=== PATIENT | female | born 1970 | race Caucasian/White ===

== ENCOUNTER → 2016-10-22 | Outpatient (CLI) | payer OTHER ==
[~2016-10-22] MED LIST: /ADVA50050 INH; ALBUPOW9 XX; AMOX400S7 PO; ASOPT OU; ATROVENT NEBULIZER INH; AYR SALINE; BETA10003 PO; BRIN1OPH OU; CETI10TA OR; CLON1TAB PO; CYMB60CA3 PO; DOXY100T PO; FISH1000 PO; FOLI400T PO; IBUP80TA PO; IBUPPOW25 OR; IPRASOL4 INH; KLON2TAB PO; LEVO50TA PO; LORTABELIX PO; LUMI0.01 OU; LUMIGAN EYE OU; MULTCAP PO; NASOCORT; PRED20TA PO; PRED20TAB PO; PROTPAK PO; ROCE1INJ4 IV; TYLE325T5 PO; VIIB40TA PO; VITA200016 PO; ZANT150T PO; ZOFR4TAB3 PO; albuterol inhaler INH; atrovent INH; nebulizer INH; singulair OR
--- NOTE | 2016-10-28 23:53 | ECWPNPC ---
PATIENT NAME: PHOENIX AGUILAR : 1970 GENDER: FEMALE VISIT DATE: 10/22/2016 DISCHARGE DATE: 10/22/16 1253 VISIT LOCKED DATE TIME: PHYSICIAN: RIP SIMMS PHYSICIAN PAGER NO: [phone] RESOURCE: RIP SIMMS REASON FOR APPOINTMENT 1. BACK PAIN HISTORY OF PRESENT ILLNESS NEW PATIENT CONSULT: WHEN DID YOUR PAIN FIRST START? . BRIEFLY DESCRIBE HOW YOUR PAIN STARTED? . HOW DOES YOUR PAIN CHANGE WITH TIME? . DOES YOUR PAIN AWAKEN YOU FROM SLEEP? . HOW MANY HOURS OF SLEEP DO YOU NORMALLY GET? . ANY DIAGNOSTIC TESTING? . FACILITY WHERE TESTS WERE DONE? ____. PAIN TREATMENT TREATMENT YES TREATMENT YES CANCER HAVE YOU EVER HAD ANY TYPE OF CANCER?NO HAVE YOU EVER HAD ANY TYPE OF CANCER?NO NO. 46 YEAR OLD FEMALE PATIENT WITH HISTORY OF CHRONIC BACK PAIN. PATIENT DESCRIBES THE PAIN ACHING, BURNING, TENDER, THROBBING, SORE, AND IT COMES AND GOES WITH A PAIN SCORE OF 5/10. PATIENT REPORTS THAT SITTING IN A CERTAIN WAY WILL CAUSE BOTH LEGS TO GO NUMB. PATIENT REPORTS THAT SHE GOES TO [facility] FOR HER NECK PAIN. PATIENT STATES THAT SHE HAS DIFFICULTIES SLEEPING AT NIGHT. WHEN SHE WAKES UP SHE HAS SHOULDER AND HIP PAIN AND THAT SHE HAS SINUS PROBLEMS. PATIENT STATES THAT SHE GETS MIGRAINES THAT CAN LAST MORE THAN 4 HOURS A DAY AND UP TO 20 DAYS IN A MONTH. PATIENT STATES THAT SHE HAS A C PAP MACHINE. PATIENT REPORTS THAT LIFTING ITEMS CAN INCREASE HER PAIN. PATIENT STATES THAT A HEATING PAD DOES PROVIDE TEMPORARY RELIEF FOR HER BACK AND NECK AREA WHEN APPLIED IN THOSE AREA. PATIENT DENIES UNEXPLAINABLE WEIGHT LOSS, FEVER, CHILLS, NEW CHANGES ON HER URINARY OR BOWEL CONTROL. PAIN SCREENING: PATIENT HAS A COMPLAINT OF ACUTE OR CHRONIC PAIN YES YES PATIENT HAS A COMPLAINT OF ACUTE OR CHRONIC PAIN YES YES FALL RISK SCREENING: SCREENING :NO FALLS IN THE PAST YEAR :NO FALLS IN THE PAST YEAR SCREENING :NO FALLS IN THE PAST YEAR :NO FALLS IN THE PAST YEAR BACK INVENTORY: QUESTIONNAIRE ASSESSEDTBD ASSESSEDTBD QUESTIONNAIRE ASSESSEDTBD ASSESSEDTBD SCORE VALUE CALCULATED TBD VALUE CALCULATED TBD SCORE VALUE CALCULATED TBD VALUE CALCULATED TBD CURRENT MEDICATIONS TAKING VIIBRYD 40 MG TABLET 1 TAB WITH FOOD PO ONCE DAILY (DR. ALLRED) TAKING KLONOPIN 2 MG. TABLET 1 TABLET ORALLY 2MG. THREE TIMES A DAY TAKING MIRALAX _ POWDER 1 PACKET ORALLY DAILY NEEDED TAKING NASACORT AQ 55 MCG/ACT AEROSOL 2 PUFFS IN EACH NOSTRIL NASALLY ONCE A DAY TAKING SALINE 0.65 % (SOLN) SOLUTION DIRECTED NASALLY TWICE A DAY TAKING ALBUTEROL SULFATE HFA 108 (90 BASE) MCG/ACT AEROSOL SOLUTION 2 PUFFS INHALATION NEEDED TAKING ALBUTEROL SULFATE (2.5 MG/3ML) 0.083% NEBULIZATION SOLUTION 3 ML INHALATION THREE TIMES A DAY NEEDED TAKING TIZANIDINE HCL 4 MG TABLET 1 TABLET NEEDED ORALLY EVERY 8 HRS TAKING RIZATRIPTAN BENZOATE 10 MG TABLET DISPERSIBLE 1 TABLET ON THE TONGUE AND ALLOW TO DISSOLVE NEEDED ONE TIME ORALLY ONCE A DAY TAKING VITAMIN D 2000 UNIT TABLET 1 TAB(S) ORALLY ONCE A DAY TAKING FERROUS SULFATE 325 (65 FE) MG TABLET 1 TABLET ORALLY ONCE A DAY TAKING ATROVENT HFA 17 MCG/ACT AEROSOL SOLUTION 2 PUFFS INHALATION FOUR TIMES A DAY TAKING TUSSIONEX PENNKINETIC ER 10-8 MG/5ML SUSPENSION EXTENDED RELEASE 5 ML NEEDED ORALLY (ISTOP REFERENCE #: [id number] ) EVERY 12 HRS PRN COUGH TAKING TESSALON PERLES 100 MG CAPSULE 1 CAPSULE NEEDED ORALLY THREE TIMES A DAY TAKING SUDAFED 12 HOUR 120 MG TABLET EXTENDED RELEASE 12 HOUR 1 TABLET NEEDED ORALLY EVERY 12 HRS TAKING MAY HAVE WEEKLY ALLERGY INJECTIONS TAKING BACTROBAN 2% OINTMENT SMALL AMONT TO HER NOSTRILS APPLIED TOPICALLY TWICE A DAY NEEDED TAKING SINGULAIR 10 MG TABLET 1 TABLET IN THE MORNING ORALLY ONCE A DAY TAKING LEVOTHYROXINE SODIUM 50 MCG TABLET 1 TABLET EVERY MORNING ON AN EMPTY STOMACH ORALLY ONCE A DAY TAKING IPRATROPIUM-ALBUTEROL 0.5-2.5 (3) MG/3ML SOLUTION 3 ML INHALATION FOUR TIMES A DAY NEEDED TAKING PANTOPRAZOLE SODIUM 20 MG TABLET DELAYED RELEASE 1 TABLET ORALLY ONCE A DAY TAKING ZOFRAN ODT 4 MG TABLET DISPERSIBLE ALLOW 1 TABLET TO DISSOLVE ON TONGUE TWO TIMES A DAY NEEDED TAKING MUCINEX MAXIMUM STRENGTH 1200 MG TABLET EXTENDED RELEASE 12 HOUR 1 TABLET NEEDED ORALLY TWICE A DAY NEEDED TAKING DORZOLAMIDE HCL 2 % SOLUTION 1 DROP INTO AFFECTED EYE OPHTHALMIC THREE TIMES A DAY NOT-TAKING ACETAMINOPHEN-CODEINE 300-30 MG TABLET 1 TABLET NEEDED ORALLY QID PRN NOT-TAKING PREDNISONE 20 MG TABLET DIRECTED ORALLY 3 TABS QD X 3 DAYS, THEN 2 TABS QD X 3 DAYS, THEN 1 TAB QD X 3 DAYS, THEN 1/2 TAB QD X 3 DAYS, THEN STOP NOT-TAKING DOXYCYCLINE 40 MG CAPSULE DELAYED RELEASE 1 CAPSULE ON AN EMPTY STOMACH IN THE MORNING ORALLY ONCE A DAY NOT-TAKING ZYRTEC ALLERGY 10 MG TABLET 1 TABLET ORALLY ONCE A DAY NOT-TAKING BETA CAROTENE 85752 UNIT CAPSULE 1 CAPSULE ORALLY ONCE A DAY NOT-TAKING MULTIVITAMINS OTC TABLET 1 TAB ORALLY DAILY NOT-TAKING VITAMIN C 500 MG TABLET 2 TABS ORALLY ONCE A DAY NOT-TAKING DOXYCYCLINE MONOHYDRATE 100 MG CAPSULE 1 CAPSULE ORALLY EVERY 12 HRS NOT-TAKING ZITHROMAX Z-SONIA 250 MG TABLET 2 TABLETS ON THE FIRST DAY, THEN 1 TABLET DAILY FOR 4 DAYS ORALLY ONCE A DAY NOT-TAKING PREDNISONE 20 MG TABLET 4 TABLETS A DAY ---THEN TAPERING OFF ORALLY TAPERING NOT-TAKING DULERA 200-5 MCG/ACT AEROSOL 2 PUFFS INHALATION TWICE A DAY NOT-TAKING ACETAMINOPHEN-CODEINE #3 300-30 MG TABLET 1 TABLET NEEDED ORALLY FOUR TIMES DAILY NEEDED MEDICATION LIST REVIEWED AND RECONCILED WITH THE PATIENT PAST MEDICAL HISTORY MRSA CHRONIC SINUSITIS AND FOLLICULITIS GLAUCOMA ASTHMA - SEVERE PERSISTENT ANXIETY - FOLLOWED BY COMMUNITY CLINIC DEPRESSION HYPOTHYROIDISM ASTHMA MARCOS ON CPAP ECHO 01/10/14 - MILD CONCENTRIC LVH, NORMAL LV SYSTOLIC FUNCTION LVEF = 65%, GRADE 1 LV DIASTOLIC DYSFUNCTION, MODERATE LA DILATION, MILD MITRAL ANNUAL CALCIFICATION MILD FIBROFATTY LIVER PER US 2000 ABNORMAL PAPWITH + HPV (DR. MCNEIL) SMOKER OBESITY RIGHT ROTATOR CUFF TEAR - FOLLOWS WITH ORTHO (HAD W/U FOR ADRENAL INSUFFICIENCY 10/18; CORTISOL SL LOW DUE TO STEROID TX FOR ASTHMA BY , W/U NEG FOR ADDISONS) CHRONIC SINUSITIS--SAW ENT IF WTWN, CT SINUSES 07/18. SAW ENT IN [place], NO RECORDS, TOLD THAT HAS SINUS POLYP ALLERGIES SULFA (FOR ALLERGY USE ONLY): UNKNOWN: ALLERGY ASTEPRO: EAR PAIN AND SWELLING: ALLERGY BIAXIN: DIARRHEA: SIDE EFFECTS ZYVOX: MUSCLE SPASMS: CONTRAINDICATION METFORMIN (FROM DR WISE FOR WT LOSS): DIARRHEA: SIDE EFFECTS SURGICAL HISTORY C SECTIONX2 OVARIAN CYST RESECTION D&C SINUS SURGERYX2 TRIGGER POINT INJECTIONS AND BOTOX FAMILY HISTORY FATHER: MOTHER: ALIVE SIBLINGS: ALIVE SON(S): ALIVE DAUGHTER(S): ALIVE SOCIAL HISTORY GENERAL: TOBACCO USE ARE YOU A:NONSMOKER ARE YOU A:NONSMOKER ARE YOU A:FORMER SMOKER HOW LONG HAS IT BEEN SINCE YOU LAST SMOKED?< 1 MONTH SMOKING CESSATION INFORMATION GIVEN07/06/2016 PAIN CLINIC PFS, CLERGY, PUBLIC HEALTH REFERRALS CLERGY REFERRAL NEEDED?NO WAS THE PROVIDER NOTIFIED OF ANY PERTINENT INFO?NO PFS REFERRAL NEEDED?NO PUBLIC HEALTH REFERRAL NEEDED?NO CLERGY REFERRAL NEEDED?NO WAS THE PROVIDER NOTIFIED OF ANY PERTINENT INFO?NO PFS REFERRAL NEEDED?NO PUBLIC HEALTH REFERRAL NEEDED?NO PSYCHOLOGICAL HX TREATMENTNO TREATMENTNO ALCOHOL OR DRUG TREATMENTNO TREATMENTNO PATIENT: ____, ____. ADVANCED DIRECTIVES HEALTH CARE PROXY?NO POWER OF TEACHER PRESCHOOL?NO HEALTH CARE PROXY?NO POWER OF TEACHER PRESCHOOL?NO SCREENING/ASSESSMENT TOOL NUTRITION ASSESSEDYES ARE YOU ON ANY SPECIAL DIET?NO ANY SIGNIFICANT CHANGES RELATED TO EATING, WEIGHT GAIN/LOSS, OR BOWEL HABITS?NO IF YES, IS YOUR PRIMARY CARE PROVIDER AWARE OF THIS?NO NUTRITION ASSESSEDYES ARE YOU ON ANY SPECIAL DIET?NO ANY SIGNIFICANT CHANGES RELATED TO EATING, WEIGHT GAIN/LOSS, OR BOWEL HABITS?NO IF YES, IS YOUR PRIMARY CARE PROVIDER AWARE OF THIS?NO SPECIAL NEEDS LEVEL OF CARE? SELF, GLASSES: NO, CONTACTS: NO, HEARING AIDS: NO, DENTURES: NO, WALKER: NO, CANE: NO, WHEELCHAIR: NO, REFERRALS NEEDED: NO, LEVEL OF CARE? SELF, GLASSES: NO, CONTACTS: NO, HEARING AIDS: NO, DENTURES: NO, WALKER: NO, CANE: NO, WHEELCHAIR: NO, REFERRALS NEEDED: NO. 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 DIET: REGULAR. EXERCISE: GYM/WEEKLY. MARITAL STATUS: .. OTHERS AT HOME: SPOUSE, MOTHER, CHILDREN. PETS: 1 DOG (MILO). YARSANISM: NO RASTAFARI BELIEFS THAT WOULD IMPACT HEALTH CARE. LANGUAGE: GREENLANDIC. LEARNING BARRIERS / SPECIAL NEEDS CHANGE FROM LAST VISIT?NO BARRIERS TO LEARNING?NO HEARING IMPAIRED?NO VISION IMPAIRED?YES :CORRECTIVE LENSES COGNITIVELY IMPAIRED?NO READINESS TO LEARN?YES LEARNING PREFERENCES?YES :TAPES/VIDEOS, BOOKLETS, HANDOUTS LEARNING CAPABILITIES PRESENT?YES EMOTIONAL BARRIERS?NO TRAVEL OUTSIDE US: NO. HOUSING: RENTS HOUSE. 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 HOSPITALIZATION/MAJOR DIAGNOSTIC PROCEDURE RELATED TO SURGERIES REVIEW OF SYSTEMS CONSTITUTIONAL: ANY CHANGE IN YOUR MEDICAL CONDITION? NO, NO . CHILLS NO, NO . FEVER NO, NO . INFECTION: DO YOU HAVE NEW INFECTIONS? NO, NO . DO YOU HAVE HISTORY OF MRSA? NO, NO . MUSCULOSKELETAL: ANY NEW PATTERNS OF PAIN OR NUMBNESS? NO, NO . SYTEMIC LUPUS NO, NO . GASTROENTEROLOGY: ANY NEW CHANGE IN BOWEL CONTROL? NO, NO . BARRETTS ESOPHAGUS NO, NO . CIRRHOSIS NO, NO . HEPATITIS NO, NO . LIVER FAILURE NO, NO . ACID REFLUX NO, NO . UNEXPLAINED WEIGHT LOSS NO, NO . GENITOURINARY: ANY NEW CHANGE IN BLADDER CONTROL? NO, NO . IS THERE A CHANCE YOU COULD BE ? NO, NO . HEMATOLOGY/LYMPH: DO YOU TAKE ANY BLOOD THINNERS? (FOR EXAMPLE- COUMADIN, PLAVIX, AGGRENOX, PLATEL, PRADAXA, OR XARELTO) NO, NO . WHEN WAS YOUR LAST DOSE? DATE: TIME: , DATE: TIME: . LOW PLATELET COUNT NO, NO . SICKLE CELL DISEASE NO, NO . VON WILLIEBRANDS NO, NO . FACTOR V LEIDEN NO, NO . THALLASEMIA NO, NO . ANEMIA NO, NO . EASY BRUISING NO, NO . NEUROLOGY: HAVE YOU FALLEN IN THE PAST 6 MONTHS? NO, NO . ANY NEW EXTREMITY NUMBNESS OR WEAKNESS? NO, NO . HEAD INJURY NO, NO . DEMENTIA NO, NO . CEREBRAL PALSY NO, NO . MULTIPLE SCLEROSIS NO, NO . DIZZINESS NO, NO . HEADACHE NO, NO . STROKES NO, NO . VERTIGO NO, NO . CARDIOLOGY: DO YOU HAVE A PACEMAKER OR DEFIBRILLATOR? NO, NO . ANGINA NO, NO . HEART ATTACK NO, NO . HEART SURGERY NO, NO . CONGESTIVE HEART FAILURE/FLUID OVERLOAD NO, NO . CHEST PAIN NO, NO . HIGH BLOOD PRESSURE NO, NO . IRREGULAR HEART BEAT NO, NO . RESPIRATORY: HAVE YOU BEEN SICK IN THE PAST WEEK? NO, NO . FEVER NO, NO . FLU LIKE SYMPTOMS? NO, NO . CPAP NO, NO . BYPAP NO, NO . ASTHMA NO, NO . EMPHYSEMA NO, NO . CHRONIC LUNG DISEASES NO, NO . SHORTNESS OF BREATH ON EXERTION NO, NO . DO YOU USE ANY TYPE OF TOBACCO (SMOKE, SMOKELESS, CHEW)? NO, NO . COUGH NO, NO . SNORING NO, NO . INTEGUMENTARY: DO YOU HAVE ANY RASHES OR OPEN SORES? NO, NO . ALLERGIC/IMMUNO: ARE YOU ALLERGIC TO SHELLFISH OR IV DYE? NO, NO . ANY NEW ALLERGIES? NO, NO . PSYCHIATRIC: DO YOU HAVE THOUGHTS OF HURTING YOURSELF OR SOMEONE ELSE? NO, NO . ARE YOU ABUSED, NEGLECTED, OR IN AN UNSAFE ENVIRONMENT? NO, NO . ENDOCRINOLOGY: ARE YOU DIABETIC? NO, NO . THYROID DISORDER NO, NO . OTHER: DO YOU NEED ANY PRESCRIPTIONS? NO, NO . IF YES, PLEASE LIST: ____, ____ . ANY NEW PROBLEMS WITH YOUR MEDICATIONS? NO, NO . WHEN DID YOU LAST EAT? ____, ____ . WHEN DID YOU LAST DRINK? ____, ____ . WHAT DID YOU LAST DRINK? ____, ____ . NAME OF PERSON DRIVING YOU HOME? ____, ____ . DO YOU HAVE ANY OTHER QUESTIONS OR CONCERNS NO, NO . REVIEWED BY: PROVIDER: RIP SIMMS MD . VITAL SIGNS WT 187.8 LBS, HT 60 IN, BMI 36.67 INDEX, BP 114/69 MM HG, HR 75 /MIN, RR 16 /MIN, TEMP 98.7 F, OXYGEN SAT % 98, NA INITIALS TL 1054, REVIEWED BY: KG. EXAMINATION : PATIENT IS ALERT O X 3 AND COOPERATIVE. PATIENT AMBULATES WITH AN ANTALGIC GAIT. PATIENT IS ABLE TO ABDUCT UPPER EXTREMITIES AT 100 DEGREES. PATIENT IS ABLE TO FLEX HER BACK AT 45 DEGREES AND CAN NOT EXTEND HER BACK. PATIENT LEFT LEG IS WEAKER BOTH AT EXTENSION AND FLEXION COMPARED TO THE RIGHT LEG. ASSESSMENTS MIGRAINE, UNSPECIFIED, NOT INTRACTABLE, WITHOUT STATUS MIGRAINOSUS - G43.909 (PRIMARY) LOW BACK PAIN - M54.5 FIBROMYALGIA - M79.7 MYALGIA - M79.1 INTERVERTEBRAL DISC DISORDERS WITH RADICULOPATHY, LUMBAR REGION - M51.16 TREATMENT MIGRAINE, UNSPECIFIED, NOT INTRACTABLE, WITHOUT STATUS MIGRAINOSUS REFILL TIZANIDINE HCL CAPSULE, 6 MG, 1 TABLET NEEDED, ORALLY, BEFORE BEDTIME MAY REPEAT IN 4 HRS, 30 DAY(S), 50, REFILLS 1 NOTES: WE DISCUSSED SEVERAL ISSUES WITH MS. AGUILAR PAIN MANAGEMENT CASE. AT THIS TIME THE PATIENT WILL RECEIVE A REFILL OF HER TIZANIDINE WITH AN INCREASE DOSAGE. PATIENT IS A GOOD CANDIDATE FOR A TIGER POINT INJECTION AT THIS TIME WITHOUT STEROIDS. WE DISCUSSED THE RISK, ALTERNATIVES AND BENEFITS AND THE PATIENT WOULD LIKE TO PROCEED. PATIENT TO FOLLOW UP WITH MAE PIERCE IN 3 WEEKS. INSTRUCTIONS WERE GIVEN, QUESTIONS WERE ANSWERED, PATIENT REPORTS UNDERSTANDING AND AGREES WITH THE PLAN. I, FAITH STEARNS, DOCUMENTED THE ABOVE INFORMATION ACTING A SCRIBE FOR DR. SIMMS. I HAVE REVIEWED THE ABOVE DOCUMENT, WRITTEN BY FAITH CHOIBAndrea AND I VERIFY THAT IT IS ACCURATE. DEAR SREEKANTH Smith-THANK YOU FOR YOUR KIND REFERRAL OF MS. AGUILAR. IF YOU WOULD LIKE TO DISCUSS HER CASE WITH ME, PLEASE CALL ME AT THE PAIN CENTER AT [phone]. PROCEDURE CODES FA211 ESTABILISHED PATIENT [facility] CHARGE G8730 PAIN ASSESS POS TOOL F/U PLAN DOC G8427 DOC MEDS VERIFIED W/PT OR RE FOLLOW UP TPI PENDING APPROVAL ELECTRONICALLY SIGNED BY RIP SIMMS MD ON 10/28/2016 AT 09:56 PM EST DISCLAIMER : THIS IS A VISIT SUMMARY EXTRACTED FROM THE [employer] CHART. IT IS NOT A COPY OF THE [employer] PROGRESS NOTE. MTDD
== END ==
LOC: M PAIN 11:20
PROVIDERS: ATTEND Anesthesiology
DX: G89.29 Other chronic pain (principal); G43.909 Migraine, unspecified, not intractable, without status migrainosus; M54.5 Low back pain; M79.7 Fibromyalgia; M51.16 Intervertebral disc disorders with radiculopathy, lumbar region; J45.909 Unspecified asthma, uncomplicated; H40.9 Unspecified glaucoma; F32.9 Major depressive disorder, single episode, unspecified; E03.9 Hypothyroidism, unspecified; G47.30 Sleep apnea, unspecified; E66.9 Obesity, unspecified; Z68.36 Body mass index [BMI] 36.0-36.9, adult; Z88.2 Allergy status to sulfonamides; Z88.8 Allergy status to other drugs, medicaments and biological substances; Z79.899 Other long term (current) drug therapy; Z98.890 Other specified postprocedural states; Z86.14 Personal history of Methicillin resistant Staphylococcus aureus infection; Z87.891 Personal history of nicotine dependence

== ENCOUNTER → 2016-10-27 | Outpatient (CLI) | payer OTHER ==
[~2016-10-27] MED LIST changes: +BUPIVACAINE HCL 0.25% 10 ML VIAL As Ordered ONE; +BUPIVACAINE HCL 0.25% 30 ML VIAL As Ordered ONE; +diazePAM 5 MG TAB As Ordered ONE; +oxyCODONE 5MG TAB As Ordered ONE
--- NOTE | 2016-10-30 23:33 | ECWPNPC ---
PATIENT NAME: PHOENIX AGUILAR : 1970 GENDER: FEMALE VISIT DATE: 10/27/2016 DISCHARGE DATE: 10/27/16 1106 VISIT LOCKED DATE TIME: PHYSICIAN: RIP SIMMS PHYSICIAN PAGER NO: [phone] RESOURCE: RIP SIMMS REASON FOR APPOINTMENT 1. TPI LOW BACK NO STERIODS CURRENT MEDICATIONS TAKING TIZANIDINE HCL 6 MG CAPSULE 1 TABLET NEEDED ORALLY BEFORE BEDTIME MAY REPEAT IN 4 HRS, NOTES: 10/26 2PM TAKING VIIBRYD 40 MG TABLET 1 TAB WITH FOOD PO ONCE DAILY (DR. ALLRED), NOTES: 10/27 4AM TAKING KLONOPIN 2 MG. TABLET 1 TABLET ORALLY 2MG. THREE TIMES A DAY, NOTES: 10/27 4AM TAKING MIRALAX _ POWDER 1 PACKET ORALLY DAILY NEEDED, NOTES: 2 DAYS AGO TAKING NASACORT AQ 55 MCG/ACT AEROSOL 2 PUFFS IN EACH NOSTRIL NASALLY ONCE A DAY, NOTES: 1 MONTH TAKING SALINE 0.65 % (SOLN) SOLUTION DIRECTED NASALLY TWICE A DAY, NOTES: 2-3 WEEKS AGO TAKING ALBUTEROL SULFATE HFA 108 (90 BASE) MCG/ACT AEROSOL SOLUTION 2 PUFFS INHALATION NEEDED, NOTES: 10/27 3AM TAKING ALBUTEROL SULFATE (2.5 MG/3ML) 0.083% NEBULIZATION SOLUTION 3 ML INHALATION THREE TIMES A DAY NEEDED, NOTES: 1 MONTH TAKING RIZATRIPTAN BENZOATE 10 MG TABLET DISPERSIBLE 1 TABLET ON THE TONGUE AND ALLOW TO DISSOLVE NEEDED ONE TIME ORALLY ONCE A DAY, NOTES: 2 MONBTHS TAKING VITAMIN D 2000 UNIT TABLET 1 TAB(S) ORALLY ONCE A DAY, NOTES: 10/27 3AM TAKING FERROUS SULFATE 325 (65 FE) MG TABLET 1 TABLET ORALLY ONCE A DAY, NOTES: 2 WEEKS AGO TAKING ATROVENT HFA 17 MCG/ACT AEROSOL SOLUTION 2 PUFFS INHALATION FOUR TIMES A DAY, NOTES: 10/27 4AM TAKING TUSSIONEX PENNKINETIC ER 10-8 MG/5ML SUSPENSION EXTENDED RELEASE 5 ML NEEDED ORALLY (ISTOP REFERENCE #: [id number] ) EVERY 12 HRS PRN COUGH, NOTES: APRIL TAKING TESSALON PERLES 100 MG CAPSULE 1 CAPSULE NEEDED ORALLY THREE TIMES A DAY, NOTES: APRIL TAKING SUDAFED 12 HOUR 120 MG TABLET EXTENDED RELEASE 12 HOUR 1 TABLET NEEDED ORALLY EVERY 12 HRS, NOTES: APRIL TAKING MAY HAVE WEEKLY ALLERGY INJECTIONS TAKING BACTROBAN 2% OINTMENT SMALL AMONT TO HER NOSTRILS APPLIED TOPICALLY TWICE A DAY NEEDED, NOTES: APRIL TAKING SINGULAIR 10 MG TABLET 1 TABLET IN THE MORNING ORALLY ONCE A DAY, NOTES: 10/27 4AM TAKING LEVOTHYROXINE SODIUM 50 MCG TABLET 1 TABLET EVERY MORNING ON AN EMPTY STOMACH ORALLY ONCE A DAY, NOTES: 10/27 4AM TAKING IPRATROPIUM-ALBUTEROL 0.5-2.5 (3) MG/3ML SOLUTION 3 ML INHALATION FOUR TIMES A DAY NEEDED TAKING PANTOPRAZOLE SODIUM 20 MG TABLET DELAYED RELEASE 1 TABLET ORALLY ONCE A DAY, NOTES: 2 DAYS AGO TAKING ZOFRAN ODT 4 MG TABLET DISPERSIBLE ALLOW 1 TABLET TO DISSOLVE ON TONGUE TWO TIMES A DAY NEEDED , NOTES: 2 DAYS AGO TAKING MUCINEX MAXIMUM STRENGTH 1200 MG TABLET EXTENDED RELEASE 12 HOUR 1 TABLET NEEDED ORALLY TWICE A DAY NEEDED, NOTES: 2 DAYS TAKING DORZOLAMIDE HCL 2 % SOLUTION 1 DROP INTO AFFECTED EYE OPHTHALMIC THREE TIMES A DAY, NOTES: 2 DAYS AGO NOT-TAKING ACETAMINOPHEN-CODEINE 300-30 MG TABLET 1 TABLET NEEDED ORALLY QID PRN NOT-TAKING PREDNISONE 20 MG TABLET DIRECTED ORALLY 3 TABS QD X 3 DAYS, THEN 2 TABS QD X 3 DAYS, THEN 1 TAB QD X 3 DAYS, THEN 1/2 TAB QD X 3 DAYS, THEN STOP NOT-TAKING DOXYCYCLINE 40 MG CAPSULE DELAYED RELEASE 1 CAPSULE ON AN EMPTY STOMACH IN THE MORNING ORALLY ONCE A DAY NOT-TAKING ZYRTEC ALLERGY 10 MG TABLET 1 TABLET ORALLY ONCE A DAY NOT-TAKING BETA CAROTENE 10705 UNIT CAPSULE 1 CAPSULE ORALLY ONCE A DAY NOT-TAKING MULTIVITAMINS OTC TABLET 1 TAB ORALLY DAILY NOT-TAKING VITAMIN C 500 MG TABLET 2 TABS ORALLY ONCE A DAY NOT-TAKING DOXYCYCLINE MONOHYDRATE 100 MG CAPSULE 1 CAPSULE ORALLY EVERY 12 HRS NOT-TAKING ZITHROMAX Z-SONIA 250 MG TABLET 2 TABLETS ON THE FIRST DAY, THEN 1 TABLET DAILY FOR 4 DAYS ORALLY ONCE A DAY NOT-TAKING PREDNISONE 20 MG TABLET 4 TABLETS A DAY ---THEN TAPERING OFF ORALLY TAPERING NOT-TAKING DULERA 200-5 MCG/ACT AEROSOL 2 PUFFS INHALATION TWICE A DAY NOT-TAKING ACETAMINOPHEN-CODEINE #3 300-30 MG TABLET 1 TABLET NEEDED ORALLY FOUR TIMES DAILY NEEDED MEDICATION LIST REVIEWED AND RECONCILED WITH THE PATIENT PAST MEDICAL HISTORY MRSA CHRONIC SINUSITIS AND FOLLICULITIS GLAUCOMA ASTHMA - SEVERE PERSISTENT ANXIETY - FOLLOWED BY COMMUNITY CLINIC DEPRESSION HYPOTHYROIDISM ASTHMA MARCOS ON CPAP ECHO 01/10/14 - MILD CONCENTRIC LVH, NORMAL LV SYSTOLIC FUNCTION LVEF = 65%, GRADE 1 LV DIASTOLIC DYSFUNCTION, MODERATE LA DILATION, MILD MITRAL ANNUAL CALCIFICATION MILD FIBROFATTY LIVER PER US 2000 ABNORMAL PAPWITH + HPV (DR. MCNEIL) SMOKER OBESITY RIGHT ROTATOR CUFF TEAR - FOLLOWS WITH ORTHO (HAD W/U FOR ADRENAL INSUFFICIENCY 10/18; CORTISOL SL LOW DUE TO STEROID TX FOR ASTHMA BY , W/U NEG FOR ADDISONS) CHRONIC SINUSITIS--SAW ENT IF WTWN, CT SINUSES 07/18. SAW ENT IN [place], NO RECORDS, TOLD THAT HAS SINUS POLYP ALLERGIES SULFA (FOR ALLERGY USE ONLY): UNKNOWN: ALLERGY ASTEPRO: EAR PAIN AND SWELLING: ALLERGY BIAXIN: DIARRHEA: SIDE EFFECTS ZYVOX: MUSCLE SPASMS: CONTRAINDICATION METFORMIN (FROM DR WISE FOR WT LOSS): DIARRHEA: SIDE EFFECTS SOLU-MEDROL: TACHYCARDIA: SIDE EFFECTS VITAL SIGNS WT 184 LBS, HT 60 IN, BMI 35.93 INDEX, BP 96/72 MM HG, HR 86 /MIN, RR 16 /MIN, TEMP 97.1 F, OXYGEN SAT % 98, SAFE IN ENV? (Y/N) Y, NA INITIALS TL 0939, REVIEWED BY: DEVAN. ASSESSMENTS MYALGIA - M79.1 (PRIMARY) PROCEDURES PN TRIGGER POINT INJECTION NO STEROIDS PRE PROCEDURE DIAGNOSIS 1. MYALGIA 2. PAIN AT BILATERAL LOW BACK AREA POST PROCEDURE DIAGNOSIS 1. MYALGIA 2. PAIN AT BILATERAL LOW BACK AREA PROCEDURE TRIGGER POINT INJECTION AT BILATERAL LOW BACK AREA SURGEON DR. RIP SIMMS ENVIRONMENTAL COMPLIANCE SPECIALIST NONE ANESTHESIA LOCAL PRE PROCEDURE NOTE 46 YEAR-OLD PATIENT WITH HISTORY OF CHRONIC PAIN AT RIGHT AND LEFT LOW BACK AREA. I EVALUATED THE PATIENT AND REVIEWED THE CHART. THERE IS EVIDENCE OF BANDS OF TISSUE WITH RESTRICTION OF MOVEMENT AND PRESENCE OF TRIGGER POINT AT THE AFFECTED AREA. I WENT OVER THE RISKS, ALTERNATIVES, AND BENEFITS ASSOCIATED WITH THIS PROCEDURE. THE PATIENT WOULD LIKE TO PROCEED AND GAVE CONSENT TO PERFORM THE PROCEDURE. THE PATIENT DENIES UNEXPLAINABLE WEIGHT LOSS, FEVER, CHILLS, OR NEW CHANGES IN URINARY OR BOWEL CONTROL. DESCRIPTION OF PROCEDURE THE PATIENT WAS BROUGHT TO THE PROCEDURE ROOM AND PLACED IN THE SITTING POSITION. THE AREA WAS CLEANED WITH ALCOHOL. THE PROCEDURE WAS DONE USING [employer] STERILE TECHNIQUES. I CHECKED LATERALITY AND THE LEVEL WHERE THE PROCEDURE WAS GOING TO BE PERFORMED WITH THE PATIENT AND THE SUPPORTING STAFF AT THE MOMENT OF THE TIME OUT IN THE PROCEDURE ROOM. USING A 25-GAUGE NEEDLE, TRIGGER POINTS WERE INJECTED WITH A TOTAL OF 40 ML OF BUPIVACAINE 0.25%. AGREED WITH THE PATIENT THE PROCEDURE WAS DONE WITHOUT STEROIDS. THERE WAS NO EVIDENCE OF BLOOD, PARESTHESIA OR CEREBROSPINAL FLUID DURING THE PROCEDURE. THE PATIENT WAS SENT TO THE RECOVERY ROOM. THE PATIENT WAS MOVING THE EXTREMITIES AND DOING WELL. THERE WAS NO COMPLICATION DURING THE PROCEDURE. POST PROCEDURE NOTE THE PATIENT WILL BE SEEN IN A FOLLOW UP IN THE NEXT FEW WEEKS. INSTRUCTIONS WERE GIVEN, QUESTIONS WERE ANSWERED, AND THE PATIENT EXPRESSED UNDERSTANDING AND AGREED WITH THE PLAN. PROCEDURE CODES 11415 INJ TRIGGER POINT 10/05 [facility] FOLLOW UP 3 WEEKS ELECTRONICALLY SIGNED BY RIP SIMMS MD ON 10/30/2016 AT 02:01 PM EST DISCLAIMER : THIS IS A VISIT SUMMARY EXTRACTED FROM THE [employer] CHART. IT IS NOT A COPY OF THE [employer] PROGRESS NOTE. ALLEN
== END ==
LOC: M PAIN 10:00
PROVIDERS: ATTEND Anesthesiology
DX: G89.29 Other chronic pain (principal); M79.1 Myalgia; M54.5 Low back pain; E03.9 Hypothyroidism, unspecified; H40.9 Unspecified glaucoma; J45.909 Unspecified asthma, uncomplicated; J32.9 Chronic sinusitis, unspecified; G47.30 Sleep apnea, unspecified; F41.9 Anxiety disorder, unspecified; F32.9 Major depressive disorder, single episode, unspecified; E66.9 Obesity, unspecified; Z68.35 Body mass index [BMI] 35.0-35.9, adult; Z88.2 Allergy status to sulfonamides; Z88.8 Allergy status to other drugs, medicaments and biological substances; Z79.899 Other long term (current) drug therapy; Z86.14 Personal history of Methicillin resistant Staphylococcus aureus infection; Z87.891 Personal history of nicotine dependence; Z98.890 Other specified postprocedural states

== ENCOUNTER → 2016-11-09 | Outpatient (REF) | payer OTHER ==
[~2016-11-09] MED LIST changes: -BUPIVACAINE HCL 0.25% 10 ML VIAL As Ordered ONE; -BUPIVACAINE HCL 0.25% 30 ML VIAL As Ordered ONE; -diazePAM 5 MG TAB As Ordered ONE; -oxyCODONE 5MG TAB As Ordered ONE
== END ==
LOC: M LAB REF 13:39
PROVIDERS: ATTEND Specialist
DX: Z01.419 Encounter for gynecological examination (general) (routine) without abnormal findings (principal); Z11.51 Encounter for screening for human papillomavirus (HPV)

== ENCOUNTER → 2016-11-11 | Outpatient (CLI) | payer OTHER ==
--- NOTE | 2016-11-11 23:43 | ECWPNPC ---
PATIENT NAME: PHOENIX AGUILAR : 1970 GENDER: FEMALE VISIT DATE: 11/11/2016 DISCHARGE DATE: 11/11/16 1114 VISIT LOCKED DATE TIME: PHYSICIAN: MAE PIERCE PHYSICIAN PAGER NO: [phone] RESOURCE: MAE PIERCE REASON FOR APPOINTMENT 1. LOW BACK-POST TPI HISTORY OF PRESENT ILLNESS HISTORY OF PRESENT ILLNESS: HERE FOR POST PROCEURE F/U.HAD TPI LOW BACK ON 10-27-16.CALLED TWO DAYS LATTER WITH COMPLAINTS OF AGGREVATION OF PAIN.RATING PAIN VAS 4/10.DESCRIBES PAIN INTERMITTENT ACHING AND TIGHTNESS.C/O OF GENERALIZED JOINT PAIN.WILL BE SEEING SURGEON IN REGARDS TO NECK PAIN WITH WHAT PATIENT DESCRIBES HERNIATED DISC. FALL RISK SCREENING: SCREENING :NO FALLS IN THE PAST YEAR CURRENT MEDICATIONS TAKING TIZANIDINE HCL 6 MG CAPSULE 1 TABLET NEEDED ORALLY BEFORE BEDTIME MAY REPEAT IN 4 HRS TAKING VIIBRYD 40 MG TABLET 1 TAB WITH FOOD PO ONCE DAILY (DR. ALLRED) TAKING KLONOPIN 2 MG. TABLET 1 TABLET ORALLY 2MG. THREE TIMES A DAY TAKING MIRALAX _ POWDER 1 PACKET ORALLY DAILY NEEDED TAKING NASACORT AQ 55 MCG/ACT AEROSOL 2 PUFFS IN EACH NOSTRIL NASALLY ONCE A DAY, NOTES: 1 MONTH TAKING SALINE 0.65 % (SOLN) SOLUTION DIRECTED NASALLY TWICE A DAY, NOTES: 2-3 WEEKS AGO TAKING ALBUTEROL SULFATE HFA 108 (90 BASE) MCG/ACT AEROSOL SOLUTION 2 PUFFS INHALATION NEEDED TAKING ALBUTEROL SULFATE (2.5 MG/3ML) 0.083% NEBULIZATION SOLUTION 3 ML INHALATION THREE TIMES A DAY NEEDED TAKING RIZATRIPTAN BENZOATE 10 MG TABLET DISPERSIBLE 1 TABLET ON THE TONGUE AND ALLOW TO DISSOLVE NEEDED ONE TIME ORALLY ONCE A DAY TAKING VITAMIN D 2000 UNIT TABLET 1 TAB(S) ORALLY ONCE A DAY TAKING ATROVENT HFA 17 MCG/ACT AEROSOL SOLUTION 2 PUFFS INHALATION FOUR TIMES A DAY TAKING TUSSIONEX PENNKINETIC ER 10-8 MG/5ML SUSPENSION EXTENDED RELEASE 5 ML NEEDED ORALLY (ISTOP REFERENCE #: [id number] ) EVERY 12 HRS PRN COUGH, NOTES: APRIL TAKING TESSALON PERLES 100 MG CAPSULE 1 CAPSULE NEEDED ORALLY THREE TIMES A DAY TAKING SUDAFED 12 HOUR 120 MG TABLET EXTENDED RELEASE 12 HOUR 1 TABLET NEEDED ORALLY EVERY 12 HRS, NOTES: APRIL TAKING MAY HAVE WEEKLY ALLERGY INJECTIONS TAKING BACTROBAN 2% OINTMENT SMALL AMONT TO HER NOSTRILS APPLIED TOPICALLY TWICE A DAY NEEDED, NOTES: APRIL TAKING SINGULAIR 10 MG TABLET 1 TABLET IN THE MORNING ORALLY ONCE A DAY, NOTES: 10/27 4AM TAKING LEVOTHYROXINE SODIUM 50 MCG TABLET 1 TABLET EVERY MORNING ON AN EMPTY STOMACH ORALLY ONCE A DAY, NOTES: 10/27 4AM TAKING IPRATROPIUM-ALBUTEROL 0.5-2.5 (3) MG/3ML SOLUTION 3 ML INHALATION FOUR TIMES A DAY NEEDED TAKING PANTOPRAZOLE SODIUM 20 MG TABLET DELAYED RELEASE 1 TABLET ORALLY ONCE A DAY, NOTES: 2 DAYS AGO TAKING ZOFRAN ODT 4 MG TABLET DISPERSIBLE ALLOW 1 TABLET TO DISSOLVE ON TONGUE TWO TIMES A DAY NEEDED , NOTES: 2 DAYS AGO TAKING MUCINEX MAXIMUM STRENGTH 1200 MG TABLET EXTENDED RELEASE 12 HOUR 1 TABLET NEEDED ORALLY TWICE A DAY NEEDED, NOTES: 2 DAYS TAKING DORZOLAMIDE HCL 2 % SOLUTION 1 DROP INTO AFFECTED EYE OPHTHALMIC THREE TIMES A DAY, NOTES: 2 DAYS AGO TAKING DOXYCYCLINE MONOHYDRATE 100 MG CAPSULE 1 CAPSULE ORALLY EVERY 12 HRS NOT-TAKING FERROUS SULFATE 325 (65 FE) MG TABLET 1 TABLET ORALLY ONCE A DAY, NOTES: 2 WEEKS AGO NOT-TAKING ACETAMINOPHEN-CODEINE 300-30 MG TABLET 1 TABLET NEEDED ORALLY QID PRN NOT-TAKING PREDNISONE 20 MG TABLET DIRECTED ORALLY 3 TABS QD X 3 DAYS, THEN 2 TABS QD X 3 DAYS, THEN 1 TAB QD X 3 DAYS, THEN 1/2 TAB QD X 3 DAYS, THEN STOP NOT-TAKING DOXYCYCLINE 40 MG CAPSULE DELAYED RELEASE 1 CAPSULE ON AN EMPTY STOMACH IN THE MORNING ORALLY ONCE A DAY NOT-TAKING ZYRTEC ALLERGY 10 MG TABLET 1 TABLET ORALLY ONCE A DAY NOT-TAKING BETA CAROTENE 93140 UNIT CAPSULE 1 CAPSULE ORALLY ONCE A DAY NOT-TAKING MULTIVITAMINS OTC TABLET 1 TAB ORALLY DAILY NOT-TAKING VITAMIN C 500 MG TABLET 2 TABS ORALLY ONCE A DAY NOT-TAKING ZITHROMAX Z-SONIA 250 MG TABLET 2 TABLETS ON THE FIRST DAY, THEN 1 TABLET DAILY FOR 4 DAYS ORALLY ONCE A DAY NOT-TAKING PREDNISONE 20 MG TABLET 4 TABLETS A DAY ---THEN TAPERING OFF ORALLY TAPERING NOT-TAKING DULERA 200-5 MCG/ACT AEROSOL 2 PUFFS INHALATION TWICE A DAY NOT-TAKING ACETAMINOPHEN-CODEINE #3 300-30 MG TABLET 1 TABLET NEEDED ORALLY FOUR TIMES DAILY NEEDED MEDICATION LIST REVIEWED AND RECONCILED WITH THE PATIENT PAST MEDICAL HISTORY MRSA CHRONIC SINUSITIS AND FOLLICULITIS GLAUCOMA ASTHMA - SEVERE PERSISTENT ANXIETY - FOLLOWED BY [facility] DEPRESSION HYPOTHYROIDISM ASTHMA MARCOS ON CPAP ECHO 01/10/14 - MILD CONCENTRIC LVH, NORMAL LV SYSTOLIC FUNCTION LVEF = 65%, GRADE 1 LV DIASTOLIC DYSFUNCTION, MODERATE LA DILATION, MILD MITRAL ANNUAL CALCIFICATION MILD FIBROFATTY LIVER PER US 2000 ABNORMAL PAPWITH + HPV (DR. MCNEIL) SMOKER OBESITY RIGHT ROTATOR CUFF TEAR - FOLLOWS WITH ORTHO (HAD W/U FOR ADRENAL INSUFFICIENCY 10/18; CORTISOL SL LOW DUE TO STEROID TX FOR ASTHMA BY , W/U NEG FOR ADDISONS) CHRONIC SINUSITIS--SAW ENT IF WTWN, CT SINUSES 07/18. SAW ENT IN [place], NO RECORDS, TOLD THAT HAS SINUS POLYP ALLERGIES SULFA (FOR ALLERGY USE ONLY): UNKNOWN: ALLERGY ASTEPRO: EAR PAIN AND SWELLING: ALLERGY BIAXIN: DIARRHEA: SIDE EFFECTS ZYVOX: MUSCLE SPASMS: CONTRAINDICATION METFORMIN (FROM DR WISE FOR WT LOSS): DIARRHEA: SIDE EFFECTS SOLU-MEDROL: TACHYCARDIA: SIDE EFFECTS SOCIAL HISTORY GENERAL: TOBACCO USE ARE YOU A:NONSMOKER LEARNING BARRIERS / SPECIAL NEEDS ORIENTED TO PLAN OF CARE: PATIENT, PAIN MANAGEMENT PATIENT, ORIENTED TO PLAN OF CARE: PATIENT, PAIN MANAGEMENT PATIENT. NEW PATIENT PAIN DIARY TODAY'S VISITNOTES FROM 0-10, WHAT LEVEL IS YOUR PAIN TODAY?0 PAIN CLINIC PFS, CLERGY, PUBLIC HEALTH REFERRALS PFS REFERRAL NEEDED?NO CLERGY REFERRAL NEEDED?NO PUBLIC HEALTH REFERRAL NEEDED?NO WAS THE PROVIDER NOTIFIED OF ANY PERTINENT INFO?NO PFS REFERRAL NEEDED?NO CLERGY REFERRAL NEEDED?NO PUBLIC HEALTH REFERRAL NEEDED?NO WAS THE PROVIDER NOTIFIED OF ANY PERTINENT INFO?NO REVIEW OF SYSTEMS CONSTITUTIONAL: ANY CHANGE IN YOUR MEDICAL CONDITION? NO . RECENT ILLNESS DENIES . CHILLS NO . FEVER NO . WEIGHT LOSS DENIES . INFECTION: DO YOU HAVE NEW INFECTIONS? NO . DO YOU HAVE HISTORY OF MRSA? NO . MUSCULOSKELETAL: ANY NEW PATTERNS OF PAIN OR NUMBNESS? NO . GASTROENTEROLOGY: ANY NEW CHANGE IN BOWEL CONTROL? NO . GENITOURINARY: ANY NEW CHANGE IN BLADDER CONTROL? NO . IS THERE A CHANCE YOU COULD BE ? NO . HEMATOLOGY/LYMPH: DO YOU TAKE ANY BLOOD THINNERS? (FOR EXAMPLE- COUMADIN, PLAVIX, AGGRENOX, PLATEL, PRADAXA, OR XARELTO) NO . WHEN WAS YOUR LAST DOSE? DATE: TIME: . NEUROLOGY: HAVE YOU FALLEN IN THE PAST 6 MONTHS? NO . ANY NEW EXTREMITY NUMBNESS OR WEAKNESS? NO . CARDIOLOGY: DO YOU HAVE A PACEMAKER OR DEFIBRILLATOR? NO . CHEST PAIN DENIES . SHORTNESS OF BREATH DENIES . RESPIRATORY: HAVE YOU BEEN SICK IN THE PAST WEEK? NO . FEVER NO . FLU LIKE SYMPTOMS? NO . COUGH NO, DENIES . SHORTNESS OF BREATH DENIES . INTEGUMENTARY: DO YOU HAVE ANY RASHES OR OPEN SORES? NO . ALLERGIC/IMMUNO: ARE YOU ALLERGIC TO SHELLFISH OR IV DYE? NO . ANY NEW ALLERGIES? NO . PSYCHIATRIC: DO YOU HAVE THOUGHTS OF HURTING YOURSELF OR SOMEONE ELSE? NO . ARE YOU ABUSED, NEGLECTED, OR IN AN UNSAFE ENVIRONMENT? NO . ENDOCRINOLOGY: ARE YOU DIABETIC? NO . OTHER: DO YOU NEED ANY PRESCRIPTIONS? NO . IF YES, PLEASE LIST: ____ . ANY NEW PROBLEMS WITH YOUR MEDICATIONS? NO . WHEN DID YOU LAST EAT? ____ . WHEN DID YOU LAST DRINK? ____ . WHAT DID YOU LAST DRINK? ____ . NAME OF PERSON DRIVING YOU HOME? ____ . DO YOU HAVE ANY OTHER QUESTIONS OR CONCERNS NO . REVIEWED BY: PROVIDER: MAE VILLALOBOS . VITAL SIGNS WT 186. LBS, HT 60 IN, BMI 36.32 INDEX, BP 127/67 MM HG, HR 73 /MIN, RR 16 /MIN, TEMP 99.2 F, OXYGEN SAT % 97%, NA INITIALS SC 10:35, REVIEWED BY: KG. EXAMINATION GENERAL EXAMINATION: LUNGS:LUNG SOUNDS ARE CLEAR. HEART:HEART RATE REGULAR. MUSCULOSKELETAL:*, MUSCLE STRENGTH TESTING 5/5 BILATERAL LOWER EXTREMITIES., PALPATION: POSITIVE FOR PAIN OVER L/S SPINE. POSITIVE FOR PAIN OVER L/S PARASPINALS.POSITIVE CONOR TEST BILAT SIJ.POINT TENEDERNESS BILAT. SIJR>L.MULTIPLE AREAS OF JOINT AND MUSCULAR TENDERNESS THROUGHOUT.. DIAGNOSTIC:MRI L/S [id number]-REVIEWED. MRI C-SPINE 09-29-16-REVIEWED. ASSESSMENTS LOW BACK PAIN - M54.5 (PRIMARY) FIBROMYALGIA - M79.7 SACROILIAC JOINT PAIN - M53.3 TREATMENT LOW BACK PAIN REFERRAL TO:[facility] REASON:MULTIPLE JOINT PAIN AND SWELLING R/O INFLAMMATORY ARTHROPATHY SACROILIAC JOINT PAIN INJECTION ANESTHETIC SACROILIAC JOINTMAE PIERCE 11/11/2016 11:08:10 AM > BILAT.SIJ PROCEDURE CODES FA211 ESTABILISHED PATIENT [facility] CHARGE FOLLOW UP 2 WEEKS POST (REASON: BILAT. SIJ) ELECTRONICALLY SIGNED BY GRISELDA ALBA ON 11/11/2016 AT 01:45 PM EST DISCLAIMER : THIS IS A VISIT SUMMARY EXTRACTED FROM THE [facility] CHART. IT IS NOT A COPY OF THE [facility] PROGRESS NOTE. ALLEN
== END ==
LOC: M PAIN 10:00
PROVIDERS: ATTEND Nurse Practitioner Family
DX: Z09 Encounter for follow-up examination after completed treatment for conditions other than malignant neoplasm (principal); G89.29 Other chronic pain; M54.5 Low back pain; M79.7 Fibromyalgia; M53.3 Sacrococcygeal disorders, not elsewhere classified; J32.9 Chronic sinusitis, unspecified; J45.909 Unspecified asthma, uncomplicated; E03.9 Hypothyroidism, unspecified; F41.9 Anxiety disorder, unspecified; F32.9 Major depressive disorder, single episode, unspecified; H40.9 Unspecified glaucoma; G47.30 Sleep apnea, unspecified; E66.9 Obesity, unspecified; Z68.36 Body mass index [BMI] 36.0-36.9, adult; Z88.2 Allergy status to sulfonamides; Z88.8 Allergy status to other drugs, medicaments and biological substances; Z79.899 Other long term (current) drug therapy; Z86.14 Personal history of Methicillin resistant Staphylococcus aureus infection; Z87.891 Personal history of nicotine dependence

== ENCOUNTER → 2016-12-02 | Outpatient (CLI) | payer OTHER ==
[~2016-12-02] MED LIST changes: +BUPIVACAINE HCL 0.25% 30 ML VIAL As Ordered ONE; +ISOVUE-M 300 61% 15ML VIAL (Q9967) As Ordered ONE; +LIDOCAINE 1% SDV INJ 30 ML VIAL As Ordered ONE; +TRIAMCINOLONE ACETONIDE SUSP 40 MG/ML VIAL (J3301) As Ordered ONE; +oxyCODONE 5MG TAB As Ordered ONE
--- NOTE | 2016-12-03 07:15 | REP ---
FLUOROSCOPIC GUIDANCE FOR BILATERAL SI JOINT BLOCK: 12/02/2016 CLINICAL HISTORY: Back pain. Four images from C-arm fluoroscopy provided to Dr. Olvera of the pain clinic are reviewed. Bilateral SI joints were examined with two images for each side, one showing the needle at the lower one-third of the joint space. The other at the upper two-thirds of that joint space. This was for both sides. No other finding. Fluoroscopy time: 23 seconds. Signed by Jerry Damico MD 12/03/2016 04:19 P
--- NOTE | 2016-12-05 23:19 | ECWPNPC ---
PATIENT NAME: PHOENIX AGUILAR : 1970 GENDER: FEMALE VISIT DATE: 12/02/2016 DISCHARGE DATE: 12/02/16 1338 VISIT LOCKED DATE TIME: PHYSICIAN: RIP SIMMS PHYSICIAN PAGER NO: [phone] RESOURCE: RIP SIMMS REASON FOR APPOINTMENT 1. SIJ HISTORY OF PRESENT ILLNESS HISTORY OF PRESENT ILLNESS: PAIN THE PATIENT DESCRIBES THE PAIN... FALL RISK SCREENING: SCREENING :NO FALLS IN THE PAST YEAR CURRENT MEDICATIONS TAKING TIZANIDINE HCL 6 MG CAPSULE 1 TABLET NEEDED ORALLY BEFORE BEDTIME MAY REPEAT IN 4 HRS, NOTES: LAST WEEK TAKES 2MG-4MG. TAKING VIIBRYD 40 MG TABLET 1 TAB WITH FOOD PO ONCE DAILY (DR. ALLRED), NOTES: 12-02-16599 TAKING KLONOPIN 2 MG. TABLET 1 TABLET ORALLY 2MG. THREE TIMES A DAY, NOTES: 12-02-16599 TAKING MIRALAX _ POWDER 1 PACKET ORALLY DAILY NEEDED, NOTES: NEEDED TAKING NASACORT AQ 55 MCG/ACT AEROSOL 2 PUFFS IN EACH NOSTRIL NASALLY ONCE A DAY, NOTES: 1 MONTH TAKING SALINE 0.65 % (SOLN) SOLUTION DIRECTED NASALLY TWICE A DAY, NOTES: 2-3 WEEKS AGO TAKING ALBUTEROL SULFATE HFA 108 (90 BASE) MCG/ACT AEROSOL SOLUTION 2 PUFFS INHALATION NEEDED, NOTES: 12-02-16599 TAKING ALBUTEROL SULFATE (2.5 MG/3ML) 0.083% NEBULIZATION SOLUTION 3 ML INHALATION THREE TIMES A DAY NEEDED, NOTES: NONE TAKING RIZATRIPTAN BENZOATE 10 MG TABLET DISPERSIBLE 1 TABLET ON THE TONGUE AND ALLOW TO DISSOLVE NEEDED ONE TIME ORALLY ONCE A DAY, NOTES: NONE TAKING ATROVENT HFA 17 MCG/ACT AEROSOL SOLUTION 2 PUFFS INHALATION FOUR TIMES A DAY, NOTES: 12-02-16599 TAKING SUDAFED 12 HOUR 120 MG TABLET EXTENDED RELEASE 12 HOUR 1 TABLET NEEDED ORALLY EVERY 12 HRS, NOTES: April MAY HAVE WEEKLY ALLERGY INJECTIONS TAKING SINGULAIR 10 MG TABLET 1 TABLET IN THE MORNING ORALLY ONCE A DAY, NOTES: 12-02-16599 TAKING LEVOTHYROXINE SODIUM 50 MCG TABLET 1 TABLET EVERY MORNING ON AN EMPTY STOMACH ORALLY ONCE A DAY, NOTES: 12-02-16599 TAKING IPRATROPIUM-ALBUTEROL 0.5-2.5 (3) MG/3ML SOLUTION 3 ML INHALATION FOUR TIMES A DAY NEEDED, NOTES: NONE TAKING PANTOPRAZOLE SODIUM 20 MG TABLET DELAYED RELEASE 1 TABLET ORALLY ONCE A DAY, NOTES: NONE TAKING ZOFRAN ODT 4 MG TABLET DISPERSIBLE ALLOW 1 TABLET TO DISSOLVE ON TONGUE TWO TIMES A DAY NEEDED , NOTES: 12-02-16 0600 TAKING MUCINEX MAXIMUM STRENGTH 1200 MG TABLET EXTENDED RELEASE 12 HOUR 1 TABLET NEEDED ORALLY TWICE A DAY NEEDED, NOTES: NONE TAKING VITAMIN D 2000 UNIT TABLET 1 TAB(S) ORALLY ONCE A DAY, NOTES: 11-29-16 TAKING FERROUS SULFATE 325 (65 FE) MG TABLET 1 TABLET ORALLY ONCE A DAY, NOTES: NOT-TAKING TUSSIONEX PENNKINETIC ER 10-8 MG/5ML SUSPENSION EXTENDED RELEASE 5 ML NEEDED ORALLY (ISTOP REFERENCE #: [id number] ) EVERY 12 HRS PRN COUGH, NOTES: APRIL NOT-TAKING TESSALON PERLES 100 MG CAPSULE 1 CAPSULE NEEDED ORALLY THREE TIMES A DAY NOT-TAKING BACTROBAN 2% OINTMENT SMALL AMONT TO HER NOSTRILS APPLIED TOPICALLY TWICE A DAY NEEDED, NOTES: APRIL NOT-TAKING DORZOLAMIDE HCL 2 % SOLUTION 1 DROP INTO AFFECTED EYE OPHTHALMIC THREE TIMES A DAY, NOTES: NONE NOT-TAKING MUPIROCIN 2 % OINTMENT APPLY SMALL AMOUNT TOPICALLY TO NOSTRILS TWO TIMES A DAY NEEDED , NOTES: NONE NOT-TAKING ZYRTEC ALLERGY 10 MG TABLET 1 TABLET ORALLY ONCE A DAY NOT-TAKING BETA CAROTENE 10681 UNIT CAPSULE 1 CAPSULE ORALLY ONCE A DAY NOT-TAKING MULTIVITAMINS OTC TABLET 1 TAB ORALLY DAILY NOT-TAKING VITAMIN C 500 MG TABLET 2 TABS ORALLY ONCE A DAY NOT-TAKING ZITHROMAX Z-SONIA 250 MG TABLET 2 TABLETS ON THE FIRST DAY, THEN 1 TABLET DAILY FOR 4 DAYS ORALLY ONCE A DAY NOT-TAKING PREDNISONE 20 MG TABLET 4 TABLETS A DAY ---THEN TAPERING OFF ORALLY TAPERING NOT-TAKING DULERA 200-5 MCG/ACT AEROSOL 2 PUFFS INHALATION TWICE A DAY NOT-TAKING ACETAMINOPHEN-CODEINE #3 300-30 MG TABLET 1 TABLET NEEDED ORALLY FOUR TIMES DAILY NEEDED DISCONTINUED DOXYCYCLINE MONOHYDRATE 100 MG CAPSULE 1 CAPSULE ORALLY EVERY 12 HRS DISCONTINUED ACETAMINOPHEN-CODEINE 300-30 MG TABLET 1 TABLET NEEDED ORALLY QID PRN DISCONTINUED PREDNISONE 20 MG TABLET DIRECTED ORALLY 3 TABS QD X 3 DAYS, THEN 2 TABS QD X 3 DAYS, THEN 1 TAB QD X 3 DAYS, THEN 1/2 TAB QD X 3 DAYS, THEN STOP DISCONTINUED DOXYCYCLINE 40 MG CAPSULE DELAYED RELEASE 1 CAPSULE ON AN EMPTY STOMACH IN THE MORNING ORALLY ONCE A DAY MEDICATION LIST REVIEWED AND RECONCILED WITH THE PATIENT PAST MEDICAL HISTORY MRSA CHRONIC SINUSITIS AND FOLLICULITIS GLAUCOMA ASTHMA - SEVERE PERSISTENT ANXIETY - FOLLOWED BY [facility] DEPRESSION HYPOTHYROIDISM ASTHMA MARCOS ON CPAP ECHO 01/10/14 - MILD CONCENTRIC LVH, NORMAL LV SYSTOLIC FUNCTION LVEF = 65%, GRADE 1 LV DIASTOLIC DYSFUNCTION, MODERATE LA DILATION, MILD MITRAL ANNUAL CALCIFICATION MILD FIBROFATTY LIVER PER US 2000 ABNORMAL PAPWITH + HPV (DR. MCNEIL) SMOKER OBESITY RIGHT ROTATOR CUFF TEAR - FOLLOWS WITH ORTHO (HAD W/U FOR ADRENAL INSUFFICIENCY 10/18; CORTISOL SL LOW DUE TO STEROID TX FOR ASTHMA BY , W/U NEG FOR ADDISONS) CHRONIC SINUSITIS--SAW ENT IF WTWN, CT SINUSES 07/18. SAW ENT IN [place], NO RECORDS, TOLD THAT HAS SINUS POLYP ALLERGIES SULFA (FOR ALLERGY USE ONLY): UNKNOWN: ALLERGY ASTEPRO: EAR PAIN AND SWELLING: ALLERGY BIAXIN: DIARRHEA: SIDE EFFECTS ZYVOX: MUSCLE SPASMS: CONTRAINDICATION METFORMIN (FROM DR WISE FOR WT LOSS): DIARRHEA: SIDE EFFECTS SOLU-MEDROL: TACHYCARDIA: SIDE EFFECTS SOCIAL HISTORY GENERAL: TOBACCO USE ARE YOU A:NONSMOKER LEARNING BARRIERS / SPECIAL NEEDS ORIENTED TO PLAN OF CARE: PATIENT, PAIN MANAGEMENT PATIENT, ORIENTED TO PLAN OF CARE: PATIENT, PAIN MANAGEMENT PATIENT. NEW PATIENT PAIN DIARY TODAY'S VISITNOTES FROM 0-10, WHAT LEVEL IS YOUR PAIN TODAY?0 PAIN CLINIC PFS, CLERGY, PUBLIC HEALTH REFERRALS PFS REFERRAL NEEDED?NO CLERGY REFERRAL NEEDED?NO PUBLIC HEALTH REFERRAL NEEDED?NO WAS THE PROVIDER NOTIFIED OF ANY PERTINENT INFO?NO PFS REFERRAL NEEDED?NO CLERGY REFERRAL NEEDED?NO PUBLIC HEALTH REFERRAL NEEDED?NO WAS THE PROVIDER NOTIFIED OF ANY PERTINENT INFO?NO REVIEW OF SYSTEMS CONSTITUTIONAL: ANY CHANGE IN YOUR MEDICAL CONDITION? NO . CHILLS NO . FEVER NO . INFECTION: DO YOU HAVE NEW INFECTIONS? NO . DO YOU HAVE HISTORY OF MRSA? NO . MUSCULOSKELETAL: ANY NEW PATTERNS OF PAIN OR NUMBNESS? YES, PAIN HER LEGS IS GETTING WORSE . GASTROENTEROLOGY: ANY NEW CHANGE IN BOWEL CONTROL? NO . GENITOURINARY: ANY NEW CHANGE IN BLADDER CONTROL? NO . IS THERE A CHANCE YOU COULD BE ? NO . HEMATOLOGY/LYMPH: DO YOU TAKE ANY BLOOD THINNERS? (FOR EXAMPLE- COUMADIN, PLAVIX, AGGRENOX, PLATEL, PRADAXA, OR XARELTO) NO . WHEN WAS YOUR LAST DOSE? DATE: TIME: . NEUROLOGY: HAVE YOU FALLEN IN THE PAST 6 MONTHS? NO . ANY NEW EXTREMITY NUMBNESS OR WEAKNESS? NO . CARDIOLOGY: DO YOU HAVE A PACEMAKER OR DEFIBRILLATOR? NO . RESPIRATORY: HAVE YOU BEEN SICK IN THE PAST WEEK? NO . FEVER NO . FLU LIKE SYMPTOMS? NO . COUGH NO . INTEGUMENTARY: DO YOU HAVE ANY RASHES OR OPEN SORES? NO . ALLERGIC/IMMUNO: ARE YOU ALLERGIC TO SHELLFISH OR IV DYE? NO . ANY NEW ALLERGIES? NO . PSYCHIATRIC: DO YOU HAVE THOUGHTS OF HURTING YOURSELF OR SOMEONE ELSE? NO . ARE YOU ABUSED, NEGLECTED, OR IN AN UNSAFE ENVIRONMENT? NO . ENDOCRINOLOGY: ARE YOU DIABETIC? NO . OTHER: DO YOU NEED ANY PRESCRIPTIONS? NO . IF YES, PLEASE LIST: ____ . ANY NEW PROBLEMS WITH YOUR MEDICATIONS? NO . WHEN DID YOU LAST EAT? [id number] . WHEN DID YOU LAST DRINK? 12-02-16 09 . WHAT DID YOU LAST DRINK? WATER . NAME OF PERSON DRIVING YOU HOME? ANANDA . DO YOU HAVE ANY OTHER QUESTIONS OR CONCERNS NO . REVIEWED BY: PROVIDER: . VITAL SIGNS WT 184.4 LBS, HT 60 IN, BMI 36.01 INDEX, BP 124/74 MM HG, HR 93 /MIN, RR 16 /MIN, TEMP 98.1 F, OXYGEN SAT % 97%, NA INITIALS SC 10:57, REVIEWED BY: CM. ASSESSMENTS SACROILIITIS, NOT ELSEWHERE CLASSIFIED - M46.1 (PRIMARY) PROCEDURES PN SI PRE PROCEDURE DIAGNOSIS SACROILIITIS, SACROILIAC JOINT DYSFUNCTION POST PROCEDURE DIAGNOSIS SACROILIITIS, SACROILIAC JOINT DYSFUNCTION PROCEDURE BILATERAL SACROILIAC JOINT BLOCK SURGEON DR. RIP SIMMS WASTEWATER TREATMENT PLANT OPERATOR NONE ANESTHESIA LOCAL PRE PROCEDURE NOTE PATIENT WITH HISTORY OF CHRONIC LOW BACK PAIN. I EVALUATED THE PATIENT AND REVIEWED THE CHART. I WENT OVER THE RISKS, ALTERNATIVES, AND BENEFITS ASSOCIATED WITH THIS PROCEDURE. THE PATIENT WOULD LIKE TO PROCEED AND GAVE CONSENT TO PERFORM THE PROCEDURE. THE PATIENT DENIES UNEXPLAINABLE WEIGHT LOSS, FEVER, CHILLS, OR NEW CHANGES IN URINARY OR BOWEL CONTROL DESCRIPTION OF PROCEDURE THE PATIENT WAS BROUGHT TO THE PROCEDURE ROOM AND PLACED IN THE PRONE POSITION. THE LUMBOSACRAL AREA WAS CLEANED WITH CHLORAPREP SOLUTION AND DRAPED ASEPTICALLY. THE PROCEDURE WAS DONE UNDER STERILE CONDITIONS. I CHECKED LATERALITY AND THE LEVEL WHERE THE PROCEDURE WAS GOING TO BE PERFORMED WITH THE PATIENT AND THE SUPPORTING STAFF AT THE MOMENT OF THE TIME OUT IN THE PROCEDURE ROOM. UNDER FLUOROSCOPIC GUIDANCE, TARGET POINT WAS SELECTED AT THE LOWER BORDER OF THE RIGHT AND LEFT SACROILIAC JOINT. TARGET POINT WAS SELECTED AFTER MEDIAL ROTATION AND TILT OF THE MAGNIFIER OF THE C-ARM. LIDOCAINE WAS USED TO NUMB THE SKIN AND SUBCUTANEOUS TISSUE BELOW IT. A SPINAL NEEDLE, 22-GAUGE, WAS ADVANCED UNDER FLUOROSCOPIC GUIDANCE AND FOLLOWING PATIENT FEEDBACK UNTIL THE TARGET AREA WAS TOUCHED. THE POSITION OF THE NEEDLE WAS VERIFIED WITH AP AND LATERAL VIEWS. AFTER PROPER POSITION OF THE NEEDLE WAS ACHIEVED, ISOVUE M DYE 30%, 0.25 ML, WAS INJECTED SHOWING SPREAD OF THE DYE. THEN, A SOLUTION OF 20 MG OF KENALOG WAS INJECTED IN RIGHT JOINT WITH 3 ML OF BUPIVACAINE 0.125%. THERE WAS NO EVIDENCE OF BLOOD, PARESTHESIA OR CEREBROSPINAL FLUID DURING THE PROCEDURE. THE PATIENT WAS SENT TO THE RECOVERY ROOM. THE PATIENT WAS MOVING THE EXTREMITIES AND DOING WELL. THERE WAS NO COMPLICATION DURING THE PROCEDURE. FLUOROSCOPY TIME WAS 23 SECONDS POST PROCEDURE NOTE THE PATIENT WILL BE SEEN IN A FOLLOW UP IN THE NEXT FEW WEEKS. INSTRUCTIONS WERE GIVEN, QUESTIONS WERE ANSWERED, AND THE PATIENT EXPRESSED UNDERSTANDING AND AGREED WITH THE PLAN. I, MELLISA MACIAS, DOCUMENTED THE ABOVE INFORMATION ACTING A SCRIBE FOR DR. SIMMS. I, DR. SIMMS, HAVE REVIEWED THE ABOVE DOCUMENT, SCRIBED BY MELLISA MACIAS, AND I VERIFY THAT IT IS [facility] FLUORO GUIDANCE (PAIN)[id number] PROCEDURE CODES 23788 INJECT SACROILIAC JOINT 6045F RADXPS IN END [id number] PXD DISPOSITION & COMMUNICATION FOLLOW UP 3 WEEKS ELECTRONICALLY SIGNED BY RIP SIMMS MD ON 12/05/2016 AT 03:55 PM EST DISCLAIMER : THIS IS A VISIT SUMMARY EXTRACTED FROM THE [employer] CHART. IT IS NOT A COPY OF THE [employer] PROGRESS NOTE. MTDD
== END ==
LOC: M PAIN 11:10
PROVIDERS: ATTEND Anesthesiology
DX: G89.29 Other chronic pain (principal); M54.5 Low back pain; M46.1 Sacroiliitis, not elsewhere classified; H40.9 Unspecified glaucoma; E03.9 Hypothyroidism, unspecified; J45.50 Severe persistent asthma, uncomplicated; F41.9 Anxiety disorder, unspecified; E66.9 Obesity, unspecified; J32.9 Chronic sinusitis, unspecified; F32.9 Major depressive disorder, single episode, unspecified; G47.33 Obstructive sleep apnea (adult) (pediatric); Z87.891 Personal history of nicotine dependence; Z86.14 Personal history of Methicillin resistant Staphylococcus aureus infection; Z88.2 Allergy status to sulfonamides; Z88.8 Allergy status to other drugs, medicaments and biological substances; Z88.1 Allergy status to other antibiotic agents; Z68.36 Body mass index [BMI] 36.0-36.9, adult
CPT/HCPCS: G0260; J3301; Q9967

== ENCOUNTER → 2016-12-02 | Outpatient (CLI) | payer OTHER ==
[~2016-12-02] MED LIST changes: -BUPIVACAINE HCL 0.25% 30 ML VIAL As Ordered ONE; -ISOVUE-M 300 61% 15ML VIAL (Q9967) As Ordered ONE; -LIDOCAINE 1% SDV INJ 30 ML VIAL As Ordered ONE; -TRIAMCINOLONE ACETONIDE SUSP 40 MG/ML VIAL (J3301) As Ordered ONE; -oxyCODONE 5MG TAB As Ordered ONE
--- NOTE | 2016-12-02 09:01 | REPMRS ---
Patient History The patient states she had a clinical breast exam in 11/2016. No known family history of cancer. Digital Woman Screen Mammo: December 02, 2016 - Exam #: [id number] Bilateral CC and MLO view(s) were taken. Technologist: Guera Boss Technologist Prior study comparison: March 21, 2015, digital bilateral screening mammo, performed at [facility]. January 26, 2014, bilateral bilat screen digital mammo, performed at [facility] ([facility]). July 23, 2009, bilateral screening mammogram, performed at [facility] ([facility]). FINDINGS: There are scattered fibroglandular densities. There has been no change in the appearance of the mammogram from the prior studies. There is a mild amount of scattered fibroglandular density which is fairly symmetric. There is no interval development of dominant mass, architectural distortion, or clustered microcalcification suggestive of malignancy. ASSESSMENT: BI-RADS/ACR category 1 mammogram. Negative. Recommendation Routine screening mammogram in 1 year (for women over age 40). This mammogram was interpreted with the aid of an FDA-approved computer-aided dectection system. Electronically Signed By: Oneal Oconnor MD 12/02/16 0901
== END ==
LOC: M WHC 08:07
PROVIDERS: ATTEND Specialist
DX: Z12.31 Encounter for screening mammogram for malignant neoplasm of breast (principal)

== ENCOUNTER → 2016-12-17 | Outpatient (REF) | payer OTHER ==
[2016-12-17 15:58] LABS: BASO % 0.3 % (0.0-1.0); EOS # 0.2 K/mm3 (0.0-0.50); EOS % 2.1 % (0.0-3.0); LARGE UNSTAINED CELL # 0.1 K/mm3 (0.0-0.4); LYMPH # 2.5 K/mm3 (1.5-4.5); LYMPH % 19.6 % (24.0-44.0); MEAN CORPUSCULAR HEMOGLOBIN 29.1 pg (27.0-33.0); MEAN CORPUSCULAR VOLUME 88.4 fl (80.0-96.0); MONO # 0.6 K/mm3 (0.0-0.8); MONO % 4.6 % (0.0-5.0); NEUTROPHILS # 8.8 K/mm3 (1.8-7.7); NEUTROPHILS % 72.3 % (36.0-66.0); PLATELET COUNT, AUTOMATED 327 k/mm3 (150-450); RED CELL DISTRIBUTION WIDTH 13.6 % (11.5-14.5); WHITE BLOOD COUNT 12.2 K/mm3 (4.0-10.0)
[2016-12-17 16:17] LABS: ALBUMIN 3.7 GM/DL (3.2-5.2); ALBUMIN/GLOBULIN RATIO 1.19 (1.00-1.93); ALKALINE PHOSPHATASE 70 U/L (45-117); ALT/SGPT 23 U/L (12-78); ANION GAP 9 MEQ/L (8-16); AST/SGOT 11 U/L (15-37); BILIRUBIN,TOTAL 0.4 MG/DL (0.2-1.0); BLOOD UREA NITROGEN 16 MG/DL (7-18); CALCIUM LEVEL 8.9 MG/DL (8.5-10.1); CARBON DIOXIDE LEVEL 29 MEQ/L (21-32); CHLORIDE LEVEL 104 MEQ/L (98-107); CHOLESTEROL LEVEL 199 MG/DL (<200); CREATININE FOR GFR 0.92 MG/DL (0.55-1.02); FREE T4 1.05 NG/DL (0.76-1.46); GLOMERULAR FILTRATION RATE > 60.0 (>58); GLUCOSE, FASTING 86 MG/DL (70-105); POTASSIUM SERUM 3.7 MEQ/L (3.5-5.1); SODIUM LEVEL 142 MEQ/L (136-145); TOTAL PROTEIN 6.8 GM/DL (6.4-8.2); TRIGLYCERIDES LEVEL 110 MG/DL (<150)
[2016-12-17 16:41] LABS: ERYTHROCYTE SEDIMENTATION RATE 24 mm/hr (0-20)
== END ==
LOC: M SFHCADAM 11:15
PROVIDERS: ATTEND Nurse Practitioner Family
DX: D50.9 Iron deficiency anemia, unspecified (principal); E03.9 Hypothyroidism, unspecified; M79.7 Fibromyalgia

== ENCOUNTER 2017-03-24 13:26 | Outpatient (CLI) | payer OTHER ==
[~2017-03-24] VITALS: Ht 152.4 cm; Wt 84.4 kg
[2017-03-24] MEDS ORDERED: cefTRIAXone SOD 2 GM in D5W MINI-BAG PLUS 50 ML IV ONE (13:45)
[2017-03-24] MEDS ORDERED: MUCI120T PO (14:50)
== END 2017-03-24 14:45 | disposition home or self-care (01) ==
LOC: M INFU 13:26
PROVIDERS: ATTEND Family Medicine
DX: J45.901 Unspecified asthma with (acute) exacerbation (principal); Z79.899 Other long term (current) drug therapy; Z79.51 Long term (current) use of inhaled steroids; Z88.1 Allergy status to other antibiotic agents; Z88.2 Allergy status to sulfonamides; Z88.8 Allergy status to other drugs, medicaments and biological substances; L23.1 Allergic contact dermatitis due to adhesives; Z91.010 Allergy to peanuts; Z91.011 Allergy to milk products; Z91.012 Allergy to eggs

== ENCOUNTER 2017-03-25 13:58 | Outpatient (CLI) | payer OTHER ==
[~2017-03-25] VITALS: Ht 152.4 cm; Wt 84.4 kg
[~2017-03-25 13:58] MED LIST changes: +MUCI120T PO
[2017-03-25] MEDS ORDERED: cefTRIAXone SOD 2 GM in D5W MINI-BAG PLUS 50 ML IV ONE (15:00)
== END 2017-03-25 16:05 | disposition home or self-care (01) ==
LOC: M INFU 13:58
PROVIDERS: ATTEND Family Medicine
DX: J45.901 Unspecified asthma with (acute) exacerbation (principal); Z79.899 Other long term (current) drug therapy; Z79.51 Long term (current) use of inhaled steroids; Z88.1 Allergy status to other antibiotic agents; Z88.2 Allergy status to sulfonamides; Z88.8 Allergy status to other drugs, medicaments and biological substances; L23.1 Allergic contact dermatitis due to adhesives; Z91.010 Allergy to peanuts; Z91.011 Allergy to milk products; Z91.012 Allergy to eggs

== ENCOUNTER 2017-03-26 12:25 | Outpatient (CLI) | payer OTHER ==
[~2017-03-26] VITALS: Ht 152.4 cm; Wt 84.4 kg
[2017-03-26] MEDS ORDERED: cefTRIAXone SOD 2 GM in D5W MINI-BAG PLUS 50 ML IV ONE (13:00)
[2017-03-26] MEDS ORDERED: methylPREDNISolone INJ 125 MG/2 ML VIAL (J2930) IV ONE (13:00)
[2017-03-26] MEDS ORDERED: methylPREDNISolone 1000 MG VIAL (J2930) IV ONE (13:00)
== END 2017-03-26 14:15 | disposition home or self-care (01) ==
LOC: M INFU 12:25
PROVIDERS: ATTEND Family Medicine
DX: J45.901 Unspecified asthma with (acute) exacerbation (principal); Z79.899 Other long term (current) drug therapy; Z88.8 Allergy status to other drugs, medicaments and biological substances; Z88.2 Allergy status to sulfonamides; J30.2 Other seasonal allergic rhinitis; L23.1 Allergic contact dermatitis due to adhesives; Z88.1 Allergy status to other antibiotic agents; Z91.012 Allergy to eggs; Z91.011 Allergy to milk products

== ENCOUNTER 2017-03-27 13:02 | Emergency (ER) | payer OTHER ==
[~2017-03-27] VITALS: Ht 152.4 cm; Wt 85.4 kg
[2017-03-27] MEDS ORDERED: cefTRIAXone SOD 2 GM in D5W MINI-BAG PLUS 50 ML IV ONE (13:45)
[2017-03-27 15:09] VITALS: BP 120/65
== END 2017-03-27 15:13 | disposition home or self-care (01) ==
LOC: M ED 14:30
DX: J06.9 Acute upper respiratory infection, unspecified (principal); J45.909 Unspecified asthma, uncomplicated; E07.9 Disorder of thyroid, unspecified; F99 Mental disorder, not otherwise specified; Z87.891 Personal history of nicotine dependence; Z88.8 Allergy status to other drugs, medicaments and biological substances; Z88.2 Allergy status to sulfonamides; Z91.010 Allergy to peanuts; Z91.011 Allergy to milk products; J30.2 Other seasonal allergic rhinitis; L23.1 Allergic contact dermatitis due to adhesives; Z79.899 Other long term (current) drug therapy

== ENCOUNTER 2017-03-28 13:29 | Outpatient (CLI) | payer OTHER ==
[~2017-03-28] VITALS: Ht 152.4 cm; Wt 85.0 kg
[2017-03-28 13:11] VITALS: BP 104/64
[2017-03-28] MEDS ORDERED: cefTRIAXone SOD 2 GM in D5W MINI-BAG PLUS 50 ML IV ONE (14:00)
== END 2017-03-28 15:30 | disposition home or self-care (01) ==
LOC: M OPCLI4PR 13:29 → M MSPAV 13:30 → M OPCLI4PR 15:30
PROVIDERS: ATTEND Family Medicine
DX: J45.901 Unspecified asthma with (acute) exacerbation (principal); Z88.8 Allergy status to other drugs, medicaments and biological substances; Z88.1 Allergy status to other antibiotic agents; Z91.012 Allergy to eggs; Z91.011 Allergy to milk products; L23.1 Allergic contact dermatitis due to adhesives; Z91.010 Allergy to peanuts; J30.2 Other seasonal allergic rhinitis; Z88.2 Allergy status to sulfonamides

== ENCOUNTER → 2017-05-26 | Outpatient (CLI) | payer OTHER ==
[~2017-05-26] MED LIST changes: +ADV500INH INH; +ALBU17IN2 INH; +ASPI325T PO; +ATRO0.063 INH; +BRIM1OPD OU; +CARD120C3 PO; +CARD240C5 PO; +DIGO0.25 PO; +DORZ2OPD OU; +ELIQ5TAB PO; +EXCETAB49 PO; +GUAI1TAB PO; +IPRA2IN INH; +LATA5OPD OU; +LEVA12INH INH; +LEVA750T7 PO; +MONT10TA2 PO; +NASA1SPR8; +PANT40TA2 PO; +PROBCAP4 PO; +PROT20TA11 PO; +RIZA10TA2 PO; +TIZA2TA PO; +TIZA4CAP3 PO; +ZANA4TAB PO; +[UNRECOGNIZED DRUG - OTHER]
[2017-05-26 12:56] LABS: BASO % 0.4 % (0.0-1.0); EOS # 0.4 K/mm3 (0.0-0.50); EOS % 5.2 % (0.0-3.0); LARGE UNSTAINED CELL # 0.1 K/mm3 (0.0-0.4); LARGE UNSTAINED CELL % 1.3 % (0.0-4.0); LYMPH % 25.7 % (24.0-44.0); MEAN CORPUSCULAR HEMOGLOBIN 29.4 pg (27.0-33.0); MEAN CORPUSCULAR HGB CONC 34.1 g/dl (32.0-36.5); MEAN CORPUSCULAR VOLUME 86.2 fl (80.0-96.0); MONO # 0.5 K/mm3 (0.0-0.8); MONO % 6.2 % (0.0-5.0); NEUTROPHILS # 4.7 K/mm3 (1.8-7.7); NEUTROPHILS % 61.2 % (36.0-66.0); PLATELET COUNT, AUTOMATED 308 k/mm3 (150-450); RED CELL DISTRIBUTION WIDTH 14.2 % (11.5-14.5); WHITE BLOOD COUNT 7.6 K/mm3 (4.0-10.0)
[2017-05-26 14:37] LABS: ERYTHROCYTE SEDIMENTATION RATE 21 mm/hr (0-20)
[2017-05-28 00:06] LABS: Lyme Disease IgG/IgM Antibodie <0.91 ISR (0.00-0.90); Lyme Disease IgM Ab Quantitati <0.80 index (0.00-0.79)
== END ==
LOC: M SMT 09:34
PROVIDERS: ATTEND Orthopaedic Surgery
DX: M75.41 Impingement syndrome of right shoulder (principal)

== ENCOUNTER → 2017-06-10 | Outpatient (REF) | payer OTHER ==
[2017-06-10 19:36] LABS: FREE T4 0.91 NG/DL (0.76-1.46); PERCENT SATURATION 12.6 % (13.2-45.0)
[2017-06-10 20:10] LABS: MEAN CORPUSCULAR HGB CONC 34.3 g/dl (32.0-36.5); MEAN CORPUSCULAR VOLUME 87.3 fl (80.0-96.0); RED CELL DISTRIBUTION WIDTH 14.4 % (11.5-14.5); RETIC HEMOGLOBIN CONTENT CHr 31.9 PG (24-36); RETICULOCYTE % 2.1 % (0.5-1.5); WHITE BLOOD COUNT 9.1 K/mm3 (4.0-10.0)
== END ==
LOC: M SFHCADAM 12:29
PROVIDERS: ATTEND Family Medicine
DX: D50.9 Iron deficiency anemia, unspecified (principal); F32.9 Major depressive disorder, single episode, unspecified; E03.9 Hypothyroidism, unspecified; E55.9 Vitamin D deficiency, unspecified

== ENCOUNTER 2017-06-23 17:04 | Outpatient (CLI) | payer OTHER ==
[~2017-06-23] VITALS: Ht 152.4 cm; Wt 82.4 kg
[~2017-06-23 17:04] MED LIST changes: -ADV500INH INH; -ALBU17IN2 INH; -ASPI325T PO; -ATRO0.063 INH; -BRIM1OPD OU; -CARD120C3 PO; -CARD240C5 PO; -DIGO0.25 PO; -DORZ2OPD OU; -ELIQ5TAB PO; -EXCETAB49 PO; -GUAI1TAB PO; -IPRA2IN INH; -LATA5OPD OU; -LEVA12INH INH; -LEVA750T7 PO; -MONT10TA2 PO; -NASA1SPR8; -PANT40TA2 PO; -PROBCAP4 PO; -PROT20TA11 PO; -RIZA10TA2 PO; -TIZA2TA PO; -TIZA4CAP3 PO; -ZANA4TAB PO; -[UNRECOGNIZED DRUG - OTHER]
[2017-06-23] MEDS ORDERED: TIZA4CAP3 PO (17:55)
[2017-06-23] MEDS ORDERED: [UNRECOGNIZED DRUG - OTHER] (17:55)
[2017-06-23] MEDS ORDERED: RIZA10TA2 PO (17:55)
[2017-06-23] MEDS ORDERED: IPRATROPIUM 0.5MG/ALBUTEROL 2.5MG INH SOL UD 3ML (DUONEB)(J7620) NEB PRN (18:00)
[2017-06-23] MEDS ORDERED: cefTRIAXone SOD 2 GM in D5W MINI-BAG PLUS 50 ML IV ONE (18:15)
== END 2017-06-23 19:55 ==
LOC: M OPCLI4PR 17:04 → M PED 17:10 → M OPCLI4PR 19:55
PROVIDERS: ATTEND Family Medicine
DX: J01.91 Acute recurrent sinusitis, unspecified (principal); J45.909 Unspecified asthma, uncomplicated; R01.1 Cardiac murmur, unspecified; G47.30 Sleep apnea, unspecified; G43.909 Migraine, unspecified, not intractable, without status migrainosus; F41.9 Anxiety disorder, unspecified; F32.9 Major depressive disorder, single episode, unspecified; M79.7 Fibromyalgia; Z79.899 Other long term (current) drug therapy; Z88.2 Allergy status to sulfonamides; Z88.8 Allergy status to other drugs, medicaments and biological substances
CPT/HCPCS: 94640; 96365; J0696

== ENCOUNTER 2017-06-24 15:17 | Outpatient (CLI) | payer OTHER ==
[~2017-06-24] VITALS: Ht 152.4 cm; Wt 82.9 kg
[~2017-06-24 15:17] MED LIST changes: +RIZA10TA2 PO; +TIZA4CAP3 PO; +[UNRECOGNIZED DRUG - OTHER]
[2017-06-24 15:30] VITALS: BP 122/88
[2017-06-24] MEDS ORDERED: cefTRIAXone SOD 2 GM in D5W MINI-BAG PLUS 50 ML IV ONE (16:00)
== END 2017-06-24 17:20 | disposition home or self-care (01) ==
LOC: M OPCLIPED 15:17 → M PED 15:18 → M OPCLIPED 17:20
PROVIDERS: ATTEND Family Medicine
DX: J01.91 Acute recurrent sinusitis, unspecified (principal)
CPT/HCPCS: 96375; J0696

== ENCOUNTER 2017-06-25 15:11 | Outpatient (CLI) | payer OTHER ==
[~2017-06-25] VITALS: Ht 152.4 cm; Wt 83.2 kg
[2017-06-25 15:25] VITALS: BP 121/83
[2017-06-25] MEDS ORDERED: D5W MINI IV ONE (16:00)
[2017-06-25] MEDS ORDERED: CEFTRIAXONE SOD IV ONE (16:00)
== END 2017-06-25 17:48 | disposition home or self-care (01) ==
LOC: M OPCLI4PR 15:11 → M PED 15:16 → M OPCLI4PR 17:48
PROVIDERS: ATTEND Family Medicine
DX: J01.91 Acute recurrent sinusitis, unspecified (principal)
CPT/HCPCS: 96365; 96366; J0696

== ENCOUNTER 2017-06-26 12:47 | Outpatient (CLI) | payer OTHER ==
[~2017-06-26] VITALS: Ht 149.9 cm; Wt 83.0 kg
[2017-06-26] MEDS ORDERED: D5W MINI IV ONE (13:45)
[2017-06-26] MEDS ORDERED: CEFTRIAXONE SOD IV ONE (13:45)
[2017-06-27] MEDS ORDERED: ZANA4TAB PO (02:12)
[2017-06-27] MEDS ORDERED: ATRO0.063 INH (02:12)
[2017-06-27] MEDS ORDERED: PROT20TA11 PO (02:12)
[2017-06-27] MEDS ORDERED: ALBU17IN2 INH (02:12)
[2017-06-27] MEDS ORDERED: NASA1SPR8 (02:12)
[2017-06-27] MEDS ORDERED: MONT10TA2 PO (02:12)
[2017-06-27] MEDS ORDERED: ADV500INH INH (02:17)
[2017-06-27] MEDS ORDERED: BRIM1OPD OU (02:17)
[2017-06-27] MEDS ORDERED: LATA5OPD OU (02:17)
[2017-06-27] MEDS ORDERED: DORZ2OPD OU (02:17)
[2017-06-27] MEDS ORDERED: PRED20TA PO (02:17)
== END 2017-06-26 14:49 ==
LOC: M OPCLI4PV 12:47 → M MSPAV 12:50 → M OPCLI4PV 14:49
PROVIDERS: ATTEND Family Medicine
DX: J01.91 Acute recurrent sinusitis, unspecified (principal)
CPT/HCPCS: 96375; J0696

== ENCOUNTER 2017-06-26 22:52 | Inpatient (IN) | payer OTHER ==
[~2017-06-26] VITALS: Ht 149.9 cm; Wt 83.5 kg
[2017-06-26 23:37] LABS: LYMPH % 18.7 % (24.0-44.0); MEAN CORPUSCULAR HEMOGLOBIN 29.1 pg (27.0-33.0); MEAN CORPUSCULAR HGB CONC 32.9 g/dl (32.0-36.5); MEAN CORPUSCULAR VOLUME 88.2 fl (80.0-96.0); NEUTROPHILS % 74.9 % (36.0-66.0); PLATELET COUNT, AUTOMATED 375 k/mm3 (150-450); RED CELL DISTRIBUTION WIDTH 14.4 % (11.5-14.5); WHITE BLOOD COUNT 11.9 K/mm3 (4.0-10.0)
[2017-06-26 23:38] LABS: BASO % 0.3 % (0.0-1.0); EOS # 0.1 K/mm3 (0.0-0.50); EOS % 0.5 % (0.0-3.0); LARGE UNSTAINED CELL # 0.1 K/mm3 (0.0-0.4); LYMPH # 2.2 K/mm3 (1.5-4.5); MONO # 0.5 K/mm3 (0.0-0.8); MONO % 4.6 % (0.0-5.0); NEUTROPHILS # 8.9 K/mm3 (1.8-7.7)
[2017-06-26 23:43] LABS: ANION GAP 9 MEQ/L (8-16); BLOOD UREA NITROGEN 19 MG/DL (7-18); CALCIUM LEVEL 8.9 MG/DL (8.5-10.1); CARBON DIOXIDE LEVEL 28 MEQ/L (21-32); CHLORIDE LEVEL 108 MEQ/L (98-107); CREATININE FOR GFR 0.91 MG/DL (0.55-1.02); GLOMERULAR FILTRATION RATE > 60.0 (>58); GLUCOSE, FASTING 134 MG/DL (70-105); POTASSIUM SERUM 3.4 MEQ/L (3.5-5.1); SODIUM LEVEL 145 MEQ/L (136-145)
[2017-06-26 23:49] LABS: THYROXINE (T4) 7.2 UG/DL (4.5-12.0)
[2017-06-27] MEDS ORDERED: ISOVUE-370 76% 100ML VIAL (Q9967) As Ordered ONE (00:36)
--- NOTE | 2017-06-27 01:10 | REPUSA ---
CT angiogram of the chest Clinical statement: Chest pain. Technique: Multiple axial CT images were obtained from the thoracic inlet through the upper abdomen a fter a bolus administration of nonionic intravenous contrast. Coronal and sagittal reconstructions we re also obtained. Comparison: None. Findings: The pulmonary arteries are well-opacified with contrast, with no intraluminal filling defec ts to suggest embolism. The thoracic aorta is unremarkable. Thyroid gland is within normal limits. Th ere is no thoracic lymphadenopathy. There are no pericardial or pleural effusions. The lungs are marlyn r. Limited imaging of the upper abdomen is unremarkable. There are no suspicious osseous lesions. Impression: Unremarkable CT examination of the chest. No evidence of pulmonary embolism.
[2017-06-27 01:29] LABS: ABG BASE EXCESS 5.5 (-2.0-2.0); ABG HCO3 30.3 MEQ/L (22.0-26.0); ABG PARTIAL PRESSURE CO2 44.9 mmHg (35.0-45.0); ABG PARTIAL PRESSURE O2 97.1 mmHg (75.0-100.0); ABG STANDARD HCO3 29.5 MEQ/L (22.0-26.0); ABG TOTAL CO2 31.7 MEQ/L (22.0-29.0); ABG pH (ARTERIAL) 7.447 UNITS (7.350-7.450)
[2017-06-27] MEDS: LEVALBUTEROL 1.25 MG/0.5 ML CONCENTRATE NEB INH SCH ×6 (01:50→23:56)
[2017-06-27] MEDS ORDERED: ZANA4TAB PO (02:12)
[2017-06-27] MEDS ORDERED: ATRO0.063 INH (02:12)
[2017-06-27] MEDS ORDERED: ALBU17IN2 INH (02:12)
[2017-06-27] MEDS ORDERED: PROT20TA11 PO (02:12)
[2017-06-27] MEDS ORDERED: MONT10TA2 PO (02:12)
[2017-06-27] MEDS ORDERED: NASA1SPR8 (02:12)
[2017-06-27] MEDS ORDERED: PRED20TA PO (02:17)
[2017-06-27] MEDS ORDERED: DORZ2OPD OU (02:17)
[2017-06-27] MEDS ORDERED: ADV500INH INH (02:17)
[2017-06-27] MEDS ORDERED: LATA5OPD OU (02:17)
[2017-06-27] MEDS ORDERED: BRIM1OPD OU (02:17)
[2017-06-27] MEDS ORDERED: ACETAMINOPHEN TAB 650MG DOSE (2X325MG) PO PRN (03:30)
[2017-06-27] MEDS ORDERED: RIZATRIPTAN BENZOATE 10 MG TAB PO PRN (03:30)
[2017-06-27] MEDS ORDERED: tiZANidine 4 MG TAB PO PRN (03:30)
[2017-06-27] MEDS ORDERED: ONDANSETRON 4MG/2ML VIAL (J2405) IV PRN (03:30)
[2017-06-27] MEDS ORDERED: PANTOPRAZOLE 20 MG TAB PO PRN (03:30)
[2017-06-27] MEDS ORDERED: POTASSIUM CHLORIDE 10% LIQ 20 MEQ/15 ML UDC PO ONE (04:30)
[2017-06-27] MEDS: CEFEPIME HCL 1 GM in D5W MINI-BAG PLUS 50 ML IV SCH ×2 (05:12→17:19)
[2017-06-27] MEDS: LEVOTHYROXINE 50MCG TABLET (0.05MG) PO SCH (05:28)
--- NOTE | 2017-06-27 06:10 | ECGEPIP ---
Stationary ECG Study [facility] - ED Test Date: 2017-06-26 Pat Name: PHOENIX AGUILAR Department: Room: [place] [address] Gender: F Process Treater: amy : 1970 Requested By: EDGAR Avila Order Number: [id number] Reading MD: Nimesh Osborne Measurements Intervals [place] Rate: 155 P: MT: 0 QRS: -39 QRSD: 120 T: 146 QT: 289 QTc: 465 Interpretive Statements ATRIAL FIBRILLATION WITH RAPID VENTRICULAR RESPONSE WITH ABERRANT CONDUCTION OR VENTRICULAR PREMATURE COMPLEXES LEFT AXIS DEVIATION VOLTAGE CRITERIA FOR LVH POSSIBLE SEPTAL MYOCARDIAL INFARCTION, PROBABLY OLD ST DEVIATION AND MODERATE T-WAVE ABNORMALITY, CONSIDER LATERAL ISCHEMIA NO PRIORS Electronically Signed On 06-27-2017 6:10:26 EDT by Nimesh Osborne
[2017-06-27 07:00] LABS: BASO % 0.3 % (0.0-1.0); EOS # 0.1 K/mm3 (0.0-0.50); EOS % 0.6 % (0.0-3.0); LARGE UNSTAINED CELL # 0.1 K/mm3 (0.0-0.4); LARGE UNSTAINED CELL % 1.2 % (0.0-4.0); LYMPH # 3.2 K/mm3 (1.5-4.5); LYMPH % 32.8 % (24.0-44.0); MEAN CORPUSCULAR HEMOGLOBIN 30.6 pg (27.0-33.0); MEAN CORPUSCULAR HGB CONC 35.2 g/dl (32.0-36.5); MONO # 0.7 K/mm3 (0.0-0.8); NEUTROPHILS # 5.6 K/mm3 (1.8-7.7); NEUTROPHILS % 58.1 % (36.0-66.0); PLATELET COUNT, AUTOMATED 323 k/mm3 (150-450); RED CELL DISTRIBUTION WIDTH 14.1 % (11.5-14.5); WHITE BLOOD COUNT 9.6 K/mm3 (4.0-10.0)
[2017-06-27 07:21] LABS: ALBUMIN 3.1 GM/DL (3.2-5.2); ALT/SGPT 221 U/L (12-78); ANION GAP 8 MEQ/L (8-16); AST/SGOT 123 U/L (15-37); BILIRUBIN,TOTAL 0.2 MG/DL (0.2-1.0); BLOOD UREA NITROGEN 14 MG/DL (7-18); CALCIUM LEVEL 7.6 MG/DL (8.5-10.1); CARBON DIOXIDE LEVEL 29 MEQ/L (21-32); CHLORIDE LEVEL 111 MEQ/L (98-107); CHOLESTEROL LEVEL 128 MG/DL (< 200); CREATININE FOR GFR 0.82 MG/DL (0.55-1.02); GLOMERULAR FILTRATION RATE > 60.0 (>58); GLUCOSE, FASTING 87 MG/DL (70-105); PHOSPHORUS LEVEL 4.1 MG/DL (2.5-4.9); SODIUM LEVEL 148 MEQ/L (136-145); T UPTAKE 39 % (30-39); THYROXINE (T4) 6.4 UG/DL (4.5-12.0); TOTAL PROTEIN 6.2 GM/DL (6.4-8.2); TRIGLYCERIDES LEVEL 140 MG/DL (<150)
[2017-06-27 07:27] LABS: ALKALINE PHOSPHATASE 76 U/L (45-117)
[2017-06-27 07:31] VITALS: BP 146/87
[2017-06-27] MEDS ORDERED: LEVALBUTEROL 1.25 MG/0.5 ML CONCENTRATE NEB INH PRN ×2 (08:15→10:15)
[2017-06-27] MEDS: VITAMIN D 1,000 INTERNATIONAL UNITS TABLET PO SCH (08:44)
[2017-06-27] MEDS: guaiFENesin ER 600 MG TAB PO SCH ×2 (08:44→20:21)
[2017-06-27] MEDS ORDERED: clonazePAM 0.5 MG TAB PO SCH (09:00)
[2017-06-27] MEDS: BRIMONIDINE 0.1% OPHTH SOLN 5 ML OU SCH ×2 (09:00→20:22)
[2017-06-27] MEDS: DORZOLAMIDE 2% OPHTH SOLN 10 ML BTL OU SCH ×2 (09:00→20:22)
[2017-06-27] MEDS: MONTELUKAST 10 MG TAB PO SCH (09:00)
[2017-06-27] MEDS ORDERED: clonazePAM 1 MG TAB PO SCH ×2 (09:00)
[2017-06-27] MEDS ORDERED: PANTOPRAZOLE 40MG TAB (PROTONIX) PO SCH (09:00)
[2017-06-27] MEDS ORDERED: clonazePAM 0.5 MG TAB PO ONE (10:15)
--- NOTE | 2017-06-27 10:35 | IPNPDOC ---
Subjective Date Seen The patient was seen on 06/27/17. Subjective Chief Complaint/HPI The patient is a 47-year-old female admitted with a reason for visit of A Fib W Rvr. Events since last encounter Patient is very anxious this morning; she is requesting home dose of clonazepam to help cope with anxiety. She is also requesting that steroids be restarted and xopenex be given more frequently for her asthma. Constitutional: Reports: Malaise, Denies: Chills, Fever ENT: Denies: Head Aches Skin: Denies: Rash Pulmonary: Reports: Dyspnea, Cough Cardiovascular: Denies: Chest Pain, Palpitations, Orthopnea, Lt Headedness Gastrointestinal: Denies: Nausea, Vomiting, Abdominal Pain Neurological: Denies: Weakness, Numbness, Confusion Psych: Reports: Anxiety Objective Physical Examination General Exam: Positive: Alert, Cooperative, No Acute Distress ENT Exam: Positive: Atraumatic, Mucous membr. moist/pink Chest Exam: Positive: Wheezing (faint scattered end-expiratory wheezes), Diminished, Negative: Normal air movement Heart Exam: Positive: Rate Normal, Normal S1, Normal S2, Negative: Murmurs Skin Exam: Positive: Nl turgor and temperature, Negative: Rash Neuro Exam: Positive: Cranial Nerves 3-12 NL Psych Exam: Positive: Anxiety, Oriented x 3 Assessment /Plan Problems (1) Atrial fibrillation with RVR Status: Acute Response to Treatment: Improving Problem Text: She presented to the ED with HR in 150s. She spontaneously converted to NSR. She follows with Dr. Bentno. She has never had Afib before. This episode was likely due to lung disease. - She underwent a stress test in 04/2017 - "low risk of a significant ischemic cardiac event in the near future" - Recent echo as below in Problem #2 - I discussed the case with Dr. Benton, who suggested controlling HR with diltiazem ER 240 mg daily and digoxin 0.25 mg daily, which I agree with. Mag and K+ are normal. We will also start ASA 325 mg daily. She will follow-up with Dr. Benton after discharge. - Cardiac enzymes are elevated - likely due to atrial fibrillation. We will control HR and cycle Cardiac enzymes. She has no chest pain this morning. EKG is abnormal but is similar to the EKG done 04/26/17 for her stress test. (2) Cardiomegaly Status: Chronic Response to Treatment: Stable Problem Text: Echo done 05/04/17 showed mild concentric LVH, moderate LA dilatation. Follows with Dr. Benton. (3) Asthma exacerbation Status: Acute Response to Treatment: Stable Problem Text: Patient was treated with IM depomedrol 80 mg on 06/25 and has been taking PO prednisone 40 mg daily at home. She states that solumedrol gives her a rapid heartrate and she would prefer to continue PO prednisone. - Prednisone 40 mg daily PO - will need a taper - Xopenex Q4H scheduled with Q2H prn (4) Recurrent acute sinusitis Status: Acute Response to Treatment: Stable Problem Text: She has a history of chronic sinusitis; has been seen by ENT in [place] and in [place] in the past; h/o of sinus surgery x2. - She was previously on doxycycline for this, and then was switched to IV ceftriaxone 2 g daily as an outpatient 06/23-06/26. - Continue cefepime (5) Obstructive sleep apnea Status: Chronic Problem Text: Patient has been noncompliant with CPAP at home for the last week because of frequent coughing at night and she feels that she "can't breathe " when she uses CPAP when she has an asthma exacerbation. I asked her to have her family bring in her CPAP from home. (6) Anxiety Status: Chronic Response to Treatment: Worse Problem Text: Will restart home dose clonazepam 2 mg TID. Plan/VTE VTE Prophylaxis Ordered?: Yes (SCDs/TEDs) VS, I&O, 24H, Fishbone Vital Signs/I&O Vital Signs Date Time Temp Pulse Resp B/P (MAP) Pulse Ox O2 Delivery O2 Flow Rate FiO2 06/27/17 07:31 98.0 96 18 146/87 (106) 97 Nasal Cannula 2.0 97 I&O- Last 24 Hours up to 6 AM 06/28/17 06:00 Intake Total 120 ml Balance 120 ml Laboratory Data 24H LABS Laboratory Tests 2 06/26/17 23:11: White Blood Count 11.9H, Red Blood Count 4.44, Hemoglobin 12.9, Hematocrit 39.2 , Mean Corpuscular Volume 88.2, Mean Corpuscular Hemoglobin 29.1, Mean Corpuscular Hemoglobin Concent 32.9, Red Cell Distribution Width 14.4, Platelet Count 375, Neutrophils (%) (Auto) 74.9H, Lymphocytes (%) (Auto) 18.7L, Monocytes (%) (Auto) 4.6, Eosinophils (%) (Auto) 0.5, Basophils (%) (Auto) 0.3, Neutrophils # (Auto) 8.9H, Lymphocytes # (Auto) 2.2, Monocytes # (Auto) 0.5, Eosinophils # (Auto) 0.1, Basophils # (Auto) 0.0, Large Unclassified Cells % 1.0 , Large Unclassified Cells # 0.1, Anion Gap 9, Glomerular Filtration Rate > 60.0 , Blood Urea Nitrogen 19H, Creatinine 0.91, Sodium Level 145, Potassium Level 3.4L, Chloride Level 108H, Carbon Dioxide Level 28, Calcium Level 8.9, Total Creatine Kinase 67, Magnesium Level 2.0, Creatine Kinase MB 4.6H, Creatine Kinase MB Relative Index 6.86H, Troponin I 0.06, Thyroid Stimulating Hormone ( TSH) 4.400H, Thyroxine (T4) 7.2 06/26/17 23:35: Lactic Acid Level 1.6 06/27/17 01:24: Blood Gas Bicarbonate Standard 29.5H, Arterial Blood pH 7.447, Arterial Blood Partial Pressure CO2 44.9, Arterial Blood Partial Pressure O2 97.1, Arterial Blood Total CO2 31.7H, Arterial Blood HCO3 30.3H, Arterial Blood Base Excess 5.5H, Arterial Blood Oxygen Saturation 97.8 06/27/17 06:32: White Blood Count 9.6, Red Blood Count 3.93L, Hemoglobin 12.0, Hematocrit 34.2L , Mean Corpuscular Volume 87.0, Mean Corpuscular Hemoglobin 30.6, Mean Corpuscular Hemoglobin Concent 35.2, Red Cell Distribution Width 14.1, Platelet Count 323, Neutrophils (%) (Auto) 58.1, Lymphocytes (%) (Auto) 32.8, Monocytes ( %) (Auto) 7.0H, Eosinophils (%) (Auto) 0.6, Basophils (%) (Auto) 0.3, Neutrophils # (Auto) 5.6, Lymphocytes # (Auto) 3.2, Monocytes # (Auto) 0.7, Eosinophils # (Auto) 0.1, Basophils # (Auto) 0.0, Large Unclassified Cells % 1.2 , Large Unclassified Cells # 0.1, Anion Gap 8, Glomerular Filtration Rate > 60.0 , Blood Urea Nitrogen 14, Creatinine 0.82, Sodium Level 148H, Potassium Level 4.0, Chloride Level 111H, Carbon Dioxide Level 29, Calcium Level 7.6L, Total Creatine Kinase 67, Creatine Kinase MB 6.6H, Creatine Kinase MB Relative Index 9.85H, Troponin I 1.32#H, Thyroid Stimulating Hormone (TSH) 3.650, Thyroxine (T4 ) 6.4, Phosphorus Level 4.1, Aspartate Amino Transf (AST/SGOT) 123H, Alanine Aminotransferase (ALT/SGPT) 221H, Lactate Dehydrogenase 252H, Alkaline Phosphatase 76, Total Bilirubin 0.2, Triglycerides Level 140, Cholesterol Level 128, Total Protein 6.2L, Albumin 3.1L, Albumin/Globulin Ratio 1.00, Free Thyroxine Index 2.5, Triiodothyronine (T3) Uptake 39 CBC/BMP Laboratory Tests 06/26/17 23:11 Red Blood Count 4.44, Mean Corpuscular Volume 88.2, Mean Corpuscular Hemoglobin 29.1, Mean Corpuscular Hemoglobin Concent 32.9, Red Cell Distribution Width 14.4 , Neutrophils (%) (Auto) 74.9 H, Lymphocytes (%) (Auto) 18.7 L, Monocytes (%) ( Auto) 4.6, Eosinophils (%) (Auto) 0.5, Basophils (%) (Auto) 0.3, Neutrophils # ( Auto) 8.9 H, Lymphocytes # (Auto) 2.2, Monocytes # (Auto) 0.5, Eosinophils # ( Auto) 0.1, Basophils # (Auto) 0.0, Calcium Level 8.9, Total Creatine Kinase 67 06/27/17 06:32 Red Blood Count 3.93 L, Mean Corpuscular Volume 87.0, Mean Corpuscular Hemoglobin 30.6, Mean Corpuscular Hemoglobin Concent 35.2, Red Cell Distribution Width 14.1, Neutrophils (%) (Auto) 58.1, Lymphocytes (%) (Auto) 32.8, Monocytes (%) (Auto) 7.0 H, Eosinophils (%) (Auto) 0.6, Basophils (%) ( Auto) 0.3, Neutrophils # (Auto) 5.6, Lymphocytes # (Auto) 3.2, Monocytes # (Auto ) 0.7, Eosinophils # (Auto) 0.1, Basophils # (Auto) 0.0, Calcium Level 7.6 L, Total Creatine Kinase 67, Phosphorus Level 4.1, Aspartate Amino Transf (AST/SGOT ) 123 H, Alanine Aminotransferase (ALT/SGPT) 221 H, Lactate Dehydrogenase 252 H , Alkaline Phosphatase 76, Total Bilirubin 0.2, Triglycerides Level 140, Cholesterol Level 128, Total Protein 6.2 L, Albumin 3.1 L Microbiology Microbiology 06/27/17 Blood Culture, Received Pending 06/26/17 Blood Culture, Received Pending HAILEY CANCINO MD Jun 27, 2017 10:35
[2017-06-27] MEDS: ASPIRIN 325 MG TAB PO SCH (11:20)
[2017-06-27] MEDS: DIGOXIN 0.25 MG TAB PO SCH (11:21)
[2017-06-27] MEDS: predniSONE 20 MG TAB PO SCH (11:21)
[2017-06-27] MEDS: ADVAIR HFA 230/21MCG INHALER INH SCH ×2 (11:29→20:57)
[2017-06-27 11:35] VITALS: O2SAT 99
[2017-06-27 12:30] VITALS: BP 110/82
--- NOTE | 2017-06-27 13:22 | REP ---
PORTABLE CHEST: AP portable view of the chest is performed and compared to prior study of 07/11/2016. There is mild cardiomegaly. There is pulmonary venous hypertension. There is mild bibasilar fibroatelectatic change with no acute infiltrate. Mediastinal silhouette is unchanged. IMPRESSION: Mild cardiomegaly and pulmonary venous hypertension. No new infiltrate. Signed by Tommy Trotter MD 06/27/2017 07:14 P
--- NOTE | 2017-06-27 13:22 | REP ---
CHEST, TWO VIEWS: Two views of the chest are performed and compared to prior studies. There is very mild cardiomegaly. There is mild bibasilar fibroatelectatic change without evidence of acute infiltrate. Mediastinal silhouette is unchanged. There are mild degenerative changes of the spine. IMPRESSION: Mild chronic changes without acute pulmonary disease. Signed by Tommy Trotter MD 06/27/2017 07:14 P
[2017-06-27 16:00] VITALS: BP 112/66
[2017-06-27] MEDS: clonazePAM 1 MG TAB PO SCH ×2 (16:26→20:22)
[2017-06-27] MEDS: VIIBRYD 40 MG PO SCH (17:19)
--- NOTE | 2017-06-27 17:37 | ECGEPIP ---
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
[2017-06-27 19:21] VITALS: BP 110/54
[2017-06-27] MEDS: LATANOPROST 0.005% OPHTH SOLN 2.5 ML OU SCH (20:22)
[2017-06-28] VITALS (8 sets, daily range): BP systolic 90–117; BP diastolic 54–79
[2017-06-28] MEDS: LEVALBUTEROL 1.25 MG/0.5 ML CONCENTRATE NEB INH SCH ×5 (04:23→20:00)
[2017-06-28] MEDS: CEFEPIME HCL 1 GM in D5W MINI-BAG PLUS 50 ML IV SCH ×2 (05:11→16:37)
[2017-06-28 05:24] LABS: MEAN CORPUSCULAR HEMOGLOBIN 29.8 pg (27.0-33.0); MEAN CORPUSCULAR HGB CONC 34.7 g/dl (32.0-36.5); MEAN CORPUSCULAR VOLUME 85.9 fl (80.0-96.0); RED CELL DISTRIBUTION WIDTH 13.9 % (11.5-14.5); WHITE BLOOD COUNT 8.7 K/mm3 (4.0-10.0)
[2017-06-28] MEDS: LEVOTHYROXINE 50MCG TABLET (0.05MG) PO SCH (05:50)
[2017-06-28 05:51] LABS: ALBUMIN 3.2 GM/DL (3.2-5.2); ALBUMIN/GLOBULIN RATIO 0.97 (1.00-1.93); ALKALINE PHOSPHATASE 71 U/L (45-117); ALT/SGPT 148 U/L (12-78); ANION GAP 7 MEQ/L (8-16); AST/SGOT 31 U/L (15-37); BILIRUBIN,TOTAL 0.5 MG/DL (0.2-1.0); BLOOD UREA NITROGEN 11 MG/DL (7-18); CALCIUM LEVEL 8.7 MG/DL (8.5-10.1); CARBON DIOXIDE LEVEL 32 MEQ/L (21-32); CHLORIDE LEVEL 103 MEQ/L (98-107); CREATININE FOR GFR 0.77 MG/DL (0.55-1.02); GLOMERULAR FILTRATION RATE > 60.0 (>58); GLUCOSE, FASTING 83 MG/DL (70-105); POTASSIUM SERUM 3.2 MEQ/L (3.5-5.1); SODIUM LEVEL 142 MEQ/L (136-145); TOTAL PROTEIN 6.5 GM/DL (6.4-8.2)
[2017-06-28] MEDS: ADVAIR HFA 230/21MCG INHALER INH SCH ×2 (07:47→20:23)
--- NOTE | 2017-06-28 08:25 | ECGEPIP ---
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
[2017-06-28] MEDS: ASPIRIN 325 MG TAB PO SCH (08:33)
[2017-06-28] MEDS: VITAMIN D 1,000 INTERNATIONAL UNITS TABLET PO SCH (08:33)
[2017-06-28] MEDS: clonazePAM 1 MG TAB PO SCH ×3 (08:33→22:02)
[2017-06-28] MEDS: guaiFENesin ER 600 MG TAB PO SCH ×2 (08:33→22:03)
[2017-06-28] MEDS: MONTELUKAST 10 MG TAB PO SCH (08:33)
[2017-06-28] MEDS: DIGOXIN 0.25 MG TAB PO SCH (08:34)
[2017-06-28] MEDS: VIIBRYD 40 MG PO SCH (08:34)
[2017-06-28] MEDS: predniSONE 20 MG TAB PO SCH (08:34)
[2017-06-28] MEDS: BRIMONIDINE 0.1% OPHTH SOLN 5 ML OU SCH ×2 (08:37→21:00)
[2017-06-28] MEDS: DORZOLAMIDE 2% OPHTH SOLN 10 ML BTL OU SCH ×2 (08:37→21:00)
[2017-06-28] MEDS ORDERED: POTASSIUM CHLORIDE 10 MEQ SR TABLET PO ONE (09:45)
--- NOTE | 2017-06-28 09:56 | IPNPDOC ---
Subjective Date Seen The patient was seen on 06/28/17. Subjective Chief Complaint/HPI The patient is a 47-year-old female admitted with a reason for visit of A Fib W Rvr. Constitutional: Denies: Chills, Fever, Night Sweats ENT: Denies: Head Aches, Ear Pain, Dysphagia Skin: Denies: Rash, Lesions, Breakdown Pulmonary: Denies: Dyspnea, Cough Cardiovascular: Denies: Chest Pain, Palpitations, Orthopnea, Paroxysmal Noc. Dyspnea, Lt Headedness Psych: Reports: Mood Normal, Denies: Depression, Memory Issues Objective Physical Examination General Exam: Positive: Alert, Cooperative, No Acute Distress ENT Exam: Positive: Atraumatic, Mucous membr. moist/pink Chest Exam: Positive: Wheezing (faint scattered end-expiratory wheezes), Diminished, Negative: Normal air movement Heart Exam: Positive: Rate Normal, Normal S1, Normal S2, Negative: Murmurs Skin Exam: Positive: Nl turgor and temperature, Negative: Rash Neuro Exam: Positive: Cranial Nerves 3-12 NL Psych Exam: Positive: Anxiety, Oriented x 3 Assessment /Plan Problems (1) Atrial fibrillation with RVR Status: Acute Response to Treatment: Improving Problem Text: She presented to the ED with HR in 150s. She spontaneously converted to NSR. She follows with Dr. Benton. She has never had Afib before. This episode was likely due to lung disease. - She underwent a stress test in 04/2017 - "low risk of a significant ischemic cardiac event in the near future" - Recent echo as below in Problem #2 - I discussed the case with Dr. Benton, who suggested controlling HR with diltiazem ER 240 mg daily and digoxin 0.25 mg daily, which I agree with. Mag and K+ are normal. We will also start ASA 325 mg daily. She will follow-up with Dr. Benton after discharge - his office will contact her with an appt in 1- 2 weeks. - Cardiac enzymes peaked yesterday - likely due to afib. EKG is abnormal but is similar to the EKG done 04/26/17 for her stress test. (2) Cardiomegaly Status: Chronic Response to Treatment: Stable Problem Text: Echo done 05/04/17 showed mild concentric LVH, moderate LA dilatation. Follows with Dr. Benton. (3) Asthma exacerbation Status: Acute Response to Treatment: Stable Problem Text: Patient was treated with IM depomedrol 80 mg on 06/25 and has been taking PO prednisone 40 mg daily at home. She states that solumedrol gives her a rapid heartrate and she would prefer to continue PO prednisone. - Prednisone 40 mg daily PO - will need a taper - Xopenex Q4H scheduled with Q2H prn (4) Recurrent acute sinusitis Status: Acute Response to Treatment: Stable Problem Text: She has a history of chronic sinusitis; has been seen by ENT in [place] and in [place] in the past; h/o of sinus surgery x2. - She was previously on doxycycline for this, and then was switched to IV ceftriaxone 2 g daily as an outpatient 06/23-06/26. - Continue cefepime (5) Obstructive sleep apnea Status: Chronic Problem Text: Patient has been noncompliant with CPAP at home for the last week because of frequent coughing at night and she feels that she "can't breathe " when she uses CPAP when she has an asthma exacerbation. I asked her to have her family bring in her CPAP from home. (6) Anxiety Status: Chronic Response to Treatment: Worse Problem Text: Will restart home dose clonazepam 2 mg TID. (7) V-tach Status: Acute Problem Text: Related to hypokalemia. Replacement ordered. Mag level ordered. Reviewed with Dr. Benton, cardiology. No new recommendations. He will arrange for f/u in 1 week in his office. Plan/VTE VTE Prophylaxis Ordered?: Yes (SCDs/TEDs) Plan Family Medicine Attending Note: I saw and examined Ms. Shea this morning; I discussed her case with GRISELDA Martínez and I agree with her note as documented. HR better controlled on dig and diltiazem; Vtach is likely due to hypokalemia, which was repleted today. If electrolytes stabilize tomorrow, d/c home with f/u with Dr. Benton in one week; she will also need to have a prednisone taper when she is discharged. She likely does not need to be discharged on antibiotics, as she received ceftriaxone 2 g IV daily 06/23 - 06/26 , and Cefepime since admission on 06/27. (KES) VS, I&O, 24H, Fishbone Vital Signs/I&O Vital Signs Date Time Temp Pulse Resp B/P (MAP) Pulse Ox O2 Delivery O2 Flow Rate FiO2 06/28/17 08:34 77 06/28/17 08:33 124/69 06/28/17 08:17 96.4 18 94 Room Air 06/27/17 11:35 2.0 06/27/17 07:31 97 I&O- Last 24 Hours up to 6 AM 06/29/17 06:00 Intake Total 120 ml Output Total 500 ml Balance -380 ml Laboratory Data 24H LABS Laboratory Tests 2 06/27/17 11:51: Total Creatine Kinase 74, Creatine Kinase MB 6.9H, Creatine Kinase MB Relative Index 9.32H, Troponin I 1.00#H 06/27/17 19:30: Troponin I 0.42#H 06/28/17 05:02: Anion Gap 7L, Glomerular Filtration Rate > 60.0, Blood Urea Nitrogen 11, Creatinine 0.77, Sodium Level 142, Potassium Level 3.2L, Chloride Level 103, Carbon Dioxide Level 32, Calcium Level 8.7, Aspartate Amino Transf (AST/SGOT) 31 , Alanine Aminotransferase (ALT/SGPT) 148H, Alkaline Phosphatase 71, Total Bilirubin 0.5#, Total Protein 6.5, Albumin 3.2, Albumin/Globulin Ratio 0.97L CBC/BMP Laboratory Tests 06/28/17 05:02 Red Blood Count 4.08, Mean Corpuscular Volume 85.9, Mean Corpuscular Hemoglobin 29.8, Mean Corpuscular Hemoglobin Concent 34.7, Red Cell Distribution Width 13.9 , Calcium Level 8.7, Aspartate Amino Transf (AST/SGOT) 31, Alanine Aminotransferase (ALT/SGPT) 148 H, Alkaline Phosphatase 71, Total Bilirubin 0.5 #, Total Protein 6.5, Albumin 3.2 Microbiology Microbiology 06/27/17 Blood Culture - Preliminary, Resulted No growth after 24 hours . All specim... 06/26/17 Blood Culture - Preliminary, Resulted No growth after 24 hours . All specim... 06/27/17 Gram Stain - Final, Resulted 06/27/17 Sputum Culture, Resulted Pending Eloisa Christian Jun 28, 2017 09:56 HAILEY CANCINO MD Jun 28, 2017 13:26
[2017-06-28 10:34] LABS: MAGNESIUM LEVEL 2.1 MG/DL (1.8-2.4)
[2017-06-28] MEDS ORDERED: MELATONIN 5 MG PO PRN (15:00)
[2017-06-28] MEDS ORDERED: [UNRECOGNIZED DRUG - OTHER] PO PRN (15:00)
[2017-06-28] MEDS: LATANOPROST 0.005% OPHTH SOLN 2.5 ML OU SCH (21:00)
--- NOTE | 2017-06-28 21:49 | HPE ---
DATE OF ADMISSION: 06/27/2017 CHIEF COMPLAINT: Palpitations, shortness of breath. HISTORY OF PRESENT ILLNESS: This is a 47-year-old female with numerous medical problems who has been treated as an outpatient for exacerbation of asthma and bronchitis. She had been given intramuscular (IM) Depo-Medrol and by mouth prednisone. She had been using her nebulizer. She had been coming to the hospital for 2 grams of Rocephin for five days and continued to have shortness of breath and coughing. She has history of obstructive sleep apnea. She could not wear her CPAP secondary to coughing. She began to feel dizzy and lightheaded and more shortness of breath. She called the ambulance and was noted to have a heart rate in the 150s. She was brought to the emergency room. Upon arrival EKG showed atrial fibrillation with a rapid ventricular response of 155. She was given Xopenex treatment. She spontaneously converted to sinus tachycardia at 108 with premature atrial contractions (PACs). Her breathing felt better after the Xopenex. LABORATORY DATA: She had a white count of 11.9, hemoglobin 12.9, hematocrit 39.2, platelets were 375. Sodium 145, potassium (K) was 3.4, replacement was ordered. Chloride 108, CO2 28 and anion gap was 9. BUN 19, lactic acid 1.6, CPK 67, CK MB 4.6, troponin was 0.06. Magnesium was 2.0. A blood gas was drawn which showed pH of 7.44, PCO2 44, PO2 97. O2 sat 97.8. Chest x-ray was done and showed mild cardiomegaly, pulmonary venous hypertension , no new infiltrate. A computed tomographic angiography (CTA) was done in the emergency room that showed pulmonary artery well opacified with contrast. No pulmonary emboli, no pericardial or pleural effusion. The lungs were clear. An assessment was done. The patient will be admitted to the progressive care unit (PCU) for rapid atrial fibrillation with rapid ventricular response, continued acute exacerbation of asthma to the service of Dr. Solorio having failed outpatient treatment. PRIMARY CARE PROVIDER: [facility] and she recently saw Dr. Solorio. Her plywood patcher is Dr. Washburn. She goes to pulmonology and sees Marah Ashford, nurse practitioner, psychiatric doctor is Dr. Jesus. She sees Dr. Olvera nerve block in her lumbosacral (LS) spine, Dr. Marina for thoracic nerve block, Dr. Vazquez for bilateral rotator cuff tears. She goes to [facility] for cervical spine (C-spine). ALLERGIES: AZELASTINE, ERYTHROMYCIN, CORTICAL STEROIDS, EGGS OR EGG DERIVED PRODUCTS, METHYLPREDNISOLONE, PEANUTS, PROTEIN MILK, SEASONAL ALLERGIES. SOCIAL HISTORY: She is . She has four children. Her oldest 25-year-old recently moved to [place]. ETOH occasionally, she quit smoking July 2016. Recreational drug use none. PAST MEDICAL HISTORY: 1. Obstructive sleep apnea, utilizes CPAP. 2. Glaucoma. 3. Hypothyroidism. 4. Asthma. 5. Anxiety. 6. Gastrointestinal reflux disease (GERD). 7. Bilateral rotator cuff tears. 8. Bulging disc of the C-spine. 9. Carpal tunnel bilaterally and she is scheduled for carpal tunnel release of the left on 07/26/2017. 10. Degenerative disc disease. 11. Migraines. 12. Vitamin D deficiency. PAST SURGICAL HISTORY: 1. (C) section times two. 2. Tubal ligation. 3. Ovarian cyst removed. 4. Dilatation and curettage (D and C). 5. Tonsillectomy and adenoidectomy (T and A). 6. Two sinus surgeries. HOME MEDICATIONS: - vitamin D 2000 units by mouth daily - Zanaflex 4 mg by mouth three times a day as needed for muscle spasms - rizatriptan 10 mg by mouth daily as needed for migraines - Protonix 20 mg by mouth daily as needed gastrointestinal (GI) upset - Singulair 10 mg by mouth daily - levothyroxine 50 mcg by mouth daily - latanoprost 50 drops/2.5 mL one drop both eyes every evening - dorzolamide HCL 200 drops/10 mL solution, one drop both eyes twice a day - Alphagan P 0.1% one drop both eyes twice a day - Viibryd 40 mg by mouth daily - Nasacort allergy 24 hour, two sprays NA daily - Mucinex 120, 1200 mg by mouth twice a day - Klonopin 2 mg by mouth three times a day - Advair Diskus 550, one puff twice a day. She had been on a prednisone taper and was down to 20 mg daily. She took it 8:00 this morning. - Zofran 4 mg by mouth twice a day as needed for nausea - Atrovent two puffs inhalation four times a day - DuoNeb one vial every four hours as needed for shortness of breath or wheeze due to the palpitations, atrial fibrillation (A Fib) and sinus tachycardia will utilize Xopenex. - Proventil HFA two puffs every six hours as needed for shortness of breath or wheeze FAMILY HISTORY: Noncontributory. REVIEW OF SYSTEMS: No complaint of headache, no blurry or double vision. She has had chills. No tinnitus, no hoarseness, no difficulty swallowing, no lightheadedness, no vertigo. BREASTS: No masses. CARDIOVASCULAR: Has shortness of breath, no complaints of chest pain. She has had palpitations, no edema. RESPIRATORY: She has had cough, wheezing, orthopnea, no hemoptysis. GASTROINTESTINAL (GI): No current complaint of nausea, vomiting, diarrhea, hematochezia or melena. GENITOURINARY (): No hematuria, dysuria or frequency. MUSCULOSKELETAL: She has a history of neck pain, back pain, carpal tunnel, no joint redness or swelling. ENDOCRINE: She has history of hypothyroidism. HEMATOLOGICAL: No history of anemia. NEUROLOGICAL: No history of seizures. PSYCHIATRIC: She has a history of anxiety and depression, no suicidal ideation PHYSICAL EXAMINATION: GENERAL: 47-year-old anxious female in no acute distress. VITAL SIGNS: Blood pressure 136/85, pulse 88, respirations 18, temperature 97.6, Oxygen saturation 97% on two liters. Height 59 inches, weight 83.1 kilograms. Body mass index (BMI) 37.0. GENERAL: The patient is awake, alert and oriented times three. HEENT: Pupils equal, round, reactive to light. Extraocular muscles intact. Cornea and sclerae clear. Conjunctiva is normal. No facial asymmetry. Pharynx , tongue and gum is pink and moist. Tongue is midline. NECK: Neck is supple without lymphadenopathy. No thyromegaly. No goiter. Carotids 2 plus without bruits. CHEST: Clear to auscultation without wheeze or retraction. HEART: Heart is regular. ABDOMEN: Benign. Bowel sounds positive. GENITOURINARY ()/RECTAL: Not done. EXTREMITIES: No clubbing, cyanosis, and edema. Peripheral pulses are equal and palpable bilaterally. SKIN: Warm and dry. IMPRESSION/PLAN: Admit to the service of Dr. Solorio. Will require a two night stay for: 1. Atrial fibrillation with rapid ventricular response. 2. Acute exacerbation asthma. 3. History of obstructive sleep apnea. 4. History of chronic anxiety. 5. History of hypothyroidism. 6. History of gastrointestinal reflux disease (GERD). The patient will be admitted to progressive care unit (PCU), placed on telemetry. 7. Atrial fibrillation with rapid ventricular response (RVR). Recommend discussion with cardiology for rate control. The patient is currently in sinus tachycardia. Serial cardiac enzymes. Repeat EKG. Place on telemetry. 8. Acute exacerbation asthma. Will utilize Xopenex instead of albuterol secondary to her atrial fibrillation and tachycardia, antibiotic Cefepime. 9. Obstructive sleep apnea. Have her family bring in her CPAP. 10. Anxiety. Utilize Klonopin. 11. GERD. Continue Protonix. 12. Nausea. Continue Zofran. 13. Deep venous thrombosis (DVT) prophylaxis. Thromboembolic deterrent stockings (TEDs), early ambulation. PLAN: Followup blood cultures, send sputum culture. edited: 07/15/2017 0945 ivan VILLA
[2017-06-29] VITALS: BP 115/65
[2017-06-29] MEDS: LEVALBUTEROL 1.25 MG/0.5 ML CONCENTRATE NEB INH SCH ×4 (00:11→11:29)
[2017-06-29 04:00] VITALS: BP 112/76
[2017-06-29] MEDS: LEVOTHYROXINE 50MCG TABLET (0.05MG) PO SCH (05:41)
[2017-06-29] MEDS: CEFEPIME HCL 1 GM in D5W MINI-BAG PLUS 50 ML IV SCH (05:41)
[2017-06-29 06:18] LABS: MEAN CORPUSCULAR HEMOGLOBIN 29.1 pg (27.0-33.0); MEAN CORPUSCULAR HGB CONC 32.8 g/dl (32.0-36.5); MEAN CORPUSCULAR VOLUME 88.5 fl (80.0-96.0); RED CELL DISTRIBUTION WIDTH 13.8 % (11.5-14.5); WHITE BLOOD COUNT 14.9 10^3/uL (4.0-10.0)
[2017-06-29 06:47] LABS: ALBUMIN 3.4 GM/DL (3.2-5.2); ALBUMIN/GLOBULIN RATIO 0.94 (1.00-1.93); ALKALINE PHOSPHATASE 73 U/L (45-117); ALT/SGPT 110 U/L (12-78); ANION GAP 7 MEQ/L (8-16); AST/SGOT 14 U/L (15-37); BILIRUBIN,TOTAL 0.5 MG/DL (0.2-1.0); BLOOD UREA NITROGEN 18 MG/DL (7-18); CARBON DIOXIDE LEVEL 31 MEQ/L (21-32); CHLORIDE LEVEL 102 MEQ/L (98-107); CREATININE FOR GFR 0.84 MG/DL (0.55-1.02); GLOMERULAR FILTRATION RATE > 60.0 (>58); GLUCOSE, FASTING 80 MG/DL (70-105); POTASSIUM SERUM 3.7 MEQ/L (3.5-5.1); SODIUM LEVEL 140 MEQ/L (136-145)
[2017-06-29 08:00] VITALS: BP 124/81
[2017-06-29] MEDS: ADVAIR HFA 230/21MCG INHALER INH SCH (08:14)
[2017-06-29] MEDS: DORZOLAMIDE 2% OPHTH SOLN 10 ML BTL OU SCH (09:22)
[2017-06-29] MEDS: BRIMONIDINE 0.1% OPHTH SOLN 5 ML OU SCH (09:22)
[2017-06-29] MEDS: ASPIRIN 325 MG TAB PO SCH (09:47)
[2017-06-29] MEDS: VIIBRYD 40 MG PO SCH (09:47)
[2017-06-29] MEDS: clonazePAM 1 MG TAB PO SCH (09:47)
[2017-06-29 09:48] VITALS: BP 124/81
[2017-06-29] MEDS: predniSONE 20 MG TAB PO SCH (09:48)
[2017-06-29] MEDS: guaiFENesin ER 600 MG TAB PO SCH (09:48)
[2017-06-29] MEDS: VITAMIN D 1,000 INTERNATIONAL UNITS TABLET PO SCH (09:48)
[2017-06-29] MEDS: MONTELUKAST 10 MG TAB PO SCH (09:48)
[2017-06-29] MEDS: DIGOXIN 0.25 MG TAB PO SCH (09:49)
[2017-06-29] MEDS ORDERED: ASPI325T PO (10:50)
[2017-06-29] MEDS ORDERED: DIGO0.25 PO (10:50)
[2017-06-29] MEDS ORDERED: PRED20TA PO (10:50)
[2017-06-29] MEDS ORDERED: CARD120C3 PO (10:50)
[2017-06-29] MEDS ORDERED: LEVA12INH INH (10:50)
--- NOTE | 2017-06-29 17:39 | DSES ---
DATE OF ADMISSION: 06/27/2017 DATE OF DISCHARGE: 06/29/2017 BRIEF HISTORY AND PHYSICAL: The patient is a 47-year-old patient of Dr. De La Cruz's who presented with rapid heart rate and dyspnea; found to be in atrial fibrillation with rapid ventricular response with a heart rate of 150s. She spontaneously converted to normal sinus rhythm and has never had atrial fibrillation before, but does follow with Dr. Benton. Past medical history significant for cardiomegaly, asthma, recurrent sinusitis, obstructive sleep apnea, noncompliant with C-PAP and anxiety. Pertinent labs on admission: White count 11.9, hemoglobin 12.9, platelets 375,000. Sodium 148, potassium 4.0, BUN 14, creatinine 0.82. Troponin was elevated to 1.32. Liver enzymes were elevated. Chest x-ray showed mild cardiomegaly with pulmonary venous hypertension and no new infiltrate. HOSPITAL COURSE: The patient was admitted for paroxysmal atrial fibrillation with rapid ventricular response. She spontaneously converted to sinus rhythm. She has had a stress test in April of 2017 that showed low risk of significant ischemic cardiac event in the near future. She had a recent echocardiogram in May 2017 showing mild concentric left ventricular hypertrophy (LVH) with moderate left atrial dilatation. Case was discussed with Dr. Benton who suggested controlling the heart rate with diltiazem and digoxin and she was started on aspirin 325. Cardiac enzymes were elevated which was felt to be due to atrial fibrillation. EKG was abnormal, but similar to that from April 26, 2017. She remained in sinus rhythm through the rest of the hospitalization. Heart rate is well-controlled in the 80s. It was 80 at the time of discharge. She was hypokalemic on admission, felt to also have contributed to her arrhythmia. This was corrected. Asthma exacerbation. She was treated with intramuscular (IM) Depo-Medrol on 06/25 and had been taking oral prednisone at home. She remained on oral prednisone during the hospitalization because IV Solu-Medrol tends to make her heart rate too quickly. She was switched from albuterol to Xopenex and is tolerating this well without as much tachycardia as on the DuoNebs that she was using at home. She will go home on Xopenex with a prednisone taper. Recurrent acute sinusitis. She has been getting antibiotics as an outpatient with IV ceftriaxone 2 grams daily on 06/23 through 09/23. She was put on cefepime while she was here in the hospital and her antibiotics will be discontinued upon discharge. Sleep apnea. She has been noncompliant with her C-PAP at home intermittently and but she has been using it here. She will be working with [facility] to try to see if she can get a better fitting mask. She feels the one she is using currently does not fit properly, but she is using it. Chronic anxiety. She was continued on her usual home dose. Hypokalemia. Potassium was replaced and is normal on the date of discharge. The patient did have a short run of asymptomatic ventricular tachycardia. At the time she was hypokalemic and this was replaced and she has had no recurrence. DISPOSITION: She is stable for discharge home. She will followup with Dr. De La Cruz next week, followup with Dr. Benton per his office. Diet regular. Activity as tolerated. MEDICATIONS: - aspirin 325 mg daily - digoxin 0.25 mg daily - diltiazem 240 mg daily - Xopenex 1.25 mg nebulizer every 4 hours and every 2 hours as needed for shortness of breath - prednisone taper 40 mg daily for 3 days and 20 mg daily for 3 days and 10 mg daily for 3 days - Alphagan eye drops, 1 drop to both eyes twice a day - Klonopin 2 mg three times a day - dorzolamide 1 drop to both eyes twice a day - latanoprost 1 drop to both eyes at bedtime - levothyroxine 50 mcg daily - Singulair 10 mg daily - Mucinex 120/1200 twice a day - Zofran 4 mg twice a day as needed for nausea - Protonix 20 mg daily as needed for GI upset - rizatriptan 10 mg daily as needed for migraine - Advair Diskus 500/51 puff twice a day - Zanaflex 4 mg 2 times a day as needed for muscle spasms - vitamin D 2000 international units daily DISCHARGE DIAGNOSES: 1. Paroxysmal atrial fibrillation with rapid ventricular response. 2. Hypokalemia. 3. Cardiomegaly. 4. Asthma exacerbation. 5. Recurrent acute sinusitis. 6. Obstructive sleep apnea. 7. Anxiety. 8. Transient ventricular tachycardia.
== END 2017-06-29 11:54 | disposition home or self-care (01) | DRG 201 ==
LOC: EDBD 22:52 → M ED 23:50 → M ED INP 06-27 03:23 → M PCU 06-27 12:31
PROVIDERS: ADMIT Family Medicine; ATTEND Family Medicine
DX: I48.0 Paroxysmal atrial fibrillation (principal); I47.2 Ventricular tachycardia; J45.901 Unspecified asthma with (acute) exacerbation; I51.7 Cardiomegaly; E87.6 Hypokalemia; J01.91 Acute recurrent sinusitis, unspecified; G47.33 Obstructive sleep apnea (adult) (pediatric); Z91.19 Patient's noncompliance with other medical treatment and regimen; Z79.82 Long term (current) use of aspirin; Z79.899 Other long term (current) drug therapy; F41.9 Anxiety disorder, unspecified

== ENCOUNTER 2017-07-07 14:13 | Emergency (ER) | payer OTHER ==
[~2017-07-07] VITALS: Ht 152.4 cm; Wt 84.5 kg
[~2017-07-07 14:13] MED LIST changes: +ADV500INH INH; +ALBU17IN2 INH; +ASPI325T PO; +ATRO0.063 INH; +BRIM1OPD OU; +CARD120C3 PO; +DIGO0.25 PO; +DORZ2OPD OU; +LATA5OPD OU; +LEVA12INH INH; +MONT10TA2 PO; +NASA1SPR8; +PROT20TA11 PO; +ZANA4TAB PO
[2017-07-07 14:44] VITALS: BP 103/59
[2017-07-07] MEDS ORDERED: EXCETAB49 PO (14:52)
== END 2017-07-07 17:26 | disposition left against medical advice (07) ==
LOC: M ED 14:13
DX: J02.9 Acute pharyngitis, unspecified (principal); Z53.21 Procedure and treatment not carried out due to patient leaving prior to being seen by health care provider

== ENCOUNTER → 2017-07-08 | Outpatient (REF) | payer OTHER ==
[~2017-07-08] MED LIST changes: +CARD240C5 PO; +ELIQ5TAB PO; +EXCETAB49 PO; +GUAI1TAB PO; +IPRA2IN INH; +LEVA750T7 PO; +PANT40TA2 PO; +PROBCAP4 PO; +TIZA2TA PO
== END ==
LOC: M SFHCPLAZ 11:15
PROVIDERS: ATTEND Family Medicine
DX: J45.41 Moderate persistent asthma with (acute) exacerbation (principal); J20.9 Acute bronchitis, unspecified

== ENCOUNTER → 2017-07-13 | Outpatient (REF) | payer OTHER ==
[2017-07-13 12:47] LABS: MEAN CORPUSCULAR HEMOGLOBIN 29.5 pg (27.0-33.0); MEAN CORPUSCULAR HGB CONC 33.1 g/dl (32.0-36.5); MEAN CORPUSCULAR VOLUME 89.1 fl (80.0-96.0); RED CELL DISTRIBUTION WIDTH 14.5 % (11.5-14.5); WHITE BLOOD COUNT 12.4 10^3/uL (4.0-10.0)
[2017-07-13 13:27] LABS: ANION GAP 8 MEQ/L (8-16); BLOOD UREA NITROGEN 13 MG/DL (7-18); CALCIUM LEVEL 8.6 MG/DL (8.5-10.1); CARBON DIOXIDE LEVEL 28 MEQ/L (21-32); CHLORIDE LEVEL 103 MEQ/L (98-107); CREATININE FOR GFR 0.85 MG/DL (0.55-1.02); GLOMERULAR FILTRATION RATE > 60.0 (>58); GLUCOSE, FASTING 87 MG/DL (70-105); POTASSIUM SERUM 4.1 MEQ/L (3.5-5.1); SODIUM LEVEL 139 MEQ/L (136-145)
== END ==
LOC: M SFHCADAM 10:47
PROVIDERS: ATTEND Family Medicine
DX: J45.41 Moderate persistent asthma with (acute) exacerbation (principal)

== ENCOUNTER → 2017-07-13 | Outpatient (CLI) | payer OTHER ==
--- NOTE | 2017-07-14 03:14 | REP ---
Clinical: Persistent asthma . Comparison: 06/27/2017. Technique: PA and lateral. Findings: The mediastinum and cardiac silhouette are normal. The lung zapata are clear and without acute consolidation, effusion, or pneumothorax. The skeletal structures are intact and normal. Impression: 1. No acute cardiopulmonary process. Signed by Turner Jama MD 07/14/2017 03:05 A
== END ==
LOC: M ADAMS 11:25
PROVIDERS: ATTEND Family Medicine
DX: J45.41 Moderate persistent asthma with (acute) exacerbation (principal)

== ENCOUNTER 2017-07-14 14:27 | Outpatient (CLI) | payer OTHER ==
[~2017-07-14] VITALS: Ht 152.4 cm; Wt 84.5 kg
[~2017-07-14 14:27] MED LIST changes: -CARD240C5 PO; -ELIQ5TAB PO; -GUAI1TAB PO; -IPRA2IN INH; -LEVA750T7 PO; -PANT40TA2 PO; -PROBCAP4 PO; -TIZA2TA PO
[2017-07-14 14:50] VITALS: BP 103/76
[2017-07-14] MEDS ORDERED: cefTRIAXone SOD 2 GM in D5W 50 ML IV ONE (15:15)
== END 2017-07-14 16:35 | disposition home or self-care (01) ==
LOC: M OPCLIPED 14:27 → M PED 14:35 → M OPCLIPED 16:35
PROVIDERS: ATTEND Family Medicine
DX: J18.1 Lobar pneumonia, unspecified organism (principal); Z88.8 Allergy status to other drugs, medicaments and biological substances; Z91.010 Allergy to peanuts; Z91.011 Allergy to milk products; Z91.012 Allergy to eggs
CPT/HCPCS: 96374; J0696

== ENCOUNTER 2017-07-15 11:42 | Outpatient (CLI) | payer OTHER ==
[2017-07-15 12:02] VITALS: BP 129/83
[2017-07-15] MEDS ORDERED: cefTRIAXone SOD 2 GM in D5W 50 ML IV ONE (12:30)
[2017-07-16] MEDS ORDERED: IPRA2IN INH (15:44)
[2017-07-16] MEDS ORDERED: LEVA12INH INH (15:44)
[2017-07-16] MEDS ORDERED: CARD240C5 PO (15:44)
[2017-07-16] MEDS ORDERED: VIIB40TA PO (15:44)
[2017-07-16] MEDS ORDERED: ASPI325T PO (15:44)
[2017-07-16] MEDS ORDERED: DIGO0.25 PO (15:44)
[2017-07-16] MEDS ORDERED: PANT40TA2 PO (15:44)
[2017-07-16] MEDS ORDERED: GUAI1TAB PO (15:44)
[2017-07-16] MEDS ORDERED: TIZA2TA PO (15:44)
== END 2017-07-15 13:40 | disposition home or self-care (01) ==
LOC: M OPCLI4PR 11:42 → M PED 11:44 → M OPCLI4PR 13:40
PROVIDERS: ATTEND Family Medicine
DX: J45.40 Moderate persistent asthma, uncomplicated (principal); Z88.8 Allergy status to other drugs, medicaments and biological substances; Z91.010 Allergy to peanuts; Z91.011 Allergy to milk products; Z91.012 Allergy to eggs; Z79.899 Other long term (current) drug therapy
CPT/HCPCS: 96374; J0696

== ENCOUNTER 2017-07-16 13:22 | Inpatient (IN) | payer OTHER ==
[~2017-07-16] VITALS: Ht 152.4 cm; Wt 83.3 kg
[2017-07-16] MEDS ORDERED: ALBUTEROL SULFATE 2.5 MG/0.5 ML INH NEB SOLN NEB ONE (14:15)
[2017-07-16 14:45] LABS: BASO % 0.3 % (0.0-1.0); EOS # 0.4 10^3/uL (0.0-0.50); IMMATURE GRANULOCYTE % 0.4 % (0-0); LYMPH # 2.2 10^3/uL (1.5-4.5); LYMPH % 20.2 % (24.0-44.0); MEAN CORPUSCULAR HEMOGLOBIN 29.9 pg (27.0-33.0); MEAN CORPUSCULAR HGB CONC 33.6 g/dl (32.0-36.5); MONO # 0.5 10^3/uL (0.0-0.8); MONO % 4.9 % (0.0-5.0); NEUTROPHILS # 7.7 10^3/uL (1.8-7.7); NEUTROPHILS % 70.2 % (36.0-66.0); PLATELET COUNT, AUTOMATED 284 10^3/uL (150-450)
--- NOTE | 2017-07-16 14:47 | REP ---
PORTABLE CHEST X-RAY: Single view. HISTORY: Dyspnea and cough. COMPARISON: Chest x-ray June 27, 2017. FINDINGS: EKG monitoring electrodes overlie the chest. The heart is mildly enlarged. There is evidence of left atrial enlargement. This is unchanged. Pulmonary vasculature is cephalized. There is a new focal infiltrate in the right base medially suggesting pneumonia. No pleural effusion or diffuse pulmonary edema is seen. IMPRESSION: Mild cardiomegaly and left atrial enlargement unchanged. Cephalization of the pulmonary vasculature. New infiltrate right base consistent with pneumonia. Signed by Skinny Oconnor MD 07/16/2017 03:16 P
[2017-07-16 14:56] LABS: INR 0.94
[2017-07-16] MEDS ORDERED: PIPERACILLIN/TAZOBACTAM SOD 3.375 GM in D5W 50 ML IV ONE (15:00)
[2017-07-16 15:08] LABS: ALBUMIN 3.2 GM/DL (3.2-5.2); ALBUMIN/GLOBULIN RATIO 1.1 (1.00-1.93); BILIRUBIN,DIRECT 0.1 MG/DL (0.0-0.2); BILIRUBIN,TOTAL 0.5 MG/DL (0.2-1.0); TOTAL PROTEIN 6.1 GM/DL (6.4-8.2)
[2017-07-16 15:09] LABS: ANION GAP 11 MEQ/L (8-16); BLOOD UREA NITROGEN 12 MG/DL (7-18); CARBON DIOXIDE LEVEL 27 MEQ/L (21-32); CHLORIDE LEVEL 105 MEQ/L (98-107); CREATININE FOR GFR 0.83 MG/DL (0.55-1.02); GLOMERULAR FILTRATION RATE > 60.0 (>58); GLUCOSE, FASTING 97 MG/DL (70-105); POTASSIUM SERUM 3.7 MEQ/L (3.5-5.1); SODIUM LEVEL 143 MEQ/L (136-145)
[2017-07-16 15:18] LABS: DIGOXIN LEVEL 1.1 NG/ML (0.5-2.0)
[2017-07-16] MEDS ORDERED: PANT40TA2 PO (15:44)
[2017-07-16] MEDS ORDERED: TIZA2TA PO (15:44)
[2017-07-16] MEDS ORDERED: VIIB40TA PO (15:44)
[2017-07-16] MEDS ORDERED: ASPI325T PO (15:44)
[2017-07-16] MEDS ORDERED: DIGO0.25 PO (15:44)
[2017-07-16] MEDS ORDERED: CARD240C5 PO (15:44)
[2017-07-16] MEDS ORDERED: GUAI1TAB PO (15:44)
[2017-07-16] MEDS ORDERED: LEVA12INH INH (15:44)
[2017-07-16] MEDS ORDERED: IPRA2IN INH (15:44)
[2017-07-16] MEDS ORDERED: ONDANSETRON 4MG/2ML VIAL (J2405) IV PRN (16:00)
[2017-07-16] MEDS ORDERED: PANTOPRAZOLE 40MG TAB (PROTONIX) PO PRN (16:00)
[2017-07-16] MEDS ORDERED: IPRATROPIUM 0.02% SOLN 0.5MG/2.5 ML NEB INH PRN (16:00)
[2017-07-16] MEDS ORDERED: tiZANidine 4 MG TAB PO PRN (16:00)
[2017-07-16] MEDS ORDERED: LEVALBUTEROL 1.25 MG/0.5 ML CONCENTRATE NEB INH PRN (16:00)
[2017-07-16] MEDS ORDERED: FUROSEMIDE 40 MG/4 ML VIAL (J1940) IV ONE (16:30)
[2017-07-16] MEDS: clonazePAM 1 MG TAB PO SCH ×2 (17:58→21:23)
[2017-07-16] MEDS: ENOXAPARIN 40 MG/0.4 ML SYRINGE (J1650) SC SCH (17:58)
[2017-07-16] MEDS: LevoFLOXacin IV 750 MG in APPROPRIATE DILUENT 1 EA IV SCH (17:58)
[2017-07-16 18:00] VITALS: BP 125/64
--- NOTE | 2017-07-16 18:05 | HPEPDOC ---
General Date of Admission Jul 16, 2017 at 16:23 Primary Care Physician: Yrn De La Cruz MD Other Providers Crusher: Dr. Benton Cad Administrator: Dr. Mendenhall Attending Physician: FIDEL BLACK MD Chief Complaint The patient is a 47-year-old female admitted with a reason for visit of Right Lower Lobe Pneumonia. Source: Patient Exam Limitations: No limitations History of Present Illness Mrs. Shea is a 47-year-old female who presents to the emergency department with worsening shortness of breath and productive cough. She states that she was seen on 07/13/2017 and her PCPs office for evaluation of pneumonia. She was given a dose of Rocephin as well as Depo-Medrol, but with no improvement, therefore she decided to present to the emergency department. Her cough is productive of brownish yellow phlegm, she does feel that she has chest tightness, but she also does have a long-standing history of anxiety and she knows and understands that her chest tightness may be more related to anxiety than the lung troubles. She does state that she has been sweating significantly more than usual, however she denies any fevers chills or weight gain or weight loss. She does feel somewhat bloated from the steroids, and she has noticed some pitting edema in her lower extremities yesterday, but it appears to be resolved today. She denies any palpitations. Home Medications Scheduled (Viibryd) 40 Mg Tab, 40 MG PO DAILY, (Reported) Apixaban Base (Eliquis) 5 Mg Tab, 5 MG PO BID Brimonidine Tartrate 0.1% (Alphagan P) 100 Drop/5 Ml Soln, 1 DROP OU BID, ( Reported) Clonazepam (Klonopin) 2 Mg Tab, 2 MG PO TID, (Reported) Digoxin (Digoxin) 250 Mcg Tab, 250 MCG PO DAILY, (Reported) Diltiazem Hcl (Cardizem Cd) 240 Mg Cap, 240 MG PO DAILY, (Reported) Dorzolamide HCl (Dorzolamide HCl) 200 Drop/10 Ml Soln, 1 DROP OU BID, (Reported) Guaifenesin (Guaifenesin ER) 600 Mg Tab, 1,200 MG PO BID, (Reported) Lactobacillus Acidophilus (Probiotic) 1 Cap Cap, 1 CAP PO BID Latanoprost (Latanoprost) 50 Drop/2.5 Ml Soln, 1 DROP OU QHS, (Reported) Levofloxacin Hemihydrate (Levaquin) 750 Mg Tab, 750 MG PO DAILY Levothyroxine Sodium (Levoxyl) 50 Mcg Tab, 50 MCG PO DAILY, (Reported) Montelukast Sodium (Montelukast Sodium) 10 Mg Tab, 10 MG PO DAILY, (Reported) Salmeterol/Fluticasone (Advair Diskus 500-50 Mcg/Dose) 28 Puff/Inhaler Aerp, 1 PUFF INH BID, (Reported) Vitamin D (Vitamin D) 2,000 Unit Cap, 2,000 UNIT PO DAILY, (Reported) Scheduled PRN (Excedrin Tension Headache 500-65 mg) 1 Tab Tab, 1 TAB PO for HEADACHE, ( Reported) Ipratropium [place] (Ipratropium [place]) 0.5 Mg/2.5 Ml Soln, 0.5 MG INH Q4H PRN for SHORTNESS OF BREATH, (Reported) Levalbuterol Hydrochloride (Xopenex Concentrate) 1.25 Mg/0.5 Ml Neb, 1.25 MG INH Q2H PRN for SHORTNESS OF BREATH, (Reported) Ondansetron (Zofran Odt) 4 Mg Tab, 4 MG PO BID PRN for NAUSEA, (Reported) Pantoprazole Sodium (Pantoprazole Sodium) 40 Mg Tab, 40 MG PO DAILY PRN for HEARTBURN/INDIGESTION, (Reported) Rizatriptan Benzoate (Rizatriptan Benzoate) 10 Mg Tab, 10 MG PO DAILY PRN for MIGRAINE, (Reported) Tizanidine HCl (Tizanidine HCl) 2 Mg Tab, 1 MG PO TID PRN for MUSCLE SPASMS, ( Reported) Allergies Coded Allergies: Azelastine (Verified Allergy, Intermediate, 08/10/15) swelling in ears Linezolid (Verified Allergy, Intermediate, 07/07/17) TAPE (Verified Allergy, Intermediate, PLASTIC TAPE - SORES, 05/11/13) Peanut (Verified Allergy, Unknown, 02/07/07) SEASONAL ALLERGIES (Verified Allergy, Unknown, MOLD, 02/07/07) Sulfa Drugs (Verified Allergy, Unknown, 01/05/13) Sulfa Drugs Cross Reactors (Verified Allergy, Unknown, 01/05/13) Clarithromycin (Verified Adverse Reaction, Intermediate, DIARRHEA, 05/11/13) Corticosteroids (Verified Adverse Reaction, Intermediate, TACHYCARDIA, 01/05) Eggs or Egg-derived Products (Verified Adverse Reaction, Intermediate, GI UPSET, 05/11/13) Methylprednisolone (Verified Adverse Reaction, Intermediate, TACHYCARDIA, 01/05/13) Protein Milk (Verified Adverse Reaction, Intermediate, INTOLERANCE, 05/11/13 ) Past Medical History Medical History Severe persistent asthma History of chronic sinusitis, this has been infected with MRSA in the past as well Glaucoma Anxiety Depression Hypothyroidism Obstructive sleep apnea, compliant with CPAP Grade 1 left ventricular diastolic dysfunction noted on echo from 2013 (new echo has been obtained and Dr. Benton's office within the last 1-2 months) Mild fibrofatty liver per ultrasound 2000 Obesity Right rotator cuff tear Degenerative disc disease in the cervical and lumbar spine causing chronic pain. History of migraines Surgical History 2 Ovarian cyst resection D&C Sinus surgery 2 Trigger point injections and Botox for migraines Tonsils and adenoids Family History Her mother has CHF, hypertension, atrial fibrillation, and a pacemaker, she is 70 years old and alive. Her father had throat cancer which spread to his brain, he is now . Her maternal grandmother as well as an uncle on her mom's side had heart disease. A paternal uncle had a myocardial infarction in his late 50s early 60s that killed him. Her paternal grandfather had asthma and a triple bypass CABG Social History * Smoker: former Smoker (she smoked approximately a half pack per day for 67 years, she quit 1 year ago) Alcohol: occationally Drugs: denies Recent Travel/Sick Contacts: Denies: Recent travel, Recent sick contacts Psychosocial History: Anxiety Review of Symptoms Constitutional: Reports: Night Sweats, Fatigue, Denies: Chills, Fever, Weight Loss Eyes: Denies: Pain, Vision change ENT: Denies: Head Aches, Ear Pain, Dysphagia Skin: Denies: Rash, Lesions, Breakdown Pulmonary: Reports: Dyspnea, Cough (productive of yellowish-brown sputum) Cardiovascular: Reports: Edema (yesterday, not so much today), Denies: Chest Pain, Palpitations, Orthopnea, Paroxysmal Noc. Dyspnea, Lt Headedness Gastrointestinal: Reports: Nausea, Denies: Vomiting, Abdominal Pain, Diarrhea Hematologic: Denies: Bruising, Bleeding Excessively Neurological: Denies: Weakness, Numbness, Change in speech, Confusion Psych: Reports: Mood Normal, Denies: Depression, Memory Issues Physical Examination General Exam: Positive: Alert, Cooperative, Mild Distress Eye Exam: Positive: PERRLA, Conjunctiva & lids normal, EOMI, Negative: Sclera icteric ENT Exam: Positive: Atraumatic, Mucous membr. moist/pink, Pharynx Normal Neck Exam: Positive: Supple, JVD (up to the ears bilaterally), Negative: thyromegaly Chest Exam: Positive: Clear to auscultation, Normal air movement, Negative: Rales, Rhonchi, Wheezing Heart Exam: Positive: Rate Normal, Regular Rhythm, Murmurs (1/6 systolic murmur ), Negative: Rubs Telemetry: Positive: No significant arrhythmia Abdomen Exam: Positive: Normal bowel sounds, Soft, Negative: Tenderness, Hepatospenomegaly Extremity Exam: Positive: Normal pulses, Negative: Clubbing, Cyanosis, Edema Skin Exam: Positive: Nl turgor and temperature, Negative: Breakdown, Lesion Neuro Exam: Positive: Normal Gait, Normal Speech, Cranial Nerves 3-12 NL, Reflexes 2+ Psych Exam: Positive: Mental status NL, Mood NL, Oriented x 3 Vital Signs Vital Signs Date Time Temp Pulse Resp B/P (MAP) Pulse Ox O2 Delivery O2 Flow Rate FiO2 07/16/17 16:54 68 114/63 (80) 97 07/16/17 16:24 98.0 18 07/16/17 13:22 Room Air Laboratory Data Labs 24H Laboratory Tests 2 07/16/17 14:32: Immature Granulocyte % (Auto) 0.4H, White Blood Count 11.0H, Red Blood Count 3.64L, Hemoglobin 10.9L, Hematocrit 32.4L, Mean Corpuscular Volume 89.0, Mean Corpuscular Hemoglobin 29.9, Mean Corpuscular Hemoglobin Concent 33.6, Red Cell Distribution Width 15.0H, Platelet Count 284, Neutrophils (%) (Auto) 70.2H, Lymphocytes (%) (Auto) 20.2L, Monocytes (%) (Auto) 4.9, Eosinophils (%) (Auto) 4.0H, Basophils (%) (Auto) 0.3, Neutrophils # (Auto) 7.7, Lymphocytes # (Auto) 2.2, Monocytes # (Auto) 0.5, Eosinophils # (Auto) 0.4, Basophils # (Auto) 0.0, Immature Granulocyte # (Auto) 0.0, Nucleated Red Blood Cells % (auto) 0.0, Prothrombin Time 12.7, Prothromb Time International Ratio 0.94, Anion Gap 11, Glomerular Filtration Rate > 60.0, Blood Urea Nitrogen 12, Creatinine 0.83, Sodium Level 143, Potassium Level 3.7, Chloride Level 105, Carbon Dioxide Level 27, Calcium Level 9.0, Total Creatine Kinase 40, Aspartate Amino Transf (AST/ SGOT) 20, Alanine Aminotransferase (ALT/SGPT) 40, Alkaline Phosphatase 65, Total Bilirubin 0.5, Direct Bilirubin 0.1, Creatine Kinase MB 5.8H, Creatine Kinase MB Relative Index 14.50H, Troponin I 0.08, C-Reactive Protein, Quantitative 2.25H, XB-[id number]-[id number]-Type Natriuretic Peptide 2549H, Total Protein 6.1L , Albumin 3.2, Albumin/Globulin Ratio 1.10, Digoxin Level 1.1 07/16/17 16:06: CBC/BMP Laboratory Tests 07/16/17 14:32 Red Blood Count 3.64 L, Mean Corpuscular Volume 89.0, Mean Corpuscular Hemoglobin 29.9, Mean Corpuscular Hemoglobin Concent 33.6, Red Cell Distribution Width 15.0 H, Neutrophils (%) (Auto) 70.2 H, Lymphocytes (%) (Auto ) 20.2 L, Monocytes (%) (Auto) 4.9, Eosinophils (%) (Auto) 4.0 H, Basophils (%) (Auto) 0.3, Neutrophils # (Auto) 7.7, Lymphocytes # (Auto) 2.2, Monocytes # ( Auto) 0.5, Eosinophils # (Auto) 0.4, Basophils # (Auto) 0.0, Calcium Level 9.0, Total Creatine Kinase 40 Microbiology Microbiology 07/16/17 Blood Culture, Received Pending 07/16/17 Influenza Virus Type A Antigen - Final, Complete 07/16/17 Influenza Virus Type B Antigen - Final, Complete RAD Interpretation STUDY: EKG Rad Actions: Report Reviewed (she does appear to be in sinus rhythm at this time. She has left axis deviation, and an anterior TN of indeterminate age, probably has a left anterior fascicular block.) Problems (1) Right lower lobe pneumonia Status: Acute Problem Text: Given the patient has now failed outpatient therapy with Rocephin , and she has been on doxycycline multiple times in the past fo chronic recurrent sinusitis, will start patient on Levaquin. I doubt that this is a staph aureus pneumonia as it is not multi lobar and she would likely be significantly more sick than she currently is. I see no indication for steroids at this time as she is not wheezing, and she just received a dose of Depo-Medrol and 07/13/2017 which should last for at least 3-5 days. (2) Dyspnea on exertion Status: Acute Problem Text: Given that she does have JVD, and an elevated BNP with a history of diastolic dysfunction on echocardiogram, I suspect that she may be slightly fluid overloaded although she is not overtly edematous at this time. We will give 1 dose of Lasix 40 mg IV and recheck her clinical status in the morning. (3) Severe persistent asthma Status: Chronic Problem Text: We'll continue with her usual home dose of Advair, Xopenex nebulizer, ipratropium inhaler, Singulair. She is not wheezing at this time, therefore I do not believe this is an acute asthma exacerbation. (4) Recurrent sinusitis Status: Chronic Problem Text: Her symptoms are mostly in her chest, she is not complaining of her usual sinusitis symptoms of congestion and postnasal drip. (5) Atrial fibrillation Status: Chronic Problem Text: Currently rate controlled, continue home dose of Cardizem and digoxin (6) Depression Status: Chronic Problem Text: Continue home dose of Viibryd as well as her clonazepam for anxiety. (7) Hypothyroidism Status: Chronic Problem Text: Continue home dose of Synthroid. (8) Obstructive sleep apnea on CPAP Status: Chronic Problem Text: She may use her home CPAP (9) Diastolic dysfunction Status: Chronic (10) Obesity, Class II, BMI 35-39.9 Status: Chronic Problem Text: Complicating care (11) Chronic cervical pain Status: Chronic Problem Text: Continue home dose of tizanidine (12) Chronic lumbar pain Status: Chronic (13) Family history of hypertension (14) Family history of chronic obstructive pulmonary disease (15) Family history of carcinomas (16) Cardiomegaly Status: Chronic (17) Anxiety Status: Chronic Plan / VTE VTE Prophylaxis Ordered?: Yes GME ATTESTATION GME ATTESTATION My preceptor for this patient encounter was physically present in the building during the encounter and was fully available. As needed, all aspects of the patient interview, examination, medical decision making process, and medical care plan development were reviewed and approved by the preceptor. Preceptor is aware and concurs with the plan as stated in the body of this note and will attest to such by his/her cosignature. ATTENDING NOTE I, Fidel Black, have both independently examined this patient as well as reviewed the documentation. I have discussed in detail with the resident the findings and plan of treatment as documented in the residents documentation. I will continue to follow the patient and offer further guidance to the patients care as necessary during this hospital stay. YIMI BAUTISTA DO Jul 16, 2017 18:05 FIDEL BLACK MD Aug 01, 2017 18:10
[2017-07-16] MEDS: ADVAIR HFA 230/21MCG INHALER INH SCH (19:24)
[2017-07-16] MEDS: DORZOLAMIDE 2% OPHTH SOLN 10 ML BTL OU SCH (20:56)
[2017-07-16] MEDS: BRIMONIDINE 0.1% OPHTH SOLN 5 ML OU SCH (20:56)
[2017-07-16] MEDS: LATANOPROST 0.005% OPHTH SOLN 2.5 ML OU SCH (20:56)
[2017-07-16] MEDS: ACETAMINOPHEN TAB 650MG DOSE (2X325MG) PO PRN (21:23)
[2017-07-16] MEDS: guaiFENesin ER 600 MG TAB PO SCH (21:23)
[2017-07-16 22:00] VITALS: BP 115/67
[2017-07-17] MEDS: LEVOTHYROXINE 50MCG TABLET (0.05MG) PO SCH (05:39)
[2017-07-17] MEDS: ACETAMINOPHEN TAB 650MG DOSE (2X325MG) PO PRN (05:39)
[2017-07-17 06:00] VITALS: BP 126/67
[2017-07-17 06:28] LABS: MEAN CORPUSCULAR HEMOGLOBIN 29.5 pg (27.0-33.0); MEAN CORPUSCULAR HGB CONC 33.6 g/dl (32.0-36.5); MEAN CORPUSCULAR VOLUME 87.7 fl (80.0-96.0); RED CELL DISTRIBUTION WIDTH 14.9 % (11.5-14.5); WHITE BLOOD COUNT 8.2 10^3/uL (4.0-10.0)
[2017-07-17 06:48] LABS: ANION GAP 8 MEQ/L (8-16); BLOOD UREA NITROGEN 10 MG/DL (7-18); CALCIUM LEVEL 8.7 MG/DL (8.5-10.1); CARBON DIOXIDE LEVEL 29 MEQ/L (21-32); CHLORIDE LEVEL 103 MEQ/L (98-107); CREATININE FOR GFR 0.84 MG/DL (0.55-1.02); GLOMERULAR FILTRATION RATE > 60.0 (>58); GLUCOSE, FASTING 101 MG/DL (70-105); POTASSIUM SERUM 3.6 MEQ/L (3.5-5.1); SODIUM LEVEL 140 MEQ/L (136-145)
[2017-07-17] MEDS: ADVAIR HFA 230/21MCG INHALER INH SCH ×2 (07:34→19:29)
[2017-07-17] MEDS: DORZOLAMIDE 2% OPHTH SOLN 10 ML BTL OU SCH ×2 (09:00→21:00)
[2017-07-17] MEDS: BRIMONIDINE 0.1% OPHTH SOLN 5 ML OU SCH ×2 (09:00→21:00)
[2017-07-17] MEDS: VITAMIN D 1,000 INTERNATIONAL UNITS TABLET PO SCH (09:36)
[2017-07-17] MEDS: clonazePAM 1 MG TAB PO SCH ×3 (09:37→21:40)
[2017-07-17] MEDS: DIGOXIN 0.25 MG TAB PO SCH (09:37)
[2017-07-17] MEDS: guaiFENesin ER 600 MG TAB PO SCH ×2 (09:37→21:41)
[2017-07-17] MEDS: ASPIRIN 325 MG TAB PO SCH (09:45)
[2017-07-17] MEDS: MONTELUKAST 10 MG TAB PO SCH (09:45)
--- NOTE | 2017-07-17 13:12 | IPN ---
DATE OF VISIT: 07/17/2017 Patient is seen today [facility]. She was admitted yesterday for pneumonia not responding to outpatient treatment. Earlier in the week she had been given Rocephin and IM Solu-Medrol. She felt more short of breath yesterday and admitted from emergency department. Currently being treated with IV levofloxacin as well as inhaled bronchodilators. She has a history recently of atrial fibrillation and has seen the emblem cutter for it. Currently taking aspirin, digoxin, and diltiazem. She has a history of asthma at baseline and takes montelukast. She is also on vitamin D, levothyroxine, Alphagan eye drops, dorzolamide eye drops, Mucinex, Xalatan eye drops. She is on an Advair metered dose inhaler. We are giving her deep vein thrombosis (DVT) prophylaxis with Lovenox and she has medications available for pain, fever, wheezing and she is getting clonazepam for anxiety, which is a chronic medication for her, tizanidine as needed for muscle spasms and pantoprazole for gastrointestinal (GI) prophylaxis. She says she is feeling better than on admission, not having any fevers, chills or sweats. At this time, does cough occasionally. Chest feels less tight. On examination, her temperature is 97.8, blood pressure 126/67, pulse 81, respirations 18, O2 saturation 96%. She is alert, cooperative, not in any distress. No facial weakness. Does not appear dyspneic, only had a rare cough during her visit, which sounded a little bit tight. No neck masses, tenderness or adenopathy. No carotid bruits. Her lungs were clear but for an initial rhonchus heard in the left mid lung field that cleared with deep breathing. No rales at the bases and I am not hearing any expiratory wheezing at this time. Abdomen is soft and nontender without any masses or organomegaly. Bowel sounds are active. There is absolutely no edema. She was given a dose of IV Lasix yesterday because there was some concern about fluid retention and perhaps pulmonary edema. Today's labs show a hemoglobin of 10.8, WBC is 8200, BUN of 10, creatinine 0.84, potassium 3.6. Her BNP yesterday was, and this a proBNP, which should be less than 125, was 2549. We reviewed her chest x-ray from yesterday and indeed it does seem to show some more haziness in the lower lung zapata, but there is an area that could be an infiltrate in the right base. ASSESSMENT: 1. Right lower lobe pneumonia. Continue current medications. 2. History of asthma. Will continue bronchodilators. 3. Atrial fibrillation. Resident's pulse seems to be regular with skips every third to sixth beat. We will be reviewing her EKG from yesterday. 4. Depression and anxiety. Chronic. Continue home medications. 5. Hypothyroidism. Continue home medications. 6. Obstructive sleep apnea. Continue CPAP. 7. Diastolic dysfunction and labs consistent with congestive heart failure. 8. Chronic neck and back pain. Continue p.r.n. antispasmodics. PLAN: At this time, will continue on her current medications. Review her EKGs. I am going to recheck her chemistries, in particular her BNP, in the morning. Fortunately, she appears better than she had been. I believe she was not placed on steroids because she was not wheezing and she seemed to be having side effects from the steroids that she was getting as an outpatient. ALLEN
[2017-07-17 14:00] VITALS: BP 107/68
[2017-07-17] MEDS: LevoFLOXacin IV 750 MG in APPROPRIATE DILUENT 1 EA IV SCH (17:34)
[2017-07-17] MEDS: ENOXAPARIN 40 MG/0.4 ML SYRINGE (J1650) SC SCH (17:34)
[2017-07-17] MEDS: LATANOPROST 0.005% OPHTH SOLN 2.5 ML OU SCH (21:00)
[2017-07-17] MEDS ORDERED: MIRALAX *UNIT DOSE* 17GM PACKET PO PRN (21:30)
[2017-07-17] MEDS ORDERED: ACETAMINOPH W/CODEINE #3 TAB UD PO ONE (21:30)
[2017-07-17 22:00] VITALS: BP 134/74
[2017-07-18 06:00] VITALS: BP 136/70
[2017-07-18 06:24] LABS: MEAN CORPUSCULAR HEMOGLOBIN 29.8 pg (27.0-33.0); MEAN CORPUSCULAR HGB CONC 33.1 g/dl (32.0-36.5); MEAN CORPUSCULAR VOLUME 90.1 fl (80.0-96.0); WHITE BLOOD COUNT 8.6 10^3/uL (4.0-10.0)
[2017-07-18] MEDS: LEVOTHYROXINE 50MCG TABLET (0.05MG) PO SCH (06:39)
[2017-07-18 06:51] LABS: ANION GAP 7 MEQ/L (8-16); BLOOD UREA NITROGEN 12 MG/DL (7-18); CARBON DIOXIDE LEVEL 28 MEQ/L (21-32); CHLORIDE LEVEL 108 MEQ/L (98-107); CREATININE FOR GFR 0.89 MG/DL (0.55-1.02); GLOMERULAR FILTRATION RATE > 60.0 (>58); GLUCOSE, FASTING 96 MG/DL (70-105); POTASSIUM SERUM 3.9 MEQ/L (3.5-5.1); SODIUM LEVEL 143 MEQ/L (136-145)
[2017-07-18] MEDS: ADVAIR HFA 230/21MCG INHALER INH SCH ×2 (08:23→19:58)
[2017-07-18] MEDS: DORZOLAMIDE 2% OPHTH SOLN 10 ML BTL OU SCH ×2 (09:00→21:29)
[2017-07-18] MEDS: BRIMONIDINE 0.1% OPHTH SOLN 5 ML OU SCH ×2 (09:00→21:29)
--- NOTE | 2017-07-18 09:01 | ECGEPIP ---
Stationary ECG Study [facility] Test Date: 2017-07-17 Pat Name: PHOENIX AGUILAR Department: Room: [place] [address] Gender: F Machine Captain: : [id number] Requested By: Dion Santamarai Order Number: [id number] Reading MD: Brenna Forbes Measurements Intervals [place] Rate: 82 P: 19 UT: 163 QRS: -38 QRSD: 128 T: 132 QT: 354 QTc: 415 Interpretive Statements SINUS RHYTHM WITH OCCASIONAL SUPRAVENTRICULAR PREMATURE COMPLEXES POSSIBLE LEFT ATRIAL ENLARGEMENT ILBBB LEFT VENTRICULAR HYPERTROPHY AND ST-T CHANGE POSSIBLE ANTEROSEPTAL MYOCARDIAL INFARCTION, OF INDETERMINATE AGE COPD PATTERN dEEP S LAT LEADS NEW C/W 06/27/17 Electronically Signed On 07-18-2017 9:01:16 EDT by Brenna Forbes
[2017-07-18] MEDS: ASPIRIN 325 MG TAB PO SCH (09:39)
[2017-07-18] MEDS: DIGOXIN 0.25 MG TAB PO SCH (09:40)
[2017-07-18] MEDS: clonazePAM 1 MG TAB PO SCH ×3 (09:40→21:28)
[2017-07-18] MEDS: guaiFENesin ER 600 MG TAB PO SCH ×2 (09:40→21:29)
[2017-07-18] MEDS: MONTELUKAST 10 MG TAB PO SCH (09:40)
[2017-07-18] MEDS: VITAMIN D 1,000 INTERNATIONAL UNITS TABLET PO SCH (09:41)
[2017-07-18 14:00] VITALS: BP 88/52
[2017-07-18] MEDS: LevoFLOXacin IV 750 MG in APPROPRIATE DILUENT 1 EA IV SCH (16:07)
--- NOTE | 2017-07-18 19:01 | IPN ---
DATE: 07/18/2017 The patient is seen today for followup on her pneumonia and other problems. She is not doing much coughing, not having any fever or chills. Breathing may feel short at times, may get some chest discomfort at times, mostly in the upper center of her chest. She was complaining of some chest pain last night and she reports that this occurred after she had had a lot of coughing. She is not having any edema, not really having any palpitations. On examination her blood pressure this morning was 136/70, this afternoon it was 88/52, temperature 97.5, pulse 76, respirations 16. She is alert, pleasant, cooperative, not in any distress. She did not cough during our entire encounter. She did not appear dyspneic at all. No audible respiratory congestion and no jugular venous distension. Her lungs sound clear at this time. Her heart has a regular rhythm, I think there is a systolic murmur on the left parasternal area. 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 Abdomen is soft and nontender without any masses or organomegaly. Bowel sounds are active. Labs today showed a hemoglobin of 10.5, WBCs 8600, BUN 12, creatinine 0.89, potassium 3.9, digoxin done 2 days ago was 1.1. She had a repeat BNP done today which was 1604 which is less than 2 days ago. I looked at her chest x-ray from last night and this showed sinus rhythm, occasional premature atrial contractions (PACs), possible left atrial enlargement, left bundle-branch block, left ventricular hypertrophy and ST-T changes but no changes compared with 2 days earlier. ASSESSMENT: 1. Right lower lobe pneumonia. 2. History of asthma. 3. Atrial fibrillation, currently in sinus. 4. Chronic depression and anxiety. 5. Hypothyroidism. 6. Obstructive sleep apnea with C-PAP palliation. 7. Diastolic dysfunction. 8. Chronic neck and back pain. PLAN: At this time the patient seems quite comfortable and the question is whether her apparent pneumonia may be more a function of congestive heart failure. Given her soft blood pressure this afternoon and lack of pulmonary rales or edema, I would not endeavor to put her on any diuretic medicine at this time or on any other medication for cardiac function that might lower her blood pressure. Currently she is getting MiraLax, aspirin, digoxin, diltiazem, Singulair, vitamin D, levothyroxine, brimonidine, dorzolamide, Mucinex and Xalatan, Advair HFA, Lovenox. She is getting Levaquin as the antibiotic. She has as needed medications for pain, nausea, and wheezing. She also has scheduled clonazepam for anxiety and as needed Zanaflex. I did review recent cardiac testing. She does apparently have a fairly dilated left atrium and has thickened ventricular mclean without any wall motion abnormalities and this would put her in the category of diastolic dysfunction if she does have congestive heart failure (CHF). Will continue on her current medications with an eye towards discharging her tomorrow. In light of the elevated brain natriuretic peptide (BNP), it would be reasonable for cardiology to see her sooner than what they had scheduled for her after her appointment several weeks ago. ALLEN
[2017-07-18] MEDS: APIXABAN 5 MG TAB (ELIQUIS) PO SCH (21:28)
[2017-07-18] MEDS: LATANOPROST 0.005% OPHTH SOLN 2.5 ML OU SCH (21:29)
[2017-07-18 22:00] VITALS: BP 120/59
[2017-07-19] MEDS: LEVOTHYROXINE 50MCG TABLET (0.05MG) PO SCH (05:49)
[2017-07-19 06:00] VITALS: BP 120/75
--- NOTE | 2017-07-19 06:02 | ECGEPIP ---
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
[2017-07-19 06:19] LABS: MEAN CORPUSCULAR HEMOGLOBIN 29.9 pg (27.0-33.0); MEAN CORPUSCULAR HGB CONC 33.2 g/dl (32.0-36.5); RED CELL DISTRIBUTION WIDTH 15.1 % (11.5-14.5); WHITE BLOOD COUNT 9.3 10^3/uL (4.0-10.0)
[2017-07-19 06:31] LABS: ANION GAP 7 MEQ/L (8-16); BLOOD UREA NITROGEN 13 MG/DL (7-18); CALCIUM LEVEL 8.8 MG/DL (8.5-10.1); CARBON DIOXIDE LEVEL 29 MEQ/L (21-32); CHLORIDE LEVEL 105 MEQ/L (98-107); CREATININE FOR GFR 0.84 MG/DL (0.55-1.02); GLOMERULAR FILTRATION RATE > 60.0 (>58); GLUCOSE, FASTING 94 MG/DL (70-105); POTASSIUM SERUM 3.6 MEQ/L (3.5-5.1); SODIUM LEVEL 141 MEQ/L (136-145)
[2017-07-19] MEDS: ADVAIR HFA 230/21MCG INHALER INH SCH (07:59)
[2017-07-19] MEDS: VITAMIN D 1,000 INTERNATIONAL UNITS TABLET PO SCH (08:56)
[2017-07-19] MEDS: MONTELUKAST 10 MG TAB PO SCH (08:57)
[2017-07-19] MEDS: clonazePAM 1 MG TAB PO SCH ×2 (08:57→16:19)
[2017-07-19] MEDS: guaiFENesin ER 600 MG TAB PO SCH (08:57)
[2017-07-19] MEDS: APIXABAN 5 MG TAB (ELIQUIS) PO SCH (08:57)
[2017-07-19 08:59] VITALS: BP 115/63
[2017-07-19] MEDS: DIGOXIN 0.25 MG TAB PO SCH (08:59)
[2017-07-19] MEDS: DORZOLAMIDE 2% OPHTH SOLN 10 ML BTL OU SCH (09:00)
[2017-07-19] MEDS: BRIMONIDINE 0.1% OPHTH SOLN 5 ML OU SCH (09:00)
[2017-07-19] MEDS: ACETAMINOPHEN TAB 650MG DOSE (2X325MG) PO PRN ×2 (09:17→14:29)
[2017-07-19] MEDS ORDERED: LEVA750T7 PO (11:28)
[2017-07-19] MEDS ORDERED: PROBCAP4 PO (11:28)
[2017-07-19] MEDS ORDERED: ELIQ5TAB PO (11:28)
--- NOTE | 2017-07-19 11:50 | DSES ---
DATE OF ADMISSION: 07/16/2017 DATE OF DISCHARGE: 07/19/2017 PRIMARY CARE PROVIDER: Dr. Yrn De La Cruz. ATTENDING TODAY: Dr. Yazan Dawson. HISTORY: This is a 47-year-old female patient who follows with Dr. De La Cruz in the outpatient setting who presented to [facility] emergency room with worsening shortness of breath and productive cough. She was seen in the office 3 days prior and was given a dose of Rocephin as well as Depo-Medrol though had no improvement in her symptoms and presented to the emergency room. She complained of a brownish-yellow sputum production, chest tightness at time of presentation. She was admitted to the hospital for right lower lobe pneumonia. During her hospitalization, she had remained medically stable. She was admitted on IV Levaquin and has continued with this for 4 days. Her respiratory status is improved, requiring less oxygen and her cough has improved. She is eager to return home at this time. She has been up and ambulating independently without any difficulty. She does have an elevated BNP although she does appear to be compensated without any significant fluid overload. It does not appear as though she is on any diuretics in the outpatient setting and I am not going to discharge her on any although she should followup with cardiology for further management in the outpatient setting. DISCHARGE DIAGNOSES: Include: Right lower lobe pneumonia. Mild intermittent asthma. Chronic atrial fibrillation. Depression. Anxiety. Hypothyroidism. Sleep apnea. Chronic diastolic congestive heart failure. DISCHARGE MEDICATIONS: Include: - Levaquin 750 mg daily times 7 days - Probiotic twice daily - Eliquis 5 mg by mouth twice daily - lactobacillus one capsule twice daily - aspirin 325 mg daily - Alphagan P one drop each eye twice daily - clonazepam 2 mg by mouth three times daily - Digoxin 250 mcg by mouth daily - Diltiazem 240 mg by mouth daily - dorzolamide 200 one drop each eye twice daily - Excedrin one tablet as needed for headache - guaifenesin 1200 mg by mouth twice daily - DuoNeb inhaled every 4 hours as needed for shortness of breath - Levoxyl 50 mcg daily - Singulair 10 mg daily - Zofran 4 mg by mouth twice daily as needed for nausea - Protonix 40 mg daily - rizatriptan 10 mg daily as needed for migraine - Advair 500/50 one puff twice daily - tizanidine 2 mg three times daily as needed for muscle spasm - Viibryd 40 mg daily - vitamin D 2000 units by mouth daily DISCHARGE PLAN: Followup with her primary care provider, Dr. De La Cruz in 1 week. Activity should be as tolerated. Diet should be no added salt. edited: 07/20/2017 1359 tkf MTDD
[2017-07-19 14:00] VITALS: BP 103/61
== END 2017-07-19 17:35 | disposition home or self-care (01) | DRG 139 ==
LOC: M ED 13:22 → M ED INP 16:23 → M MSPAV 17:20
PROVIDERS: ADMIT Internal Medicine; ATTEND Family Medicine
DX: J18.9 Pneumonia, unspecified organism (principal); I50.30 Unspecified diastolic (congestive) heart failure; I48.2 Chronic atrial fibrillation; G47.33 Obstructive sleep apnea (adult) (pediatric); E03.9 Hypothyroidism, unspecified; F32.9 Major depressive disorder, single episode, unspecified; J45.50 Severe persistent asthma, uncomplicated; E66.9 Obesity, unspecified; Z79.899 Other long term (current) drug therapy; Z88.2 Allergy status to sulfonamides; Z88.8 Allergy status to other drugs, medicaments and biological substances; Z91.010 Allergy to peanuts; Z91.011 Allergy to milk products; Z88.1 Allergy status to other antibiotic agents; Z91.048 Other nonmedicinal substance allergy status; Z99.89 Dependence on other enabling machines and devices; Z87.891 Personal history of nicotine dependence; Z68.35 Body mass index [BMI] 35.0-35.9, adult; Z79.01 Long term (current) use of anticoagulants

== ENCOUNTER → 2017-09-06 | Outpatient (REF) | payer OTHER ==
[~2017-09-06] MED LIST changes: +CARD240C5 PO; +ELIQ5TAB PO; +GUAI1TAB PO; +IPRA2IN INH; +LEVA750T7 PO; +PANT40TA2 PO; +PROBCAP4 PO; +TIZA2TA PO
== END ==
LOC: M LAB REF 16:54
PROVIDERS: ATTEND Physician Assistant
DX: I48.0 Paroxysmal atrial fibrillation (principal); R00.2 Palpitations

== ENCOUNTER 2017-09-29 11:48 | Emergency (ER) | payer OTHER ==
[2017-09-29 12:42] LABS: BASO # 0.1 10^3/uL (0.0-0.2); BASO % 0.3 % (0.0-1.0); EOS # 0.2 10^3/uL (0.0-0.50); EOS % 1.4 % (0.0-3.0); IMMATURE GRANULOCYTE # 0.1 10^3/uL (0-0); IMMATURE GRANULOCYTE % 0.8 % (0-0); LYMPH # 2.1 10^3/uL (1.5-4.5); LYMPH % 14.2 % (24.0-44.0); MEAN CORPUSCULAR HEMOGLOBIN 26.3 pg (27.0-33.0); MEAN CORPUSCULAR HGB CONC 31.7 g/dl (32.0-36.5); MONO # 0.7 10^3/uL (0.0-0.8); MONO % 4.9 % (0.0-5.0); NEUTROPHILS # 11.3 10^3/uL (1.8-7.7); NEUTROPHILS % 78.4 % (36.0-66.0); PLATELET COUNT, AUTOMATED 427 10^3/uL (150-450); RED CELL DISTRIBUTION WIDTH 14.2 % (11.5-14.5); WHITE BLOOD COUNT 14.4 10^3/uL (4.0-10.0)
[2017-09-29 12:51] LABS: INR 1.22
[2017-09-29 13:08] LABS: ALBUMIN 3.5 GM/DL (3.2-5.2); ALKALINE PHOSPHATASE 71 U/L (45-117); ALT/SGPT 30 U/L (12-78); ANION GAP 7 MEQ/L (8-16); AST/SGOT 13 U/L (7-37); BILIRUBIN,DIRECT 0.1 MG/DL (0.0-0.2); BILIRUBIN,TOTAL 0.7 MG/DL (0.2-1.0); BLOOD UREA NITROGEN 15 MG/DL (7-18); CALCIUM LEVEL 8.8 MG/DL (8.5-10.1); CARBON DIOXIDE LEVEL 33 MEQ/L (21-32); CHLORIDE LEVEL 99 MEQ/L (98-107); GLOMERULAR FILTRATION RATE > 60.0 (>58); GLUCOSE, FASTING 92 MG/DL (70-105); POTASSIUM SERUM 3.3 MEQ/L (3.5-5.1); SODIUM LEVEL 139 MEQ/L (136-145); TOTAL PROTEIN 7.4 GM/DL (6.4-8.2)
[2017-09-29] MEDS: SUCRALFATE 1 GM TAB PO (13:08)
[2017-09-29] MEDS: GI COCKTAIL 50ML BTL(HYOSCYAMINE/MAALOX/LIDOCAINE VISCOUS)(1:3:1) PO (13:08)
[2017-09-29] MEDS: NS 1,000 ML IV (13:08)
[2017-09-29] MEDS: PANTOPRAZOLE 40MG INJ (PROTONIX) (C9113) IV (13:08)
== END 2017-09-29 14:12 | disposition home or self-care (01) ==
LOC: M ED 11:48
DX: K21.0 Gastro-esophageal reflux disease with esophagitis (principal); I48.91 Unspecified atrial fibrillation; E11.9 Type 2 diabetes mellitus without complications; I50.9 Heart failure, unspecified; Z79.01 Long term (current) use of anticoagulants; Z87.891 Personal history of nicotine dependence
CPT/HCPCS: C9113

== ENCOUNTER → 2017-11-11 | Outpatient (REF) | payer OTHER | LOC: M SFHCPLAZ 15:25 | DX: J01.10 Acute frontal sinusitis, unspecified (principal) | CPT/HCPCS: 87205 ==

== ENCOUNTER → 2017-11-12 | Outpatient (CLI) | payer OTHER ==
[2017-11-12 17:14] LABS: BASO % 0.3 % (0.0-1.0); EOS # 0.2 10^3/uL (0.0-0.50); EOS % 1.7 % (0.0-3.0); HEMATOCRIT 34.1 % (36.0-47.0); HEMOGLOBIN 10.7 g/dl (12.0-16.0); IMMATURE GRANULOCYTE % 0.6 % (0-3.0); LYMPH # 0.8 10^3/uL (1.5-4.5); MEAN CORPUSCULAR HEMOGLOBIN 25.1 pg (27.0-33.0); MEAN CORPUSCULAR HGB CONC 31.4 g/dl (32.0-36.5); MEAN CORPUSCULAR VOLUME 79.9 fl (80.0-96.0); MONO # 0.7 10^3/uL (0.0-0.8); MONO % 7.1 % (0.0-5.0); NEUTROPHILS # 8.3 10^3/uL (1.8-7.7); NEUTROPHILS % 82.3 % (36.0-66.0); PLATELET COUNT, AUTOMATED 416 10^3/uL (150-450); RED BLOOD COUNT 4.27 10^6/uL (4.00-5.40); RED CELL DISTRIBUTION WIDTH 14.9 % (11.5-14.5); WHITE BLOOD COUNT 10.1 10^3/uL (4.0-10.0)
[2017-11-12 18:21] LABS: ALBUMIN 3.7 GM/DL (3.2-5.2); ALBUMIN/GLOBULIN RATIO 1.06 (1.00-1.93); ALKALINE PHOSPHATASE 80 U/L (45-117); ALT/SGPT 23 U/L (12-78); ANION GAP 9 MEQ/L (8-16); AST/SGOT 20 U/L (7-37); BILIRUBIN,TOTAL 0.5 MG/DL (0.2-1.0); BLOOD UREA NITROGEN 10 MG/DL (7-18); CALCIUM LEVEL 8.6 MG/DL (8.5-10.1); CARBON DIOXIDE LEVEL 28 MEQ/L (21-32); CHLORIDE LEVEL 103 MEQ/L (98-107); CREATININE FOR GFR 1.26 MG/DL (0.55-1.30); GLOMERULAR FILTRATION RATE 48.9 (>58); GLUCOSE, FASTING 97 MG/DL (70-100); POTASSIUM SERUM 3.9 MEQ/L (3.5-5.1); SODIUM LEVEL 140 MEQ/L (136-145); TOTAL PROTEIN 7.2 GM/DL (6.4-8.2)
== END ==
LOC: M SMT 15:23
DX: J45.41 Moderate persistent asthma with (acute) exacerbation (principal); R50.81 Fever presenting with conditions classified elsewhere; J20.9 Acute bronchitis, unspecified; J98.11 Atelectasis
CPT/HCPCS: 80053

== ENCOUNTER → 2017-12-02 | Outpatient (CLI) | payer OTHER ==
[2017-12-02 15:08] LABS: LUTEINIZING HORMONE 21.9 mIU/mL
[2017-12-02 15:09] LABS: FOLLICLE STIMULATING HORMONE 25.4 mIU/mL
== END ==
LOC: M SMT 09:44
DX: N93.8 Other specified abnormal uterine and vaginal bleeding (principal); Z11.51 Encounter for screening for human papillomavirus (HPV); R87.612 Low grade squamous intraepithelial lesion on cytologic smear of cervix (LGSIL)
CPT/HCPCS: 83001

== ENCOUNTER → 2018-01-24 | Outpatient (CLI) | payer OTHER ==
[2018-01-24 10:52] LABS: ALBUMIN 3.3 GM/DL (3.2-5.2); ANION GAP 6 MEQ/L (8-16); BLOOD UREA NITROGEN 6 MG/DL (7-18); CALCIUM LEVEL 8.7 MG/DL (8.5-10.1); CARBON DIOXIDE LEVEL 30 MEQ/L (21-32); CHLORIDE LEVEL 105 MEQ/L (98-107); CREATININE FOR GFR 0.89 MG/DL (0.55-1.30); GLOMERULAR FILTRATION RATE > 60.0 (>58); GLUCOSE, FASTING 105 MG/DL (70-100); MAGNESIUM LEVEL 2.1 MG/DL (1.8-2.4); PHOSPHORUS LEVEL 3.8 MG/DL (2.5-4.9); POTASSIUM SERUM 3.8 MEQ/L (3.5-5.1); SODIUM LEVEL 141 MEQ/L (136-145)
== END ==
LOC: M LAB 09:44
DX: I50.32 Chronic diastolic (congestive) heart failure (principal)
CPT/HCPCS: 83735

== ENCOUNTER → 2018-02-18 | Outpatient (CLI) | payer OTHER | LOC: M WHC 09:40 | DX: Z12.31 Encounter for screening mammogram for malignant neoplasm of breast (principal) | CPT/HCPCS: 77067 ==

== ENCOUNTER → 2018-02-24 | Outpatient (CLI) | payer OTHER | LOC: M WHC 09:20 | DX: N93.8 Other specified abnormal uterine and vaginal bleeding (principal) | CPT/HCPCS: 76830 ==

== ENCOUNTER 2018-03-11 09:47 | Day surgery (SDC) | payer OTHER ==
[2018-03-11] MEDS ORDERED: ONDANSETRON 4MG/2ML VIAL (J2405) As Ordered (10:08)
[2018-03-11] MEDS ORDERED: KETOROLAC 60 MG/2 ML VIAL (J1885) As Ordered (10:08)
[2018-03-11] MEDS ORDERED: dexameTHASONE 4 MG/ML 1ML VIAL (J1100) As Ordered ×2 (10:08→10:10)
[2018-03-11] MEDS ORDERED: LIDOCAINE 2% INJ 100 MG/5 ML SDV (FOR ANES.) As Ordered (10:08)
[2018-03-11] MEDS ORDERED: PROPOFOL 500 MG/50 ML VIAL As Ordered (10:09)
[2018-03-11] MEDS ORDERED: MIDAZOLAM INJ 2 MG/2 ML VIAL (J2250) As Ordered (10:09)
[2018-03-11] MEDS ORDERED: fentaNYL 100 MCG/2 ML INJECTION (J3010) As Ordered (10:10)
[2018-03-11 10:34] LABS: ANION GAP 8 MEQ/L (8-16); BLOOD UREA NITROGEN 15 MG/DL (7-18); CALCIUM LEVEL 9.1 MG/DL (8.5-10.1); CARBON DIOXIDE LEVEL 30 MEQ/L (21-32); CHLORIDE LEVEL 102 MEQ/L (98-107); CREATININE FOR GFR 1.08 MG/DL (0.55-1.30); GLOMERULAR FILTRATION RATE 58.1 (>58); GLUCOSE, FASTING 113 MG/DL (70-100); POTASSIUM SERUM 3.7 MEQ/L (3.5-5.1); SODIUM LEVEL 140 MEQ/L (136-145)
[2018-03-11 10:35] LABS: CONTROL LINE UCG INT CTR LINE PRESENT; URINE PREG TEST NEGATIVE (NEGATIVE)
[2018-03-11] MEDS: LR 1,000 ML IV (11:04)
[2018-03-11] MEDS: ceFAZolin SOD 1 GM in D5W MINI-BAG PLUS 50 ML IV (11:53)
[2018-03-11] MEDS: LIDOCAINE 1% SDV INJ 30 ML VIAL As Ordered (11:53)
[2018-03-11] MEDS ORDERED: ACETAMINOPH W/CODEINE #3 TAB UD As Ordered (12:45)
[2018-03-11] MEDS: ACETAMINOPH W/CODEINE #3 TAB UD PO (12:50)
[2018-03-11] MEDS ORDERED: LR 1,000 ML IV ×2 (13:00)
[2018-03-11] MEDS ORDERED: fentaNYL 100 MCG/2 ML INJECTION (J3010) IV (13:00)
[2018-03-11] MEDS ORDERED: ACETAMINOPH W/CODEINE #3 TAB UD PO (13:00)
[2018-03-11] MEDS ORDERED: PERCOCET 5MG/325MG TAB PO (13:00)
[2018-03-11] MEDS ORDERED: HYDROMORPHONE HCL 0.5 MG/ 0.5 ML SYRINGE (J1170 PER 1) IV (13:00)
[2018-03-11] MEDS ORDERED: ONDANSETRON 4MG/2ML VIAL (J2405) IV (13:00)
== END 2018-03-11 13:45 | disposition home or self-care (01) ==
LOC: M SDC 09:47
DX: G56.12 Other lesions of median nerve, left upper limb (principal); I10 Essential (primary) hypertension; E03.9 Hypothyroidism, unspecified; G47.30 Sleep apnea, unspecified; Z88.2 Allergy status to sulfonamides; Z91.011 Allergy to milk products; Z91.010 Allergy to peanuts; Z88.8 Allergy status to other drugs, medicaments and biological substances; E78.00 Pure hypercholesterolemia, unspecified; J45.909 Unspecified asthma, uncomplicated; I50.9 Heart failure, unspecified; K21.9 Gastro-esophageal reflux disease without esophagitis; F41.9 Anxiety disorder, unspecified; F32.9 Major depressive disorder, single episode, unspecified; D64.9 Anemia, unspecified; Z87.891 Personal history of nicotine dependence; Z79.899 Other long term (current) drug therapy
CPT/HCPCS: 64721

== ENCOUNTER 2018-04-07 08:33 | Day surgery (SDC) | payer OTHER ==
[2018-04-07] MEDS: MONTELUKAST 10 MG TAB PO (09:00)
[2018-04-07] MEDS: FUROSEMIDE 40 MG TAB PO (09:00)
[2018-04-07] MEDS ORDERED: DIGOXIN 0.25 MG TAB PO (09:00)
[2018-04-07] MEDS: SPIRONOLACTONE 12.5MG PER 1/2 TABLET PO (09:00)
[2018-04-07] MEDS: PANTOPRAZOLE 40MG TAB (PROTONIX) PO (09:00)
[2018-04-07] MEDS: KETOROLAC 30 MG/ML VIAL (J1885) IV (09:42)
[2018-04-07] MEDS: ONDANSETRON 4MG/2ML VIAL (J2405) IV (09:42)
[2018-04-07 09:55] LABS: BASO % 0.3 % (0.0-1.0); EOS # 0.3 10^3/uL (0.0-0.50); EOS % 2.8 % (0.0-3.0); HEMATOCRIT 29.8 % (36.0-47.0); HEMOGLOBIN 9.6 g/dl (12.0-15.5); IMMATURE GRANULOCYTE % 0.4 % (0-3.0); LYMPH % 16.9 % (24.0-44.0); MEAN CORPUSCULAR HGB CONC 32.2 g/dl (32.0-36.5); MEAN CORPUSCULAR VOLUME 77.6 fl (80.0-96.0); MONO # 0.6 10^3/uL (0.0-0.8); MONO % 4.8 % (0.0-5.0); NEUTROPHILS # 8.7 10^3/uL (1.8-7.7); NEUTROPHILS % 74.8 % (36.0-66.0); PLATELET COUNT, AUTOMATED 373 10^3/uL (150-450); RED BLOOD COUNT 3.84 10^6/uL (4.00-5.40); RED CELL DISTRIBUTION WIDTH 15.1 % (11.5-14.5); WHITE BLOOD COUNT 11.6 10^3/uL (4.0-10.0)
[2018-04-07 10:13] LABS: ALBUMIN 3.1 GM/DL (3.2-5.2); ALBUMIN/GLOBULIN RATIO 0.94 (1.00-1.93); ALKALINE PHOSPHATASE 75 U/L (45-117); ALT/SGPT 28 U/L (12-78); ANION GAP 7 MEQ/L (8-16); AST/SGOT 12 U/L (7-37); BILIRUBIN,DIRECT 0.1 MG/DL (0.0-0.2); BILIRUBIN,TOTAL 0.4 MG/DL (0.2-1.0); BLOOD UREA NITROGEN 15 MG/DL (7-18); CALCIUM LEVEL 8.9 MG/DL (8.5-10.1); CARBON DIOXIDE LEVEL 32 MEQ/L (21-32); CHLORIDE LEVEL 100 MEQ/L (98-107); CREATININE FOR GFR 0.87 MG/DL (0.55-1.30); GLOMERULAR FILTRATION RATE > 60.0 (>58); GLUCOSE, FASTING 103 MG/DL (70-100); LIPASE 90 U/L (73-393); POTASSIUM SERUM 4.1 MEQ/L (3.5-5.1); SODIUM LEVEL 139 MEQ/L (136-145); TOTAL PROTEIN 6.4 GM/DL (6.4-8.2)
[2018-04-07] MEDS: MORPHINE 4 MG/ML 1ML VIAL/SYRINGE (J2270) IV (10:30)
[2018-04-07 15:41] LABS: DIGOXIN LEVEL 2.7 NG/ML (0.5-2.0)
[2018-04-07] MEDS ORDERED: KETOROLAC 30 MG/ML VIAL (J1885) IV (16:15)
[2018-04-07] MEDS ORDERED: ACETAMINOPHEN TAB 650MG DOSE (2X325MG) PO (16:15)
[2018-04-07] MEDS ORDERED: ONDANSETRON 4MG/2ML VIAL (J2405) IV (16:15)
[2018-04-07] MEDS ORDERED: MORPHINE 4 MG/ML 1ML VIAL/SYRINGE (J2270) IV (16:15)
[2018-04-07] MEDS ORDERED: PIPERACILLIN/TAZOBACTAM SOD 3.375 GM in D5W MINI-BAG PLUS 50 ML IV (16:30)
[2018-04-07] MEDS: NS 1,000 ML IV (18:49)
[2018-04-07] MEDS: LEVOTHYROXINE 50MCG TABLET (0.05MG) PO (18:49)
[2018-04-07] MEDS: clonazePAM 1 MG TAB PO ×2 (18:49→21:00)
[2018-04-07] MEDS: PIPERACILLIN/TAZOBACTAM SOD 3.375 GM in D5W MINI-BAG PLUS 50 ML IV (18:50)
[2018-04-07] MEDS: ADVAIR HFA 230/21MCG INHALER INH (20:15)
[2018-04-07] MEDS: DORZOLAMIDE 2% OPHTH SOLN 10 ML BTL OU (20:46)
[2018-04-07] MEDS: BRIMONIDINE 0.15% OPHTH SOLN 5 ML OU (20:46)
[2018-04-07] MEDS: SENOKOT S TAB PO (20:46)
[2018-04-07] MEDS: NORCO, ANEXSIA 5/325MG TABLET (HYDROcodone/ACETAMINOPHEN) PO (20:48)
[2018-04-07] MEDS: HEPARIN SOD (PORCINE) 5000 UNITS/ML VIAL SC (21:51)
[2018-04-08] MEDS: PIPERACILLIN/TAZOBACTAM SOD 3.375 GM in D5W MINI-BAG PLUS 50 ML IV ×4 (00:03→17:19)
[2018-04-08] MEDS: NS 1,000 ML IV (05:09)
[2018-04-08] MEDS: NORCO, ANEXSIA 5/325MG TABLET (HYDROcodone/ACETAMINOPHEN) PO ×2 (05:11→18:34)
[2018-04-08] MEDS: LEVOTHYROXINE 50MCG TABLET (0.05MG) PO (05:34)
[2018-04-08] MEDS: HEPARIN SOD (PORCINE) 5000 UNITS/ML VIAL SC ×3 (05:34→20:51)
[2018-04-08 07:14] LABS: HEMATOCRIT 28.5 % (36.0-47.0); HEMOGLOBIN 8.9 g/dl (12.0-15.5); MEAN CORPUSCULAR HEMOGLOBIN 24.5 pg (27.0-33.0); MEAN CORPUSCULAR HGB CONC 31.2 g/dl (32.0-36.5); MEAN CORPUSCULAR VOLUME 78.3 fl (80.0-96.0); PLATELET COUNT, AUTOMATED 353 10^3/uL (150-450); RED BLOOD COUNT 3.64 10^6/uL (4.00-5.40); RED CELL DISTRIBUTION WIDTH 15.2 % (11.5-14.5); WHITE BLOOD COUNT 11.9 10^3/uL (4.0-10.0)
[2018-04-08] MEDS: ADVAIR HFA 230/21MCG INHALER INH ×2 (07:41→20:18)
[2018-04-08 07:45] LABS: ALBUMIN 2.8 GM/DL (3.2-5.2); ALBUMIN/GLOBULIN RATIO 0.78 (1.00-1.93); ALKALINE PHOSPHATASE 59 U/L (45-117); ALT/SGPT 25 U/L (12-78); ANION GAP 8 MEQ/L (8-16); AST/SGOT 13 U/L (7-37); BILIRUBIN,TOTAL 0.5 MG/DL (0.2-1.0); BLOOD UREA NITROGEN 12 MG/DL (7-18); CALCIUM LEVEL 8.1 MG/DL (8.5-10.1); CARBON DIOXIDE LEVEL 32 MEQ/L (21-32); CHLORIDE LEVEL 100 MEQ/L (98-107); CREATININE FOR GFR 1.25 MG/DL (0.55-1.30); DIGOXIN LEVEL 1.6 NG/ML (0.5-2.0); GLOMERULAR FILTRATION RATE 49.1 (>58); GLUCOSE, FASTING 107 MG/DL (70-100); MAGNESIUM LEVEL 1.9 MG/DL (1.8-2.4); POTASSIUM SERUM 4.1 MEQ/L (3.5-5.1); SODIUM LEVEL 140 MEQ/L (136-145); TOTAL PROTEIN 6.4 GM/DL (6.4-8.2)
[2018-04-08] MEDS: BRIMONIDINE 0.15% OPHTH SOLN 5 ML OU ×2 (08:01→20:51)
[2018-04-08] MEDS: DORZOLAMIDE 2% OPHTH SOLN 10 ML BTL OU ×2 (08:02→20:51)
[2018-04-08] MEDS: SENOKOT S TAB PO ×2 (08:02→20:50)
[2018-04-08] MEDS: clonazePAM 1 MG TAB PO ×3 (08:02→20:50)
[2018-04-08] MEDS: SPIRONOLACTONE 12.5MG PER 1/2 TABLET PO ×2 (08:04→15:52)
[2018-04-08] MEDS: FUROSEMIDE 40 MG TAB PO ×2 (08:04→15:52)
[2018-04-08] MEDS: MONTELUKAST 10 MG TAB PO (08:05)
[2018-04-08] MEDS: PANTOPRAZOLE 40MG TAB (PROTONIX) PO (08:05)
[2018-04-08] MEDS: BUPIVACAINE/EPIN 0.25% 30 ML VIAL As Ordered (08:31)
[2018-04-08] MEDS: DIGOXIN 0.25 MG TAB PO (09:13)
[2018-04-08] MEDS ORDERED: dexameTHASONE 4 MG/ML 1ML VIAL (J1100) As Ordered (09:55)
[2018-04-08] MEDS ORDERED: ONDANSETRON 4MG/2ML VIAL (J2405) As Ordered (09:55)
[2018-04-08] MEDS ORDERED: fentaNYL 250 MCG/5 ML INJECTION (J3010) As Ordered (09:55)
[2018-04-08] MEDS ORDERED: PROPOFOL 200 MG/20 ML VIAL As Ordered (09:55)
[2018-04-08] MEDS ORDERED: MIDAZOLAM INJ 2 MG/2 ML VIAL (J2250) As Ordered (09:55)
[2018-04-08] MEDS ORDERED: GLYCOPYRROLATE INJ 0.2 MG/ML 2 ML VIAL As Ordered (09:55)
[2018-04-08] MEDS ORDERED: LIDOCAINE 2% INJ 100 MG/5 ML SDV (FOR ANES.) As Ordered (09:55)
[2018-04-08] MEDS ORDERED: NEOSTIGMINE 10 MG/10 ML VIAL (J2710) As Ordered (09:55)
[2018-04-08] MEDS ORDERED: ROCURONIUM BROMIDE 50 MG/5 ML VIAL As Ordered (09:55)
[2018-04-08] MEDS ORDERED: METOCLOPRAMIDE INJ 10MG/2ML VIAL (J2765) As Ordered (09:55)
[2018-04-08] MEDS ORDERED: ePHEDrine SULFATE 25 MG/5 ML(5MG/ML) SYRINGE As Ordered (10:06)
[2018-04-08] MEDS ORDERED: METOCLOPRAMIDE INJ 10MG/2ML VIAL (J2765) IV (11:30)
[2018-04-08] MEDS ORDERED: ONDANSETRON 4MG/2ML VIAL (J2405) IV (11:30)
[2018-04-08] MEDS ORDERED: PERCOCET 5MG/325MG TAB PO (11:30)
[2018-04-08] MEDS: LR 1,000 ML IV (11:30)
[2018-04-08] MEDS ORDERED: fentaNYL 100 MCG/2 ML INJECTION (J3010) IV (11:30)
[2018-04-09] MEDS: LEVOTHYROXINE 50MCG TABLET (0.05MG) PO (00:14)
[2018-04-09] MEDS: PIPERACILLIN/TAZOBACTAM SOD 3.375 GM in D5W MINI-BAG PLUS 50 ML IV ×2 (00:30→05:54)
[2018-04-09] MEDS: NORCO, ANEXSIA 5/325MG TABLET (HYDROcodone/ACETAMINOPHEN) PO (04:32)
[2018-04-09] MEDS: HEPARIN SOD (PORCINE) 5000 UNITS/ML VIAL SC (05:53)
[2018-04-09 06:12] LABS: HEMATOCRIT 26.9 % (36.0-47.0); HEMOGLOBIN 8.5 g/dl (12.0-15.5); MEAN CORPUSCULAR HEMOGLOBIN 24.9 pg (27.0-33.0); MEAN CORPUSCULAR HGB CONC 31.6 g/dl (32.0-36.5); MEAN CORPUSCULAR VOLUME 78.7 fl (80.0-96.0); PLATELET COUNT, AUTOMATED 335 10^3/uL (150-450); RED BLOOD COUNT 3.42 10^6/uL (4.00-5.40); RED CELL DISTRIBUTION WIDTH 15.5 % (11.5-14.5); WHITE BLOOD COUNT 16.1 10^3/uL (4.0-10.0)
[2018-04-09 06:28] LABS: ALBUMIN/GLOBULIN RATIO 0.86 (1.00-1.93); ALKALINE PHOSPHATASE 62 U/L (45-117); ALT/SGPT 40 U/L (12-78); ANION GAP 5 MEQ/L (8-16); AST/SGOT 35 U/L (7-37); BILIRUBIN,TOTAL 0.5 MG/DL (0.2-1.0); BLOOD UREA NITROGEN 12 MG/DL (7-18); CALCIUM LEVEL 8.2 MG/DL (8.5-10.1); CARBON DIOXIDE LEVEL 33 MEQ/L (21-32); CHLORIDE LEVEL 101 MEQ/L (98-107); CREATININE FOR GFR 1.15 MG/DL (0.55-1.30); GLOMERULAR FILTRATION RATE 54.1 (>58); GLUCOSE, FASTING 141 MG/DL (70-100); MAGNESIUM LEVEL 2.1 MG/DL (1.8-2.4); POTASSIUM SERUM 3.9 MEQ/L (3.5-5.1); SODIUM LEVEL 139 MEQ/L (136-145); TOTAL PROTEIN 6.5 GM/DL (6.4-8.2)
[2018-04-09] MEDS: BRIMONIDINE 0.15% OPHTH SOLN 5 ML OU (08:47)
[2018-04-09] MEDS: DORZOLAMIDE 2% OPHTH SOLN 10 ML BTL OU (08:47)
[2018-04-09] MEDS: SENOKOT S TAB PO (08:48)
[2018-04-09] MEDS: MONTELUKAST 10 MG TAB PO (08:48)
[2018-04-09] MEDS: clonazePAM 1 MG TAB PO (08:48)
[2018-04-09] MEDS: FUROSEMIDE 40 MG TAB PO (08:48)
[2018-04-09] MEDS: PANTOPRAZOLE 40MG TAB (PROTONIX) PO (08:48)
[2018-04-09] MEDS: SPIRONOLACTONE 12.5MG PER 1/2 TABLET PO (08:48)
[2018-04-09] MEDS: DIGOXIN 0.25 MG TAB PO (08:49)
== END 2018-04-09 11:21 | disposition home or self-care (01) ==
LOC: M ED INP 17:49 → M ED 08:33 → M SDC 17:49 → M ED INP 16:04 → M MSPAV 17:49
DX: K80.18 Calculus of gallbladder with other cholecystitis without obstruction (principal); J45.909 Unspecified asthma, uncomplicated; I11.9 Hypertensive heart disease without heart failure; K21.9 Gastro-esophageal reflux disease without esophagitis; E03.9 Hypothyroidism, unspecified; G47.33 Obstructive sleep apnea (adult) (pediatric); Z79.899 Other long term (current) drug therapy; I48.0 Paroxysmal atrial fibrillation; Z79.02 Long term (current) use of antithrombotics/antiplatelets; I50.32 Chronic diastolic (congestive) heart failure; Z87.891 Personal history of nicotine dependence; F32.9 Major depressive disorder, single episode, unspecified; F41.9 Anxiety disorder, unspecified; Z88.2 Allergy status to sulfonamides; Z88.8 Allergy status to other drugs, medicaments and biological substances; Z91.010 Allergy to peanuts
CPT/HCPCS: 47562

== ENCOUNTER 2018-04-13 16:51 | Emergency (ER) | payer OTHER ==
[2018-04-13] MEDS: ONDANSETRON 4 MG TAB (S0181) PO (18:15)
[2018-04-13] MEDS: MORPHINE 4 MG/ML 1ML VIAL/SYRINGE (J2270) IV (18:20)
[2018-04-13] MEDS: NS 1,000 ML IV (18:20)
[2018-04-13 18:42] LABS: BASO % 0.2 % (0.0-1.0); EOS # 0.3 10^3/uL (0.0-0.50); HEMATOCRIT 26.3 % (36.0-47.0); HEMOGLOBIN 8.2 g/dl (12.0-15.5); IMMATURE GRANULOCYTE % 0.5 % (0-3.0); LYMPH # 2.2 10^3/uL (1.5-4.5); MEAN CORPUSCULAR HEMOGLOBIN 24.5 pg (27.0-33.0); MEAN CORPUSCULAR HGB CONC 31.2 g/dl (32.0-36.5); MEAN CORPUSCULAR VOLUME 78.5 fl (80.0-96.0); MONO # 0.6 10^3/uL (0.0-0.8); MONO % 5.6 % (0.0-5.0); NEUTROPHILS # 7.3 10^3/uL (1.8-7.7); NEUTROPHILS % 69.7 % (36.0-66.0); PLATELET COUNT, AUTOMATED 353 10^3/uL (150-450); RED BLOOD COUNT 3.35 10^6/uL (4.00-5.40); RED CELL DISTRIBUTION WIDTH 15.5 % (11.5-14.5); WHITE BLOOD COUNT 10.5 10^3/uL (4.0-10.0)
[2018-04-13 18:45] LABS: CONTROL LINE HCG INT CTR LINE PRESENT; HCG, SERUM QUALITATIVE NEGATIVE (NEGATIVE)
[2018-04-13 18:55] LABS: ALBUMIN 2.8 GM/DL (3.2-5.2); ALBUMIN/GLOBULIN RATIO 0.88 (1.00-1.93); ALKALINE PHOSPHATASE 208 U/L (45-117); ALT/SGPT 86 U/L (12-78); AMYLASE 24 U/L (25-115); ANION GAP 8 MEQ/L (8-16); AST/SGOT 175 U/L (7-37); BILIRUBIN,DIRECT 0.4 MG/DL (0.0-0.2); BILIRUBIN,TOTAL 0.8 MG/DL (0.2-1.0); BLOOD UREA NITROGEN 14 MG/DL (7-18); CALCIUM LEVEL 7.9 MG/DL (8.5-10.1); CARBON DIOXIDE LEVEL 28 MEQ/L (21-32); CHLORIDE LEVEL 104 MEQ/L (98-107); CK-MB VALUE MASS 1.7 NG/ML (<3.6); CPK CREATINE PHOSPHOKINASE 37 U/L (26-192); CREATININE FOR GFR 0.96 MG/DL (0.55-1.30); GLOMERULAR FILTRATION RATE > 60.0 (>58); GLUCOSE, FASTING 131 MG/DL (70-100); LIPASE 51 U/L (73-393); MB/CK RELATIVE INDEX 4.59 (< OR =4); SODIUM LEVEL 140 MEQ/L (136-145); TROPONIN I 0.03 NG/ML (< 0.10)
[2018-04-13] MEDS ORDERED: OXYCODONE/APAP 5MG/325MG(BULK FOR ED) 1 TABLET PO (20:00)
== END 2018-04-13 20:51 | disposition home or self-care (01) ==
LOC: M ED 16:51
DX: R10.9 Unspecified abdominal pain (principal); I44.0 Atrioventricular block, first degree; N83.292 Other ovarian cyst, left side; I48.91 Unspecified atrial fibrillation; I10 Essential (primary) hypertension; J44.9 Chronic obstructive pulmonary disease, unspecified; J30.9 Allergic rhinitis, unspecified; Z87.891 Personal history of nicotine dependence; Z79.899 Other long term (current) drug therapy; Z91.89 Other specified personal risk factors, not elsewhere classified; Z91.010 Allergy to peanuts; Z91.011 Allergy to milk products; Z91.012 Allergy to eggs; Z91.040 Latex allergy status; Z88.2 Allergy status to sulfonamides; Z88.8 Allergy status to other drugs, medicaments and biological substances
CPT/HCPCS: J2270

== ENCOUNTER → 2018-04-14 | Outpatient (CLI) | payer OTHER | LOC: M RAD 14:08 | DX: R10.11 Right upper quadrant pain (principal); R94.5 Abnormal results of liver function studies; Z90.49 Acquired absence of other specified parts of digestive tract | CPT/HCPCS: 74181 ==

== ENCOUNTER 2018-04-15 09:57 | Emergency (ER) | payer OTHER ==
[2018-04-15] MEDS ORDERED: ONDANSETRON 4MG/2ML VIAL (J2405) As Ordered (10:03)
[2018-04-15] MEDS ORDERED: MORPHINE 2 MG/ML 1ML SYRINGE (J2270) As Ordered (10:03)
[2018-04-15] MEDS: MORPHINE 2 MG/ML 1ML SYRINGE (J2270) IV ×2 (10:07→10:32)
[2018-04-15] MEDS: NS 1,000 ML IV ×3 (10:07→14:34)
[2018-04-15] MEDS: ONDANSETRON 4MG/2ML VIAL (J2405) IV (10:07)
[2018-04-15 10:31] LABS: BASO % 0.3 % (0.0-1.0); EOS # 0.4 10^3/uL (0.0-0.50); EOS % 4.3 % (0.0-3.0); HEMATOCRIT 29.5 % (36.0-47.0); HEMOGLOBIN 9.1 g/dl (12.0-15.5); IMMATURE GRANULOCYTE % 0.5 % (0-3.0); LYMPH # 1.3 10^3/uL (1.5-4.5); LYMPH % 13.3 % (24.0-44.0); MEAN CORPUSCULAR HEMOGLOBIN 24.7 pg (27.0-33.0); MEAN CORPUSCULAR HGB CONC 30.8 g/dl (32.0-36.5); MEAN CORPUSCULAR VOLUME 79.9 fl (80.0-96.0); MONO # 0.6 10^3/uL (0.0-0.8); MONO % 5.8 % (0.0-5.0); NEUTROPHILS # 7.5 10^3/uL (1.8-7.7); NEUTROPHILS % 75.8 % (36.0-66.0); PLATELET COUNT, AUTOMATED 339 10^3/uL (150-450); RED BLOOD COUNT 3.69 10^6/uL (4.00-5.40); RED CELL DISTRIBUTION WIDTH 15.7 % (11.5-14.5); WHITE BLOOD COUNT 9.9 10^3/uL (4.0-10.0)
[2018-04-15 10:42] LABS: INR 1.02; PROTHROMBIN TIME 13.5 SECONDS (12.1-14.4)
[2018-04-15 10:43] LABS: PARTIAL THROMBOPLASTIN TIME 30.2 SECONDS (25.4-37.6)
[2018-04-15] MEDS: METOCLOPRAMIDE INJ 10MG/2ML VIAL (J2765) IV (10:43)
[2018-04-15 11:00] LABS: ALBUMIN 3.1 GM/DL (3.2-5.2); ALBUMIN/GLOBULIN RATIO 0.91 (1.00-1.93); ALKALINE PHOSPHATASE 278 U/L (45-117); ALT/SGPT 296 U/L (12-78); AMYLASE 24 U/L (25-115); ANION GAP 8 MEQ/L (8-16); AST/SGOT 167 U/L (7-37); BILIRUBIN,DIRECT 2.1 MG/DL (0.0-0.2); BILIRUBIN,TOTAL 2.5 MG/DL (0.2-1.0); BLOOD UREA NITROGEN 9 MG/DL (7-18); CALCIUM LEVEL 7.9 MG/DL (8.5-10.1); CARBON DIOXIDE LEVEL 28 MEQ/L (21-32); CHLORIDE LEVEL 104 MEQ/L (98-107); CK-MB VALUE MASS 1.6 NG/ML (<3.6); CPK CREATINE PHOSPHOKINASE 21 U/L (26-192); CREATININE FOR GFR 0.93 MG/DL (0.55-1.30); GLOMERULAR FILTRATION RATE > 60.0 (>58); GLUCOSE, FASTING 134 MG/DL (70-100); LIPASE 53 U/L (73-393); MAGNESIUM LEVEL 2.3 MG/DL (1.8-2.4); MB/CK RELATIVE INDEX 7.61 (< OR =4); POTASSIUM SERUM 4.3 MEQ/L (3.5-5.1); SODIUM LEVEL 140 MEQ/L (136-145); TOTAL PROTEIN 6.5 GM/DL (6.4-8.2); TROPONIN I 0.03 NG/ML (< 0.10)
[2018-04-15] MEDS ORDERED: MORPHINE 2 MG/ML 1ML SYRINGE (J2270) IV (11:15)
[2018-04-15] MEDS ORDERED: ISOVUE-370 76% 100ML VIAL (Q9967) As Ordered (11:20)
[2018-04-15] MEDS: PIPERACILLIN/TAZOBACTAM SOD 3.375 GM in D5W MINI-BAG PLUS 50 ML IV (13:20)
== END 2018-04-15 15:09 | disposition short-term general hospital (02) ==
LOC: M ED 09:57
DX: R10.9 Unspecified abdominal pain (principal); I95.9 Hypotension, unspecified; R00.1 Bradycardia, unspecified; R79.89 Other specified abnormal findings of blood chemistry; R11.2 Nausea with vomiting, unspecified; I50.9 Heart failure, unspecified; Z79.899 Other long term (current) drug therapy; Z98.890 Other specified postprocedural states
CPT/HCPCS: J2405

== ENCOUNTER 2018-05-09 05:55 | Day surgery (SDC) | payer OTHER ==
[2018-05-09 06:33] LABS: HEMATOCRIT 32.7 % (36.0-47.0); HEMOGLOBIN 10.1 g/dl (12.0-15.5); MEAN CORPUSCULAR HEMOGLOBIN 24.2 pg (27.0-33.0); MEAN CORPUSCULAR HGB CONC 30.9 g/dl (32.0-36.5); MEAN CORPUSCULAR VOLUME 78.4 fl (80.0-96.0); PLATELET COUNT, AUTOMATED 422 10^3/uL (150-450); RED BLOOD COUNT 4.17 10^6/uL (4.00-5.40); RED CELL DISTRIBUTION WIDTH 15.3 % (11.5-14.5); WHITE BLOOD COUNT 12.2 10^3/uL (4.0-10.0)
[2018-05-09] MEDS: LR 1,000 ML IV ×4 (07:00→18:15)
[2018-05-09] MEDS ORDERED: PROPOFOL 200 MG/20 ML VIAL As Ordered (07:19)
[2018-05-09] MEDS ORDERED: LIDOCAINE 2% INJ 100 MG/5 ML SDV (FOR ANES.) As Ordered (07:19)
[2018-05-09] MEDS ORDERED: ROCURONIUM BROMIDE 50 MG/5 ML VIAL As Ordered ×2 (07:19→08:41)
[2018-05-09] MEDS ORDERED: MIDAZOLAM INJ 2 MG/2 ML VIAL (J2250) As Ordered (07:20)
[2018-05-09] MEDS ORDERED: fentaNYL 100 MCG/2 ML INJECTION (J3010) As Ordered (07:20)
[2018-05-09] MEDS: BUPIVACAINE HCL 0.25% 30 ML VIAL As Ordered (08:00)
[2018-05-09] MEDS ORDERED: PHENYLEPHRINE INJ 10MG/ML VIAL (J2370) As Ordered (08:27)
[2018-05-09] MEDS ORDERED: METOCLOPRAMIDE INJ 10MG/2ML VIAL (J2765) As Ordered (08:41)
[2018-05-09] MEDS ORDERED: ONDANSETRON 4MG/2ML VIAL (J2405) As Ordered (08:41)
[2018-05-09] MEDS: DOCUSATE SODIUM 100 MG CAP PO ×2 (09:00→21:04)
[2018-05-09] MEDS: METHYLENE BLUE 0.5% (5MG/ML) 10 ML AMP (PROVAYBLUE)(Q9968 PER 1MG) As Ordered (09:20)
[2018-05-09] MEDS ORDERED: GLYCOPYRROLATE INJ 0.2 MG/ML 2 ML VIAL As Ordered (09:34)
[2018-05-09] MEDS: HYDROMORPHONE HCL 0.5 MG/ 0.5 ML SYRINGE (J1170 PER 1) IV ×2 (10:13→10:19)
[2018-05-09] MEDS ORDERED: MORPHINE 4 MG/ML 1ML VIAL/SYRINGE (J2270) IV (10:15)
[2018-05-09] MEDS ORDERED: PERCOCET 5MG/325MG TAB PO ×2 (10:15)
[2018-05-09] MEDS ORDERED: KETOROLAC 30 MG/ML VIAL (J1885) IV (10:15)
[2018-05-09] MEDS ORDERED: ONDANSETRON 4MG/2ML VIAL (J2405) IV ×2 (10:15)
[2018-05-09] MEDS ORDERED: fentaNYL 100 MCG/2 ML INJECTION (J3010) IV (10:15)
[2018-05-09] MEDS ORDERED: PHENYLEPHRINE INJ 10MG/ML VIAL (J2370) IV (11:00)
[2018-05-09] MEDS: PERCOCET 5MG/325MG TAB PO ×2 (15:37→21:04)
[2018-05-10] MEDS: ACETAMINOPHEN 500 MG TAB PO (00:51)
[2018-05-10] MEDS: LR 1,000 ML IV ×2 (02:15→10:15)
[2018-05-10] MEDS: RIZATRIPTAN BENZOATE 10 MG TAB PO (07:39)
[2018-05-10] MEDS: APIXABAN 5 MG TAB (ELIQUIS) PO (08:32)
[2018-05-10] MEDS: DOCUSATE SODIUM 100 MG CAP PO (08:32)
[2018-05-10] MEDS: PERCOCET 5MG/325MG TAB PO (08:33)
== END 2018-05-10 11:50 | disposition home or self-care (01) ==
LOC: M SDC 05:55 → M PED 11:30
DX: N92.0 Excessive and frequent menstruation with regular cycle (principal); R10.2 Pelvic and perineal pain; N72 Inflammatory disease of cervix uteri; N80.0 Endometriosis of uterus; E03.9 Hypothyroidism, unspecified; K21.9 Gastro-esophageal reflux disease without esophagitis; K76.0 Fatty (change of) liver, not elsewhere classified; G47.30 Sleep apnea, unspecified; Z87.891 Personal history of nicotine dependence; Z91.010 Allergy to peanuts; Z91.040 Latex allergy status; Z91.012 Allergy to eggs; Z79.02 Long term (current) use of antithrombotics/antiplatelets; Z79.899 Other long term (current) drug therapy
CPT/HCPCS: 58571

== ENCOUNTER → 2018-07-01 | Outpatient (REF) | payer OTHER ==
[2018-07-01 19:46] LABS: HEMATOCRIT 33.1 % (36.0-47.0); HEMOGLOBIN 10.1 g/dl (12.0-15.5); MEAN CORPUSCULAR HEMOGLOBIN 23.5 pg (27.0-33.0); MEAN CORPUSCULAR HGB CONC 30.5 g/dl (32.0-36.5); PLATELET COUNT, AUTOMATED 390 10^3/uL (150-450); RED CELL DISTRIBUTION WIDTH 15.7 % (11.5-14.5); RETIC HEMOGLOBIN EQUIVALENT 26.8 pg (24-36); RETICULOCYTE # 93.7 10^9/L (17-77); RETICULOCYTE % 2.2 % (0.5-1.5); WHITE BLOOD COUNT 11.1 10^3/uL (4.0-10.0)
[2018-07-01 19:58] LABS: MICROSCOPIC INDICATED? MAN NO (NO)
[2018-07-01 20:12] LABS: ALBUMIN 3.7 GM/DL (3.2-5.2); ALBUMIN/GLOBULIN RATIO 1.16 (1.00-1.93); ALKALINE PHOSPHATASE 86 U/L (45-117); ALT/SGPT 25 U/L (12-78); ANION GAP 11 MEQ/L (8-16); AST/SGOT 16 U/L (7-37); BILIRUBIN,TOTAL 0.4 MG/DL (0.2-1.0); BLOOD UREA NITROGEN 10 MG/DL (7-18); CALCIUM LEVEL 8.7 MG/DL (8.5-10.1); CARBON DIOXIDE LEVEL 26 MEQ/L (21-32); CHLORIDE LEVEL 104 MEQ/L (98-107); CREATININE FOR GFR 0.95 MG/DL (0.55-1.30); FERRITIN 8 NG/ML (8-252); FREE T4 1.03 NG/DL (0.76-1.46); GLOMERULAR FILTRATION RATE > 60.0 (>58); GLUCOSE, FASTING 124 MG/DL (70-100); IRON (FE) 24 UG/DL (50-170); PERCENT SATURATION 5.7 % (13.2-45.0); POTASSIUM SERUM 3.5 MEQ/L (3.5-5.1); SODIUM LEVEL 141 MEQ/L (136-145); TOTAL 25(OH) VITAMIN D 29.9 NG/ML (30.0-100.0); TOTAL IRON BINDING CAPACITY 422 UG/DL (250-450); TOTAL PROTEIN 6.9 GM/DL (6.4-8.2)
[2018-07-01 20:37] LABS: APPEARANCE, URINE MANUAL CLEAR (CLEAR); COLOR, URINE MANUAL COLORLESS (YELLOW)
[2018-07-01 20:38] LABS: BILIRUBIN, URINE MANUAL NEGATIVE (NEGATIVE); BLOOD URINE MANUAL NEGATIVE (NEGATIVE); GLUCOSE, URINE (UA) MANUAL NEGATIVE (NEGATIVE); KETONE, URINE MANUAL NEGATIVE (NEGATIVE); LEUKOCYTE ESTERASE, URINE MAN NEGATIVE (NEGATIVE); NITRITE, URINE MANUAL NEGATIVE (NEGATIVE); PROTEIN, URINE MANUAL NEGATIVE (NEGATIVE); SPECIFIC GRAVITY,URINE MANUAL 1.005 (1.002-1.035); UROBILINOGEN, URINE MANUAL NORMAL (NORMAL)
== END ==
LOC: M SFHCADAM 16:15
DX: L98.7 Excessive and redundant skin and subcutaneous tissue (principal); D50.9 Iron deficiency anemia, unspecified; E03.9 Hypothyroidism, unspecified; F41.1 Generalized anxiety disorder; R82.99 Other abnormal findings in urine; E55.9 Vitamin D deficiency, unspecified

== ENCOUNTER 2018-08-08 10:19 | Day surgery (SDC) | payer OTHER ==
[~2018-08-08 10:19] MED LIST changes: -/ADVA50050 INH; -ADV500INH INH; -ALBU17IN2 INH; -ALBUPOW9 XX; -AMOX400S7 PO; -ASOPT OU; -ASPI325T PO; -ATRO0.063 INH; -ATROVENT NEBULIZER INH; -AYR SALINE; -BETA10003 PO; -BRIM1OPD OU; -BRIN1OPH OU; -CARD120C3 PO; -CARD240C5 PO; -CETI10TA OR; -CLON1TAB PO; -CYMB60CA3 PO; -DIGO0.25 PO; -DORZ2OPD OU; -DOXY100T PO; -ELIQ5TAB PO; -EXCETAB49 PO; -FISH1000 PO; -FOLI400T PO; -GUAI1TAB PO; -IBUP80TA PO; -IBUPPOW25 OR; -IPRA2IN INH; -IPRASOL4 INH; -KLON2TAB PO; -LATA5OPD OU; -LEVA12INH INH; -LEVA750T7 PO; -LEVO50TA PO; -LORTABELIX PO; -LUMI0.01 OU; -LUMIGAN EYE OU; +MIDAZOLAM INJ 2 MG/2 ML VIAL (J2250) As Ordered; -MONT10TA2 PO; -MUCI120T PO; -MULTCAP PO; -NASA1SPR8; -NASOCORT; -PANT40TA2 PO; -PRED20TA PO; -PRED20TAB PO; -PROBCAP4 PO; -PROT20TA11 PO; -PROTPAK PO; -RIZA10TA2 PO; -ROCE1INJ4 IV; -TIZA2TA PO; -TIZA4CAP3 PO; -TYLE325T5 PO; -VIIB40TA PO; -VITA200016 PO; -ZANA4TAB PO; -ZANT150T PO; -ZOFR4TAB3 PO; -[UNRECOGNIZED DRUG - OTHER]; -albuterol inhaler INH; -atrovent INH; +fentaNYL 100 MCG/2 ML INJECTION (J3010) As Ordered; -nebulizer INH; -singulair OR
[2018-08-08] MEDS: LIDOCAINE 3.5 % 1ML OPHTH TOPICAL GEL OU (15:23)
[2018-08-08] MEDS: POVIDONE-IODINE 5% OPHTH PREP SOL 30ML As Ordered (15:34)
[2018-08-08] MEDS: LIDOCAINE 2% W/EPIN INJ 20ML **PRES FREE As Ordered (15:38)
[2018-08-08] MEDS: SODIUM BICARBONATE 8.4% INJ 50MEQ 50 ML VIAL As Ordered (15:38)
[2018-08-08] MEDS ORDERED: PROPOFOL 200 MG/20 ML VIAL As Ordered (15:39)
[2018-08-08] MEDS: TOBRADEX OPHTH OINT 3.5 GM As Ordered (15:59)
== END 2018-08-08 17:00 | disposition home or self-care (01) ==
LOC: M SDC 10:19
DX: H02.834 Dermatochalasis of left upper eyelid (principal); H02.831 Dermatochalasis of right upper eyelid; H02.403 Unspecified ptosis of bilateral eyelids; I48.0 Paroxysmal atrial fibrillation; I50.32 Chronic diastolic (congestive) heart failure; E03.9 Hypothyroidism, unspecified; K76.0 Fatty (change of) liver, not elsewhere classified; K59.00 Constipation, unspecified; K21.9 Gastro-esophageal reflux disease without esophagitis; I51.7 Cardiomegaly; M12.9 Arthropathy, unspecified; M54.9 Dorsalgia, unspecified; R29.898 Other symptoms and signs involving the musculoskeletal system; F41.9 Anxiety disorder, unspecified; D25.9 Leiomyoma of uterus, unspecified; J45.30 Mild persistent asthma, uncomplicated; D50.0 Iron deficiency anemia secondary to blood loss (chronic); J44.9 Chronic obstructive pulmonary disease, unspecified; R06.83 Snoring; G40.909 Epilepsy, unspecified, not intractable, without status epilepticus; F32.9 Major depressive disorder, single episode, unspecified; G43.909 Migraine, unspecified, not intractable, without status migrainosus; G47.33 Obstructive sleep apnea (adult) (pediatric); J30.89 Other allergic rhinitis; Z88.1 Allergy status to other antibiotic agents; Z88.2 Allergy status to sulfonamides; Z88.8 Allergy status to other drugs, medicaments and biological substances; Z91.012 Allergy to eggs; Z91.018 Allergy to other foods; Z91.048 Other nonmedicinal substance allergy status; Z79.899 Other long term (current) drug therapy; Z79.01 Long term (current) use of anticoagulants; Z86.14 Personal history of Methicillin resistant Staphylococcus aureus infection; Z87.891 Personal history of nicotine dependence
CPT/HCPCS: 15823

== ENCOUNTER → 2018-10-25 | Outpatient (CLI) | payer OTHER ==
[~2018-10-25] MED LIST changes: +/ADVA50050 INH; +ACET1TAB16 PO; +ACET30TAB PO; +ADV500INH INH; +ALBU17IN2 INH; +ALBUPOW9 XX; +AMOX400S7 PO; +ASOPT OU; +ASPI325T PO; +ATRO0.063 INH; +ATROVENT NEBULIZER INH; +AUGM875T28 PO; +AYR SALINE; +BENA25CA4 PO; +BETA10003 PO; +BRIM0.2S13 OU; +BRIM1OPD OU; +BRIN1OPH OU; +CARD120C3 PO; +CARD240C5 PO; +CART120C PO; +CART240C3 PO; +CETI10TA OR; +CLON1TAB PO; +CLON2TAB7 PO; +CYMB60CA3 PO; +DIGO0.25 PO; +DOCU100C16 PO; +DORZ2OPD OU; +DOXY100T PO; +ELIQ5TAB PO; +EXCETAB49 PO; +FISH1000 PO; +FLINCHW7 PO; +FLUT1INH2; +FOLI400T PO; +GUAI1SOL7 PO; +GUAI1TAB PO; +HYDR-3713 PO; +IBUP80TA PO; +IBUPPOW25 OR; +IPRA0.00 INH; +IPRA2IN INH; +IPRAINH INH; +IRON325T7 PO; +KLON2TAB PO; +LASI40TA9 PO; +LATA5OPD OU; +LEVA1.2519; +LEVA12INH INH; +LEVA750T7 PO; +LEVAINH INH; +LEVO500T3; +LEVO50TA PO; +LEVO75TA4 PO; +LORTABELIX PO; +LUMI0.01 OU; +LUMIGAN EYE OU; -MIDAZOLAM INJ 2 MG/2 ML VIAL (J2250) As Ordered; +MOMETASONE TOP; +MONT10TA2 PO; +MUCI120T PO; +MUCI600T31 PO; +MULTCAP PO; +NASA1SPR8; +NASOCORT; +NORC1TAB4 PO; +ONDA4TAB6 PO; +OPTI0.5D5 OU; +OXYC1TAB23 PO; +PANT20TA2 PO; +PANT40TA3 PO; +PERC5TAB12 PO; +POTA20TA6; +PRED20TA PO; +PRED20TAB PO; +PROBCAP4 PO; +PROT20TA11 PO; +PROTPAK PO; +RIZA10TA2 PO; +RIZA10TA4 PO; +ROCE1INJ6 IV; +SPIR-10 PO; +TIZA2TA PO; +TIZA4CAP PO; +TYLE325T5 PO; +VIIB40TA PO; +VITA2000 PO; +VITA200016 PO; +ZANA4TAB PO; +ZANT150T PO; +ZOFR4TAB14 PO; +ZOFR4TAB3 PO; +[UNRECOGNIZED DRUG - OTHER]; +[UNRECOGNIZED DRUG - REMARK]; +advair INH; +albuterol inhaler INH; +atrovent INH; -fentaNYL 100 MCG/2 ML INJECTION (J3010) As Ordered; +nebulizer INH; +singulair OR
[2018-10-25 13:44] LABS: BLOOD UREA NITROGEN 12 MG/DL (7-18); CALCIUM LEVEL 8.9 MG/DL (8.5-10.1); CARBON DIOXIDE LEVEL 27 MEQ/L (21-32); CHLORIDE LEVEL 103 MEQ/L (98-107); CREATININE FOR GFR 0.95 MG/DL (0.55-1.30); GLOMERULAR FILTRATION RATE > 60.0 (>58); GLUCOSE, FASTING 115 MG/DL (70-100); POTASSIUM SERUM 4.1 MEQ/L (3.5-5.1); SODIUM LEVEL 139 MEQ/L (136-145)
== END ==
LOC: M SMT 10:12
PROVIDERS: ATTEND Physician Assistant
DX: I50.32 Chronic diastolic (congestive) heart failure (principal)

== ENCOUNTER 2018-11-28 07:15 | Emergency (ER) | payer OTHER ==
[~2018-11-28] VITALS: Ht 152.4 cm; Wt 65.5 kg
[~2018-11-28 07:15] MED LIST changes: -AUGM875T28 PO; -FLUT1INH2; -GUAI1SOL7 PO; -LEVA1.2519; -POTA20TA6
[2018-11-28] MEDS ORDERED: LEVA1.2519 (07:27)
[2018-11-28] MEDS ORDERED: FLUT1INH2 (07:27)
[2018-11-28 08:28] LABS: INFLUENZA A AMPLIFICATION NEGATIVE (NEGATIVE); INFLUENZA B AMPLIFICATION NEGATIVE (NEGATIVE)
[2018-11-28] MEDS ORDERED: GUAI1SOL7 PO (09:04)
[2018-11-28] MEDS ORDERED: AUGM875T28 PO (09:04)
[2018-11-28 09:08] VITALS: BP 117/56
== END 2018-11-28 09:14 | disposition home or self-care (01) ==
LOC: M ED 07:15
DX: J06.9 Acute upper respiratory infection, unspecified (principal); J32.9 Chronic sinusitis, unspecified; H92.01 Otalgia, right ear; J44.9 Chronic obstructive pulmonary disease, unspecified; I48.91 Unspecified atrial fibrillation; R56.9 Unspecified convulsions; I50.9 Heart failure, unspecified; I51.7 Cardiomegaly; G47.30 Sleep apnea, unspecified; K21.9 Gastro-esophageal reflux disease without esophagitis; M51.9 Unspecified thoracic, thoracolumbar and lumbosacral intervertebral disc disorder; F41.9 Anxiety disorder, unspecified; F32.9 Major depressive disorder, single episode, unspecified; Z88.8 Allergy status to other drugs, medicaments and biological substances; Z88.2 Allergy status to sulfonamides; Z91.012 Allergy to eggs; Z91.011 Allergy to milk products; Z91.048 Other nonmedicinal substance allergy status; Z79.899 Other long term (current) drug therapy; Z79.01 Long term (current) use of anticoagulants

== ENCOUNTER 2018-12-05 19:06 | Emergency (ER) | payer OTHER ==
[~2018-12-05] VITALS: Ht 152.4 cm; Wt 65.9 kg
[~2018-12-05 19:06] MED LIST changes: +AUGM875T28 PO; +FLUT1INH2; +GUAI1SOL7 PO; +LEVA1.2519
[2018-12-05] MEDS ORDERED: POTA20TA6 (19:18)
[2018-12-05] MEDS ORDERED: FLUORESCEIN OPHTH 1 MG STRIP OD ONE (22:15)
[2018-12-05 22:36] VITALS: BP 98/56
== END 2018-12-05 22:37 | disposition home or self-care (01) ==
LOC: M ED 19:06
DX: T20.10XA Burn of first degree of head, face, and neck, unspecified site, initial encounter (principal); T21.11XA Burn of first degree of chest wall, initial encounter; T22.10XA Burn of first degree of shoulder and upper limb, except wrist and hand, unspecified site, initial encounter; H57.11 Ocular pain, right eye; X12.XXXA Contact with other hot fluids, initial encounter; Y92.090 Kitchen in other non-institutional residence as the place of occurrence of the external cause; I48.91 Unspecified atrial fibrillation; J45.909 Unspecified asthma, uncomplicated; J44.9 Chronic obstructive pulmonary disease, unspecified; R56.9 Unspecified convulsions; E03.9 Hypothyroidism, unspecified; F41.9 Anxiety disorder, unspecified; F32.9 Major depressive disorder, single episode, unspecified; H40.9 Unspecified glaucoma; R87.810 Cervical high risk human papillomavirus (HPV) DNA test positive; Z88.8 Allergy status to other drugs, medicaments and biological substances; Z88.1 Allergy status to other antibiotic agents; Z88.2 Allergy status to sulfonamides; Z91.012 Allergy to eggs; Z91.011 Allergy to milk products; Z91.048 Other nonmedicinal substance allergy status; Z79.899 Other long term (current) drug therapy; Z79.2 Long term (current) use of antibiotics; Z79.01 Long term (current) use of anticoagulants

== ENCOUNTER → 2019-03-27 | Outpatient (CLI) | payer OTHER ==
[~2019-03-27] MED LIST changes: -/ADVA50050 INH; +ACET-716 PO; -ACET30TAB PO; +ADVA1AER2 INH; +ASPI-1 PO; -ASPI325T PO; +FERR325T82 PO; -IRON325T7 PO; +LATA0.0013 OU; -LATA5OPD OU; -NORC1TAB4 PO; +NORC1TAB7 PO; +ONDA-228 PO; +POTA20TA6; -ZOFR4TAB3 PO
[2019-03-27 13:57] LABS: CALCIUM LEVEL 9.4 MG/DL (8.5-10.1); CREATININE FOR GFR 1.05 MG/DL (0.55-1.30); GLOMERULAR FILTRATION RATE 59.8 (>58); POTASSIUM SERUM 3.9 MEQ/L (3.5-5.1)
== END ==
LOC: M SMT 09:25
PROVIDERS: ATTEND Physician Assistant
DX: I50.32 Chronic diastolic (congestive) heart failure (principal)

== ENCOUNTER → 2019-03-28 | Outpatient (CLI) | payer OTHER ==
--- NOTE | 2019-03-28 16:08 | REPMRS ---
Patient History The patient states she had a clinical breast exam in March 2019. Family history of renal cancer in mother. Digital Mammo Diagnostic Bilateral: March 28, 2019 - Exam #: [id number] Bilateral CC and MLO view(s) were taken. Technologist: Obdulia Garcia, Technologist Prior study comparison: February 18, 2018, digital woman screen mammo, performed at [facility]. December 02, 2016, digital woman screen mammo, performed at [facility]. March 21, 2015, digital bilateral screening mammo, performed at [facility]. FINDINGS: There are scattered fibroglandular densities. There is a moderate amount of residual fibroglandular tissue which is fairly symmetric. There is no interval development of dominant mass, architectural distortion, or clustered microcalcification typical of malignancy. There has been no change in the appearance of the mammogram from the prior studies. 3-D tomosynthesis shows no additional findings. Assessment: BI-RADS/ACR category 1 mammogram. Negative Mammogram. Recommendation Routine screening mammogram of both breasts in 1 year (for women over age 40). This patient's Lifetime Breast Cancer RIsk is estimated at 8.7 %. This mammogram was interpreted with the aid of an FDA-approved computer-aided dectection system. Electronically Signed By: Oneal Oconnor MD 03/28/19 1400
== END ==
LOC: M RAD 15:14
PROVIDERS: ATTEND Advanced Practice Midwife
DX: N64.4 Mastodynia (principal)
CPT/HCPCS: 77066; G0279

== ENCOUNTER 2019-05-04 18:42 | Emergency (ER) | payer OTHER ==
[~2019-05-04] VITALS: Ht 152.4 cm; Wt 67.6 kg
--- NOTE | 2019-05-04 20:44 | REP ---
Clinical: Trauma. Technique: AP, lateral, bilateral oblique views right foot . Findings: The osseous structures and joint spaces are intact and normal. There is no evidence for acute fracture or dislocation. Surrounding soft tissues are unremarkable. No subcutaneous emphysema or radiodense foreign body. Impression: Age-appropriate right foot series . No acute fracture or dislocation. Electronically Signed by Turner Jama MD 05/04/2019 08:36 P
[2019-05-04 21:26] VITALS: BP 143/71
== END 2019-05-04 21:28 | disposition home or self-care (01) ==
LOC: M ED 18:42
DX: S90.111A Contusion of right great toe without damage to nail, initial encounter (principal); S90.31XA Contusion of right foot, initial encounter; W22.8XXA Striking against or struck by other objects, initial encounter; Y92.59 Other trade areas as the place of occurrence of the external cause; J44.9 Chronic obstructive pulmonary disease, unspecified; I50.9 Heart failure, unspecified; I48.91 Unspecified atrial fibrillation; E03.9 Hypothyroidism, unspecified; K21.9 Gastro-esophageal reflux disease without esophagitis; F33.9 Major depressive disorder, recurrent, unspecified; F41.9 Anxiety disorder, unspecified; Z79.899 Other long term (current) drug therapy; Z79.01 Long term (current) use of anticoagulants; Z88.1 Allergy status to other antibiotic agents; Z88.2 Allergy status to sulfonamides; Z88.8 Allergy status to other drugs, medicaments and biological substances; Z91.011 Allergy to milk products; Z91.018 Allergy to other foods; Z91.048 Other nonmedicinal substance allergy status

== ENCOUNTER → 2019-06-12 | Outpatient (CLI) | payer OTHER ==
[2019-06-12 10:42] LABS: ALBUMIN 3.8 GM/DL (3.2-5.2); BILIRUBIN,TOTAL 0.5 MG/DL (0.2-1.0); CALCIUM LEVEL 9.2 MG/DL (8.5-10.1); CHOLESTEROL RISK RATIO 4.513 (<5); CREATININE FOR GFR 1.14 MG/DL (0.55-1.30); FREE T4 1.02 NG/DL (0.76-1.46); GLOMERULAR FILTRATION RATE 54.4 (>58); PERCENT SATURATION 9.3 % (13.2-45.0); POTASSIUM SERUM 4.5 MEQ/L (3.5-5.1); THYROID STIMULATING HORMONE 1.22 uIU/ML (0.358-3.740)
[2019-06-12 15:00] LABS: TOTAL 25(OH) VITAMIN D 38.5 NG/ML (30.0-100.0)
== END ==
LOC: M SMT 08:35
PROVIDERS: ATTEND Family Medicine
DX: M35.6 Relapsing panniculitis [Weber-Christian] (principal); D50.0 Iron deficiency anemia secondary to blood loss (chronic); E03.9 Hypothyroidism, unspecified; E55.9 Vitamin D deficiency, unspecified

== ENCOUNTER 2019-07-11 17:55 | Emergency (ER) | payer OTHER ==
[~2019-07-11] VITALS: Ht 152.4 cm; Wt 66.4 kg
[2019-07-11] MEDS ORDERED: LORA-674 PO (18:15)
[2019-07-11] MEDS ORDERED: ACETAMINOPHEN 325 MG TAB PO ONE (18:45)
[2019-07-11 19:48] VITALS: BP 104/70
--- NOTE | 2019-07-11 21:19 | REP ---
HISTORY: Pain after trauma. COMPARISON: 11/04/2008. FINDINGS: The joint spaces are symmetric and relatively well maintained. There is no evidence of acute fracture or destructive osseous lesion. There is a small retrocalcaneal heel spur. IMPRESSION: Negative. There is a small retrocalcaneal heel spur. Electronically Signed by Fran Bauer DO 07/12/2019 02:13 P
== END 2019-07-11 19:48 | disposition home or self-care (01) ==
LOC: M ED 17:55
DX: S90.32XA Contusion of left foot, initial encounter (principal); W22.03XA Walked into furniture, initial encounter; Y92.009 Unspecified place in unspecified non-institutional (private) residence as the place of occurrence of the external cause; I50.9 Heart failure, unspecified; I48.91 Unspecified atrial fibrillation; J44.9 Chronic obstructive pulmonary disease, unspecified; G47.30 Sleep apnea, unspecified; K21.9 Gastro-esophageal reflux disease without esophagitis; E03.9 Hypothyroidism, unspecified; F41.9 Anxiety disorder, unspecified; Z87.891 Personal history of nicotine dependence; Z88.1 Allergy status to other antibiotic agents; Z88.2 Allergy status to sulfonamides; Z88.8 Allergy status to other drugs, medicaments and biological substances; Z91.011 Allergy to milk products; Z91.012 Allergy to eggs; Z91.09 Other allergy status, other than to drugs and biological substances; Z79.899 Other long term (current) drug therapy

== ENCOUNTER 2019-08-09 08:46 | Emergency (ER) | payer OTHER ==
[~2019-08-09] VITALS: Ht 149.9 cm; Wt 66.3 kg
[~2019-08-09 08:46] MED LIST changes: +LORA-674 PO; -RIZA10TA4 PO; +RIZA10TA58 PO
[2019-08-09] MEDS ORDERED: ACETAMINOPHEN 325 MG TAB PO ONE (09:45)
--- NOTE | 2019-08-09 10:33 | REP ---
Left hand series: Four views. History: Pain in the left middle finger after a fall. Findings: Four views of the left hand demonstrate mild soft tissue swelling about the DIP joint of the index finger. No fracture or subluxation is seen. Impression: No fracture noted. Electronically Signed by Skinny Oconnor MD 08/09/2019 10:25 A
[2019-08-09 10:43] VITALS: BP 100/59
== END 2019-08-09 11:01 | disposition home or self-care (01) ==
LOC: M ED 08:46
DX: S63.613A Unspecified sprain of left middle finger, initial encounter (principal); W22.8XXA Striking against or struck by other objects, initial encounter; Y92.009 Unspecified place in unspecified non-institutional (private) residence as the place of occurrence of the external cause; J44.9 Chronic obstructive pulmonary disease, unspecified; K21.9 Gastro-esophageal reflux disease without esophagitis; F41.9 Anxiety disorder, unspecified; F32.9 Major depressive disorder, single episode, unspecified; G47.30 Sleep apnea, unspecified; Z88.1 Allergy status to other antibiotic agents; Z88.2 Allergy status to sulfonamides; Z88.8 Allergy status to other drugs, medicaments and biological substances; Z91.011 Allergy to milk products; Z91.012 Allergy to eggs; Z91.09 Other allergy status, other than to drugs and biological substances; Z79.899 Other long term (current) drug therapy

== ENCOUNTER 2019-10-15 18:17 | Emergency (ER) | payer OTHER ==
[~2019-10-15] VITALS: Ht 152.4 cm; Wt 64.4 kg
[~2019-10-15 18:17] MED LIST changes: +DIGO0.253 PO
[2019-10-15 18:18] VITALS: BP 109/64
[2019-10-15] MEDS ORDERED: TRAM50TA2 PO (19:13)
[2019-10-15] MEDS ORDERED: traMADol 50 MG TAB (BULK 4 TAB ED) PO ONE (19:15)
== END 2019-10-15 19:26 | disposition home or self-care (01) ==
LOC: M ED 18:17
DX: S46.001A Unspecified injury of muscle(s) and tendon(s) of the rotator cuff of right shoulder, initial encounter (principal); X58.XXXA Exposure to other specified factors, initial encounter; Y92.89 Other specified places as the place of occurrence of the external cause; J44.9 Chronic obstructive pulmonary disease, unspecified; J45.909 Unspecified asthma, uncomplicated; E03.9 Hypothyroidism, unspecified; I95.9 Hypotension, unspecified; F33.9 Major depressive disorder, recurrent, unspecified; F41.9 Anxiety disorder, unspecified; G47.30 Sleep apnea, unspecified; K21.9 Gastro-esophageal reflux disease without esophagitis; Z79.899 Other long term (current) drug therapy; Z79.890 Hormone replacement therapy; Z79.01 Long term (current) use of anticoagulants; Z88.1 Allergy status to other antibiotic agents; Z88.2 Allergy status to sulfonamides; Z88.8 Allergy status to other drugs, medicaments and biological substances; Z91.011 Allergy to milk products; Z91.012 Allergy to eggs; Z91.048 Other nonmedicinal substance allergy status

== ENCOUNTER → 2019-11-02 | Outpatient (REF) | payer OTHER ==
[~2019-11-02] MED LIST changes: +TRAM50TA2 PO
[2019-11-02 16:54] LABS: HEMATOCRIT 39.7 % (36.0-47.0); MEAN CORPUSCULAR HEMOGLOBIN 28.5 pg (27.0-33.0); MEAN CORPUSCULAR HGB CONC 32.7 g/dl (32.0-36.5); MEAN CORPUSCULAR VOLUME 87.1 fl (80.0-96.0); PLATELET COUNT, AUTOMATED 313 10^3/uL (150-450); RED BLOOD COUNT 4.56 10^6/uL (4.00-5.40); WHITE BLOOD COUNT 11.6 10^3/uL (4.0-10.0)
[2019-11-02 17:09] LABS: PERCENT SATURATION 8.9 % (13.2-45.0)
== END ==
LOC: M SFHCADAM 14:42
PROVIDERS: ATTEND Family Medicine
DX: J01.01 Acute recurrent maxillary sinusitis (principal); D50.0 Iron deficiency anemia secondary to blood loss (chronic)

== ENCOUNTER 2019-11-26 16:08 | Emergency (ER) | payer OTHER ==
[~2019-11-26] VITALS: Ht 152.4 cm; Wt 64.8 kg
[~2019-11-26 16:08] MED LIST changes: -MONT10TA2 PO; +MONT10TA4 PO
[2019-11-26 16:40] LABS: HEMATOCRIT 45.2 % (36.0-47.0); HEMOGLOBIN 14.9 g/dl (12.0-15.5); MEAN CORPUSCULAR HEMOGLOBIN 27.7 pg (27.0-33.0); PLATELET COUNT, AUTOMATED 386 10^3/uL (150-450); RED BLOOD COUNT 5.38 10^6/uL (4.00-5.40); WHITE BLOOD COUNT 12.3 10^3/uL (4.0-10.0)
[2019-11-26 16:53] LABS: INR 1.15; PROTHROMBIN TIME 14.4 SECONDS (11.8-14.0)
[2019-11-26 16:54] LABS: PARTIAL THROMBOPLASTIN TIME 32.8 SECONDS (25.0-38.4)
[2019-11-26 16:56] VITALS: BP 142/95
--- NOTE | 2019-11-26 17:18 | REP ---
Portable chest, 04:41 a.m., single AP view with the the patient sitting: Comparison is 11/12/2017. There is chronic cardiomegaly, unchanged. Lung zapata are clear. The bettina, mediastinum, skeletal structures are unremarkable. Impression: Chronic cardiomegaly. There are no acute cardiopulmonary findings. Electronically Signed by Tommy Stark MD 11/26/2019 05:09 P
[2019-11-26 17:26] LABS: ATYPICAL LYMPH 4 % (0-5); BASOPHILS 1 % (0-1); EOSINOPHILS 3 % (0-3); LYMPHOCYTES 33 % (16-44); MONOCYTES 6 % (0-5); NEUTROPHILS 53 % (28-66)
[2019-11-26 17:27] LABS: MICROCYTOSIS 1+; OVALOCYTES 1+; PLATELET ESTIMATE NORMAL (NORMAL)
[2019-11-26 17:28] LABS: CALCIUM LEVEL 9.3 MG/DL (8.5-10.1); CK-MB VALUE MASS 4.6 NG/ML (<3.6); CREATININE FOR GFR 1.15 MG/DL (0.55-1.30); DIGOXIN LEVEL 1.2 NG/ML (0.5-2.0); FREE T4 1.09 NG/DL (0.76-1.46); GLOMERULAR FILTRATION RATE 53.8 (>58); MB/CK RELATIVE INDEX 9.39 (< OR =4); POTASSIUM SERUM 3.6 MEQ/L (3.5-5.1); THYROID STIMULATING HORMONE 6.23 uIU/ML (0.358-3.740); TROPONIN I 0.08 NG/ML (< 0.10)
[2019-11-26] MEDS ORDERED: FLECAINIDE 50MG TABLET PO STA (17:56)
[2019-11-26] MEDS ORDERED: BRIM1OPD (19:33)
--- NOTE | 2019-11-26 21:01 | ECGEPIP ---
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
--- NOTE | 2019-11-26 21:02 | ECGEPIP ---
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
[2019-11-26] MEDS ORDERED: ACETAMINOPHEN TAB 650MG DOSE (2X325MG) PO ONE (22:15)
[2019-11-26 22:45] VITALS: BP 111/58
[2019-11-26] MEDS ORDERED: FLEC50HA PO (22:47)
--- NOTE | 2019-11-27 11:14 | ECGEPIP ---
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
== END 2019-11-26 23:00 | disposition home or self-care (01) ==
LOC: M ED 16:08
DX: I48.91 Unspecified atrial fibrillation (principal); I44.0 Atrioventricular block, first degree; I44.7 Left bundle-branch block, unspecified; I51.7 Cardiomegaly; Z88.2 Allergy status to sulfonamides; Z88.8 Allergy status to other drugs, medicaments and biological substances; Z91.011 Allergy to milk products; Z91.09 Other allergy status, other than to drugs and biological substances

== ENCOUNTER 2019-12-01 11:59 | Emergency (ER) | payer OTHER ==
[~2019-12-01] VITALS: Ht 152.4 cm; Wt 65.3 kg
[~2019-12-01 11:59] MED LIST changes: +BRIM1OPD; +FLEC50HA PO
[2019-12-01] MEDS ORDERED: FUROSEMIDE 40 MG/4 ML VIAL (J1940) IV ONE (12:45)
[2019-12-01 13:16] LABS: BASO # 0.1 10^3/uL (0.0-0.2); BASO % 0.6 % (0.0-1.0); EOS # 0.3 10^3/uL (0.0-0.5); EOS % 2.9 % (0.0-3.0); HEMATOCRIT 42.9 % (36.0-47.0); HEMOGLOBIN 14.5 g/dl (12.0-15.5); LYMPH # 2.6 10^3/uL (1.5-5.0); LYMPH % 28.9 % (24.0-44.0); MEAN CORPUSCULAR HGB CONC 33.8 g/dl (32.0-36.5); MONO # 0.5 10^3/uL (0.0-0.8); MONO % 5.4 % (0.0-5.0); NEUTROPHILS # 5.6 10^3/uL (1.5-8.5); PLATELET COUNT, AUTOMATED 307 10^3/uL (150-450); RED BLOOD COUNT 5.17 10^6/uL (4.00-5.40)
[2019-12-01 13:33] LABS: INR 1.42; PROTHROMBIN TIME 17.1 SECONDS (11.8-14.0)
[2019-12-01 13:40] LABS: ALBUMIN 4.1 GM/DL (3.2-5.2); BILIRUBIN,DIRECT 0.2 MG/DL (0.0-0.2); BILIRUBIN,TOTAL 0.7 MG/DL (0.2-1.0); CALCIUM LEVEL 9.5 MG/DL (8.5-10.1); CK-MB VALUE MASS 4.3 NG/ML (<3.6); CREATININE FOR GFR 1.06 MG/DL (0.55-1.30); GLOMERULAR FILTRATION RATE 59.2 (>58); MB/CK RELATIVE INDEX 11.03 (< OR =4); POTASSIUM SERUM 3.8 MEQ/L (3.5-5.1); TOTAL PROTEIN 7.6 GM/DL (6.4-8.2); TROPONIN I 0.07 NG/ML (< 0.10)
--- NOTE | 2019-12-01 13:58 | REP ---
PA and lateral chest: Comparison is 11/12/2017. The lung zapata are clear. The cardiac size is normal. The bettina, mediastinum, and skeletal structures are unremarkable. Impression: Negative PA and lateral chest. Electronically Signed by Tommy Stark MD 12/01/2019 01:50 P
[2019-12-01] MEDS ORDERED: ACETAMINOPHEN 325 MG TAB PO ONE (14:00)
[2019-12-01 15:15] VITALS: BP 139/77
[2019-12-01] MEDS ORDERED: POTA20TA6 PO (15:22)
[2019-12-01] MEDS ORDERED: LASI40TA9 PO (15:22)
--- NOTE | 2019-12-02 07:17 | ECGEPIP ---
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
== END 2019-12-01 15:40 | disposition home or self-care (01) ==
LOC: M ED 11:59
DX: I50.9 Heart failure, unspecified (principal); I48.91 Unspecified atrial fibrillation; Z79.899 Other long term (current) drug therapy; Z79.01 Long term (current) use of anticoagulants; Z88.1 Allergy status to other antibiotic agents; Z88.2 Allergy status to sulfonamides; Z88.8 Allergy status to other drugs, medicaments and biological substances; Z91.012 Allergy to eggs; Z91.018 Allergy to other foods; Z91.048 Other nonmedicinal substance allergy status
CPT/HCPCS: 71046; 80048; 80076; 82550; 82553; 83880; 85025; 85610; 93005; 93041; 94760; 96374; 99285; J1940

== ENCOUNTER → 2019-12-14 | Outpatient (REF) | payer OTHER ==
[~2019-12-14] MED LIST changes: +POTA20TA6 PO
[2019-12-14 13:31] LABS: INFLUENZA A AMPLIFICATION NEGATIVE (NEGATIVE); INFLUENZA B AMPLIFICATION NEGATIVE (NEGATIVE)
== END ==
LOC: M LAB REF 12:19
PROVIDERS: ATTEND Physician Assistant
DX: J11.1 Influenza due to unidentified influenza virus with other respiratory manifestations (principal)

== ENCOUNTER → 2020-01-03 | Outpatient (REF) | payer OTHER ==
[2020-01-03 14:16] LABS: CALCIUM LEVEL 8.8 MG/DL (8.5-10.1); CREATININE FOR GFR 1.12 MG/DL (0.55-1.30); FREE T4 1.08 NG/DL (0.76-1.46); GLOMERULAR FILTRATION RATE 55.5 (>58); MAGNESIUM LEVEL 2.3 MG/DL (1.8-2.4); POTASSIUM SERUM 3.8 MEQ/L (3.5-5.1); THYROID STIMULATING HORMONE 1.79 uIU/ML (0.358-3.740)
== END ==
LOC: M SFHCADAM 11:46
PROVIDERS: ATTEND Family Medicine
DX: E03.9 Hypothyroidism, unspecified (principal); I48.0 Paroxysmal atrial fibrillation

== ENCOUNTER → 2020-03-08 | Outpatient (CLI) | payer OTHER ==
--- NOTE | 2020-03-15 08:05 | SLEEPCENT ---
DATE OF STUDY: 03/08/2020 ORDERED BY: Marah Ashford Nocturnal polysomnography was performed for retitration of pressure therapy in this patient with obstructive sleep apnea syndrome. For testing, a ResMed F20 Air Touch full face mask of small size was used and 6 cm of water pressure was initially applied to the circuit and the lights were extinguished. 7 hours of data were reviewed. There were 373 minutes of sleep identified. Sleep latency was normal at 11 minutes. REM latency was prolonged at 166 minutes. Sleep architecture improved on optimal pressure therapy. Overall sleep efficiency was 90.4%. The electrocardiogram showed a sinus rhythm with an average heart rate of 50 beats per minute. Electroencephalogram (EEG) showed normal waveforms for awake and sleep. Persistence of respiratory events prompted an increase in C-PAP pressure. Best sleep was seen at a C-PAP pressure of +14. There remained some mild hypopneic patterning in REM; however, no oxygen desaturations were seen. IMPRESSION: Obstructive sleep apnea syndrome (G47.33). RECOMMENDATION: Nightly use of pressure therapy at 14 cm of water.
== END ==
LOC: M SLEEP 20:00
PROVIDERS: ATTEND Nurse Practitioner Adult Health
DX: G47.33 Obstructive sleep apnea (adult) (pediatric) (principal)

== ENCOUNTER → 2020-12-12 | Outpatient (REF) | payer OTHER ==
[~2020-12-12] MED LIST changes: -FOLI400T PO; +FOLI400T13 PO; +MONT10TA10 PO; -MONT10TA4 PO; -PANT20TA2 PO; +PANT20TA6 PO; +PANT40TA29 PO; -PANT40TA3 PO
[2020-12-12 12:30] LABS: HEMATOCRIT 41.5 % (36.0-47.0); HEMOGLOBIN 14.2 g/dl (12.0-15.5); MEAN CORPUSCULAR HGB CONC 34.2 g/dl (32.0-36.5); MEAN CORPUSCULAR VOLUME 87.6 fl (80.0-96.0); PLATELET COUNT, AUTOMATED 302 10^3/uL (150-450); RED BLOOD COUNT 4.74 10^6/uL (4.00-5.40); WHITE BLOOD COUNT 9.2 10^3/uL (4.0-10.0)
[2020-12-12 13:00] LABS: BILIRUBIN,TOTAL 0.8 MG/DL (0.2-1.0); CALCIUM LEVEL 9.5 MG/DL (8.5-10.1); CREATININE FOR GFR 1.23 MG/DL (0.55-1.30); FREE T4 1.03 NG/DL (0.76-1.46); GLOMERULAR FILTRATION RATE 49.6 (>58); POTASSIUM SERUM 4.2 MEQ/L (3.5-5.1); THYROID STIMULATING HORMONE 1.36 uIU/ML (0.358-3.740); TOTAL PROTEIN 7.5 GM/DL (6.4-8.2)
== END ==
LOC: M SFHCADAM 09:15
PROVIDERS: ATTEND Family Medicine
DX: D50.0 Iron deficiency anemia secondary to blood loss (chronic) (principal); I50.30 Unspecified diastolic (congestive) heart failure; E03.9 Hypothyroidism, unspecified

== ENCOUNTER → 2021-02-14 | Outpatient (CLI) | payer OTHER ==
--- NOTE | 2021-02-14 09:27 | REPMRS ---
Patient History The patient states she had a clinical breast exam in 02/2021. Patient is postmenopausal. No Hormone Replacement Therapy Patient states no breast complaints today. Patient has signed MRS History Sheet. Digital Woman Screen Mammo: February 14, 2021 - Exam #: [id number] Bilateral CC and MLO view(s) were taken. Technologist: Yanni Marino, Technologist Prior study comparison: March 28, 2019, digital mammo diagnostic bilateral, performed at [facility]. February 18, 2018, digital woman screen mammo performed at [facility]. FINDINGS: There are scattered fibroglandular densities. Screening. Digital screening (2D) mammography was performed bilaterally in the CC and MLO projections. Additionally, breast tomosynthesis (3D mammography) was performed bilaterally in the CC and MLO projections. Todays exam was compared to the prior exams. By history, the patient has no complaints of a palpable breast abnormality or other significant breast complaints. The breasts are unchanged in size and shape. There are no jai-soft tissue densities or spiculated masses. There is no internal architectural distortion. Once again, stable benign appearing calcifications are seen.There are no suspicious jai-calcific clusters. Skin thickening or nipple retraction is not present. IMPRESSION: BI-RADS Category 2- Benign Findings. There is no evidence of malignant alteration of the breasts. Followup examination recommended in one year. The Volpara volumetric breast density category is B, there are scattered areas of fibroglandular density. This mammogram was read with the assistance of [facility],an FDA approved computer aided detection system for mammography. The lifetime Tyrer-Cuzick score is 7.8 % Negative x-ray reports should not delay surgical consultation if a dominant or clinically suspicious mass is present. Not all breast cancers can be identified by mammography. Therefore, we recommend that you continue to perform regular breast self-examination and physical examination and then promptly contact your physician of any concerns or changes. Adenosis and dense breasts may obscure an underlying neoplasm. Assessment: BI-RADS/ACR category 2 mammogram. Benign Findings. Recommendation Routine screening mammogram of both breasts in 1 year. Electronically Signed By: Fran Bauer DO 02/14/21 0927
== END ==
LOC: M WHC 07:58
PROVIDERS: ATTEND Specialist
DX: Z12.31 Encounter for screening mammogram for malignant neoplasm of breast (principal); Z78.0 Asymptomatic menopausal state

== ENCOUNTER 2021-05-18 08:14 | Emergency (ER) | payer OTHER ==
[~2021-05-18] VITALS: Ht 149.9 cm; Wt 79.0 kg
[2021-05-18] MEDS ORDERED: METO1TAB32 (08:40)
[2021-05-18] MEDS ORDERED: LASI20TA3 PO (08:49)
[2021-05-18] MEDS ORDERED: HYDR2.5C (08:49)
--- NOTE | 2021-05-18 09:14 | REP ---
INDICATION: cough. COMPARISON: 12/01/2019 TECHNIQUE: Two views FINDINGS: The lungs are clear. The heart is not enlarged. There is no therapy the mediastinum and pleural surfaces are unremarkable. IMPRESSION: No active process. <Electronically signed by Juan Sharma > 05/18/21 0910
[2021-05-18] MEDS ORDERED: VENTAER INH (12:17)
[2021-05-18 12:24] VITALS: BP 112/70
== END 2021-05-18 12:26 | disposition home or self-care (01) ==
LOC: M ED 08:14
DX: R05 Cough (principal); J02.9 Acute pharyngitis, unspecified; B34.8 Other viral infections of unspecified site; J45.909 Unspecified asthma, uncomplicated; F33.9 Major depressive disorder, recurrent, unspecified; F41.9 Anxiety disorder, unspecified; E07.9 Disorder of thyroid, unspecified; I48.91 Unspecified atrial fibrillation; H40.9 Unspecified glaucoma; M51.9 Unspecified thoracic, thoracolumbar and lumbosacral intervertebral disc disorder; Z79.899 Other long term (current) drug therapy; Z79.890 Hormone replacement therapy; Z79.01 Long term (current) use of anticoagulants; Z88.1 Allergy status to other antibiotic agents; Z88.2 Allergy status to sulfonamides; Z88.8 Allergy status to other drugs, medicaments and biological substances; Z91.012 Allergy to eggs; Z91.018 Allergy to other foods; Z91.048 Other nonmedicinal substance allergy status

== ENCOUNTER 2021-05-26 02:21 | Emergency (ER) | payer OTHER ==
[~2021-05-26] VITALS: Ht 152.4 cm; Wt 79.0 kg
[~2021-05-26 02:21] MED LIST changes: +HYDR2.5C; +LASI20TA3 PO; +METO1TAB32 PO; +VENTAER INH
[2021-05-26 05:16] LABS: APPEARANCE, URINE CLEAR (CLEAR); BACTERIA, URINE AUTO NEGATIVE (NEGATIVE); BILIRUBIN, URINE AUTO 2+ (NEGATIVE); BLOOD, URINE BLOOD NEGATIVE (NEGATIVE); CALCIUM OXALATE CRYSTALS SMALL; COLOR, URINE AMBER (YELLOW); GLUCOSE, URINE (UA) AUTO NEGATIVE (NEGATIVE); KETONE, URINE AUTO NEGATIVE (NEGATIVE); LEUKOCYTE ESTERASE, URINE AUTO NEGATIVE (NEGATIVE); MUCUS, URINE LARGE (NEGATIVE); NITRITE, URINE AUTO NEGATIVE (NEGATIVE); PROTEIN, URINE AUTO 1+ mg/dL (NEGATIVE); RBC, URINE AUTO 3 /HPF (0-3); SPECIFIC GRAVITY URINE AUTO 1.029 (1.002-1.035); SQUAMOUS EPITHELIAL CELL UR AU 2 /HPF (0-6); WBC, URINE AUTO 5 /HPF (0-3)
[2021-05-26] MEDS ORDERED: NS 1,000 ML IV ONE (06:25)
[2021-05-26] MEDS ORDERED: MORPHINE 4 MG/ML 1ML VIAL/SYRINGE (J2270) IV ONE (06:25)
[2021-05-26] MEDS ORDERED: ONDANSETRON 4MG/2ML VIAL IV ONE (06:25)
[2021-05-26 06:40] LABS: BASO # 0.1 10^3/uL (0.0-0.2); BASO % 0.3 % (0.0-1.0); EOS % 0.2 % (0.0-3.0); HEMATOCRIT 42.8 % (36.0-47.0); HEMOGLOBIN 14.3 g/dl (12.0-15.5); LYMPH # 1.7 10^3/uL (1.5-5.0); LYMPH % 11.7 % (24.0-44.0); MEAN CORPUSCULAR HEMOGLOBIN 29.2 pg (27.0-33.0); MEAN CORPUSCULAR HGB CONC 33.4 g/dl (32.0-36.5); MEAN CORPUSCULAR VOLUME 87.5 fl (80.0-96.0); MONO % 6.7 % (2.0-8.0); NEUTROPHILS # 11.6 10^3/uL (1.5-8.5); NEUTROPHILS % 80.3 % (36.0-66.0); PLATELET COUNT, AUTOMATED 286 10^3/uL (150-450); RED BLOOD COUNT 4.89 10^6/uL (4.00-5.40); WHITE BLOOD COUNT 14.4 10^3/uL (4.0-10.0)
[2021-05-26 07:02] LABS: ALBUMIN 3.5 GM/DL (3.2-5.2); ALT/SGPT 842 U/L (12-78); BILIRUBIN,DIRECT 2.4 MG/DL (0.0-0.2); BILIRUBIN,TOTAL 2.9 MG/DL (0.2-1.0); BLOOD UREA NITROGEN 15 MG/DL (7-18); CALCIUM LEVEL 9.3 MG/DL (8.5-10.1); CARBON DIOXIDE LEVEL 30 MEQ/L (21-32); CHLORIDE LEVEL 102 MEQ/L (98-107); CK-MB VALUE MASS 3.1 NG/ML (<3.6); CPK CREATINE PHOSPHOKINASE 68 U/L (26-192); CREATININE FOR GFR 1.11 MG/DL (0.55-1.30); GLOMERULAR FILTRATION RATE 55.6 (>58); GLUCOSE, FASTING 119 MG/DL (70-100); LIPASE 953 U/L (73-393); MB/CK RELATIVE INDEX 4.56 (< OR =4); POTASSIUM SERUM 3.7 MEQ/L (3.5-5.1); SODIUM LEVEL 140 MEQ/L (136-145); TOTAL PROTEIN 7.2 GM/DL (6.4-8.2); TROPONIN I < 0.02 NG/ML (< 0.10)
--- NOTE | 2021-05-26 07:40 | REPVR ---
PROCEDURE INFORMATION: Exam: CT Abdomen And Pelvis Without Contrast Exam date and time: 05/26/2021 6:21 AM Age: 51 years old Clinical indication: Abdominal pain; Additional info: Right flank/ruq pain TECHNIQUE: Imaging protocol: Computed tomography of the abdomen and pelvis without contrast. Radiation optimization: All CT scans at this facility use at least one of these dose optimization techniques: automated exposure control; mA and/or kV adjustment per patient size (includes targeted exams where dose is matched to clinical indication); or iterative reconstruction. COMPARISON: CT ABD/PEL W/IV CONTRAST ONLY 04/15/2018 11:23 AM FINDINGS: Limitations: Evaluation of the solid and vascular structures is somewhat limited by lack of IV contrast. Lungs: The visualized lung bases demonstrate mild dependent atelectasis. Liver: Grossly unremarkable. Gallbladder and bile ducts: Cholecystectomy clips are again present. Pancreas: Grossly unremarkable. Spleen: Grossly unremarkable. Adrenal glands: Grossly unremarkable. Kidneys and ureters: Grossly unremarkable. No hydronephrosis or renal or ureteral calculus. Stomach and bowel: The unopacified small bowel is not significantly distended to suggest obstruction. The large bowel is grossly unremarkable in appearance. Appendix: The appendix appears normal. Intraperitoneal space: No free air or significant free fluid. Vasculature: The abdominal aorta is nonaneurysmal. Atherosclerotic vascular calcifications are again present. Lymph nodes: No gross pathologic lymphadenopathy. Urinary bladder: Grossly unremarkable. Reproductive: There appears to have been interval hysterectomy. No gross adnexal abnormality is apparent, but ultrasound would be more appropriate in this regard. Bones/joints: Degenerative changes again involve the spine and hips. Soft tissues: Unremarkable. Other findings: There is similar eventration of the right hemidiaphragm posteromedially. IMPRESSION: No hydronephrosis, renal or ureteral calculus or other gross acute abnormality identified. COMMENTS: Depending on suspected etiology of symptoms, consider a targeted ultrasound or contrast enhanced exam. Electronically signed by: Pilo Sánchez On 05/26/2021 07:39:22 AM
[2021-05-26 10:56] LABS: MONO REFLEX EBV COMP NEGATIVE (NEGATIVE)
[2021-05-26 12:20] LABS: ACETAMINOPHEN LEVEL < 2.0 UG/ML (10.0-30.0)
[2021-05-26 12:39] LABS: HEPATITIS B SURFACE ANTIGEN NEGATIVE (NEGATIVE)
[2021-05-26 13:06] LABS: HEPATITIS B CORE ANTIBODY IGM NEGATIVE (NEGATIVE); HEPATITIS C VIRUS ABY INDEX < 0.0 INDEX (<0.8)
[2021-05-26 13:09] LABS: HEPATITIS A ANTIBODY IGM NEGATIVE (NEGATIVE)
[2021-05-26 13:31] VITALS: BP 101/55
--- NOTE | 2021-05-26 21:37 | ECGEPIP ---
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 Order Number: [id number] Reading MD: Nimesh Osborne Measurements Intervals [place] Rate: 80 P: 60 CO: 212 QRS: 48 QRSD: 148 T: 235 QT: 404 QTc: 465 Interpretive Statements Sinus rhythm with 1st degree AV block with occasional premature ventricular complexes Left bundle branch block SIMILAR TO 12/01/19 Electronically Signed on 05-26-2021 21:36:53 EDT by Nimesh Osborne
[2021-05-27] MEDS ORDERED: ACET1TAB16 PO (11:06)
[2021-05-27] MEDS ORDERED: PRED20TA PO (11:06)
[2021-05-27] MEDS ORDERED: DIPH50CA PO (11:18)
[2021-05-27 16:12] LABS: EBV AB TO NUCLEAR ANTIGEN 44.3 U/mL (0.0-17.9); EBV VIRAL CAPSID AG IgM <36.0 U/mL (0.0-35.9)
== END 2021-05-26 13:43 | disposition home or self-care (01) ==
LOC: M ED 02:21
DX: R94.5 Abnormal results of liver function studies (principal); E78.41 Elevated Lipoprotein(a); I44.0 Atrioventricular block, first degree; I44.7 Left bundle-branch block, unspecified; I51.9 Heart disease, unspecified; J45.909 Unspecified asthma, uncomplicated; F41.9 Anxiety disorder, unspecified; F32.9 Major depressive disorder, single episode, unspecified; I48.91 Unspecified atrial fibrillation; Z79.01 Long term (current) use of anticoagulants; Z79.899 Other long term (current) drug therapy; Z88.8 Allergy status to other drugs, medicaments and biological substances; Z91.011 Allergy to milk products; Z91.89 Other specified personal risk factors, not elsewhere classified; Z91.012 Allergy to eggs; Z88.1 Allergy status to other antibiotic agents
CPT/HCPCS: 74176; 80048; 80076; 80143; 81001; 82550; 82553; 83690; 85025; 86308; 86664; 86665; 86705; 86709; 86803; 87340; 93005; 96361; 96374; 96375; 99284; J2270; J2405

== ENCOUNTER 2021-05-27 10:32 | Emergency (ER) | payer OTHER ==
[~2021-05-27] VITALS: Ht 149.9 cm; Wt 79.8 kg
--- OUTSIDE RECORDS SUMMARY | 2021-05-27 10:44 | CCD ---
Author Author [facility] Organization [facility] Address Unknown Phone Unavailable Care Team Providers Care Medical Laboratory Technician Name Role Phone Muriel Menendez Unavailable PROBLEMS Type Condition ICD9-CM Code QFY63-MV Code Onset Dates Condition S tatus W/U Status Risk SNOMED Code Notes Problem Environmental allergies Z91.09 Active confirmed 981540831 Problem Gastro-esophageal reflux disease without esophagitis K21.9 Active confirmed 497628082 Problem Nasal polyp J33.9 Active confirmed 93053746 Problem Obstructive sleep apnea (adult) (pediatric) G47.33 Active confirmed 64644435 Problem Moderate persistent asthma, uncomplicated J45.40 Active confirmed 569748651 Problem Generalized anxiety disorder F41.1 Active confirme d 56123586 Problem Migraine, unspecified, not intractable, without status migrainosus G43.909 Active confirmed 39065711 Problem Chronic sinusitis, unspecified location J32.9 Active confirmed 79496853 Problem Chronic sinusitis J32.9 Active confirmed 40 735036 Problem Sacroiliitis, not elsewhere classified M46.1 A ctive confirmed 108023161 Problem Chronic maxillary sinusitis J32.0 Active confirmed 25712454 Problem Asthma exacerbation J45.901 Active confirmed 796935770 Problem Asthma 493.90 Active confirmed 811793265 Problem Iron deficiency anemia, unspecified D50.9 Acti ve confirmed 87366857 Problem Fibromyalgia M79.7 Active confirmed 4542613 05 Problem Other chronic sinusitis J32.8 Active confirmed 94676397 Problem Low back pain M54.5 Active confirmed 355023 007 Problem Myalgia M79.1 Active confirmed 83920680 Problem Sacroiliac joint pain M53.3 Active confirmed 597897241 Problem Intervertebral disc disorders with radiculopathy , lumbar region M51.16 Active confirmed 591454771471647 Problem Paroxysmal atrial fibrillation I48.0 Active confir med [id number] admitted 06/20, converted NSR in hospital CHADS 1, started on Eliquis by cardio. LAE on echo 05/20 Problem Moderate persistent asthma with exacerbation J45.4 1 Active confirmed 338021192 Problem Diastolic CHF with preserved left ventricular fu nction, NYHA class 2 I50.30 Active confirmed 462836006 Problem HOCM (hypertrophic obstructive cardiomyopathy) I42 .1 Active confirmed 25871001 Problem Vitamin D deficiency, unspecified E55.9 Active con firmed 25576631 Problem Irritable bowel syndrome with constipation K58.1 Active confirmed 237990625 Problem Major depressive disorder, single episode, unspecified F32.9 Active confirmed 37527831 Problem Hypothyroidism, unspecified E03.9 Active confirmed 26217203 Problem Iron deficiency anemia due to chronic blood loss D 50.0 Active confirmed 651250025 Problem DUB (dysfunctional uterine bleeding) N93.8 Act michael confirmed 69529152 Problem Mild persistent asthma without complication J45.30 Active confirmed 254921447 Problem Abdominal panniculus, symptomatic E65 Active confirmed 2943370530238 ALLERGIES Allergen (clinical drug ingredient) Drug/Non Drug Allergy do cumented on EMR Reaction Allergy Type Onset Date Status Sulfa (for allergy use only) unknown Drug Allergy Active metformin (from DR Jesus for wt loss) diarrhea Non Drug Allergy Active linezolid Zyvox(NDC Code:[address]-21) muscle spasms Drug Allergy Active Astepro ear pain and swelling Drug Allergy A ctive methylprednisolone Solu-Medrol(NDC Code:[address]-87) tachycardia Drug Allergy Active clarithromycin Biaxin Diarrhea Drug Allergy Active fluoxetine PROzac(NDC Code:[address]-95) Mean, palpatations Drug All ergy Active ENCOUNTERS from 1972 to 2021-05-20 Encounter Location Date Provider Diagnosis [facility] [phone] [place] [address] May, Muriel Menendez Rhinovirus infection B34.8 IMMUNIZATIONS Vaccine Route Administration Date Status Rocephin 1gm Ceftriaxone IM Intramuscular Jul 17, 2016 Admini stered Rocephin 1gm Ceftriaxone IM Intramuscular Jul 13, 2017 Admini nancy Rocephin 1gm Ceftriaxone IM Intramuscular Jul 14, 2016 Admini nancy Rocephin 1gm Ceftriaxone IM Intramuscular Jul 15, 2016 Admini nancy Rocephin 1gm Ceftriaxone IM Intramuscular Jul 16, 2016 Admini nancy Influenza 6mo & up Fluzone Unknown Jul 15, 2016 Other s Rocephin 1gm Ceftriaxone IM Intramuscular Jul 04, 2015 Admini nancy Rocephin 1gm Ceftriaxone IM Intramuscular Jun 28, 2015 Admini markd Depo-Medrol 80mg Methylprednisolone Acetate IM Intramuscular Jul 13, 2017 Administered Depo-Medrol 80mg Methylprednisolone Acetate IM Intramuscular Jul 08, 2017 Administered Depo-Medrol 80mg Methylprednisolone Acetate IM Intramuscular Jun Administered Depo-Medrol 80mg Methylprednisolone Acetate IM Intramuscular Mar Administered Depo-Medrol 80mg Methylprednisolone Acetate IM Intramuscular Jul 16, 2016 Administered Pneumococcal 0.5mL Prevnar 13 IM Intramuscular January 29, 2015 A dministered SOCIAL HISTORY Tobacco Use: Social History Observation Description Date Details (start date - stop date) Former Smoker Sex Assigned At : Social History Observation Description Sex Assigned At Unknown Audit Question Answer Notes Total Score: 0 Interpretation: Alcohol Education Language: Question Answer Notes Languages spoken: Moldovan Advent: Question Answer Notes Advent No anabaptist beliefs that would impact health care. Drug and Alcohol Question Answer Notes Total Score: 0 Interpretation: No problems reported Alcohol Screening: Question Answer Notes Did you have a drink containing alcohol in the past year? No Points 0 Interpretation Negative BMI Care Goal Follow-Up Question Answer Notes Above Normal BMI Follow-Up Lifestyle education regarding t Tobacco Use: Question Answer Notes Are you a: former smoker How long has it been since you last smoked? 1-5 years REASON FOR REFERRAL No Information VITAL SIGNS Weight 173 lbs May, Weight-kg 78.47 kg May, Height 60 in May, BMI 33.78 kg/m2 May, Heart Rate 84 /min May, Respiratory Rate 20 /min May, Temperature 98.6 degrees Fahrenheit May, Oximetry 98 May, Blood pressure systolic 124 mm Hg May, Blood pressure diastolic 76 mm Hg May, MEDICATIONS Medication SIG (Take, Route, Frequency, Duration) Notes Start Da te End Date Status Singulair 10 mg 1 tablet in the morning Orally Once a day for 90 days Active clonazePAM 2 MG 1 tablet Orally three times a day as needed Active MiraLax - 1 packet mixed with 8 ounces of fluid Or ally Once a day for 30 day(s) Active Lasix 20 MG Orally Once a day Activ e Benzonatate 200 MG 1 capsule Orally TID as needed for cough for 10 days May, Active Levothyroxine Sodium 75 MCG 1 tablet on an empty stoma ch in the morning Orally Once a day for 30 Active Simethicone Extra Strength 125 MG 1 capsule after meal s and at bedtime as needed Orally Four times a day for 30 Days Dec, Active Eliquis 5 MG Orally bid Active AirDuo RespiClick 113/14 1 puff Inhalation Twice a day Active Ipratropium-Albuterol 0.5-2.5 (3) MG/3ML 3 ml Inhalati on Four times a day as needed for 30 Active Docusate Sodium 100 MG 1 capsule as needed Orally Once a day for 30 Active Cequa 0.09 % INSTILL 1 DROP IN EACH EYE TWICE A DAY Ophthalmic for 30 Active Atrovent HFA 17 MCG/ACT 2 puffs Inhalation Four times a day for 25 Active MiraLax - 17 gr Orally once daily as needed for 30 Active Ipratropium [place] 0.02 % 3 ml nebulized four times daily for 9 0 days Jul, Active Mucinex Maximum Strength 1200 MG 1 tablet as needed Or ally twice a day as needed for 28 Active Potassium Chloride 20 MEQ Orally Daily Active Lumigan 0.03 % 1 drop into affected eye in the evening Ophthalm ic Once a day Active Nystatin 397736 UNIT/GM 1 application Externally Twice a day for 30 Days Oct, Active Elocon 0.1 % 1 application to affected area Externally Once a day for 30 Active Lasix 40 MG 1 tablet Orally Once a day for 30 day(s) Active Viibryd 40 mg 1 tab with food po Once daily (Dr. Larry) 12-02-16 06 Active tiZANidine HCl 2 MG 1 tablet as needed Orally be fore bedtime may repeat in 4 hrs last week Takes 2mg-4mg. Active Benefiber - as directed Orally bid for 30 day(s) Apr, Active Alphagan P twice a day Active Rizatriptan Benzoate 10 MG 1 tablet on the tongue and allow to dissolve as needed one time Orally Once a day none 17 Dec, 2015 Active Metoprolol Tartrate 25 MG 1 tablet with food Orally Twice a day for 30 day(s) Dec, Active [place] Saline Nasal - 2 sprays Nasally four times daily as needed f or 30 Days Dec, Active Hyoscyamine Sulfate 0.125 MG 1 tablet under the tongue and allow to dissolve as needed Sublingual twice daily as needed for 15 Active Ondansetron 4 MG ALLOW 1 TABLET TO DISSOLVE O N TONGUE TWO TIMES A DAY NEEDED for 15 Active Aimovig Active Pantoprazole Sodium 40 MG 1 tablet Orally Daily for 90 days Active Tylenol with Codeine #3 A ctive [place] Nasal [place] 0.65 % 2 sprays in each nostril as needed Nasally four times daily as needed for 30 Days Dec, Acti ve Spironolactone 25 mg 1 tablet Orally Once a day Active Xopenex HFA 45 MCG/ACT 2 puff as needed Inhalation four times daily as needed for 25 Active Ferrous Sulfate 325 (65 Fe) MG 1 tablet Orally Once a day for 30 Active Xopenex 1.25 MG/3ML 3 ml Inhalation every 4 hour s and every 2 hours as needed for SOB for 30 Active Metoprolol Tartrate 25 MG 1 tablet with food Orally Twice a day for 30 day(s) Dec, Active PROCEDURES No Information RESULTS No Results REASON FOR VISIT Door D/ sinus/cough MEDICAL (GENERAL) HISTORY Type Description Date Medical History chronic sinusitis--saw ENT [place] sinuses 07/18. Saw ENT in [place], no records, told that has sinus polyp; CT sinuses 08/19 minimal findings Medical History H/O MRSA Medical History glaucoma Medical History asthma - severe persistent Medical History anxiety - followed by [facility] Medical History depression Medical History Hypothyroidism Medical History Asthma--- dora 12/19 FEV1 1.9, FEV1/FVC 78%-- normal Medical History MARCOS on CPAP Medical History Echo 01/10/14 - mild concentri c LVH, Normal LV systolic function LVEF = 65%, Grade 1 LV diastolic dysfunction, Moderate LA dilation, Mild mitral annual calcification; echo 05/20: LAE 52 mm, EF 65-70%, LVH, mild MR Medical History mild fibrofatty liver per US 2000 Medical History Abnormal PAPwith + HPV (Dr. 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 Medical History diastolic CHF per [facility]; now sees [facility]/Dr Miguel, dx with hypertrophic CM 12/21 Medical History recurrent panniculitis Surgical History C sectionx2 Surgical History ovarian cyst resection Surgical History D&C Surgical History sinus surgeryx2 Surgical History Trigger point injections and botox Surgical History cholecystectomy [facility] 04/20 Surgical History left carpal tunnel sx 03/21 Surgical History LISETTE/BSO 05/21 Hospitalization History related to surgeries Hospitalization History at [facility] RVR 06/2017 Hospitalization History RLL pneumonia 07/16-07/19/17 Goals Section No Information Health Concerns No Information MEDICAL EQUIPMENT No Information MENTAL STATUS No Information FUNCTIONAL STATUS No Information ASSESSMENTS Encounter Date Diagnosis Assessment Notes Treatment Notes Treatm ent Clinical Notes May, Rhinovirus infection (ICD-10 - B34.8) Discussed with patient that her sxs are due to a viral infection. Antibiotics are not indicated at this time. Also, her sxs started the day before yesterday, so at this time, she does not have a sinus infection. Continue current regimen of care. Will add on Tessalon Perles for cough. Pt agrees with plan May, Other Total time jero ng for the patient on the day of the encounter was 20 min PLAN OF TREATMENT Medication Medication Name Sig Start Date Stop Date Benzonatate 200 MG 1 capsule Orally TID as needed for cough for 10 days May, Treatment Notes Assessment Notes Clinical Notes Rhinovirus infection Discussed with luis ent that her sxs are due to a viral infection. Antibiotics are not indicated at this time. Also, her sxs started the day before yesterday, so at this time, she does not have a sinus infection. Continue current regimen of care. Will add on Tessalon Perles for cough. Pt agrees with plan Next Appt Details Provider Name:Yrn De La Cruz, 2021-06 08:30:00 AM, [address], , [place], [address], Insurance Providers Payer Name Payer Address Payer Phone Insured Name Patient Relati onship to Insured Coverage Start Date Coverage End Date [facility] [place] [facility] [place] [address] [facility] [phone] [place] self
--- OUTSIDE RECORDS SUMMARY | 2021-05-27 10:44 | CCD ---
Author Author [facility] Organization [facility] Address Unknown Phone Unavailable Care Team Providers Care Auditor Supervisor Name Role Phone Yrn De La Cruz Unavailable PROBLEMS Type Condition ICD9-CM Code RHH36-DB Code Onset Dates Condition S tatus W/U Status Risk SNOMED Code Notes Problem Environmental allergies Z91.09 Active confirmed 376681604 Problem Gastro-esophageal reflux disease without esophagitis K21.9 Active confirmed 093822171 Problem Nasal polyp J33.9 Active confirmed 43853467 Problem Obstructive sleep apnea (adult) (pediatric) G47.33 Active confirmed 53325397 Problem Moderate persistent asthma, uncomplicated J45.40 Active confirmed 322090509 Problem Generalized anxiety disorder F41.1 Active confirme d 45829377 Problem Migraine, unspecified, not intractable, without status migrainosus G43.909 Active confirmed 74925828 Problem Chronic sinusitis, unspecified location J32.9 Active confirmed 59816947 Problem Chronic sinusitis J32.9 Active confirmed 40 373428 Problem Sacroiliitis, not elsewhere classified M46.1 A ctive confirmed 265331510 Problem Chronic maxillary sinusitis J32.0 Active confirmed 44521211 Problem Asthma exacerbation J45.901 Active confirmed 456074480 Problem Asthma 493.90 Active confirmed 363279702 Problem Iron deficiency anemia, unspecified D50.9 Acti ve confirmed 07024850 Problem Fibromyalgia M79.7 Active confirmed 1798841 05 Problem Other chronic sinusitis J32.8 Active confirmed 53441343 Problem Low back pain M54.5 Active confirmed 691743 007 Problem Myalgia M79.1 Active confirmed 21242892 Problem Sacroiliac joint pain M53.3 Active confirmed 755665093 Problem Intervertebral disc disorders with radiculopathy , lumbar region M51.16 Active confirmed 993749973628570 Problem Paroxysmal atrial fibrillation I48.0 Active confir med [id number] admitted 06/20, converted NSR in hospital CHADS 1, started on Eliquis by cardio. LAE on echo 05/20 Problem Moderate persistent asthma with exacerbation J45.4 1 Active confirmed 247202282 Problem Diastolic CHF with preserved left ventricular fu nction, NYHA class 2 I50.30 Active confirmed 570659218 Problem HOCM (hypertrophic obstructive cardiomyopathy) I42 .1 Active confirmed 80687624 Problem Vitamin D deficiency, unspecified E55.9 Active con firmed 93887012 Problem Irritable bowel syndrome with constipation K58.1 Active confirmed 838176606 Problem Major depressive disorder, single episode, unspecified F32.9 Active confirmed 48549555 Problem Hypothyroidism, unspecified E03.9 Active confirmed 32398509 Problem Iron deficiency anemia due to chronic blood loss D 50.0 Active confirmed 975238311 Problem DUB (dysfunctional uterine bleeding) N93.8 Act michael confirmed 12813299 Problem Mild persistent asthma without complication J45.30 Active confirmed 427803872 Problem Abdominal panniculus, symptomatic E65 Active confirmed 2331744372482 ALLERGIES Allergen (clinical drug ingredient) Drug/Non Drug Allergy do cumented on EMR Reaction Allergy Type Onset Date Status Sulfa (for allergy use only) unknown Drug Allergy Active metformin (from DR Jesus for wt loss) diarrhea Non Drug Allergy Active linezolid Zyvox(NDC Code:[address]-26) muscle spasms Drug Allergy Active Astepro ear pain and swelling Drug Allergy A ctive methylprednisolone Solu-Medrol(NDC Code:[address]-43) tachycardia Drug Allergy Active clarithromycin Biaxin Diarrhea Drug Allergy Active fluoxetine PROzac(NDC Code:[address]-96) Mean, palpatations Drug All ergy Active ENCOUNTERS from 1972 to 2021-05-22 Encounter Location Date Provider Diagnosis [facility] [address] [place] [address] May, Yrn De La Cruz IMMUNIZATIONS Vaccine Route Administration Date Status Rocephin 1gm Ceftriaxone IM Intramuscular Jul 17, 2016 Admini stered Rocephin 1gm Ceftriaxone IM Intramuscular Jul 13, 2017 Admini markaminah Rocephin 1gm Ceftriaxone IM Intramuscular Jul 14, 2016 Admini markaminah Rocephin 1gm Ceftriaxone IM Intramuscular Jul 15, 2016 Admini markd Rocephin 1gm Ceftriaxone IM Intramuscular Jul 16, 2016 Admini markaminah Influenza 6mo & up Fluzone Unknown Jul 15, 2016 Other s Rocephin 1gm Ceftriaxone IM Intramuscular Jun 28, 2015 Admini markd Rocephin 1gm Ceftriaxone IM Intramuscular Jul 04, 2015 Admini markd Depo-Medrol 80mg Methylprednisolone Acetate [...] Education Language: Question Answer Notes Languages spoken: Yi Tenriism: Question Answer Notes Tenriism No taoism beliefs that would impact health care. Drug [...] REASON FOR REFERRAL No Information VITAL SIGNS No information MEDICATIONS Medication SIG (Take, Route, Frequency, Duration) Notes Start Da te End Date Status Singulair 10 mg 1 tablet in the morning Orally Once a day for 90 days Active Benzonatate 200 MG 1 capsule Orally TID as needed for cough for 10 days May, Active Levothyroxine Sodium 75 MCG 1 tablet on an empty stoma ch in the morning Orally Once a day for 30 Active Ferrous Sulfate 325 (65 Fe) MG 1 tablet Orally Once a day for 30 Active Lasix 20 MG Orally Once a day Activ e Hyoscyamine Sulfate 0.125 MG 1 tablet under the tongue and allow to dissolve as needed Sublingual twice daily as needed for 15 Active Ondansetron 4 MG ALLOW 1 TABLET TO DISSOLVE O N TONGUE TWO TIMES A DAY NEEDED for 15 Active Simethicone Extra Strength 125 MG 1 capsule after meal s and at bedtime as needed Orally Four times a day for 30 Days Dec, Active Docusate Sodium 100 MG 1 capsule as needed Orally Once a day for 30 Active Cequa 0.09 % INSTILL 1 DROP IN EACH EYE TWICE A DAY Ophthalmic for 30 Active Ipratropium-Albuterol 0.5-2.5 (3) MG/3ML 3 ml Inhalati on Four times a day as needed for 30 Active clonazePAM 2 MG 1 tablet Orally three times a day as needed Active MiraLax - 1 packet mixed with 8 ounces of fluid Or ally Once a day for 30 day(s) Active Mucinex Maximum Strength 1200 MG 1 tablet as needed Or ally twice a day as needed for 28 Active Potassium Chloride 20 MEQ Orally Daily Active Ipratropium [place] 0.02 % 3 ml nebulized four times daily for 9 0 days Jul, Active Eliquis 5 MG Orally bid Active AirDuo RespiClick 113/14 1 puff Inhalation Twice a day Active Elocon 0.1 % 1 application to affected area Externally Once a day for 30 Active Atrovent HFA 17 MCG/ACT 2 puffs Inhalation Four times a day for 25 Active MiraLax - 17 gr Orally once daily as needed for 30 Active Metoprolol Tartrate 25 MG 1 tablet with food Orally Twice a day for 30 day(s) Dec, Active Lasix 40 MG 1 tablet Orally Once a day for 30 day(s) Active Aimovig Active Benefiber - as directed Orally bid for 30 day(s) Apr, 018 Active Nebulizer/Tubing/Mouthpiece - as directed _ as directe d, change weekly for 30 days May, Active Tylenol with Codeine #3 A ctive Xopenex 1.25 MG/3ML 3 ml Inhalation every 4 hour s and every 2 hours as needed for SOB for 30 Active [place] Saline Nasal - 2 sprays Nasally four times daily as needed f or 30 Days Dec, Active Alphagan P twice a day Active Nystatin 161978 UNIT/GM 1 application Externally Twice a day for 30 Days Oct, Active Rizatriptan Benzoate 10 MG 1 tablet on the tongue and allow to dissolve as needed one time Orally Once a day none Dec, Active Pantoprazole Sodium 40 MG 1 tablet Orally Daily for 90 days Active Viibryd 40 mg 1 tab with food po Once daily (Dr. Larry) 3- 0600 Active tiZANidine HCl 2 MG 1 tablet as needed Orally be fore bedtime may repeat in 4 hrs last week Takes 2mg-4mg. Active Xopenex HFA 45 MCG/ACT 2 puff as needed Inhalation four times daily as needed for 25 Active [place] Nasal [place] 0.65 % 2 sprays in each nostril as needed Nasally four times daily as needed for 30 Days Dec, Acti ve Lumigan 0.03 % 1 drop into affected eye in the evening Ophthalm ic Once a day Active Spironolactone 25 mg 1 tablet Orally Once a day Active Metoprolol Tartrate 25 MG 1 tablet with food Orally Twice a day for 30 day(s) Dec, Active PROCEDURES No Information RESULTS No Results REASON FOR VISIT refills MEDICAL (GENERAL) HISTORY Type Description Date Medical History chronic sinusitis--saw E[place], [place] sinuses 07/18. Saw ENT in [place], no records, told that has sinus polyp; CT sinuses 08/19 minimal findings Medical History H/O MRSA Medical History glaucoma Medical History asthma - severe persistent Medical History [facility] - [facility] Medical History depression Medical History Hypothyroidism [...] lumbar spine (HNP C7-T1) MRIs 12/18 at [facility] Neuro Medical History NST at [facility] : EF 56%, no perfusion abnl; LVH Medical History paroxysmal at [facility] Medical History diastolic CHF per [facility]; now sees Cardio/Dr Miguel, dx with hypertrophic CM 12/21 Medical History recurrent panniculitis Surgical History C sectionx2 Surgical History ovarian cyst resection Surgical History D&C Surgical History sinus surgeryx2 Surgical History Trigger point injections and botox Surgical History cholecystectomy [facility] 04/20 Surgical History left carpal tunnel sx 03/21 Surgical History LISETTE/BSO 05/21 Hospitalization History related to surgeries Hospitalization History at [facility] RVR 06/2017 Hospitalization History RLL pneumonia 07/16-07/19/17 Goals Section No Information Health Concerns No Information MEDICAL EQUIPMENT No Information MENTAL STATUS No Information FUNCTIONAL STATUS No Information ASSESSMENTS No Information PLAN OF TREATMENT Medication Medication Name Sig Start Date Stop Date Nebulizer/Tubing/Mouthpiece - as directed _ as directe d, change weekly for 30 days May, Xopenex 1.25 MG/3ML 3 ml Inhalation every 4 hour s and every 2 hours as needed for SOB for 30 Benzonatate 200 MG 1 capsule Orally TID as needed for cough for 10 days May, Next Appt Details Provider Name:Yrn Arenasjose l, 2021-05 10:15:00 AM, [address], , [place], [address], Provider Name:Yrn De La Cruz, 2021-06 08:30:00 AM, [address], , [place], [address], Insurance Providers Payer Name Payer Address Payer Phone Insured Name Patient Relati onship to Insured Coverage Start Date Coverage End Date [facility] COMM[facility] PLAN [facility] [address] [facility] [phone] [place] self
--- OUTSIDE RECORDS SUMMARY | 2021-05-27 10:44 | CCD ---
Author Author [facility] Organization [facility] Address Unknown Phone Unavailable Care Team Providers Care Recycling Assistant Name Role Phone Yrn De La Cruz Unavailable PROBLEMS Type Condition ICD9-CM Code [id number] Code Onset Dates Condition S tatus W/U Status Risk SNOMED Code Notes Problem Environmental allergies Z91.09 Active confirmed 900772908 Problem Gastro-esophageal reflux disease without esophagitis K21.9 Active confirmed 720936972 Problem Nasal polyp J33.9 Active confirmed 05405736 Problem Obstructive sleep apnea (adult) (pediatric) G47.33 Active confirmed 74302424 Problem Moderate persistent asthma, uncomplicated J45.40 Active confirmed 439208111 Problem Generalized anxiety disorder F41.1 Active confirme d 93303068 Problem Migraine, unspecified, not intractable, without status migrainosus G43.909 Active confirmed 88350294 Problem Chronic sinusitis, unspecified location J32.9 Active confirmed 30651291 Problem Chronic sinusitis J32.9 Active confirmed 40 605734 Problem Sacroiliitis, not elsewhere classified M46.1 A ctive confirmed 899919633 Problem Chronic maxillary sinusitis J32.0 Active confirmed 05113366 Problem Asthma exacerbation J45.901 Active confirmed 134875054 Problem Asthma 493.90 Active confirmed 103377363 Problem Iron deficiency anemia, unspecified D50.9 Acti ve confirmed 65055616 Problem Fibromyalgia M79.7 Active confirmed 1789766 05 Problem Other chronic sinusitis J32.8 Active confirmed 77327368 Problem Low back pain M54.5 Active confirmed 077543 007 Problem Myalgia M79.1 Active confirmed 76699298 Problem Sacroiliac joint pain M53.3 Active confirmed 820959533 Problem Intervertebral disc disorders with radiculopathy , lumbar region M51.16 Active confirmed 929526883156703 Problem Paroxysmal atrial fibrillation I48.0 Active confir med 518089069 admitted 06/20, converted NSR in hospital CHADS 1, started on Eliquis by cardio. LAE on echo 05/20 Problem Moderate persistent asthma with exacerbation J45.4 1 Active confirmed 526564977 Problem Diastolic CHF with preserved left ventricular fu nction, NYHA class 2 I50.30 Active confirmed 875513352 Problem HOCM (hypertrophic obstructive cardiomyopathy) I42 .1 Active confirmed 19420155 Problem Vitamin D deficiency, unspecified E55.9 Active con firmed 11215946 Problem Irritable bowel syndrome with constipation K58.1 Active confirmed 574304659 Problem Major depressive disorder, single episode, unspecified F32.9 Active confirmed 30193584 Problem Hypothyroidism, unspecified E03.9 Active confirmed 23841073 Problem Iron deficiency anemia due to chronic blood loss D 50.0 Active confirmed 839244551 Problem DUB (dysfunctional uterine bleeding) N93.8 Act michael confirmed 20379340 Problem Mild persistent asthma without complication J45.30 Active confirmed 966931674 Problem Abdominal panniculus, symptomatic E65 Active confirmed 3604472575966 ALLERGIES Allergen (clinical drug ingredient) Drug/Non Drug Allergy do cumented on EMR Reaction Allergy Type Onset Date Status Sulfa (for allergy use only) unknown Drug Allergy Active metformin (from DR Jesus for wt loss) diarrhea Non Drug Allergy Active linezolid Zyvox(NDC Code:[address]-30) muscle spasms Drug Allergy Active Astepro ear pain and swelling Drug Allergy A ctive methylprednisolone Solu-Medrol(NDC Code:[address]-37) tachycardia Drug Allergy Active clarithromycin Biaxin Diarrhea Drug Allergy Active fluoxetine PROzac(NDC Code:[address]-27) Mean, palpatations Drug All ergy Active ENCOUNTERS from 1972 to 2021-05-19 Encounter Location Date Provider Diagnosis [facility] [address] [facility] [phone] [place] [address] May, Yrn De La Cruz IMMUNIZATIONS Vaccine Route Administration Date Status Rocephin 1gm Ceftriaxone IM Intramuscular Jul 17, 2016 Admini stered Rocephin 1gm Ceftriaxone IM Intramuscular Jul 13, 2017 Admini nancy Rocephin 1gm Ceftriaxone IM Intramuscular Jul 14, 2016 Admini markd Rocephin 1gm Ceftriaxone IM Intramuscular Jul 15, 2016 Admini markd Rocephin 1gm Ceftriaxone IM Intramuscular Jul 16, 2016 Admini markd Influenza 6mo & up Fluzone Unknown Jul 15, 2016 Other s Rocephin 1gm Ceftriaxone IM Intramuscular Jul 04, 2015 Admini markd Rocephin 1gm Ceftriaxone IM Intramuscular Jun 28, 2015 Admini stered Depo-Medrol 80mg Methylprednisolone Acetate IM Intramuscular Jul [...] Education Language: Question Answer Notes Languages spoken: Greenlandic Protestant: Question Answer Notes Protestant No hoahaoism beliefs that would impact health care. Drug [...] daily as needed for 30 Active Ipratropium [place] 0.02 % 3 ml nebulized four times daily for 9 0 days Jul, Active Mucinex Maximum Strength 1200 MG 1 tablet as needed Or ally twice a day as needed for 28 Active Potassium Chloride 20 MEQ Orally Daily Active Lumigan 0.03 % 1 drop into affected eye in the evening Ophthalm ic Once a day Active Nystatin 311992 UNIT/GM 1 application Externally Twice a day for 30 Days Oct, Active Elocon 0.1 % 1 application to affected area Externally Once a day for 30 Active Lasix 40 MG 1 tablet Orally Once a day for 30 day(s) Active Viibryd 40 mg 1 tab with food po Once daily (Dr. Larry) 3-1-17 0600 Active tiZANidine HCl 2 MG 1 tablet as needed Orally be fore bedtime may repeat in 4 hrs last week Takes 2mg-4mg. Active Benefiber - as directed Orally bid for 30 day(s) Apr, 018 Active Alphagan P twice a day Active Rizatriptan Benzoate 10 MG 1 tablet on the tongue and allow to dissolve as needed one time Orally Once a day none Dec, Active Metoprolol Tartrate 25 MG 1 tablet with food Orally Twice a day for 30 day(s) Dec, Active Siloam Saline Nasal - 2 sprays Nasally four [...] Active Tylenol with Codeine #[address] [place] Nasal [place] 0.65 % 2 sprays in each nostril [...] Information RESULTS No Results REASON FOR VISIT door d sinus/cough MEDICAL (GENERAL) HISTORY Type Description Date Medical History chronic sinusitis--saw ENT [place] sinuses 07/18. Saw ENT in [place], no records, told that has sinus polyp; [...] lumbar spine (HNP C7-T1) MRIs 12/18 at [facility] [place] Neuro Medical History NST at [facility] : EF 56%, no perfusion abnl; [facility] Medical History paroxysmal at [facility] Medical History diastolic CHF per [facility]; [...] History related to surgeries Hospitalization History at [facility] RVR 06/2017 Hospitalization History [facility] pneumonia 07/16-07/19/17 Goals Section No Information Health Concerns No Information MEDICAL EQUIPMENT No Information MENTAL STATUS No Information FUNCTIONAL STATUS No Information ASSESSMENTS No Information PLAN OF TREATMENT Medication Medication Name Sig Start Date Stop Date Benzonatate 200 MG 1 capsule Orally TID as needed for cough for 10 days May, Next Appt Details Provider Name:Yrn De La Cruz, 2021-06 08:30:00 AM, [address], , [place], [address], Insurance Providers Payer Name Payer Address Payer Phone Insured Name Patient Relati onship to Insured Coverage Start Date Coverage End Date [facility] [address] [facility] [phone] [place] self
--- OUTSIDE RECORDS SUMMARY | 2021-05-27 10:44 | CCD ---
Author Author [facility] Organization [facility] Address Unknown Phone Unavailable Care Team Providers Care Milk Runner Name Role Phone Yrn De La Cruz Unavailable PROBLEMS Type Condition ICD9-CM Code PVA96-MZ Code Onset Dates Condition S tatus W/U Status Risk SNOMED Code Notes Problem Environmental allergies Z91.09 Active confirmed 445205597 Problem Gastro-esophageal reflux disease without esophagitis K21.9 Active confirmed 217848392 Problem Nasal polyp J33.9 Active confirmed 82287628 Problem Obstructive sleep apnea (adult) (pediatric) G47.33 Active confirmed 33370185 Problem Moderate persistent asthma, uncomplicated J45.40 Active confirmed 098409565 Problem Generalized anxiety disorder F41.1 Active confirme d 20808975 Problem Migraine, unspecified, not intractable, without status migrainosus G43.909 Active confirmed 84827611 Problem Chronic sinusitis, unspecified location J32.9 Active confirmed 97524902 Problem Chronic sinusitis J32.9 Active confirmed 40 262242 Problem Sacroiliitis, not elsewhere classified M46.1 A ctive confirmed 759579566 Problem Chronic maxillary sinusitis J32.0 Active confirmed 69127808 Problem Asthma exacerbation J45.901 Active confirmed 717975141 Problem Asthma 493.90 Active confirmed 381573980 Problem Iron deficiency anemia, unspecified D50.9 Acti ve confirmed 13412867 Problem Fibromyalgia M79.7 Active confirmed 2059246 05 Problem Other chronic sinusitis J32.8 Active confirmed 03388218 Problem Low back pain M54.5 Active confirmed 334179 007 Problem Myalgia M79.1 Active confirmed 41721810 Problem Sacroiliac joint pain M53.3 Active confirmed 582919536 Problem Intervertebral disc disorders with radiculopathy , lumbar region M51.16 Active confirmed 768582869038515 Problem Paroxysmal atrial fibrillation I48.0 Active confir med 194319819 admitted 06/20, converted NSR in hospital CHADS 1, started on Eliquis by cardio. LAE on echo 05/20 Problem Moderate persistent asthma with exacerbation J45.4 1 Active confirmed 489912008 Problem Diastolic CHF with preserved left ventricular fu nction, NYHA class 2 I50.30 Active confirmed 907432875 Problem HOCM (hypertrophic obstructive cardiomyopathy) I42 .1 Active confirmed 27341530 Problem Vitamin D deficiency, unspecified E55.9 Active con firmed 92417614 Problem Irritable bowel syndrome with constipation K58.1 Active confirmed 830793885 Problem Major depressive disorder, single episode, unspecified F32.9 Active confirmed 52617342 Problem Hypothyroidism, unspecified E03.9 Active confirmed 67105358 Problem Iron deficiency anemia due to chronic blood loss D 50.0 Active confirmed 081572597 Problem DUB (dysfunctional uterine bleeding) N93.8 Act michael confirmed 33029735 Problem Mild persistent asthma without complication J45.30 Active confirmed 854048968 Problem Abdominal panniculus, symptomatic E65 Active confirmed 3252450784271 ALLERGIES Allergen (clinical drug ingredient) Drug/Non Drug Allergy do cumented on EMR Reaction Allergy Type Onset Date Status Sulfa (for allergy use only) unknown Drug Allergy Active metformin (from DR Jesus for wt loss) diarrhea Non Drug Allergy Active linezolid Zyvox(NDC Code:[address]-85) muscle spasms Drug Allergy Active Astepro ear pain and swelling Drug Allergy A ctive methylprednisolone Solu-Medrol(NDC Code:[address]-49) tachycardia Drug Allergy Active clarithromycin Biaxin Diarrhea Drug Allergy Active fluoxetine PROzac(NDC Code:[address]-75) Mean, palpatations Drug All ergy Active ENCOUNTERS from 1972 to 2021-05-22 Encounter Location Date Provider Diagnosis [facility] [address] [facility] [phone] [place] [address] May, Yrn De La Cruz IMMUNIZATIONS Vaccine [...] Ceftriaxone IM Intramuscular Jul 04, 2015 Admini stered Depo-Medrol 80mg Methylprednisolone Acetate [...] Education Language: Question Answer Notes Languages spoken: Yakut Buddhist: Question Answer Notes Buddhist No voodoo beliefs that would impact health care. Drug [...] Chloride 20 MEQ Orally Daily Active Ipratropium [place] 0.02 % 3 ml nebulized four times [...] as needed for SOB for 30 Active [place] Saline Nasal - 2 sprays Nasally four times daily as needed f or 30 Days Dec, Active Alphagan P twice a day Active Nystatin 511834 UNIT/GM 1 application Externally Twice a day for 30 Days Oct, Active Rizatriptan Benzoate 10 MG 1 tablet on the tongue and allow to dissolve as needed one time Orally Once a day none Dec, Active Pantoprazole Sodium 40 MG 1 tablet Orally Daily for 90 days Active Viibryd 40 mg 1 tab with food po Once daily (Dr. Larry) 12-02- 0600 Active tiZANidine HCl 2 MG 1 tablet as needed Orally be fore bedtime may repeat in 4 hrs last week Takes 2mg-4mg. Active Xopenex HFA 45 MCG/ACT 2 puff as needed Inhalation four times daily as needed for 25 Active [place] Nasal [place] 0.65 % 2 sprays in each nostril [...] Information RESULTS No Results REASON FOR VISIT request call from PCP MEDICAL (GENERAL) HISTORY Type Description Date Medical History chronic sinusitis--[place] sinuses 07/18. Saw ENT in [place], no records, told that has sinus polyp; [...] lumbar spine (HNP C7-T1) MRIs 12/18 at [facility] Neuro Medical [facility] [place] : EF 56%, no perfusion abnl; LVH Medical History paroxysmal at [facility] Medical History diastolic CHF per [facility]; [...] History related to surgeries Hospitalization History at [facility] RVR 06/2017 Hospitalization History RLL pneumonia 07/16-07/19/17 [...] Appt Details Provider Name:Yrn De La Cruz, 2021-05 10:15:00 AM, [address], , [place], [address], Provider Name:Yrn De La Cruz, 2021-06 08:30:00 AM, [address], , [place], [address], Insurance Providers Payer Name Payer Address Payer Phone Insured Name Patient Relati onship to Insured Coverage Start Date Coverage End Date [facility]AN [facility] [address] [facility] [phone] [place] self
--- OUTSIDE RECORDS SUMMARY | 2021-05-27 10:44 | CCD ---
Author Author [facility] Organization [facility] Address Unknown Phone Unavailable Care Team Providers Care Manager Paper Name Role Phone Yrn De La Cruz Unavailable PROBLEMS Type Condition ICD9-CM Code CCY17-MS Code Onset Dates Condition S tatus W/U Status Risk SNOMED Code Notes Problem Environmental allergies Z91.09 Active confirmed 657686704 Problem Gastro-esophageal reflux disease without esophagitis K21.9 Active confirmed 487275590 Problem Nasal polyp J33.9 Active confirmed 99136315 Problem Obstructive sleep apnea (adult) (pediatric) G47.33 Active confirmed 92754754 Problem Moderate persistent asthma, uncomplicated J45.40 Active confirmed 146521421 Problem Generalized anxiety disorder F41.1 Active confirme d 46287364 Problem Migraine, unspecified, not intractable, without status migrainosus G43.909 Active confirmed 85285278 Problem Chronic sinusitis, unspecified location J32.9 Active confirmed 98264567 Problem Chronic sinusitis J32.9 Active confirmed 40 113745 Problem Sacroiliitis, not elsewhere classified M46.1 A ctive confirmed 616788563 Problem Chronic maxillary sinusitis J32.0 Active confirmed 60380438 Problem Asthma exacerbation J45.901 Active confirmed 850922988 Problem Asthma 493.90 Active confirmed 579995822 Problem Iron deficiency anemia, unspecified D50.9 Acti ve confirmed 50301360 Problem Fibromyalgia M79.7 Active confirmed 0176784 05 Problem Other chronic sinusitis J32.8 Active confirmed 72731500 Problem Low back pain M54.5 Active confirmed 706482 007 Problem Myalgia M79.1 Active confirmed 61169603 Problem Sacroiliac joint pain M53.3 Active confirmed 299026074 Problem Intervertebral disc disorders with radiculopathy , lumbar region M51.16 Active confirmed 832122735759121 Problem Paroxysmal atrial fibrillation I48.0 Active confir med 240394257 admitted 06/20, converted NSR in hospital CHADS 1, started on Eliquis by cardio. LAE on echo 05/20 Problem Moderate persistent asthma with exacerbation J45.4 1 Active confirmed 460770947 Problem Diastolic CHF with preserved left ventricular fu nction, NYHA class 2 I50.30 Active confirmed 001118800 Problem HOCM (hypertrophic obstructive cardiomyopathy) I42 .1 Active confirmed 67785019 Problem Vitamin D deficiency, unspecified E55.9 Active con firmed 90128810 Problem Irritable bowel syndrome with constipation K58.1 Active confirmed 671486209 Problem Major depressive disorder, single episode, unspecified F32.9 Active confirmed 16048662 Problem Hypothyroidism, unspecified E03.9 Active confirmed 48932859 Problem Iron deficiency anemia due to chronic blood loss D 50.0 Active confirmed 322661464 Problem DUB (dysfunctional uterine bleeding) N93.8 Act michael confirmed 08213270 Problem Mild persistent asthma without complication J45.30 Active confirmed 726306963 Problem Abdominal panniculus, symptomatic E65 Active confirmed 1254838611839 ALLERGIES Allergen (clinical drug ingredient) Drug/Non Drug Allergy do cumented on EMR Reaction Allergy Type Onset Date Status Sulfa (for allergy use only) unknown Drug Allergy Active metformin (from DR Jesus for wt loss) diarrhea Non Drug Allergy Active linezolid Zyvox(NDC Code:[address]-32) muscle spasms Drug Allergy Active Astepro ear pain and swelling Drug Allergy A ctive methylprednisolone Solu-Medrol(NDC Code:[address]-78) tachycardia Drug Allergy Active clarithromycin Biaxin Diarrhea Drug Allergy Active fluoxetine PROzac(NDC Code:[address]-32) Mean, palpatations Drug All ergy Active ENCOUNTERS from 1972 to 2021-05-16 Encounter Location Date Provider Diagnosis [facility] [place] [address] [place] [phone] May, Yrn De La Cruz IMMUNIZATIONS Vaccine Route Administration Date Status Rocephin 1gm Ceftriaxone IM Intramuscular Jul 13, 2017 Admini stered Depo-Medrol 80mg Methylprednisolone Acetate IM Intramuscular Jul 13, 2017 Administered Rocephin 1gm Ceftriaxone IM Intramuscular Jul 15, 2016 Admini mrakd Rocephin 1gm Ceftriaxone IM Intramuscular Jul 16, 2016 Admini markd Rocephin 1gm Ceftriaxone IM Intramuscular Jul 17, 2016 Admini markd Influenza 6mo & up Fluzone Unknown Jul 15, 2016 Other s Rocephin 1gm Ceftriaxone IM Intramuscular Jul 14, [...] Education Language: Question Answer Notes Languages spoken: Czech Bahai: Question Answer Notes Bahai No christian beliefs that would impact health care. Drug [...] Notes Start Da te End Date Status Mucinex Maximum Strength 1200 MG 1 tablet as needed Or ally twice a day as needed for 28 Active Atrovent HFA 17 MCG/ACT 2 puffs Inhalation Four times a day for 25 Active Singulair 10 mg 1 tablet in the morning Orally Once a day for 90 days Active Alphagan P twice a day Active Ferrous Sulfate 325 (65 Fe) MG 1 tablet Orally Once a day for 30 Active Xopenex 1.25 MG/3ML 3 ml Inhalation every 4 hour s and every 2 hours as needed for SOB for 30 Active Eliquis 5 MG Orally bid Active Cequa 0.09 % INSTILL 1 DROP IN EACH EYE TWICE A DAY Ophthalmic for 30 Active Simethicone Extra Strength 125 MG 1 capsule after meal s and at bedtime as needed Orally Four times a day for 30 Days Dec, Active clonazePAM 2 MG 1 tablet Orally three times a day as needed Active MiraLax - 1 packet mixed with 8 ounces of fluid Or ally Once a day for 30 day(s) Active Spironolactone 25 mg 1 tablet Orally Once a day Active Caro Nasal [employer] 0.65 % 2 sprays in each nostril as needed Nasally four times daily as needed for 30 Days Dec, Acti ve Hyoscyamine Sulfate 0.125 MG 1 tablet under the tongue and allow to dissolve as needed Sublingual twice daily as needed for 15 Active Nystatin 774248 UNIT/GM 1 application Externally Twice a day for 30 Days Oct, Active AirDuo RespiClick 113/14 1 puff Inhalation Twice a day Active Xopenex HFA 45 MCG/ACT 2 puff as needed Inhalation four times daily as needed for 25 Active [place] Saline Nasal - 2 sprays Nasally four times daily as needed f or 30 Days Dec, Active Potassium Chloride 20 MEQ Orally Daily Active Benefiber - as directed Orally bid for 30 day(s) Apr, Active tiZANidine HCl 2 MG 1 tablet as needed Orally be fore bedtime may repeat in 4 hrs last week Takes 2mg-4mg. Active Ipratropium [place] 0.02 % 3 ml nebulized four times daily for 9 0 days Jul, Active Lasix 40 MG 1 tablet Orally Once a day for 30 day(s) Active Metoprolol Tartrate 25 MG 1 tablet with food Orally Twice a day for 30 day(s) Dec, Active Elocon 0.1 % 1 application to affected area Externally Once a day for 30 Active Docusate Sodium 100 MG 1 capsule as needed Orally Once a day for 30 Active Rizatriptan Benzoate 10 MG 1 tablet on the tongue and allow to dissolve as needed one time Orally Once a day none Dec, Active MiraLax - 17 gr Orally once daily as needed for 30 Active Lumigan 0.03 % 1 drop into affected eye in the evening Ophthalm ic Once a day Active Pantoprazole Sodium 40 MG 1 tablet Orally Daily for 90 days Active Metoprolol Tartrate 25 MG 1 tablet with food Orally Twice a day for 30 day(s) Dec, Active Viibryd 40 mg 1 tab with food po Once daily (Dr. Larry) 12-02-16 0600 Active Ondansetron 4 MG ALLOW 1 TABLET TO DISSOLVE O N TONGUE TWO TIMES A DAY NEEDED for 15 Active Levothyroxine Sodium 75 MCG 1 tablet on an empty stoma ch in the morning Orally Once a day for 30 Active Ipratropium-Albuterol 0.5-2.5 (3) MG/3ML 3 ml Inhalati on Four times a day as needed for 30 Active Tylenol with Codeine #3 A ctive Aimovig Active Lasix 20 MG Orally Once a day Activ e PROCEDURES No Information RESULTS No Results REASON FOR VISIT referral and [facility] MEDICAL (GENERAL) HISTORY Type Description Date Medical History chronic sinusitis--[place] sinuses 07/18. Saw ENT in [place], no records, told that has sinus polyp; CT sinuses 08/19 minimal findings Medical History H/O MRSA Medical History glaucoma Medical History asthma - severe persistent Medical History anxiety - followed by [facility] Medical History depression Medical History Hypothyroidism Medical [...] lumbar spine (HNP C7-T1) MRIs 12/18 at [facility] Neuro Medical History NST at [facility] : EF 56%, no perfusion abnl; [facility] Medical History paroxysmal at [facility] Medical History diastolic [facility]; [...] History related to surgeries Hospitalization History at [facility] R[facility] 06/2017 Hospitalization History RLL pneumonia 07/16-07/19/17 Goals Section No Information Health Concerns No Information MEDICAL EQUIPMENT No Information MENTAL STATUS No Information FUNCTIONAL STATUS No Information ASSESSMENTS No Information PLAN OF TREATMENT Medication Medication Name Sig Start Date Stop Date Docusate Sodium 100 MG 1 capsule as needed Orally Once a day for 30 Levothyroxine Sodium 75 MCG 1 tablet on an empty stoma ch in the morning Orally Once a day for 30 Hyoscyamine Sulfate 0.125 MG 1 tablet under the tongue and allow to dissolve as needed Sublingual twice daily as needed for 15 Ondansetron 4 MG ALLOW 1 TABLET TO DISSOLVE O N TONGUE TWO TIMES A DAY NEEDED for 15 Next Appt Details Provider Name:Yrn Jono, 2021-06 08:30:00 AM, [address], , [place], [address], Insurance Providers Payer Name Payer Address Payer Phone Insured Name Patient Relati onship to Insured Coverage Start Date Coverage End Date [facility] [employer] [facility] [address] [facility] [phone] [place] self
--- OUTSIDE RECORDS SUMMARY | 2021-05-27 10:44 | CCD ---
Author Author Yani Pantoja Organization Unknown Address [address] [address] Phone Care Team Providers Care Chute Boss Name Role Phone Marcela Pantoja PCP Allergies, Adverse Reactions, Alerts No Data in Section Problem List Concept Problem Description Status Start Date Created Date Resolv ed Date Snomed Code F43.11 Post-traumatic stress disorder, acute Active Medications No Data in Section Social History Social History Element Description Concept Effective Date Smoking Status Unknown if ever smoked [id number] Immunizations No Data in Section Vital Signs No Data in Section Procedures Date Concept Id Description Targeted Site Concept Targeted Site Concept Type 05/13/2021 51629 Extended Individual Psychotherapy - 45 min CPT Patient has no history of implantable de vices Encounters Encounter Start Date End Date Encounter Type Description Diagnosis Di agnosis Desc Location Author First Name Author Last Name Npid Taxonomy Cod e Taxonomy Desc Phone Number Location Addr1 Location Addr2 Location [facility] Location [facility] Location [facility] [id number] 05/13/2021 05/13/2021 75678 Extended Individual Psych otherapy - 45 min F43.11 Post-traumatic stress disorder, acute [facility] Scarlett Medrano [id number] Sanitation Supervisor [phone] [address] [address] Plan of Treatment No Data in Section Lab Results No Data in Section Instructions No Data in Section Insurance Providers Insurance Id Policy Effective Date Policy Thru Date Company N bret [id number] 2018 [employer] Managed [place] erickson
--- OUTSIDE RECORDS SUMMARY | 2021-05-27 10:44 | CCD ---
Author Author [facility] Organization [facility] Address Unknown Phone Unavailable Care Team Providers Care Cyber Software Engineer Name Role Phone Yrn De La Cruz Unavailable PROBLEMS Type Condition ICD9-CM Code [id number] Code Onset Dates Condition S tatus W/U Status Risk SNOMED Code Notes Problem Environmental allergies Z91.09 Active confirmed 382323354 Problem Gastro-esophageal reflux disease without esophagitis K21.9 Active confirmed 341579212 Problem Nasal polyp J33.9 Active confirmed 96277951 Problem Obstructive sleep apnea (adult) (pediatric) G47.33 Active confirmed 45598122 Problem Moderate persistent asthma, uncomplicated J45.40 Active confirmed 853291448 Problem Generalized anxiety disorder F41.1 Active confirme d 17929277 Problem Migraine, unspecified, not intractable, without status migrainosus G43.909 Active confirmed 59008919 Problem Chronic sinusitis, unspecified location J32.9 Active confirmed 43027581 Problem Chronic sinusitis J32.9 Active confirmed 40 625643 Problem Sacroiliitis, not elsewhere classified M46.1 A ctive confirmed 576561484 Problem Chronic maxillary sinusitis J32.0 Active confirmed 50235439 Problem Asthma exacerbation J45.901 Active confirmed 322594390 Problem Asthma 493.90 Active confirmed 398059499 Problem Iron deficiency anemia, unspecified D50.9 Acti ve confirmed 93386343 Problem Fibromyalgia M79.7 Active confirmed 2902626 05 Problem Other chronic sinusitis J32.8 Active confirmed 24113753 Problem Low back pain M54.5 Active confirmed 012483 007 Problem Myalgia M79.1 Active confirmed 21897372 Problem Sacroiliac joint pain M53.3 Active confirmed 831694551 Problem Intervertebral disc disorders with radiculopathy , lumbar region M51.16 Active confirmed 634774951283434 Problem Paroxysmal atrial fibrillation I48.0 Active confir med 379342003 admitted 06/20, converted NSR in hospital CHADS 1, started on Eliquis by cardio. LAE on echo 05/20 Problem Moderate persistent asthma with exacerbation J45.4 1 Active confirmed 036722046 Problem Diastolic CHF with preserved left ventricular fu nction, NYHA class 2 I50.30 Active confirmed 605982103 Problem HOCM (hypertrophic obstructive cardiomyopathy) I42 .1 Active confirmed 29551081 Problem Vitamin D deficiency, unspecified E55.9 Active con firmed 93818607 Problem Irritable bowel syndrome with constipation K58.1 Active confirmed 522270279 Problem Major depressive disorder, single episode, unspecified F32.9 Active confirmed 06134507 Problem Hypothyroidism, unspecified E03.9 Active confirmed 11011488 Problem Iron deficiency anemia due to chronic blood loss D 50.0 Active confirmed 461524884 Problem DUB (dysfunctional uterine bleeding) N93.8 Act michael confirmed 96392547 Problem Mild persistent asthma without complication J45.30 Active confirmed 155074713 Problem Abdominal panniculus, symptomatic E65 Active confirmed 5952824781931 ALLERGIES Allergen (clinical drug ingredient) Drug/Non Drug Allergy do cumented on EMR Reaction Allergy Type Onset Date Status Sulfa (for allergy use only) unknown Drug Allergy Active metformin (from DR Jesus for wt loss) diarrhea Non Drug Allergy Active linezolid Zyvox(NDC Code:[address]-21) muscle spasms Drug Allergy Active Astepro ear pain and swelling Drug Allergy A ctive methylprednisolone Solu-Medrol(NDC Code:[address]-31) tachycardia Drug Allergy Active clarithromycin Biaxin Diarrhea Drug Allergy Active fluoxetine PROzac(NDC Code:[address]-49) Mean, palpatations Drug All ergy Active ENCOUNTERS from 1972 to 2021-05-23 Encounter Location Date Provider Diagnosis [facility] [place] [address] [place] [address] May, Yrn De La Cruz IMMUNIZATIONS [...] Ceftriaxone IM Intramuscular Jul 04, 2015 Admini markaminah Rocephin 1gm Ceftriaxone IM Intramuscular Jun 28, [...] Education Language: Question Answer Notes Languages spoken: Urdu Latter-Day: Question Answer Notes Latter-Day No sikh beliefs that would impact health care. Drug [...] Notes Start Da te End Date Status MiraLax - 17 gr Orally once daily as needed for 30 Active Simethicone Extra Strength 125 MG 1 capsule after meal s and at bedtime as needed Orally Four times a day for 30 Days Dec, Active Mucinex Maximum Strength 1200 MG 1 tablet as needed Or ally twice a day as needed for 28 Active Banner Nasal [place] 0.65 % 2 sprays in each nostril as needed Nasally four times daily as needed for 30 Days Dec, Acti ve Levaquin 500 MG 1 tablet Orally Once a day for 7 day(s) May, Active Rizatriptan Benzoate 10 MG 1 tablet on the tongue and allow to dissolve as needed one time Orally Once a day none Dec, Active Lasix 40 MG 1 tablet Orally Once a day for 30 day(s) Active Hyoscyamine Sulfate 0.125 MG 1 tablet under the tongue and allow to dissolve as needed Sublingual twice daily as needed for 15 Active Long Bottom Saline Nasal - 2 sprays Nasally four times daily as needed f or 30 Days Dec, Active Aimovig Active Benefiber - as directed Orally bid for 30 day(s) Apr, 018 Active Elocon 0.1 % 1 application to affected area Externally Once a day for 30 Active Viibryd 40 mg 1 tab with food po Once daily (Dr. Larry) 3- 0600 Active Alphagan P twice a day Active Xopenex HFA 45 MCG/ACT 2 puff as needed Inhalation four times daily as needed for 25 Active Pantoprazole Sodium 40 MG 1 tablet Orally Daily for 90 days Active Tylenol with Codeine #3 A ctive Nystatin 168089 UNIT/GM 1 application Externally Twice a day for 30 Days Oct, Active Ipratropium [place] 0.02 % 3 ml nebulized four times daily for 9 0 days Jul, Active clonazePAM 2 MG 1 tablet Orally three times a day as needed Active Atrovent HFA 17 MCG/ACT 2 puffs Inhalation Four times a day for 25 Active tiZANidine HCl 2 MG 1 tablet as needed Orally be fore bedtime may repeat in 4 hrs last week Takes 2mg-4mg. Active Lasix 20 MG Orally Once a day Activ e Levothyroxine Sodium 75 MCG 1 tablet on an empty stoma ch in the morning Orally Once a day for 30 Active Eliquis 5 MG Orally bid Active Spironolactone 25 mg 1 tablet Orally Once a day Active Xopenex 1.25 MG/3ML 3 ml Inhalation every 4 hour s and every 2 hours as needed for SOB for 30 Active Metoprolol Succinate ER 25 MG TAKE ONE TABLET BY MOUTH ONCE CHERRY Y Oral for 90 Active Potassium Chloride 20 MEQ Orally Daily Active predniSONE 20 MG 1 tablet Orally bid for 3 days May, Active Docusate Sodium 100 MG 1 capsule as needed Orally Once a day for 30 Active Nebulizer/Tubing/Mouthpiece - as directed _ as directe d, change weekly for 30 days May, Active Singulair 10 mg 1 tablet in the morning Orally Once a day for 90 days Active AirDuo RespiClick 113/14 1 puff Inhalation Twice a day Active Benzonatate 200 MG 1 capsule Orally TID as needed for cough for 10 days May, Active Ondansetron 4 MG ALLOW 1 TABLET TO DISSOLVE O N TONGUE TWO TIMES A DAY NEEDED for 15 Active Ferrous Sulfate 325 (65 Fe) MG 1 tablet Orally Once a day for 30 Active Lumigan 0.03 % 1 drop into affected eye in the evening Ophthalm ic Once a day Active Acetaminophen-Codeine #3 300-30 MG 1 tablet as needed Orally four times daily as needed for 3 days May, Active Ipratropium-Albuterol 0.5-2.5 (3) MG/3ML 3 ml Inhalati on Four times a day as needed for 30 Active Cequa 0.09 % INSTILL 1 DROP IN EACH EYE TWICE A DAY Ophthalmic for 30 Active MiraLax - 1 packet mixed with 8 ounces of fluid Or ally Once a day for 30 day(s) Active PROCEDURES No Information RESULTS No Results REASON FOR VISIT send in [employer] MEDICAL (GENERAL) HISTORY Type Description Date Medical History chronic sinusitis--saw ENT i n [facility], [place] sinuses 07/18. 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) MRIs 12/18 at [facility] Neuro Medical History NST at [facility] : EF 56%, no perfusion abnl; LVH Medical History paroxysmal at [facility] Medical History diastolic CHF per Cardiology [...] History related to surgeries Hospitalization History at [facility] RVR 06/2017 Hospitalization History [facility] pneumonia 07/16-07/19/17 Goals Section No Information Health Concerns No Information MEDICAL EQUIPMENT No Information MENTAL STATUS No Information FUNCTIONAL STATUS No Information ASSESSMENTS No Information PLAN OF TREATMENT Medication Medication Name Sig Start Date Stop Date predniSONE 20 MG 1 tablet Orally bid for 3 days May, Acetaminophen-Codeine #3 300-30 MG 1 tablet as needed Orally four times daily as needed for 3 days May, Levaquin 500 MG 1 tablet Orally Once a day for 7 day(s) May, Next Appt Details Provider Name:Yrn Jono, 2021-06 08:30:00 AM, [address], , [place], [address], Insurance Providers Payer Name Payer Address Payer Phone Insured Name Patient Relati onship to Insured Coverage Start Date Coverage End Date [facility] [address] [facility] [address] [place] AGUILAR self
--- OUTSIDE RECORDS SUMMARY | 2021-05-27 10:45 | CCD | Continuity of Care Document ---
Author Author Yani SHARMA Organization Unknown Address [address] [place] [address] Phone [phone] Care Team Providers Care Snowboard Designer Name Role Phone Yrn De La Cruz M.D. AUTM [phone] Problems Active Problems Provider Date Headache Johana Castano M.D. Onset: 06/12/2014 Carpal tunnel syndrome Flex Castano M.D. Onset: 06/26/2014 Social History Type Date Description Comments Sex Unknown Tobacco Use Start: Unknown Patient is a current smoker, smo kes every day Allergies, Adverse Reactions, Alerts Active Allergies Reaction Severity Comments Date Sulfa Antibiotics 06/12/2014 Astelin causes swelling of the ears 09/23/2015 Wellbutrin palpitations 11/25/2015 Depakote worse headaches 12/10/2016 Medrol does not feel good 8 Percocet itch 07/05/2018 Medications Active Medications SIG Qnty Indications Ordering Provide r Date Aimovig 140mg/ml Solution Auto-Inj ect inject subcutaneously once monthly, new dose 1ml G43.719 Charline Castano M.D. 04/18/2021 Acetaminophen-Codeine #3 300-30mg Tablets 1 po daily prn severe migraine 7tabs G43.719 Flex Castano M.D. 05/27/2020 Rizatriptan Benzoate 10mg Tablets Dispers Take 1 Tab. By Mouth Onset Of Headache, May Repeat In 2 HRS. Max Daily Dose = 2 Tab. 12tabs Johana Castano M.D. 02/10/2019 Tizanidine HCL 2mg Tablets Take 1 Tablet By Mouth Three Times A Day Maximum Daily Dose = 3 90tabs M54.2 Flex Castano M.D. 07/05/2017 Eliquis 5mg Tablets Unknown Immunizations Description No Information Available Vital Signs Date Vital Result Comment 04/18/2021 9:31am BP Systolic 110 mmHg BP Diastolic 70 mmHg Heart Rate 76 /min Respiratory Rate 16 /min 05/27/2020 6:50am BP Systolic 114 mmHg BP Diastolic 70 mmHg Heart Rate 76 /min Respiratory Rate 16 /min Results Description No Information Available Procedures Date Code Description Status 04/18/2021 82702 Office/Outpatient Established Mo d MDM 30-39 Min Completed 11/27/2020 27295 Office/Outpatient Established Lo w MDM 20-29 Min Completed Medical Devices Description No Information Available Encounters Type Date Location Provider Dx Diagnosis Office Visit 04/18/2021 9:00a Main office - [place] Dean MoyCCristofer G43.719 Chronic migraine w/o aura, intractable, w/o stat migr G44.229 Chronic tension-type headach e, not intractable M79.7 Fibromyalgia M54.2 Cervicalgia M54.5 Low back pain R20.2 Paresthesia of skin G47.33 Obstructive sleep apnea (trever lt) (pediatric) G56.03 Carpal tunnel syndrome, bila teral upper limbs M54.81 Occipital neuralgia Office Visit 11/27/2020 8:00a Main office - [place] Carlos MoyA.-CCristofer G43.719 Chronic migraine w/o aura, intractable, w/o stat migr M54.2 Cervicalgia M54.5 Low back pain M79.7 Fibromyalgia R20.2 Paresthesia of skin G47.33 Obstructive sleep apnea (trever lt) (pediatric) G56.03 Carpal tunnel syndrome, bila teral upper limbs Assessments Date Code Description Provider 04/18/2021 G43.719 Chronic migraine without aura, i ntractable, without status m Cheryl Severino.ACristofer-CCristofer 04/18/2021 G44.229 Chronic tension-type headache, n ot intractable Cheryl Severino.ACristofer-CCristofer 04/18/2021 M79.7 Fibromyalgia Lubna Smith P.A.-C. 04/18/2021 M54.2 Cervicalgia Cheryl Severino.Anitha-C. 04/18/2021 M54.5 Low back pain Lubna Smith P.A.-C. 04/18/2021 R20.2 Paresthesia of skin Lubna willson P.A.-C. 04/18/2021 G47.33 Obstructive sleep apnea (adult) (pediatric) Cheryl Severino.A.-C. 04/18/2021 G56.03 Carpal tunnel syndrome, bilatera l upper limbs Lubna Smith P.A.-C. 04/18/2021 M54.81 Occipital neuralgia Lubna willson P.A.-C. 11/27/2020 G43.719 Chronic migraine without aura, i ntractable, without status m Cheryl Severino.A.-C. 11/27/2020 M54.2 Cervicalgia Lubna Smith P.A.-C. 11/27/2020 M54.5 Low back pain Lubna Smith P.A.-C. 11/27/2020 M79.7 Fibromyalgia Lubna Smith P.A.-C. 11/27/2020 R20.2 Paresthesia of skin Cheryl Moy.A.-C. 11/27/2020 G47.33 Obstructive sleep apnea (adult) (pediatric) Cheryl Severino.A.-C. 11/27/2020 G56.03 Carpal tunnel syndrome, bilatera l upper limbs Sarah Severino-CCristofer Plan of Treatment Future Appointment(s):* 07/23/2021 8:15 am - Lubna Smith P.A.-C. at Main office - [place] 04/18/2021 - Lubna Smith P.A.-C.* G43.719 Chronic migraine without aura, intractable, without status m* New Medication:* Aimovig 140 mg/ml - inject subcutaneously once monthly, new dose * Comments:* Increase Aimovig to 140 mg monthly. Continue Maxalt COLLISION MECHANIC as needed. She takes Tylenol #3 for uncontrolled migraine. Refill for # 7 tabs sent eRx. CAPITAL EQUIPMENT SPECIALIST # [id number]. * G44.229 Chronic tension-type headache, not intractable* Comments:* She continues Viibryd with tizanidine as needed. * M79.7 Fibromyalgia* Comments:* She continues tizanidine and Viibryd. * M54.2 Cervicalgia* Comments:* Repeat cervical MRI. * M54.5 Low back pain* Comments:* She no longer sees pain management. * R20.2 Paresthesia of skin* Comments:* Possible axonal damage on lower extremity EMG. Continue current medications. * G47.33 Obstructive sleep apnea (adult) (pediatric)* Comments:* She continues CPAP. Follow up with pulmonology. * G56.03 Carpal tunnel syndrome, bilateral upper limbs* Comments:* S/p left surgery. Follow up with orthopedics. * M54.81 Occipital neuralgia* Comments:* Consider occipital nerve blocks. * Follow up:* 3 months Functional Status Description No Information Available Mental Status Description No Information Available Referrals Description No Information Available
--- OUTSIDE RECORDS SUMMARY | 2021-05-27 10:45 | CCD ---
Author Author Yani Pantoja Organization Unknown Address [address] [address] Phone Care Team Providers Care Environmental Services Coordinator Name Role Phone Marcela Pantoja PCP Allergies, Adverse Reactions, Alerts No Data in Section Problem List Concept Problem Description Status Start Date Created Date Resolv ed Date Snomed Code F43.11 Post-traumatic stress disorder, acute Active Medications No Data in Section Social History Social History Element Description Concept Effective Date Smoking Status Unknown if ever smoked [id number] [id number] Immunizations No Data in Section Vital Signs No Data in Section Procedures Date Concept Id Description Targeted Site Concept Targeted Site Concept Type 04/18/2021 19667 Extended Individual Psychotherapy - 45 min CPT Patient has no history of implantable de vices Encounters Encounter Start Date End Date Encounter Type Description Diagnosis Di agnosis Desc Location Author First Name Author Last Name Npid Taxonomy Cod e Taxonomy Desc Phone Number Location Addr1 Location Addr2 Location [facility] Location [facility] Location [facility] [id number] 04/18/2021 04/18/2021 57476 Extended Individual Psych otherapy - 45 min F43.11 Post-traumatic stress disorder, acute [facility] Scarlett Medrano [phone] [id number] Coach Tour Driver [phone] [address] [address] Plan of Treatment No Data in Section Lab Results No Data in Section Instructions No Data in Section Insurance Providers Insurance Id Policy Effective Date Policy Thru Date Company N bret [id number] 2018 [employer] Managed [place] erickson
--- OUTSIDE RECORDS SUMMARY | 2021-05-27 10:45 | CCD ---
Author Author Nirali Yani Pathak Organization Unknown Address [address] [address] Phone Care Team Providers Care Park Interpreter Name Role Phone Zo Campoverde PCP Allergies, Adverse Reactions, Alerts No Data in Section Problem List Concept Problem Description Status Start Date Created Date Resolv ed Date Snomed Code F43.11 Post-traumatic stress disorder, acute Active Medications No Data in Section Social History Social History Element Description Concept Effective Date Smoking Status Unknown if ever smoked [id number] 43156638 Immunizations No Data in Section Vital Signs Encounter Date Height Ins Weight Lbs Bmi Bp Systolic Bp Diastoli c Oxygen Saturation Respiration Rate Pulse Rate Body Temp Head Circumference Heigh t Lying 04/23/2021 60.00 154.00 30.07 108 50 0.00 18 73 0.00 0.0 0. 00 Procedures Date Concept Id Description Targeted Site Concept Targeted Site Concept Type 04/23/2021 76046 Health Monitoring - 15 Min CPT Patient has no history of implantable de vices Encounters Encounter Start Date End Date Encounter Type Description Diagnosis Di agnosis Desc Location Author First Name Author Last Name Npid Taxonomy Cod e Taxonomy Desc Phone Number Location Addr1 Location Addr2 Location [facility] [id number] 04/23/2021 04/23/2021 51759 Health Monitoring - 15 Min F 43.11 Post- traumatic stress disorder, acute [facility] Nirali Pathak [phone] [id number] Licensed Practical Nurse [phone] [address] [address] Plan of Treatment No Data in Section Lab Results No Data in Section Instructions No Data in Section Functional Cognitive Status No Data in Section Insurance Providers Insurance Id Policy Effective Date Policy Thru Date Company N bret [id number] 2018 [employer] Managed [place] erickson
--- OUTSIDE RECORDS SUMMARY | 2021-05-27 10:45 | CCD | Continuity of Care Document ---
Author Author Yani RODAS MD Organization Unknown Address [address] [place] [address], [facility] [address] [place] [address] Phone [phone] Care Team Providers Care Manager E Learning Name Role Phone Yrn De La Cruz MD AUTM [phone] Neo Castano AUTM [phone] Problems Active Problems Provider Date Abdominal pain Onset: 04/15/2018 Enzyme level - finding Onset: 04/15/2018 Chronic diastolic heart failure Onset: 0 04/15/2018 Chronic atrial fibrillation Onset: 04/15 Acquired hypothyroidism Onset: 8 Chronic obstructive lung disease Onset: 04/15/2018 Glaucoma Onset: 04/15/2018 Anxiety Onset: 04/15/2018 Depressive disorder Onset: 04/15/2018 Asthma Onset: 04/15/2018 Chronic diastolic heart failure Onset: 0 10/25/2017 Dietary management surveillance Onset: 0 03/31/2017 Electrocardiogram abnormal Onset: 2013 Left bundle branch block Onset: 03/31/20 19 Mitral valve disorder Onset: 03/31/2017 Mixed hyperlipidemia Onset: 10/25/2017 Obesity Onset: 01/22/2014 Obstructive sleep apnea syndrome Onset: 01/03/2016 Paroxysmal atrial fibrillation Onset: Tobacco user Onset: 01/22/2014 Social History Type Date Description Comments Sex Unknown ETOH Use Rarely consumes alcohol Tobacco Use Start: Unknown End: Unknown Patient is a former smoker 3 years ago Allergies, Adverse Reactions, Alerts Active Allergies Reaction Severity Comments Date sulfa drugs 06/27/2015 Biaxin 11/06/2015 Wellbutrin 11/25/2015 Linezolid dizzy, "couldn't get out of bed" (Zyvox) 10/26/2019 Astelin 09/23/2015 Prozac anger issues and very rapid heart rate 10/26/2019 Solu-Medrol 11/16/2016 Clarithromycin 04/05/2018 Zyvox 08/30/2019 Medications Active Medications SIG Qnty Indications Ordering Provide r Date Tylenol With Codeine #3 300-30mg T ablets 1 tabs every 24 hours as needed for pain 30tabs Paul Vazquez MD 08/30/2019 Excedrin Migraine [phone] Tab lets take 1-2 as needed for migraines Unknown 03/30/2019 Stool Softener 100mg Capsules 1 po daily Unknown 12/28/2018 Tizanidine HCL 2mg Capsules 1/2 by mouth as needed Unknown 12/28/2018 Potassium Chloride ER 20Meq Tablet s ER 1 by mouth twice a day 180tabs Jacob Benton MD 9 Levothyroxine Sodium 75mcg Tablets 1 po daily Yrn De La Cruz MD 8 Gabapentin 100mg Capsules 1 by mouth three times a day [facility] M47.26 Daryl Mondragon MD 06/20/2018 Diltiazem HCL ER 120mg Caps ER 12H R 1 by mouth every day 90caps Jacob Benton MD 06/08/2018 Polyethylene Glycol 3350 3350NF Po wder Take 1 packet by mouth daily as needed for Constipation for up to 10 days 10units Unknown 04/17/2018 Spironolactone 25mg Tablets Take One Half Tablet By Mouth Every Day Unknown 2017 Furosemide 40mg Tablets Take One Tablet By Mouth Every Day Unknown 04/02/2018 Digoxin 250mcg Tablets Unknown 03/25/2018 Tizanidine HCL 2mg Tablets Unknown 03/25/2018 Levalbuterol Tartrate 45mcg/Act Aerosol Unknown 03/15/2018 Cartia XT 240mg Caps ER 24HR Take One Capsule By Mouth Every Day Unknown 03/12 Xopenex 1.25mg/3ML Nebulizer via nebulizer as needed with Yrn Weiss MD 1 Atrovent 0.03% Solution via nebs [id number], as needed with Yrn Ward MD Eliquis 5mg Tablets 1 by mouth twice a day 180tabs Jacob Benton MD 07/20/2017 Ventolin HFA 108(90Base) mcg/Act A erosol 2 puffs as needed Unknown 07/20/2017 Duoneb 0.5-2.5(3)mg/3ML Solution every 4 hours as needed via neb Unknown 07/20/20 17 Guaifenesin ER 1200mg Tablets ER 1 2HR 1 by mouth twice daily as needed Unknown 07/04 Alphagan P 0.1% Solution 1 drop twice a day both eyes Unknown 07/20/2017 Clonazepam 2mg Tablets 1 by mouth 3 times daily as needed Johana Castano MD 07/05/2017 Dorzolamide HCL 2% Solution 1 drop each eye twice a day Bryn Garcia JR, 03/30/20 17 Ipratropium [place]/Albuterol Sulfate 0.5-2.5(3)mg/3ML Solution Use 1 Vial 3 MLS Via Nebulizer Four Ti mes A Day as Needed Unknown 01/11/2017 Pantoprazole Sodium 20mg Tablets D R Take One Tablet By Mouth Once A Day Unknown 0 01/11/2017 Ondansetron 4mg Tablets Dispers Allow 1 Tablet To Dissolve On Tongue Two Times A Day as Needed Unknown 01/08/2017 Vitamin D 2000Unit Tablets Take One Tablet By Mouth Every Day Unknown 12/01/2016 Ferrous Sulfate 325(65Fe) mg Table ts Take One Tablet By Mouth Every Day Unknown Zofran 4mg Tablets 1 by mouth every 6 hour as needed Johana Castano MD 01/02/2016 Rizatriptan Benzoate 10mg Tablets Dispers 1 by mouth as needed for migraine MDD=2 Yrn Thorne MD 01/02/2016 Viibryd 40mg Tablets 1 by mouth every day Unknown 01/07/2014 Singulair 10mg Tablets 1 by mouth every day Unknown 01/07/2014 Fluticasone Propionate/Salmeterol 232-14mcg/Act Aerosol Inhale One puff By Mouth Twice A Day Unkn own Levothyroxine Sodium 75mcg Tablets Take One Tablet By Mouth Every Morning On Empty Stomach Unknown Aimovig 70mg/ml Solution Auto-Inje ct Inject 70MG Under The Skin Once Monthly Unknown Hydrocortisone 2.5% Cream Apply Topically Two Times A Day as Needed For 7 10 Days For Flare Of Dermatitis Unknown Pantoprazole Sodium 40mg Tablets D R Take 1 Tablet By Mouth Daily Unknown Fluticasone Propionate/Salmeterol 113-14mcg/Act Aerosol Inhale One puff By Mouth Twice A Day Unkn own Albuterol Sulfate (2 .5mg/3ML) 0.083% Nebulizer Use 1 Vial Via Nebulizer Four Times A Day as Needed Unknown Metoprolol Succinate ER 25mg Tablets ER 24HR Take One Tablet By Mouth Once Daily Unkno wn Cequa 0.09% Solution Amy White MD Gas Relief Extra Strength 125mg Ca psules Take One Capsule By Mouth Four Times A Day After Meals And AT Bedtime as Needed Unknown Nystatin 768853Hymh/GM Powder Apply 1 Application To Affected Area S Twice A Day Unkn own Lumigan 0.01% Solution Instill One Drop Into Both Eyes AT Bedtime as Directed Unknown Potassium Chloride [place] ER 20Meq Tablets ER Take 1 Tablet By Mouth Twice A Day Unknow n Hydroxyzine HCL 10mg Tablets Girma Larry, DO Afluria Quadrivalent 2020- Suspension Neo Perkins MD Mometasone Furoate 0.1% Cream Apply 1 Application To Affected Area Once Daily Externally Unknown Aimovig 140mg/ml Solution Auto-Inject Lubna Smith RPA Saline Mist [place] 0.65% Solution Yrn De La Cruz MD Loratadine 10mg Tablets Corey Washburn md Fluticasone Propionate 50mcg/Act Suspension Corey Washburn md Hyoscyamine Sulfate 0.125mg Tablets Sub Yrn De La Cruz MD Eliquis 5mg Tablets 1 tab bid Unknown Allergy Shot once every 3 weeks Unknown Iron 365mg Tablets every day Unknown Rizatriptan Benzoate Tablets Unknown Advair Diskus 500-50mcg/Dose Aerosol Unknown Vitamin D3 Super Strength 2000Unit Tablets 1 by mouth every day Unknown 000 Atrovent HFA 17mcg/Act Aerosol 2 puff twice a day Unknown Klonopin 2mg Tablets Unknown Viibryd 40mg Tablets Unknown Singulair 10mg Tablets 1 by mouth every day Unknown Levoxyl 50mcg Tablets Unknown Immunizations Description No Information Available Vital Signs Date Vital Result Comment 09/10/2020 11:07am Body Temperature 97.8 F Height 59 inches 4'11" Weight 160.12 lb BMI (Body Mass Index) 32.3 kg/m2 10/16/2019 1:45pm Height 60 inches 5'0" Weight 145.00 lb BMI (Body Mass Index) 28.3 kg/m2 Results Description No Information Available Procedures Date Code Description Status 04/08/2021 35991 MRI Upper Extremity Any Joint Co mpleted 03/28/2021 03919 Office/Outpatient Established Mo d MDM 30-39 Min Completed Medical Devices Description No Information Available Encounters Type Date Location Provider Dx Diagnosis Office Visit 03/28/2021 1:15p [place] Paul Vazquez MD M75.41 Impingement syndrome of right shoulder M75.111 Incomplete rotatr-cuff tear/ ruptr of r shoulder, not trauma M19.011 Primary osteoarthritis, righ t shoulder Assessments Date Code Description Provider 05/07/2021 M75.111 Incomplete rotator c uff tear or rupture of right shoulder, not specified as traumatic Ludwig Rodas MD 05/07/2021 M75.41 Impingement syndrome of right sh alessandro Rodas MD 04/08/2021 M75.111 Incomplete rotator c uff tear or rupture of right shoulder, not specified as traumatic Paul Vazquez MD 04/08/2021 M75.111 Incomplete rotator cuff tear or rupture of right shoulder, n MRI 04/08/2021 M75.41 Impingement syndrome of right sh [facility] Paul Vazquez MD 04/08/2021 M75.41 Impingement syndrome of right sh oulder MRI 03/28/2021 M75.41 Impingement syndrome of right sh alessandro Vazquez MD 03/28/2021 M75.111 Incomplete rotator cuff tear or rupture of right shoulder, n Paul Vazquez MD 03/28/2021 M19.011 Primary osteoarthritis, right sh alsesandro Vazquez MD Plan of Treatment 05/07/2021 - D. Mateus Rodas MD* M75.111 Incomplete rotator cuff tear or rupture of right shoulder, not specified as traumatic* Follow up:* BUE EMG results with BLB per DPV * M75.41 Impingement syndrome of right shoulder Functional Status Description No Information Available Mental Status Description No Information Available Referrals Refer to Dr Reason for Referral Status Appt Date Paul Vazquez MD MRI APPROVED PER [facility] WEB FOR MRI OF RIGHT SHOULDER (94837) TO MRI. DG Created [address] [address] [phone] Daryl Mondragon MD OV M25.519 PAIN IN UNSPECIFIED SHLDR Create d [address] [address] [phone]
--- OUTSIDE RECORDS SUMMARY | 2021-05-27 10:45 | CCD | Continuity of Care Document ---
Author Author Yani SHARMA Organization Unknown Address [address] [place] [address] [address] [place] [address] Phone [phone] Care Team Providers Care Health And Wellness Sales Consultant Name Role Phone Yrn De La Cruz MD AUTM [phone] Neo Castano AUTM [phone] Problems Active Problems Provider Date Abdominal pain [...] 30tabs Paul Vazquez MD 08/30/2019 Excedrin Migraine [id number] Tab lets take 1-2 as needed for [...] 1 by mouth three times a day 90caps M47.26 Daryl Mondragon MD 06/20/2018 Diltiazem HCL ER 120mg Caps ER 12H R 1 by mouth every day 90capJacob Greene MD 06/08/2018 Polyethylene Glycol 3350 3350NF Po wder Take 1 packet by mouth daily as needed for Constipation for up to 10 days 10units Unknown 04/17/2018 Spironolactone 25mg Tablets Take One Half Tablet By Mouth Every Day Unknown 2017 Furosemide 40mg Tablets Take One Tablet By Mouth Every Day Unknown 04/02/2018 Tizanidine HCL 2mg Tablets Unknown 03/25/2018 Digoxin 250mcg Tablets Unknown 03/25/2018 Levalbuterol Tartrate 45mcg/Act Aerosol Unknown 03/15/2018 Cartia XT 240mg Caps ER 24HR Take One Capsule By Mouth Every Day Unknown 03/12 Xopenex 1.25mg/3ML Nebulizer via nebulizer as needed with Yrn Weiss MD 1 Atrovent 0.03% Solution via nebs [id number], as needed with Yrn Ward MD Eliquis 5mg Tablets 1 by mouth twice a day 180tabs Jacob Benton MD 07/20/2017 Alphagan P 0.1% Solution 1 drop twice a day both eyes Unknown 07/20/2017 Guaifenesin ER 1200mg Tablets ER 1 2HR 1 by mouth twice daily as needed Unknown 07/04 Duoneb 0.5-2.5(3)mg/3ML Solution every 4 hours as needed via neb Unknown 07/20/20 17 Ventolin HFA 108(90Base) mcg/Act A erosol 2 puffs as needed Unknown 07/20/2017 Clonazepam 2mg Tablets 1 by mouth 3 times daily as needed Johana Castano MD 07/05/2017 Dorzolamide HCL 2% Solution 1 drop each eye twice a day Bryn Garcia JR, 03/30/20 17 Ipratropium [place]/Albuterol Sulfate 0.5-2.5(3)mg/3ML Solution Use 1 Vial 3 [...] for migraine MDD=2 Yrn Thorne MD 01/02/2016 Singulair 10mg Tablets 1 by mouth every day Unknown 01/07/2014 Viibryd 40mg Tablets 1 by mouth every day Unknown 01/07/2014 Eliquis 5mg Tablets 1 tab bid Unknown [...] Available Procedures Date Code Description Status 04/08/2021 27919 MRI Upper Extremity Any Joint Co mpleted 03/28/2021 19416 Office/Outpatient Established Mo d MDM 30-39 Min Completed Medical Devices Description No Information Available Encounters Type Date Location Provider Dx Diagnosis Office Visit 03/28/2021 1:15p [place] Paul Vazquez MD M75.41 Impingement syndrome of right shoulder M75.111 Incomplete rotatr-cuff tear/ ruptr of r shoulder, not trauma M19.011 Primary osteoarthritis, righ t shoulder Assessments Date Code Description Provider 04/08/2021 M75.111 Incomplete rotator c uff tear or rupture of right shoulder, not specified as traumatic Paul Vazquez MD 04/08/2021 M75.111 Incomplete rotator cuff tear or rupture of right shoulder, n MRI 04/08/2021 M75.41 Impingement syndrome of right sh alessandro Vazquez MD 04/08/2021 M75.41 Impingement syndrome of right sh oulder MRI 03/28/2021 M75.41 Impingement syndrome of right sh [facility] Paul Vazquez MD 03/28/2021 M75.111 Incomplete rotator cuff tear or rupture of right shoulder, n Paul Vazquez MD 03/28/2021 M19.011 Primary osteoarthritis, right sh alessandro Vazquez MD Plan of Treatment Future Appointment(s):* 05/07/2021 11:00 am - Ludwig Roldan MD at [place] 03/28/2021 - Paul Vazquez MD* M75.41 Impingement syndrome of right shoulder * M75.111 Incomplete rotator cuff tear or rupture of right shoulder, n* Follow up:* with DPV for rt shoulder surg eval/ rt shoulder mri results * M19.011 Primary osteoarthritis, right shoulder Functional Status Description No Information Available Mental Status Description No Information Available Referrals Refer to Dr Reason for Referral Status Appt Date Paul Vazquez MD MRI APPROVED PER [facility] WEB FOR MRI OF RIGHT SHOULDER (18946) TO MRI. DG Created [address] [place] [address] [phone] Daryl Mondragon MD OV M25.519 PAIN IN UNSPECIFIED SHLDR Create d [address] [place] [address] [phone]
--- OUTSIDE RECORDS SUMMARY | 2021-05-27 10:45 | CCD | Continuity of Care Document ---
Author Author Yani SMITH P.A.-C. Organization Unknown Address [address] [place] [address] Phone [phone] Care Team Providers Care Washer Hand Name Role Phone Yrn De La Cruz M.D. AUTM [phone] Problems Active Problems Provider Date Headache Johana [...] Available Vital Signs Date Vital Result Comment 05/27/2020 6:50am BP Systolic 114 mmHg BP Diastolic 70 mmHg Heart Rate 76 /min Respiratory Rate 16 /min 11/13/2019 6:14am BP Systolic 110 mmHg BP Diastolic 70 mmHg Heart Rate 76 /min Respiratory Rate 16 /min Weight 144.00 lb Results Description No Information Available Procedures Date Code Description Status 04/18/2021 56063 Office/Outpatient Established Mo d MDM 30-39 Min Completed 11/27/2020 44644 Office/Outpatient Established Lo w MDM 20-29 Min Completed Medical Devices Description No Information Available Encounters Type Date Location Provider Dx Diagnosis Office Visit 04/18/2021 9:00a Main office - [facility] Carlos MoyA.-CCristofer G43.719 Chronic migraine w/o aura, intractable, w/o stat migr M79.7 Fibromyalgia M54.2 Cervicalgia M54.5 Low back pain R20.2 Paresthesia of skin G56.03 Carpal tunnel syndrome, bila teral upper limbs G47.33 Obstructive sleep apnea (trever lt) (pediatric) Office Visit 11/27/2020 8:00a Main office - [facility] Carlos MoyA.-CCristofer G43.719 Chronic migraine w/o aura, intractable, w/o stat migr M54.2 Cervicalgia M54.5 Low back pain M79.7 Fibromyalgia R20.2 Paresthesia of skin G47.33 Obstructive sleep apnea (trever lt) (pediatric) G56.03 Carpal tunnel syndrome, bila teral upper limbs Assessments Date Code Description Provider 04/18/2021 G43.719 Chronic migraine without aura, i ntractable, without status m Carlos SeverinoACristofer-CCristofer 04/18/2021 M79.7 Fibromyalgia Cheryl Severino.A.-CCristofer 04/18/2021 M54.2 Cervicalgia Carlos SeverinoACristofer-CCristofer 04/18/2021 M54.5 Low back pain Cheryl Severino.A.-CCristofer 04/18/2021 R20.2 Paresthesia of skin Lubna willson, P.A.-C. 04/18/2021 G56.03 Carpal tunnel syndrome, bilatera l upper limbs Lubna Smith P.A.-C. 04/18/2021 G47.33 Obstructive sleep apnea (adult) (pediatric) Cheryl Severino.A.-C. 11/27/2020 G43.719 Chronic migraine without aura, i ntractable, without status m Lubna Smith P.A.-C. 11/27/2020 M54.2 Cervicalgia Lubna Smith P.A.-C. 11/27/2020 M54.5 Low back pain Lubna Smith P.A.-C. 11/27/2020 M79.7 Fibromyalgia Lubna Smith P.A.-C. 11/27/2020 R20.2 Paresthesia of skin Lubna willson P.A.-C. 11/27/2020 G47.33 Obstructive sleep apnea (adult) (pediatric) Lubna Smith P.A.-C. 11/27/2020 G56.03 Carpal tunnel syndrome, bilatera l upper limbs Cheryl Severino.A.-C. Plan of Treatment 04/18/2021 - Cheryl Severino.A.-C.* G43.719 Chronic migraine without aura, intractable, without status m* New Medication:* Aimovig 140 mg/ml - inject subcutaneously once monthly, new dose * M79.7 Fibromyalgia * M54.2 Cervicalgia * M54.5 Low back pain * R20.2 Paresthesia of skin * G56.03 Carpal tunnel syndrome, bilateral upper limbs * G47.33 Obstructive sleep apnea (adult) (pediatric) Functional Status Description No Information Available Mental Status Description No Information Available Referrals Description No Information Available
--- OUTSIDE RECORDS SUMMARY | 2021-05-27 10:45 | CCD | Continuity of Care Document ---
Author Author Yani GIBBS MD Organization Unknown Address [address] [place] [address], [facility] [address] [place] [address] Phone [phone] Care Team Providers Care Gallery Assistant Name Role Phone Yrn De La Cruz MD AUTM [phone] Neo Castano AUTM [phone] Problems Active Problems Provider Date Abdominal pain [...] hours as needed for pain 30tabs Paul Gibbs MD 08/30/2019 Excedrin Migraine [phone] Tab lets take 1-2 as needed for [...] 1 by mouth three times a day [facility] M47.26 Daryl Mondragon MD 06/20/2018 [...] MD 1 Atrovent 0.03% Solution via nebs [id number], as needed with Yrn Ward MD Eliquis [...] day Bryn Garcia JR, 03/30/20 17 Ipratropium [place]/Albuterol Sulfate 0.5-2.5(3)mg/3ML Solution Use 1 Vial 3 [...] Available Procedures Date Code Description Status 04/08/2021 28272 MRI Upper Extremity Any Joint Co mpleted 03/28/2021 66374 Office/Outpatient Established Mo d MDM 30-39 Min Completed Medical Devices Description No Information Available Encounters Type Date Location Provider Dx Diagnosis Office Visit 03/28/2021 1:15p [place] Paul Gibbs MD M75.41 Impingement syndrome of right shoulder M75.111 Incomplete rotatr-cuff tear/ ruptr of r shoulder, not trauma M19.011 Primary osteoarthritis, righ t shoulder Assessments Date Code Description Provider 04/08/2021 M75.111 Incomplete rotator cuff tear or rupture of right shoulder, n MRI 04/08/2021 M75.41 Impingement syndrome of right sh oulder MRI 03/28/2021 M75.41 Impingement syndrome of right sh [facility] Paul Gibbs MD 03/28/2021 M75.111 Incomplete rotator cuff tear or rupture of right shoulder, n Paul Gibbs MD 03/28/2021 M19.011 Primary osteoarthritis, right sh [facility] Paul Gibbs MD Plan of Treatment Future Appointment(s):* 05/07/2021 11:00 am - Ludwig Roldan MD at [place] 03/28/2021 - Paul Gibbs MD* M75.41 Impingement syndrome of right shoulder * M75.111 Incomplete rotator cuff tear or rupture of right shoulder, n* Follow up:* with DPV for rt shoulder surg eval/ rt shoulder mri results * M19.011 Primary osteoarthritis, right shoulder Functional Status Description No Information Available Mental Status Description No Information Available Referrals Refer to Dr Reason for Referral Status Appt Date Paul Gibbs MD MRI APPROVED PER [facility] WEB FOR MRI OF RIGHT SHOULDER (45945) TO MRI. DG Created [facility] [address] [address] [phone] Daryl Mondragon MD OV M25.519 PAIN IN UNSPECIFIED SHLDR Create d [address] [place] [address] [phone]
--- OUTSIDE RECORDS SUMMARY | 2021-05-27 10:45 | CCD | Continuity of Care Document ---
Author Author Yani CORONA M.D. Organization Unknown Address [address], [address], [place] [address] Phone [phone] Care Team Providers Care Rag Cutting Machine Tender Name Role Phone Mame De La Cruz PA-C AUTM [phone] Ynr De La Cruz MD AUTM [phone] Problems Active Problems Provider Date Allergic rhinitis due to animal dander O nset: 08/17/2018 Note: In immunotherapy. Reached maintena nce in december,. 4+ reaction to cat and 3+ reaction to dog on intradermal test. Allergic rhinitis due to pollen Onset: 1 10/17/2017 Note: In immunotherapy. Reached maintena nce in December,. 4+ reaction to ragweed on intradermal test. Moderate persistent asthma Onset: 2017 Note: Follow[facility] by [facility]. Allergic rhinitis caused by mold Corey Corona M.D. O nset: 01/16/2015 Note: In immunotherapy. Reached maintena nce in December,. 3+ reaction to Alternaria and Stemphylium on scratch test. 2+ reaction to dust mites on intradermal test. Allergic rhinitis due to house dust mite Corey Corona M.D. Onset: 01/16/2015 Note: In immunotherapy. Reached maintena nce in December,. 3+ reaction to Alternaria and Stemphylium on scratch test. 2+ reaction to dust mites on intradermal test. Atopic dermatitis Corey Corona M.D. Onset: 020 Social History Type Date Description Comments Sex Unknown Tobacco Use Start: Unknown End: Unknown Patient is a former smoker Smoking Status Reviewed: 08/01/20 Patient is a former smoker Allergies, Adverse Reactions, Alerts Active Allergies Reaction Severity Comments Date Sulfonamides unknown reaction 05/27/2019 Biaxin stomach issues 05/27/2019 Azelastine ear closure 05/27/2019 Medications Active Medications SIG Qnty Indications Ordering Provide r Date Hydrocortisone 2.5% Cream Apply Topically Two Times A Day as Needed For 7-10 Days For Flare Of Dermatitis 60units L20.9 Corey Corona M.D. 08/01/2020 Loratadine 10mg Tablets take one tablet (10mg) by mouth once daily for 30 days 30tabs J30.89 Corey diaz M.D. 05/08/2019 Fluticasone Propionate 50mcg/Act Suspension [place] 2 Sprays (100mcg) In Each Nostril Once Daily In The Evenin g 16units Corey Corona M.D. 01/31/2019 Rizatriptan Benzoate 10mg Tablets Dispers Dissolve 1 Tab.Onset Of Headache May Repeat In 2HRS as Needed Max 2Tabs/Day Unknown Lumigan 0.01% Solution Unknown Polyethylene Glycol 3350 17GM/Scoop Powder Yrn De La Cruz MD Mometasone Furoate 0.1% Cream Yrn De La Cruz MD Penicillin V Potassium 250mg/5ML Solution Rec 10 milliliters twice a day x 2 days for in office oral challenge Unknown Eliquis 5mg Tablets Unknown Spironolactone 25mg Tablets 1-2 tab by mouth every day Unknown Lasix 40mg Tablets Unknown Advair HFA 115-21mcg/Act Aerosol inhale 2 puffs by inhalation route 2 times per day in the morning and evening Unknown Singulair 10mg Tablets take 1 tablet (10 mg) by oral route once daily in the evening for 30 days Unknown Ventolin HFA 108(90Base) mcg/Act A erosol inhale 2 puffs by inhalation route every 4-6 hours as needed Unknown Atrovent HFA 17mcg/Act Aerosol inhale 2 puffs (34 mcg) by inhalation route 4 times per day Unknown Azopt 1% Suspension instill 1 drop into affected eye(s) by ophthalmic route 2 times per day Unknown Prilosec 20mg Capsules DR take 1 capsule (20 mg) by oral route once daily before a meal U nknown Zofran 4mg Tablets take 2 tablets (8 mg) by oral route 2 times per day prn Unknown Imitrex 50mg Tablets take 1 tablet (50 mg) by oral route once with fluids as early as possible after the onset of a migraine attack;may repeat after 2 hours if h Un known Acetaminophen-Codeine #3 300-30mg Tablets take 1 tablet by oral route every 6 hours as needed Unknown Clonazepam 2mg Tablets take 1 tablet (2 mg) by oral route 2 times per day Unknown Viibryd 40mg Tablets take 1 tablet (40 mg) by oral route once daily with food Unknown Levothyroxine Sodium 75mcg Tablets take 1 tablet (50 mcg) by oral route once daily Unknown Medications Administered in Office Medication SIG Qnty Indications Ordering Provider Date Allergy Injection 2 Or More Injection Corey Corona M.D. 05/13/2021 Allergy Injection 2 Or More Injection Corey Corona M.D. 04/17/2021 Allergy Injection 2 Or More Injection Corey Corona M.D. 03/25/2021 Allergy Injection 2 Or More Injection Corey Corona M.D. 03/04/2021 Allergy Injection 2 Or More Injection Corey Corona M.D. 02/10/2021 Allergy Injection 2 Or More Injection Corey Corona M.D. 01/16/2021 Allergy Injection 2 Or More Injection Corey Corona M.D. 12/26/2020 Allergy Injection 2 Or More Injection Corey Corona M.D. 11/28/2020 Allergy Injection 2 Or More Injection Corey Corona M.D. 11/14/2020 Allergy Injection 2 Or More Injection Corey Corona M.D. 11/01/2020 Allergy Injection 2 Or More Injection Corey Corona M.D. 09/23/2020 Allergy Injection 2 Or More Injection Danita SzymanskiDCristofer 08/22/2020 Allergy Injection 2 Or More Injection Corey Corona M.D. 07/26/2020 Allergy Injection 2 Or More Injection KAYLAH Mccabe 07/05/2020 Allergy Injection 2 Or More Injection Corey Corona M.D. 07/05/2020 Allergy Injection 2 Or More Injection Corey Corona M.D. 06/11/2020 Allergy Injection 2 Or More Injection CoreyJacqueline Wilkes.DCristofer 05/22/2020 Allergy Injection 2 Or More Injection Corey Corona M.D. 04/30/2020 Allergy Injection 2 Or More Injection Corey Corona M.D. 04/11/2020 Allergy Injection 2 Or More Injection Jacqueline Szymanski.Ludwig 03/18/2020 Allergy Injection 2 Or More Injection Corey Corona M.D. 02/29/2020 Allergy Injection 2 Or More Injection CoreyJacqueline Wilkes.DCristofer 01/31/2020 Allergy Injection 2 Or More Injection Jacqueline Szymanski.DCristofer 01/11/2020 Allergy Injection 2 Or More Injection Corey Corona M.D. 12/28/2019 Allergy Injection 2 Or More Injection CoreyJacqueline Wilkes.DCristofer 12/18/2019 Allergy Injection 2 Or More Injection Jacqueline Szymanski.DCristofer 12/11/2019 Allergy Injection 2 Or More Injection Jacqueline Szymanski.DCristofer 11/23/2019 Allergy Injection 2 Or More Injection CoreyJacqueline Torres.DCristofer 11/14/2019 Allergy Injection 2 Or More Injection Coreyval Corona M.DCristofer 10/31/2019 Allergy Injection 2 Or More Injection CoreyJacqueline Torres.DCristofer 10/25/2019 Allergy Injection 2 Or More Injection CoreyJacqueline Torres.DCristofer 10/19/2019 Allergy Injection 2 Or More Injection Coreyjaden Corona M.DCristofer 10/09/2019 Allergy Injection 2 Or More Injection CoreyJacqueline Wilkes.DCristofer 09/29/2019 Allergy Injection 2 Or More Injection Corey Maddison M.D. 09/14/2019 Allergy Injection 2 Or More Injection Corey Corona M.D. 09/04/2019 Allergy Injection 2 Or More Injection Corey Corona M.D. 08/29/2019 Allergy Injection 2 Or More Injection Corey Corona M.D. 08/16/2019 Allergy Injection 2 Or More Injection Corey Corona M.D. 08/08/2019 Allergy Injection 2 Or More Injection Corey Corona M.D. 08/01/2019 Allergy Injection 2 Or More Injection Corey Corona M.D. 07/25/2019 Allergy Injection 2 Or More Injection Corey Corona M.D. 07/20/2019 Allergy Injection 2 Or More Injection Corey Corona M.D. 07/11/2019 Allergy Injection 2 Or More Injection SANTOSH Castaneda 07/04/2019 Allergy Injection 2 Or More Injection Corey Corona M.D. 07/04/2019 Allergy Injection 2 Or More Injection Corey Corona M.D. 06/22/2019 Allergy Injection 2 Or More Injection Corey Corona M.D. 06/12/2019 Allergy Injection 2 Or More Injection Corey Corona M.D. 06/07/2019 Allergy Injection 2 Or More Injection Corey Corona M.D. 05/29/2019 Immunizations Description No Information Available Vital Signs Date Vital Result Comment 08/01/2020 3:21pm Weight 168.50 lb Height 60 inches 5'0" Heart Rate 73 /min Respiratory Rate 16 /min BP Systolic 107 mmHg BP Diastolic 70 mmHg BMI (Body Mass Index) 32.9 kg/m2 08/03/2019 3:41pm Weight 146.38 lb Height 59.25 inches 4'11.25" Heart Rate 72 /min Respiratory Rate 16 /min BP Systolic 107 mmHg BP Diastolic 74 mmHg BMI (Body Mass Index) 29.3 kg/m2 Results Description No Information Available Procedures Date Code Description Status 05/13/2021 56469 Allergy Injection 2 Or More Comp leted 04/17/2021 02666 Allergy Injection 2 Or More Comp leted 03/28/2021 12633 Allergy Antigens Single Or Multi ple Completed 03/25/2021 72855 Allergy Injection 2 Or More Comp leted 03/04/2021 98493 Allergy Injection 2 Or More Comp leted 02/10/2021 36671 Allergy Injection 2 Or More Comp leted 01/16/2021 02640 Allergy Injection 2 Or More Comp leted 12/26/2020 01710 Allergy Injection 2 Or More Comp leted 11/28/2020 32818 Allergy Injection 2 Or More Comp leted 11/14/2020 57126 Allergy Injection 2 Or More Comp leted Medical Devices Description No Information Available Encounters Description No Information Available Assessments Date Code Description Provider 05/13/2021 J30.1 Allergic rhinitis due to pollen Corey Corona M.D. 05/13/2021 J30.81 Allergic rhinitis due to animal (cat) (dog) hair and dander Corey Corona M.D. 05/13/2021 J30.89 Other allergic rhinitis Corey Corona M.D. 05/13/2021 Z51.6 Encounter for desensitization to allergens Corey Corona M.D. Plan of Treatment Future Appointment(s):* 06/03/2021 8:30 am - Allergy Injection at Main Office Functional Status Description No Information Available Mental Status Description No Information Available Referrals Refer to Reason for Referral Status Appt Date Corey Corona M.D. Created [address], [place] [address] [phone]
--- OUTSIDE RECORDS SUMMARY | 2021-05-27 10:45 | CCD | Continuity of Care Document ---
Author Author Yani SMITH P.A.-C. Organization Unknown Address [address] [place] [address] Phone [phone] Care Team Providers Care Starting Sheet Tank Operator Name Role Phone Yrn De La Cruz M.D. AUTM [phone] Problems Active Problems Provider Date Headache Johana [...] Available Procedures Date Code Description Status 04/18/2021 63697 Office/Outpatient Established Mo d MDM 30-39 Min Completed 11/27/2020 85783 Office/Outpatient Established Lo w MDM 20-29 Min Completed Medical Devices Description No Information Available Encounters Type Date Location Provider Dx Diagnosis Office Visit 04/18/2021 9:00a Main office - [place] Cheryl Moy.A.-CCristofer G43.719 Chronic migraine w/o aura, intractable, w/o stat migr G44.229 Chronic tension-type headach e, not intractable M79.7 Fibromyalgia M54.2 Cervicalgia M54.5 Low back pain R20.2 Paresthesia of skin G47.33 Obstructive sleep apnea (trever lt) (pediatric) G56.03 Carpal tunnel syndrome, bila teral upper limbs M54.81 Occipital neuralgia Office Visit 11/27/2020 8:00a Main office - [place] Cheryl Moy.A.-CCristofer G43.719 Chronic migraine w/o aura, intractable, w/o stat migr M54.2 Cervicalgia M54.5 Low back pain M79.7 Fibromyalgia R20.2 Paresthesia of skin G47.33 Obstructive sleep apnea (trever lt) (pediatric) G56.03 Carpal tunnel syndrome, bila teral upper limbs Assessments Date Code Description Provider 04/18/2021 G43.719 Chronic migraine without aura, i ntractable, without status m Cheryl Severino.A.-CCristofer 04/18/2021 G44.229 Chronic tension-type headache, n ot intractable Cheryl Severino.A.-CCristofer 04/18/2021 M79.7 Fibromyalgia Cheryl Severino.A.-CCristofer 04/18/2021 M54.2 Cervicalgia Lubna Smith P.A.-C. 04/18/2021 M54.5 Low back pain Lubna Smith, P.A.-C. 04/18/2021 R20.2 Paresthesia of skin Lubna willson P.A.-C. 04/18/2021 G47.33 Obstructive sleep apnea (adult) (pediatric) Lubna Smith P.A.-C. 04/18/2021 G56.03 Carpal tunnel syndrome, bilatera [...] Carpal tunnel syndrome, bilatera l upper limbs Carlos SeverinoA.-CCristofer Plan of Treatment Future Appointment(s):* 07/23/2021 8:15 am - Lubna Smith P.A.-C. at Main office - [place] 04/18/2021 - Lubna Smith P.A.-C.* G43.719 Chronic migraine without aura, intractable, without status m* New Medication:* Aimovig 140 mg/ml - inject subcutaneously once monthly, new dose * Comments:* Increase Aimovig to 140 mg monthly. 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 She takes Tylenol #3 for uncontrolled migraine. Refill for # 7 tabs sent eRx. CELLO TEACHER # [id number]. * G44.229 Chronic tension-type headache, not intractable* [...]
--- OUTSIDE RECORDS SUMMARY | 2021-05-27 10:45 | CCD | Continuity of Care Document ---
Author Author Yani SHARMA Organization Unknown Address [address] [place] [address] Phone [phone] Care Team Providers Care C Architect Name Role Phone Yrn De La Cruz M.D. AUTM [phone] Problems Active Problems Provider Date Headache Johana [...] daily prn severe migraine 7tabs G43.719 Flex Csatano M.D. 05/27/2020 Rizatriptan Benzoate 10mg Tablets Dispers [...] Information Available Procedures Date Code Description Status 04/25/2021 36710 MRI Spine Cervical W/O Contrast Completed 04/25/2021 42508 MRI Spine Cervical W/O Contrast Completed 04/18/2021 98594 Office/Outpatient Established Mo d MDM 30-39 Min Completed 11/27/2020 48775 Office/Outpatient Established Lo w MDM 20-29 Min Completed Medical Devices Description No Information Available Encounters Type Date Location Provider Dx Diagnosis Office Visit 04/18/2021 9:00a Main office - [place] Lubna willson, P.A.-C. G43.719 Chronic migraine w/o aura, intractable, w/o stat migr G44.229 Chronic tension-type headach e, not intractable M79.7 Fibromyalgia M54.2 Cervicalgia M54.5 Low back pain R20.2 Paresthesia of skin G47.33 Obstructive sleep apnea (trever lt) (pediatric) G56.03 Carpal tunnel syndrome, bila teral upper limbs M54.81 Occipital neuralgia Office Visit 11/27/2020 8:00a Main office - [place] Lubna willson, P.A.-C. G43.719 Chronic migraine w/o aura, intractable, w/o stat migr M54.2 Cervicalgia M54.5 Low back pain M79.7 Fibromyalgia R20.2 Paresthesia of skin G47.33 Obstructive sleep apnea (trever lt) (pediatric) G56.03 Carpal tunnel syndrome, bila teral upper limbs Assessments Date Code Description Provider 04/25/2021 M54.2 Cervicalgia Flex Eyad, M.D Cristofer 04/25/2021 M54.2 Cervicalgia MRI 04/25/2021 M47.892 Other spondylosis, cervical natalio on Flex Eyad, M.D. 04/25/2021 M47.892 Other spondylosis, cervical natalio on MRI 04/18/2021 G43.719 Chronic migraine without aura, i ntractable, without status m Lubna Smith, P.A.-C. 04/18/2021 G44.229 Chronic tension-type headache, n ot intractable Lubna Smith, P.A.-C. 04/18/2021 M79.7 Fibromyalgia Lubna Smith, P.A.-C. 04/18/2021 M54.2 Cervicalgia Lubna Smith, P.A.-C. 04/18/2021 M54.5 Low back pain Lubna Smith, P.A.-C. 04/18/2021 R20.2 Paresthesia of skin Lubna willson, P.A.-C. 04/18/2021 G47.33 Obstructive sleep apnea (adult) (pediatric) Lubna Smith, P.A.-C. 04/18/2021 G56.03 Carpal tunnel syndrome, bilatera l upper limbs Lubna Smith, P.A.-C. 04/18/2021 M54.81 Occipital neuralgia Lubna willson, P.A.-C. 11/27/2020 G43.719 Chronic migraine without aura, i ntractable, without status m Lubna Smith, P.A.-C. 11/27/2020 M54.2 Cervicalgia Lubna Smith, P.A.-C. 11/27/2020 M54.5 Low back pain Lubna Smith, P.A.-C. 11/27/2020 M79.7 Fibromyalgia Lubna Smith, P.A.-C. 11/27/2020 R20.2 Paresthesia of skin Lubna willson, P.A.-C. 11/27/2020 G47.33 Obstructive sleep apnea (adult) (pediatric) Lubna Smith, P.A.-C. 11/27/2020 G56.03 Carpal tunnel syndrome, bilatera l upper limbs Luban Smith, P.A.-C. Plan of Treatment Future Appointment(s):* 07/23/2021 8:15 am - Lubna Smith P.A.-C. at Main office [facility] 04/18/2021 - Lubna Smith P.A.-C.* G43.719 Chronic migraine without aura, intractable, without status m* New Medication:* Aimovig 140 mg/ml - inject subcutaneously once monthly, new dose * Comments:* Increase Aimovig to 140 mg monthly. Continue Maxalt WINE BLENDER as needed. She takes Tylenol #3 for uncontrolled migraine. Refill for # 7 tabs sent eRx. 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 * G44.229 Chronic tension-type headache, not intractable* [...] to Reason for Referral Status Appt Date Flex Castano M.D. Created [facility] [address] [place] [address] [phone]
--- OUTSIDE RECORDS SUMMARY | 2021-05-27 10:45 | CCD ---
Author Author [facility] Organization [facility] Address Unknown Phone Unavailable Care Team Providers Care Outpatient Psychiatrist Name Role Phone Yrn De La Cruz Unavailable PROBLEMS Type Condition ICD9-CM Code PGB80-FV Code Onset Dates Condition S tatus W/U Status Risk SNOMED Code Notes Problem Environmental allergies Z91.09 Active confirmed 414918317 Problem Gastro-esophageal reflux disease without esophagitis K21.9 Active confirmed 809315761 Problem Nasal polyp J33.9 Active confirmed 86026072 Problem Obstructive sleep apnea (adult) (pediatric) G47.33 Active confirmed 75564545 Problem Moderate persistent asthma, uncomplicated J45.40 Active confirmed 694813799 Problem Generalized anxiety disorder F41.1 Active confirme d 18228319 Problem Migraine, unspecified, not intractable, without status migrainosus G43.909 Active confirmed 46961026 Problem Chronic sinusitis, unspecified location J32.9 Active confirmed 51978963 Problem Chronic sinusitis J32.9 Active confirmed 40 230639 Problem Sacroiliitis, not elsewhere classified M46.1 A ctive confirmed 775173131 Problem Chronic maxillary sinusitis J32.0 Active confirmed 76643148 Problem Asthma exacerbation J45.901 Active confirmed 481910533 Problem Asthma 493.90 Active confirmed 401011114 Problem Iron deficiency anemia, unspecified D50.9 Acti ve confirmed 96519150 Problem Fibromyalgia M79.7 Active confirmed 7952516 05 Problem Other chronic sinusitis J32.8 Active confirmed 85284806 Problem Low back pain M54.5 Active confirmed 168997 007 Problem Myalgia M79.1 Active confirmed 22233166 Problem Sacroiliac joint pain M53.3 Active confirmed 679528396 Problem Intervertebral disc disorders with radiculopathy , lumbar region M51.16 Active confirmed 964945616995035 Problem Paroxysmal atrial fibrillation I48.0 Active confir med [id number] admitted 06/20, converted NSR in hospital CHADS 1, started on Eliquis by cardio. LAE on echo 05/20 Problem Moderate persistent asthma with exacerbation J45.4 1 Active confirmed 384244324 Problem Diastolic CHF with preserved left ventricular fu nction, NYHA class 2 I50.30 Active confirmed 708693663 Problem HOCM (hypertrophic obstructive cardiomyopathy) I42 .1 Active confirmed 14388562 Problem Vitamin D deficiency, unspecified E55.9 Active con firmed 61004409 Problem Irritable bowel syndrome with constipation K58.1 Active confirmed 104825009 Problem Major depressive disorder, single episode, unspecified F32.9 Active confirmed 49959763 Problem Hypothyroidism, unspecified E03.9 Active confirmed 42532859 Problem Iron deficiency anemia due to chronic blood loss D 50.0 Active confirmed 757960458 Problem DUB (dysfunctional uterine bleeding) N93.8 Act michael confirmed 03405577 Problem Mild persistent asthma without complication J45.30 Active confirmed 160529035 Problem Abdominal panniculus, symptomatic E65 Active confirmed 8278766687583 ALLERGIES Allergen (clinical drug ingredient) Drug/Non Drug Allergy do cumented on EMR Reaction Allergy Type Onset Date Status Sulfa (for allergy use only) unknown Drug Allergy Active metformin (from DR Jesus for wt loss) diarrhea Non Drug Allergy Active linezolid Zyvox(NDC Code:[address]-16) muscle spasms Drug Allergy Active Astepro ear pain and swelling Drug Allergy A ctive methylprednisolone Solu-Medrol(NDC Code:[address]-30) tachycardia Drug Allergy Active clarithromycin Biaxin Diarrhea Drug Allergy Active fluoxetine PROzac(NDC Code:[address]-00) Mean, palpatations Drug All ergy Active ENCOUNTERS from 1970 to 2021-04-18 Encounter Location Date Provider Diagnosis [facility] [place] [address] [place] [id number] Apr, Yrn De La Cruz IMMUNIZATIONS Vaccine Route [...] Ceftriaxone IM Intramuscular Jun 28, 2015 Admini markaminah Depo-Medrol 80mg Methylprednisolone Acetate IM Intramuscular Jul [...] Education Language: Question Answer Notes Languages spoken: Icelandic Yarsanism: Question Answer Notes Yarsanism No sikhism beliefs that would impact health care. Drug [...] 1 tablet Orally Once a day Active [place] Nasal [place] 0.65 % 2 sprays in each nostril as needed Nasally four times daily as needed for 30 Days Dec, Acti ve Hyoscyamine Sulfate 0.125 MG 1 tablet under the tongue and allow to dissolve as needed Sublingual twice daily as needed for 15 Active Nystatin 749711 UNIT/GM 1 application Externally Twice a day for 30 Days Oct, Active AirDuo RespiClick 113/14 1 puff Inhalation Twice a day Active Xopenex HFA 45 MCG/ACT 2 puff as needed Inhalation four times daily as needed for 25 Active [place] Saline Nasal - 2 sprays Nasally four times daily as needed f or 30 Days Dec, Active Potassium Chloride 20 MEQ Orally Daily Active Benefiber - as directed Orally bid for 30 day(s) Apr, Active Rizatriptan Benzoate 10 MG 1 tablet on the tongue and allow to dissolve as needed one time Orally Once a day Dec, Active tiZANidine HCl 2 MG 1 tablet as needed Orally be fore bedtime may repeat in 4 hrs Active Lasix 40 MG 1 tablet Orally Once a day for 30 day(s) Active Viibryd 40 mg 1 tab with food po Once daily (Dr. Larry) Active Elocon 0.1 % 1 application to affected area Externally Once a day for 30 Active Docusate Sodium 100 MG 1 capsule as needed Orally Once a day for 30 Active Metoprolol Tartrate 25 MG 1 tablet with food Orally Twice a day for 30 day(s) Dec, Active MiraLax - 17 gr Orally once daily as needed for 30 Active Lumigan 0.03 % 1 drop into affected eye in the evening Ophthalm ic Once a day Active Pantoprazole Sodium 40 MG 1 tablet Orally Daily for 90 days Active Metoprolol Tartrate 25 MG 1 tablet with food Orally Twice a day for 30 day(s) Dec, Active Zofran ODT 4 MG ALLOW 1 TABLET TO DISSOLVE O N TONGUE TWO TIMES A DAY NEEDED for 30 Active Ipratropium [place] 0.02 % 3 ml nebulized four times daily for 9 0 days Jul, Active Levothyroxine Sodium 75 MCG 1 tablet [...] Information RESULTS No Results REASON FOR VISIT Needs auth today in othere office MEDICAL (GENERAL) HISTORY Type Description Date Medical History chronic sinusitis--saw ENT [place], [place] sinuses 07/18. Saw ENT in [place], no records, told that has sinus polyp; [...] spine (HNP C7-T1) MRIs 12/18 at [facility] Medical History NST at [facility] : EF 56%, no perfusion abnl; LVH Medical History paroxysmal at [facility] Medical History diastolic CHF [facility]; [...] History related to surgeries Hospitalization History at [facility] 06/2017 Hospitalization History [...] Sublingual twice daily as needed for 15 Next Appt Details Provider Name:Yrn Jono, 2021-06 08:30:00 AM, [address] , [place], [address], Insurance Providers Payer Name Payer Address Payer Phone Insured Name Patient Relati onship to Insured Coverage Start Date Coverage End Date [facility] [employer] [facility] [place] [address] [facility] [phone] [place] self
--- OUTSIDE RECORDS SUMMARY | 2021-05-27 10:45 | CCD | Continuity of Care Document ---
Author Author Yani CORONA M.D. Organization Unknown Address [address], [place] [address] Phone [phone] Care Team Providers Care Guardian Family Member Name Role Phone Mame De La Cruz PA-C AUTM [phone] Yrn De La Cruz MD AUTM [phone] Problems Active Problems Provider Date Allergic rhinitis [...] [facility] Allergic rhinitis caused by mold Croey Corona M.D. O nset: 01/16/2015 Note: In [...] diaz M.D. 05/08/2019 Fluticasone Propionate 50mcg/Act Suspension [place] 2 Sprays (100mcg) In Each Nostril Once [...] M.D. 11/14/2020 Allergy Injection 2 Or More Daryl Corona M.D. 11/01/2020 Allergy Injection 2 Or More Injection Corey Corona M.D. 09/23/2020 Allergy Injection 2 Or More Injection Corey Corona M.D. 08/22/2020 Allergy Injection 2 Or More Injection Corey Corona M.D. 07/26/2020 Allergy Injection 2 Or More Injection KAYLAH Mccabe 07/05/2020 Allergy Injection 2 Or More Injection Danita SzymanskiDCristofer 07/05/2020 Allergy Injection 2 Or More Injection Corey Corona M.D. 06/11/2020 Allergy Injection 2 Or More Injection Corey Corona M.D. 05/22/2020 Allergy Injection 2 Or More Injection Corey Corona M.D. 04/30/2020 Allergy Injection 2 Or More Injection Corey Corona M.D. 04/11/2020 Allergy Injection 2 Or More Injection Corey Corona M.D. 03/18/2020 Allergy Injection 2 Or More Injection Corey Corona M.D. 02/29/2020 Allergy Injection 2 Or More Injection Corey Corona M.D. 01/31/2020 Allergy Injection 2 Or More Injection Corey Corona M.D. 01/11/2020 Allergy Injection 2 Or More Injection Jacqueline Szymanski.Ludwig 12/28/2019 Allergy Injection 2 Or More Injection Corey Corona M.D. 12/18/2019 Allergy Injection 2 Or More Injection Danita SzymanskiDCristofer 12/11/2019 Allergy Injection 2 Or More Injection Danita SzymanskiDCristofer 11/23/2019 Allergy Injection 2 Or More Injection Corey Corona M.D. 11/14/2019 Allergy Injection 2 Or More Injection CoreyJacqueline Wilkes.DCristofer 10/31/2019 Allergy Injection 2 Or More Injection CoreyJacqueline Wilkes.DCristofer 10/25/2019 Allergy Injection 2 Or More Injection Corey Corona M.D. 10/19/2019 Allergy Injection 2 Or More Injection CoreyJacqueline Wilkes.DCristofer 10/09/2019 Allergy Injection 2 Or More Injection CoreyJacqueline Wilkes.DCristofer 09/29/2019 Allergy Injection 2 Or More Injection Corey Corona M.D. 09/14/2019 Allergy Injection 2 Or More Injection CoreyJacqueline Wilkes.D. 09/04/2019 Allergy Injection 2 Or More Injection [...] 07/04/2019 Allergy Injection 2 Or More Injection oCrey Corona M.D. 06/22/2019 Allergy Injection 2 Or [...] Information Available Procedures Date Code Description Status 04/17/2021 75038 Allergy Injection 2 Or More Comp leted 03/28/2021 59234 Allergy Antigens Single Or Multi ple Completed 03/25/2021 70001 Allergy Injection 2 Or More Comp leted 03/04/2021 89548 Allergy Injection 2 Or More Comp leted 02/10/2021 81892 Allergy Injection 2 Or More Comp leted 01/16/2021 87486 Allergy Injection 2 Or More Comp leted 12/26/2020 71473 Allergy Injection 2 Or More Comp leted 11/28/2020 09671 Allergy Injection 2 Or More Comp leted 11/14/2020 28018 Allergy Injection 2 Or More Comp leted 11/01/2020 91761 Allergy Injection 2 Or More Comp leted Medical Devices Description No Information Available Encounters Description No Information Available Assessments Date Code Description Provider 04/17/2021 J30.1 Allergic rhinitis due to pollen Corey Corona M.D. 04/17/2021 J30.81 Allergic rhinitis due to animal (cat) (dog) hair and dander Corey Corona M.D. 04/17/2021 J30.89 Other allergic rhinitis Corey Corona M.D. 04/17/2021 Z51.6 Encounter for desensitization to allergens Corey Corona M.D. Plan of Treatment Future Appointment(s):* 05/08/2021 10:30 am - Allergy Injection at Main Office Functional Status Description No Information Available Mental Status Description No Information Available Referrals Refer to Reason for Referral Status Appt Date Corey Corona M.D. Created [address] [place] [id number] [phone]
--- OUTSIDE RECORDS SUMMARY | 2021-05-27 10:45 | CCD ---
Continuity of Care Document (CCD) Created on: 05/08/2021 Yani Shea External Reference #: [id number] : [id number] Sex: Female Author Author Yani RODAS MD Organization Unknown Address [address] [place] [address], [facility] [address] [place] [address] Phone [phone] Care Team Providers Care Agricultural Specialist Name Role Phone Yrn De La Cruz MD AUTM [phone] Neo Castano AUTM [phone] Problems Active Problems Provider Date Abdominal pain [...] 30tabs Paul Vazquez MD 08/30/2019 Excedrin Migraine [phone] Tab lets take 1-2 as needed for [...] 1 by mouth three times a [facility] M47.26 Daryl Mondragon MD 06/20/2018 [...] MD 1 Atrovent 0.03% Solution via nebs [id number], as needed with Yrn Ward MD Eliquis [...] day Bryn Garcia JR, 03/30/20 17 Ipratropium [place]/Albuterol Sulfate 0.5-2.5(3)mg/3ML Solution Use 1 Vial 3 [...] And AT Bedtime as Needed Unknown Nystatin [id number]/GM Powder Apply 1 Application To Affected Area [...] Solution Auto-Inject Lubna Smith RPA Saline Mist [place] 0.65% Solution Yrn De La Cruz MD [...] Information Available Procedures Date Code Description Status 05/07/2021 02962 Office/Outpatient Established Mo d MDM 30-39 Min Completed 05/07/2021 64820 Inject/Drain Joint/Bursa Major C ompleted 04/08/2021 68839 MRI Upper Extremity Any Joint Co mpleted 03/28/2021 73470 Office/Outpatient Established Mo d MDM 30-39 Min Completed Medical Devices Description No Information Available Encounters Type Date Location Provider Dx Diagnosis Office Visit 05/07/2021 11:00a Joi Rodas MD M7 5.41 Impingement syndrome of right shoulder M75.21 Bicipital tendinitis, right shoulder Office Visit 03/28/2021 1:15p Joi Vazquez MD M75.41 Impingement syndrome of right shoulder M75.111 Incomplete rotatr-cuff tear/ ruptr of r shoulder, not trauma M19.011 Primary osteoarthritis, righ t shoulder Assessments Date Code Description Provider 05/07/2021 M75.41 Impingement syndrome of right sh alessandro Rodas MD 05/07/2021 M75.21 Bicipital tendinitis, right shou shirley Rodas MD 04/08/2021 M75.111 Incomplete rotator c uff tear or rupture of right shoulder, not specified as traumatic Paul Vazquez MD 04/08/2021 M75.111 Incomplete rotator cuff tear or rupture of right shoulder, n MRI 04/08/2021 M75.41 Impingement syndrome of right sh oulder Paul Vazquez MD 04/08/2021 M75.41 Impingement syndrome of right sh oulder MRI 03/28/2021 M75.41 Impingement syndrome of right sh oulder Paul Morrison. MD George 03/28/2021 M75.111 Incomplete rotator cuff tear or rupture of right shoulder, n Paul Vazquez MD 03/28/2021 M19.011 Primary osteoarthritis, right sh priscalder Paul Vazquez MD Plan of Treatment 05/07/2021 - D. Mateus Rodas MD* M75.41 Impingement syndrome of right shoulder* Follow up:* BUE EMG results with BLB per DPV * M75.21 Bicipital tendinitis, right shoulder Functional Status Description No Information Available Mental Status Description No Information Available Referrals Refer to Dr Reason for Referral Status Appt Date Paul Vazquez MD MRI APPROVED PER [facility] WEB FOR MRI OF RIGHT SHOULDER (31553) TO MRI. DG Created [address] [facility], [address] [address] [phone] Daryl Mondragon MD OV M25.519 PAIN IN UNSPECIFIED SHLDR Create d 157 [facility], [address] [address] [phone]
--- OUTSIDE RECORDS SUMMARY | 2021-05-27 10:46 | CCD ---
Author Author Yani Pantoja Organization Unknown Address [address] [address] Phone Care Team Providers Care Scroll Saw Operator Name Role Phone Marcela Pantoja PCP Allergies, Adverse Reactions, Alerts No Data in Section Problem List Concept Problem Description Status Start Date Created Date Resolv ed Date Snomed Code F43.11 Post-traumatic stress disorder, acute Active Medications No Data in Section Social History Social History Element Description Concept Effective Date Smoking Status Unknown if ever smoked [id number] Immunizations No Data in Section Vital Signs No Data in Section Procedures Date Concept Id Description Targeted Site Concept Targeted Site Concept Type 04/04/2021 28003 Extended Individual Psychotherapy - 45 min CPT Patient has no history of implantable de vices Encounters Encounter Start Date End Date Encounter Type Description Diagnosis Di agnosis Desc Location Author First Name Author Last Name Npid Taxonomy Cod e Taxonomy Desc Phone Number Location Addr1 Location Addr2 Location [facility] Location [facility] Location [facility] [id number] 04/04/2021 04/04/2021 68382 Extended Individual Psych otherapy - 45 min F43.11 Post-traumatic stress disorder, acute [facility] Scarlett Medrano [phone] [id number] Gill Net Stringer [phone] [address] [address] Plan of Treatment No Data in Section Lab Results No Data in Section Instructions No Data in Section Insurance Providers Insurance Id Policy Effective Date Policy Thru Date Company N bret [id number] 2018 [employer] Man[employer] [place]
--- OUTSIDE RECORDS SUMMARY | 2021-05-27 10:46 | CCD | Continuity of Care Document ---
Author Author Yani SHARMA Organization Unknown Address [address] [place] [address] [address] [place] [address] Phone [phone] Care Team Providers Care Dye Penetrant Testing Technician Name Role Phone Yrn De La Cruz MD AUTM [phone] Neo Castano AUTM [phone] Problems Active Problems Provider Date Abdominal pain [...] 30tabs Paul Vazquez MD 08/30/2019 Excedrin Migraine [phone] Tab lets take 1-2 as needed for [...] MD 1 Atrovent 0.03% Solution via nebs [id number], as needed with Yrn Ward MD Eliquis [...] day Bryn Garcia JR, 03/30/20 17 Ipratropium [place]/Albuterol Sulfate 0.5-2.5(3)mg/3ML Solution Use 1 Vial 3 [...] Information Available Procedures Date Code Description Status 03/28/2021 50280 Office/Outpatient Established Mo d MDM 30-39 Min Completed Medical Devices Description No Information Available Encounters Type Date Location Provider Dx Diagnosis Office Visit 03/28/2021 1:15p [place] Paul Vazquez MD M75.41 Impingement syndrome of right shoulder M75.111 Incomplete rotatr-cuff tear/ ruptr of r shoulder, not trauma M19.011 Primary osteoarthritis, righ t shoulder Assessments Date Code Description Provider 03/28/2021 M75.41 Impingement syndrome of right sh alessandro Vazquez MD 03/28/2021 M75.111 Incomplete rotator cuff tear or rupture of right shoulder, n Paul Vazquez MD 03/28/2021 M19.011 Primary osteoarthritis, right sh alessandro Vazquez MD Plan of Treatment 03/28/2021 - Paul Vazquez MD* M75.41 Impingement syndrome of right shoulder * M75.111 Incomplete rotator cuff tear or rupture of right shoulder, n* Follow up:* with DPV for rt shoulder surg eval/ rt shoulder mri results * M19.011 Primary osteoarthritis, right shoulder Functional Status Description No Information Available Mental Status Description No Information Available Referrals Refer to Reason for Referral Status Appt Date Paul Vazquez MD MRI APPROVED PER [facility] WEB FOR MRI OF RIGHT SHOULDER (58080) TO MRI. DG Created [address] [facility], [address] [place] [address] [phone] Daryl Mondragon MD OV M25.519 PAIN IN UNSPECIFIED SHLDR Create d [address] [facility], [address] [place] [address] [phone]
--- OUTSIDE RECORDS SUMMARY | 2021-05-27 10:47 | CCD ---
Author Author [facility] Organization [facility] Address Unknown Phone Unavailable Care Team Providers Care Special Delivery Messenger Name Role Phone Makeda, L Marah FIXTURE DESIGNER Unavailable Unavailable Makeda, L Marah FIXTURE DESIGNER Unavailable Unavailable Makeda, L Marah FIXTURE DESIGNER Unavailable Unavailable Makeda, L Marah FIXTURE DESIGNER Unavailable Unavailable Makeda, L Marah FIXTURE DESIGNER Unavailable Unavailable Makeda, L Marah FIXTURE DESIGNER Unavailable Unavailable Makeda, L Marah FIXTURE DESIGNER Unavailable Unavailable Makeda, L Marah FIXTURE DESIGNER Unavailable Unavailable Makeda, L Marah FIXTURE DESIGNER Unavailable Unavailable Makeda, L Marah FIXTURE DESIGNER Unavailable Unavailable Makeda, L Marah FIXTURE DESIGNER Unavailable Unavailable Makeda, L Marah FIXTURE DESIGNER Unavailable Unavailable Makeda, L Marah FIXTURE DESIGNER Unavailable Unavailable Makeda, L Marah FIXTURE DESIGNER Unavailable Unavailable Makeda, L Marah FIXTURE DESIGNER Unavailable Unavailable Makead, L Marah FIXTURE DESIGNER Unavailable Unavailable Makeda, L Marah FIXTURE DESIGNER Unavailable Unavailable Makeda, L Marah FIXTURE DESIGNER Unavailable Unavailable Makeda, L Marah FIXTURE DESIGNER Unavailable Unavailable Makeda, L Marah FIXTURE DESIGNER Unavailable Unavailable Makeda, L Marah FIXTURE DESIGNER Unavailable Unavailable Makeda, L Marah FIXTURE DESIGNER Unavailable Unavailable Makeda, L Marah FIXTURE DESIGNER Unavailable Unavailable Makeda, L Marah FIXTURE DESIGNER Unavailable Unavailable Fish, B Paul SNOW Unavailable Unavailable Fish, B Paul SNOW Unavailable Unavailable Fish, B Paul SNOW Unavailable Unavailable Fish, B Paul SNOW Unavailable Unavailable Fish, B Paul SNOW Unavailable Unavailable Fish, B Paul SNOW Unavailable Unavailable Fish, B Paul SNOW Unavailable Unavailable Fish, B Paul SNOW Unavailable Unavailable Fish, B Paul SNOW Unavailable Unavailable Fish, B Paul SNOW Unavailable Unavailable Fish, B Paul SNOW Unavailable Unavailable Fish, B Paul SNOW Unavailable Unavailable Fish, B Paul SNOW Unavailable Unavailable Fish, B Paul SNOW Unavailable Unavailable Fish, B Paul SNOW Unavailable Unavailable Fish, B Paul SNOW Unavailable Unavailable Fish, B Paul SNOW Unavailable Unavailable Fish, B Paul SNOW Unavailable Unavailable Fish, B Paul SNOW Unavailable Unavailable Fish, B Paul SNOW Unavailable Unavailable Fish, B Paul SNOW Unavailable Unavailable Fish, B Paul SNOW Unavailable Unavailable Fish, B Paul SNOW Unavailable Unavailable Fish, B Paul SNOW Unavailable Unavailable Fish, B Paul SNOW Unavailable Unavailable Fish, B Paul SNOW Unavailable Unavailable Fish, B Paul SNOW Unavailable Unavailable Fish, B Paul SNOW Unavailable Unavailable Fish, B Paul SNOW Unavailable Unavailable Fish, B Paul SNOW Unavailable Unavailable Fish, B Paul SNOW Unavailable Unavailable Fish, B Paul SNOW Unavailable Unavailable Fish, B Paul SNOW Unavailable Unavailable Fish, B Paul SNOW Unavailable Unavailable Fish, B Paul SNOW Unavailable Unavailable Fish, B Paul SNOW Unavailable Unavailable Fish, B Paul SNOW Unavailable Unavailable Fish, B Paul SNOW Unavailable Unavailable Fish, B Paul SNOW Unavailable Unavailable Fish, B Paul SNOW Unavailable Unavailable Fish, B Paul SNOW Unavailable Unavailable Fish, B Paul SNOW Unavailable Unavailable Fish, B Paul SNOW Unavailable Unavailable Fish, B Paul SNOW Unavailable Unavailable Fish, B Paul SNOW Unavailable Unavailable Fish, B Paul SNOW Unavailable Unavailable Fish, B Paul SNOW Unavailable Unavailable Fish, B Paul SNOW Unavailable Unavailable Fish, B Paul SNOW Unavailable Unavailable Fish, B Paul SNOW Unavailable Unavailable Fish, B Paul SNOW Unavailable Unavailable Fish, B Paul SNOW Unavailable Unavailable Fish, B Paul SNOW Unavailable Unavailable Tamiko Vazquez MD Unavailable Unavailable George B Paul SNOW Unavailable Unavailable CHROSTOWSKISERJIO MD Unavailable Unavailable CHROSTOWSKISERJIO MD Unavailable Unavailable CHROSTOWSKISERJIO MD Unavailable Unavailable CHROSTOWSKISERJIO MD Unavailable Unavailable CHROSTOWSKIBARBARASERJIO MD Unavailable Unavailable CHROSTOWSKIBARBARASERJIO MD Unavailable Unavailable CHROSTOWSKIBARBARASERJIO MD Unavailable Unavailable CHROSTOWSKIBARBARASERJIO MD Unavailable Unavailable CHROSTOWSKIBARBARASERJIO MD Unavailable Unavailable CHROSTOWSKIBARBARASERJIO MD Unavailable Unavailable CHROSTOWSKI SERJIO MD Unavailable Unavailable CHROSTOWSKIBARBARASERJIO MD Unavailable Unavailable CHROSTOWSKIBARBARASERJIO MD Unavailable Unavailable CHROSTOWSKISERJIO MD Unavailable Unavailable CHROSTOWSKISERJIO MD Unavailable Unavailable CHROSTOWSKISERJIO MD Unavailable Unavailable CHROSTOWSKIBARBARASERJIO MD Unavailable Unavailable CHROSTOWSKIBARBARASEJRIO MD Unavailable Unavailable CHROSTOWSKIBARBARASERJIO MD Unavailable Unavailable CHROSTOWSKISERJIO MD Unavailable Unavailable CHROSTOWSKISERJIO MD Unavailable Unavailable CHROSTOWSKISERJIO MD Unavailable Unavailable CHROSTOWSKIBARBARASERJIO MD Unavailable Unavailable CHROSTOWSKIBARBARASERJIO MD Unavailable Unavailable CHROSTOWSKIBARBARASERJIO MD Unavailable Unavailable CHROSTOWSKISERJIO MD Unavailable Unavailable CHROSTOWSKISERJIO MD Unavailable Unavailable CHROSTOWSKISERJIO MD Unavailable Unavailable CHROSTOWSKIBARBARASERJIO MD Unavailable Unavailable CHROSTOWSKISERJIO MD Unavailable Unavailable CHROSTOWSKIBARBARASERJIO MD Unavailable Unavailable CHROSTOWSKISERJIO MD Unavailable Unavailable CHROSTOWSKISERJIO MD Unavailable Unavailable CHROSTOWSKISERJIO MD Unavailable Unavailable CHROSTOWSKISERJIO MD Unavailable Unavailable CHROSTOWSKI SERJIO MD Unavailable Unavailable CHROSTOWSKIBARBARASERJIO MD Unavailable Unavailable CHROSTOWSKI SERJIO MD Unavailable Unavailable Linda Paul Unavailable TricCharley willsona PA Unavailable Unavailable TricCharley willsona PA Unavailable Unavailable TrickeyCharleya PA Unavailable Unavailable TrickeyCharleya PA Unavailable Unavailable TrickeyCharley Lubna PA Unavailable Unavailable TrickeyCharley Lubna PA Unavailable Unavailable TrickeyCharley Lubna PA Unavailable Unavailable TrickeyCharley Lubna PA Unavailable Unavailable Trickey J Lubna PA Unavailable Unavailable Trickey, J Lubna PA Unavailable Unavailable Trickey, J Lubna PA Unavailable Unavailable Trickey, J Lubna PA Unavailable Unavailable Trickey, J Lubna PA Unavailable Unavailable Trickey, J Lubna PA Unavailable Unavailable Trickey, J Lubna PA Unavailable Unavailable Trickey, J Lubna PA Unavailable Unavailable Trickey, J Lubna PA Unavailable Unavailable Trickey, J Lubna PA Unavailable Unavailable Trickey, J Lubna PA Unavailable Unavailable Trickey, J Lubna PA Unavailable Unavailable Trickey, J Lubna PA Unavailable Unavailable Trickey, J Lubna PA Unavailable Unavailable Trickey, J Lubna PA Unavailable Unavailable Trickey, J Lubna PA Unavailable Unavailable Trickey, J Lubna PA Unavailable Unavailable Trickey, J Lbuna PA Unavailable Unavailable Trickey, J Lubna PA Unavailable Unavailable Trickey, J Lubna PA Unavailable Unavailable Trickey, J Lubna PA Unavailable Unavailable Trickey, J Lubna PA Unavailable Unavailable Trickey, J Lubna PA Unavailable Unavailable Trickey, J Lubna PA Unavailable Unavailable Trickey, J Lubna PA Unavailable Unavailable Trickey, J Lubna PA Unavailable Unavailable Trickey, J Lubna PA Unavailable Unavailable Trickey, J Lubna PA Unavailable Unavailable Trickey, J Lubna PA Unavailable Unavailable Trickey, J Lubna PA Unavailable Unavailable Trickey, J Lubna PA Unavailable Unavailable Trickey, J Lubna PA Unavailable Unavailable Trickey, J Lubna PA Unavailable Unavailable Trickey, J Lubna PA Unavailable Unavailable Trickey, J Lubna PA Unavailable Unavailable Trickey, J Lubna PA Unavailable Unavailable Trickey, J Lubna PA Unavailable Unavailable Trickey, J Lubna PA Unavailable Unavailable Trickey, J Lbuna PA Unavailable Unavailable Trickey, J Lubna PA Unavailable Unavailable Trickey, J Lubna PA Unavailable Unavailable ALIASES , ORGANIZATION NPI Unavailable Unavailable ALIASES , ORGANIZATION NPI Unavailable Unavailable ALIASES , ORGANIZATION NPI Unavailable Unavailable ALIASES , ORGANIZATION NPI Unavailable Unavailable ALIASES , ORGANIZATION NPI Unavailable Unavailable ALIASES , ORGANIZATION NPI Unavailable Unavailable ALIASES , ORGANIZATION NPI Unavailable Unavailable ALIASES , ORGANIZATION NPI Unavailable Unavailable ALIASES , ORGANIZATION NPI Unavailable Unavailable ALIASES , ORGANIZATION NPI Unavailable Unavailable ALIASES , ORGANIZATION NPI Unavailable Unavailable ALIASES , ORGANIZATION NPI Unavailable Unavailable ALIASES , ORGANIZATION NPI Unavailable Unavailable ALIASES , ORGANIZATION NPI Unavailable Unavailable ALIASES , ORGANIZATION NPI Unavailable Unavailable ALIASES , ORGANIZATION NPI Unavailable Unavailable ALIASES , ORGANIZATION NPI Unavailable Unavailable ALIASES , ORGANIZATION NPI Unavailable Unavailable ALIASES , ORGANIZATION NPI Unavailable Unavailable ALIASES , ORGANIZATION NPI Unavailable Unavailable ALIASES , ORGANIZATION NPI Unavailable Unavailable ALIASES , ORGANIZATION NPI Unavailable Unavailable ALIASES , ORGANIZATION NPI Unavailable Unavailable ALIASES , ORGANIZATION NPI Unavailable Unavailable ALIASES , ORGANIZATION NPI Unavailable Unavailable ALIASES , ORGANIZATION NPI Unavailable Unavailable ALIASES , ORGANIZATION NPI Unavailable Unavailable ALIASES , ORGANIZATION NPI Unavailable Unavailable ALIASES , ORGANIZATION NPI Unavailable Unavailable ALIASES , ORGANIZATION NPI Unavailable Unavailable ALIASES , ORGANIZATION NPI Unavailable Unavailable ALIASES , ORGANIZATION NPI Unavailable Unavailable ALIASES , ORGANIZATION NPI Unavailable Unavailable ALIASES , ORGANIZATION NPI Unavailable Unavailable ALIASES , ORGANIZATION NPI Unavailable Unavailable ALIASES , ORGANIZATION NPI Unavailable Unavailable ALIASES , ORGANIZATION NPI Unavailable Unavailable ALIASES , ORGANIZATION NPI Unavailable Unavailable ALIASES , ORGANIZATION NPI Unavailable Unavailable ALIASES , ORGANIZATION NPI Unavailable Unavailable ALIASES , ORGANIZATION NPI Unavailable Unavailable ALIASES , ORGANIZATION NPI Unavailable Unavailable ALIASES , ORGANIZATION NPI Unavailable Unavailable ALIASES , ORGANIZATION NPI Unavailable Unavailable ALIASES , ORGANIZATION NPI Unavailable Unavailable ALIASES , ORGANIZATION NPI Unavailable Unavailable ALIASES , ORGANIZATION NPI Unavailable Unavailable ALIASES , ORGANIZATION NPI Unavailable Unavailable ALIASES , ORGANIZATION NPI Unavailable Unavailable ALIASES , ORGANIZATION NPI Unavailable Unavailable ALIASES , ORGANIZATION NPI Unavailable Unavailable ALIASES , ORGANIZATION NPI Unavailable Unavailable ALIASES , ORGANIZATION NPI Unavailable Unavailable ALIASES , ORGANIZATION NPI Unavailable Unavailable ALIASES , ORGANIZATION NPI Unavailable Unavailable ALIASES , ORGANIZATION NPI Unavailable Unavailable ALIASES , ORGANIZATION NPI Unavailable Unavailable ALIASES , ORGANIZATION NPI Unavailable Unavailable ALIASES , ORGANIZATION NPI Unavailable Unavailable ALIASES , ORGANIZATION NPI Unavailable Unavailable ALIASES , ORGANIZATION NPI Unavailable Unavailable ALIASES , ORGANIZATION NPI Unavailable Unavailable ALIASES , ORGANIZATION NPI Unavailable Unavailable ALIASES , ORGANIZATION NPI Unavailable Unavailable ALIASES , ORGANIZATION NPI Unavailable Unavailable ALIASES , ORGANIZATION NPI Unavailable Unavailable ALIASES , ORGANIZATION NPI Unavailable Unavailable ALIASES , ORGANIZATION NPI Unavailable Unavailable MykeGuilleto Unavailable Guille Stringerto Unavailable KyrieMarcela Unavailable Fons, M Ashtyn MVA REACTOR OPERATOR Unavailable Unavailable Fons, M Ashtyn MVA REACTOR OPERATOR Unavailable Unavailable Fons, M Ashtyn MVA REACTOR OPERATOR Unavailable Unavailable Fons, M Ashtyn MVA REACTOR OPERATOR Unavailable Unavailable Fons, M Ashtyn MVA REACTOR OPERATOR Unavailable Unavailable Fons, M Ashtyn MVA REACTOR OPERATOR Unavailable Unavailable Fons, M Ashtyn MVA REACTOR OPERATOR Unavailable Unavailable Fons, M Ashtyn MVA REACTOR OPERATOR Unavailable Unavailable Fons, M Ashtyn MVA REACTOR OPERATOR Unavailable Unavailable Fons, M Ashtyn MVA REACTOR OPERATOR Unavailable Unavailable Fons, M Ashtyn MVA REACTOR OPERATOR Unavailable Unavailable Fons, M Ashtyn MVA REACTOR OPERATOR Unavailable Unavailable Fons, M Ashtyn MVA REACTOR OPERATOR Unavailable Unavailable Fons, M Ashtyn MVA REACTOR OPERATOR Unavailable Unavailable Fons, M Ashtyn MVA REACTOR OPERATOR Unavailable Unavailable Fons, M Ashtyn MVA REACTOR OPERATOR Unavailable Unavailable Fons, M Ashtyn MVA REACTOR OPERATOR Unavailable Unavailable Fons, M Ashtyn MVA REACTOR OPERATOR Unavailable Unavailable Fons, M Ashtyn MVA REACTOR OPERATOR Unavailable Unavailable Fons, M Ashtyn MVA REACTOR OPERATOR Unavailable Unavailable Fons, M Ashtyn MVA REACTOR OPERATOR Unavailable Unavailable Fons, M Ashtyn MVA REACTOR OPERATOR Unavailable Unavailable Fons, M Ashtyn MVA REACTOR OPERATOR Unavailable Unavailable Fons, M Ashtyn MVA REACTOR OPERATOR Unavailable Unavailable Fons, M Ashtyn MVA REACTOR OPERATOR Unavailable Unavailable Fons, M Ashtyn MVA REACTOR OPERATOR Unavailable Unavailable Fons, M Ashtyn MVA REACTOR OPERATOR Unavailable Unavailable Fons, M Ashtyn MVA REACTOR OPERATOR Unavailable Unavailable Fons, M Ashtyn MVA REACTOR OPERATOR Unavailable Unavailable Fons, M Ashtyn MVA REACTOR OPERATOR Unavailable Unavailable Fons, M Ashtyn MVA REACTOR OPERATOR Unavailable Unavailable Fons, M Ashtyn MVA REACTOR OPERATOR Unavailable Unavailable Fons, M Ashtyn MVA REACTOR OPERATOR Unavailable Unavailable Fons, M Ashtyn MVA REACTOR OPERATOR Unavailable Unavailable Fons, M Sahtyn MVA REACTOR OPERATOR Unavailable Unavailable Fons, M Ashtyn MVA REACTOR OPERATOR Unavailable Unavailable Fons, M Ashtyn MVA REACTOR OPERATOR Unavailable Unavailable Fons, M Ashtyn MVA REACTOR OPERATOR Unavailable Unavailable Fons, M Ashtyn MVA REACTOR OPERATOR Unavailable Unavailable Fons, M Ashtyn MVA REACTOR OPERATOR Unavailable Unavailable Fons, M Ashtyn MVA REACTOR OPERATOR Unavailable Unavailable Fons, M Ashtyn MVA REACTOR OPERATOR Unavailable Unavailable Fons, M Ashtyn MVA REACTOR OPERATOR Unavailable Unavailable Fons, M Ashtyn MVA REACTOR OPERATOR Unavailable Unavailable Fons, M Ashtyn MVA REACTOR OPERATOR Unavailable Unavailable Fons, M Ashtyn MVA REACTOR OPERATOR Unavailable Unavailable Fons, M Ashtyn MVA REACTOR OPERATOR Unavailable Unavailable Fons, M Ashtyn MVA REACTOR OPERATOR Unavailable Unavailable Fons, M Ashtyn MVA REACTOR OPERATOR Unavailable Unavailable Fons, M Ashtyn MVA REACTOR OPERATOR Unavailable Unavailable Fons, M Ashtyn MVA REACTOR OPERATOR Unavailable Unavailable Fons, M Ashtyn MVA REACTOR OPERATOR Unavailable Unavailable Austin Roldan MD Unavailable Unavailable Yuli, Austin Ignacio MD Unavailable Unavailable Yuli, Austin Ignacio MD Unavailable Unavailable Austin Roldan MD Unavailable Unavailable Yuli, Austin Ignacio MD Unavailable Unavailable Austin Roldan MD Unavailable Unavailable Yuli, Austin Ignacio MD Unavailable Unavailable Austin Roldan MD Unavailable Unavailable Austin Roldan MD Unavailable Unavailable Austin Roldan MD Unavailable Unavailable Austin Roldan MD Unavailable Unavailable VanAustin davis MD Unavailable Unavailable VaneenAustin peña MD Unavailable Unavailable Austin Roldan MD Unavailable Unavailable Austin Roldan MD Unavailable Unavailable Austin Roldan MD Unavailable Unavailable Austin Roldan MD Unavailable Unavailable Austin Roldan MD Unavailable Unavailable Austin Roldan MD Unavailable Unavailable Austin Roldan MD Unavailable Unavailable Austin Roldan MD Unavailable Unavailable Austin Roldan MD Unavailable Unavailable Austin Roldan MD Unavailable Unavailable Austin Roldan MD Unavailable Unavailable Austin Roldan MD Unavailable Unavailable KaiseramAustin MD Unavailable Unavailable VaneenjaniceamAustin MD Unavailable Unavailable Vaneenenaam, Austin Ignacio MD Unavailable Unavailable Vaneenenaam, Austin Ignacio MD Unavailable Unavailable Vaneenenaam, Austin Ignacio MD Unavailable Unavailable Vaneenenaam, Austin Ignacio MD Unavailable Unavailable Vaneenenaam, Austin Ignacio MD Unavailable Unavailable Vaneenenaam, Austin Ignacio MD Unavailable Unavailable VaneenenaamAustin MD Unavailable Unavailable Vaneenenaam, Austin Ignacio MD Unavailable Unavailable VaneenenaamAustin MD Unavailable Unavailable VaneenenaamAustin MD Unavailable Unavailable VaneenenaamAustin MD Unavailable Unavailable Vaneenenaam, Austin Ignacio MD Unavailable Unavailable Vaneenenaam, Austin Ignacio MD Unavailable Unavailable Vaneenenaam, Austin Ignacio MD Unavailable Unavailable VaneenenaamAustin MD Unavailable Unavailable Vaneenenaam, Austin Ignacio MD Unavailable Unavailable VaneenenaamAustin MD Unavailable Unavailable Rotella, Zo Unavailable Unavailable Re-disclosure Warning The records that you are about to access may contain information from federally-assisted alcohol or drug abuse programs. If such information is present, then the following federally mandated warning applies: This information has been disclosed to you from records protected by federal confidentiality rules (42 CFR part 2). The federal rules prohibit you from making any further disclosure of this information unless further disclosure is expressly permitted by the written consent of the person to whom it pertains or as otherwise permitted by 42 CFR part 2. A general authorization for the release of medical or other information is NOT sufficient for this purpose. The Federal rules restrict any use of the information to criminally investigate or prosecute any alcohol or drug abuse patient.The records that you are about to access may contain highly sensitive health information, the redisclosure of which is protected by Article 27-F of the [facility] Public Health law. If you continue you may have access to information: Regarding HIV / AIDS; Provided by facilities licensed or operated by the [facility] Office of Mental Health; or Provided by the [facility] Office for People With Developmental Disabilities. If such information is present, then the following [facility] mandated warning applies: This information has been disclosed to you from confidential records which are protected by state law. State law prohibits you from making any further disclosure of this information without the specific written consent of the person to whom it pertains, or as otherwise permitted by law. Any unauthorized further disclosure in violation of state law may result in a fine or group home sentence or both. A general authorization for the release of medical or other information is NOT sufficient authorization for further disc losure. Family History Family Member Name Family Member Gender Family Member Status Date o f Status Description Data Source(s) Unknown Unknown Problem [facility] ([facility], ) Encounters Encounter Providers Location Date Indications Data Source(s ) [place] [address] [facility] [address] 05/23/2021 12:00:00 AM EDT [facility]CW1 ([facility]) [place] [address] [facility] [address] 05/22/2021 12:00:00 AM EDT eCW1 ([facility]) [place] [address] [facility] [address] 05/20/2021 12:00:00 AM EDT eCW1 ([facility]) Outpatient [address] [facility] [place] [address] 05/19/2021 12:00:00 AM EDT eCW1 ([facility]) [place] [address] [facility] [place] [address] 05/19/2021 12:00:00 AM EDT eCW1 ([facility]) Extended Individual Psychotherapy - 45 min Attender: Feliciano Mittal [facility] 05/13/2021 09:00:00 AM EDT - 05/13/2021 09:00:00 AM EDT [facility] ([facility]) [place] [address] [facility] [address] 05/13/2021 12:00:00 AM EDT eCW1 ([facility]) Attender: Marcela Mittal 05/13/2021 12:00:00 A M EDT [facility] ([facility]) Outpatient Attender: Austin Roldan MD Physical Therap y 05/07/2021 11:00:00 AM EDT [facility] Health Monitoring - 15 Min Attender: Zo Campoverde [facility] 04/23/2021 09:00:00 AM EDT - 04/23/2021 09:00:00 AM EDT [facility] ([facility]) Attender: Zo Campoverde 04/23/2021 12:00:00 AM EDT [facility] ([facility]) Extended Individual Psychotherapy - 45 [facility]/18/[facility]21 10:00:00 AM EDT - 04/18/2021 10:00:00 AM EDT [facility] ([facility]) Outpatient Attender: Lubna ADRIAN [facility] 04/18/2021 09:00:00 AM EDT [facility] ([facility], ) Attender: Marcela Mittal 04/18/2021 12:00:00 A M EDT [facility] ([facility]) Unknown [address] [facility] [place] [address] 04/18/2021 12:00:00 AM EDT eCW1 ([facility]) Extended Individual Psychotherapy - 45 min Attender: Feliciano Stearnsherman [facility] 04/04/2021 10:00:00 AM EDT - 04/04/2021 10:00:00 AM EDT [facility] ([facility]) Attender: Marcela Mittal 04/04/2021 12:00:00 A M EDT [facility] ([facility]) Outpatient Attender: Paul Vazquez MD Physical Therapy 03/28/2021 0 1:15:00 PM EDT [facility] ([facility]) Unknown [address] [facility] [place] [address] 03/19/2021 12:00:00 AM EDT eCW1 ([facility]) Unknown [address] [facility] [place] [address] 03/10/2021 12:00:00 AM EDT eCW1 ([facility]) Unknown [address] [facility] [place] [address] 03/04/2021 12:00:00 AM EDT eCW1 ([facility]) Extended Individual Psychotherapy - 45 min Attender: Feliciano Stearnscorinne [facility] 02/21/2021 08:45:00 AM EDT - 02/21/2021 08:45:00 AM EDT [facility] ([facility]) Attender: Marcela Mittal 02/21/2021 12:00:00 A M EDT [facility] ([facility]) [place] [address] [facility] [address] 02/21/2021 12:00:00 AM EDT eCW1 ([facility]) [place] [address] [facility] [address] 02/14/2021 12:00:00 AM EDT eCW1 ([facility]) Extended Individual Psychotherapy - 45 min Attender: Feliciano Stearnscorinne [facility] 02/07/2021 08:00:00 AM EDT - 02/07/2021 08:00:00 AM EDT [facility] ([facility]) Attender: Marcela Mittal 02/07/2021 12:00:00 A M EDT [facility] ([facility]) Unknown [address] [facility] [address] 02/03/2021 12:00:00 AM EDT eCW1 ([facility]) Extended Individual Psychotherapy - 45 min Attender: Feliciano tSearnsjanherman [facility] 01/21/2021 10:45:00 AM EDT - 01/21/2021 10:45:00 AM EDT [facility] ([facility]) Attender: Marcela Mittal 01/21/2021 12:00:00 A M EDT [facility] ([facility]) Unknown [address] [facility] [address] 01/17/2021 12:00:00 AM EDT eCW1 ([facility]) Unknown [address] [facility] [address] 01/16/2021 12:00:00 AM EDT [facility] [place] [address] [facility] [address] 12/24/2020 12:00:00 AM EDT [facility] [place] [address] [facility] [place] [address] 12/17/2020 12:00:00 AM EDT [facility] Unknown [address] [facility] [place] [address] 12/16/2020 12:00:00 AM EDT [facility] Unknown [address] [facility] [place] [address] 12/16/2020 12:00:00 AM EDT [facility]CW1 [facility] Outpatient [address] [facility] [place] [address] 12/12/2020 12:00:00 AM EST [facility] Outpatient Attender: Ashtyn VILLALOBOS [email or web address] 12:00:00 AM EST - 12/10/2020 09:14:[address] [facility] [place] [address] [facility] [place] [address] 12/03/2020 12:00:00 AM EST [facility]CW1 [facility] Outpatient Attender: Lubna Smith [facility] 11/27/2020 07:00:00 AM EST MEDENT ([facility] SATHISH perez) Unknown [id number] [address] 10/10/2020 12:00:00 AM EST eCW1 ([facility]) Attender: Olayinka Stringer 09/24/2020 12:00:00 AM EST Accumedic ([facility]) Extended Individual Psychotherapy - 45 min Attender: Guille Stringer [facility] 09/23/2020 09:00:00 AM EST - 09/23/2020 09:00:00 AM EST [facility] ([facility]) Attender: Olayinka Stringer 09/17/2020 12:00:00 AM EST [facility] ([facility]) [id number]"Psychotherapy Attender: Olayinka Stringer [facility] 09/16/2020 09:00:00 AM EST - 09/16/2020 09:00:00 AM EST [facility] ([facility]) Extended Individual Psychotherapy - 45 min Attender: Guille silva Myke [facility] 09/11/2020 10:00:00 AM EST - 09/11/2020 10:00:00 AM EST [facility] ([facility]) Attender: Olayinka Stringer 09/11/2020 12:00:00 AM EST [facility] ([facility]) Outpatient Attender: Lubna ADRIAN Main office - [facility] 08/27/2020 07:15:00 AM EST MEDENT ([facility] ana, SATHISH) Extended Individual Psychotherapy - 45 min Attender: Guille silav Myke [facility] 08/26/2020 10:00:00 AM EST - 08/26/2020 10:00:00 AM EST [facility] ([facility]) Attender: Olayinka Stringer 08/26/2020 12:00:00 AM EST [facility] ([facility]) Outpatient Attender: SERJIO CORONA MD Main Office 08/01/2020 03:00:00 PM EDT MEDENT ([facility]) Outpatient Attender: Marah Holbrook/Oscar/Mayank/Reinzechariah 07/29/2020 11:00:00 AM EDT MEDENT ([facility]) Extended Individual Psychotherapy - 45 min Attender: Guille silva Myke [facility] 07/29/2020 08:00:00 AM EDT - 07/29/2020 08:00:00 AM EDT [facility] ([facility]) Attender: Olayinka Stringer 07/29/2020 12:00:00 AM EDT [facility] ([facility]) Extended Individual Psychotherapy - 45 min Attender: Guille silva [facility] 07/15/2020 08:00:00 AM EDT - 07/15/2020 08:00:00 AM EDT [facility] ([facility]) Attender: Olayinka Stringer 07/15/2020 12:00:00 AM EDT [facility] ([facility]) [facility] Ad[place]fo Eval no med Attender: ORGANIZATION NPI ALIASES [facility] 07/01/2020 09:00:00 AM EDT - 07/01/2020 09:00:00 AM EDT [facility] ([facility]) Attender: ORGANIZATION NPI ALIASES * 07/01/2020 12:00:00 AM EDT [facility] ([facility]) [id number]"Psychotherapy Attender: Linda Paul [facility] 06/24/2020 11:00:00 AM EDT - 06/24/2020 11:00:00 AM EDT [facility] ([facility]) Attender: Linda Paul 06/24/2020 12:00:00 AM EDT [facility] ([facility]) Outpatient [facility] 06/22/2020 12:02:28 AM EDT [facility] Outpatient [facility] 06/21/2020 03:41:00 PM EDT [facility] Outpatient [facility] 06/21/2020 03:36:00 PM EDT [facility] Outpatient Attender: Ashtyn VILLALOBOS [email or web address] 0 02:16:57 PM EDT - 06/11/2020 03:30:48 PM EDT [facility] Outpatient Attender: Lubna Smith [facility] 05/27/2020 08:15:00 AM EDT MEDENT ([facility] SATHISH Ramirez) [facility] [address] [facility] [address] 05/09/2020 12:00:00 AM EDT eCW1 ([facility]) Outpatient Attender: Marah Holbrook/Oscar/Mayank/Reindl 04/22/2020 11:30:00 AM EDT MEDENT ([facility]) Unknown [address] [facility] [address] 04/15/2020 12:00:00 AM EDT eCW1 ([facility]) Outpatient Attender: Ashtyn [email or web address] 04/02/2020 12:00:00 AM EDT [facility] Functional Status Immunizations Vaccine Date Status Description Data Source(s) COVID-19 VACCINE Pfizer 03/16/2021 12:00:00 AM EDT completed [facility] Vaccine Series Complete: YESThis Data wa s Submitted to [facility] Via [employer]. COVID-19 VACCINE Pfizer 02/23/2021 12:00:00 AM EDT completed [facility] Vaccine Series Complete: NOThis Data was Submitted to [facility] [employer]. New in 2011. IIV4 06/22/2020 11:11:00 AM EDT completed MEDROBERT ([facility]) Medications Medication Brand Name Start Date Product Form Dose Route Admi nistrative Instructions Pharmacy Instructions Status Indications Reaction Description Data Source(s) NEBULIZER AND COMPRESSOR 05/23/2021 12:00:00 AM EDT device 1 USE DIRECTED CHANGE WEEKLY USE DIRECTED CHANGE WEEKLY SOLD: 05/23/2021 [facility] Levofloxacin 500 MG Oral Tablet Levaquin 500 MG Levaquin 500 MG 05/23/2021 12:00:00 AM EDT 1.0 {tablet} active Le vaquin 500 MG eCW1 ([facility]) 500 mg 05/23/2021 12:00:00 AM EDT tablet 7 TAKE ONE TABLET BY MOUTH EVERY DAY FOR 7 DAYS TAKE ONE TABLET BY MOUTH EVERY DAY FOR 7 DAYS SOLD: 05/23/2021 [facility] Acetaminophen 300 MG / Codeine Phosphate 30 MG Oral Tablet Acetaminophen-Codeine #3 300-30 MG Acetaminophen-Codeine #3 300-30 MG 05/23/2021 12:00:00 AM EDT 1.0 {tablet_as_needed} active Acetaminophen -Codeine #3 300-30 MG eCW1 ([facility]) 20 mg 05/23/2021 12:00:00 AM EDT tablet 6 TAKE ONE TABLET BY MOUTH TWICE A DAY FOR 3 DAYS TAKE ONE TABLET BY MOUTH TWICE A DAY FOR 3 DAYS SOLD: 2020 [facility] Acetaminophen 300 MG / Codeine Phosphate 30 MG Oral Ta blet 300-30 mg ACETAMINOPHEN WITH CODEINE 05/23/2021 12:00:00 AM EDT tablet 12 TAKE ONE TABLET BY MOUTH FOUR TIMES A DAY NEEDED FOR 3 DAYS MAX 4TABS/DAY TAKE ONE TABLET BY MOUTH FOUR TIMES A DAY NEEDED FOR 3 DAYS MAX 4TABS/DAY SOLD: 05/23/2021 [facility] Prednisone 20 MG Oral Tablet predniSONE 20 MG predniSONE 20 MG 05/23/2021 12:00:00 AM EDT 1.0 {tablet} active pr edniSONE 20 MG eCW1 ([facility]) Nebulizer/Tubing/Mouthpiece - Nebulizer/Tubing/Mouthpiece - 05/22/2021 12:00:00 AM EDT active Nebulizer/Tubing/ Mouthpiece - eCW1 ([facility]) Nebulizer/Tubing/Mouthpiece - Nebulizer/Tubing/Mouthpiece - 05/22/2021 12:00:00 AM EDT active Nebulizer/Tubing/ Mouthpiece - eCW1 ([facility]) Nebulizer/Tubing/Mouthpiece - Nebulizer/Tubing/Mouthpiece - 05/22/2021 12:00:00 AM EDT active Nebulizer/Tubing/ Mouthpiece - eCW1 ([facility]) benzonatate 200 MG Oral Capsule Benzonatate 200 MG Benzonata te 200 MG 05/19/2021 12:00:00 AM EDT 1.0 {capsule} active B enzonatate 200 MG eCW1 ([facility]) 200 mg 05/19/2021 12:00:00 AM EDT capsule 30 TAKE ONE CAPSULE BY MOUTH THREE TIMES A DAY NEEDED FOR COUGH FOR 10 DAYS TAKE ONE CAPSULE BY MOUTH THREE TIMES A DAY NEEDED FOR COUGH FOR 10 DAYS SOLD: 05/20/2021 [facility] benzonatate 200 MG Oral Capsule Benzonatate 200 MG Benzonata te 200 MG 05/19/2021 12:00:00 AM EDT 1.0 {capsule} active B enzonatate 200 MG eCW1 ([facility]) benzonatate 200 MG Oral Capsule Benzonatate 200 MG Benzonata te 200 MG 05/19/2021 12:00:00 AM EDT 1.0 {capsule} active B enzonatate 200 MG eCW1 ([facility]) benzonatate 200 MG Oral Capsule Benzonatate 200 MG Benzonata te 200 MG 05/19/2021 12:00:00 AM EDT 1.0 {capsule} active B enzonatate 200 MG eCW1 ([facility]) benzonatate 200 MG Oral Capsule Benzonatate 200 MG Benzonata te 200 MG 05/19/2021 12:00:00 AM EDT 1.0 {capsule} active B enzonatate 200 MG eCW1 ([facility]) 90 mcg/actuation 05/18/2021 12:00:00 AM EDT HFA aerosol inha ler 18 INHALE TWO PUFFS BY MOUTH EVERY 4-6 HOURS NEEDED FOR WHEEZING INHALE TWO PUFFS BY MOUTH EVERY 4-6 HOURS NEEDED FOR WHEEZING SOLD: 05/20/2021 [facility] Allergy Injection 2 Or More 05/13/2021 12:00:00 AM EDT completed MEDENT ([facility]) Medication administered onsite 2.5 % 05/12/2021 12:00:00 AM EDT cream 60 APPLY TOPICALLY TWO TIMES A DAY NEEDED FOR 7-10 DAYS FOR FLARE OF DERMATITIS APPLY TOPICALLY TWO TIMES A DAY NEEDED FOR 7-10 DAYS FOR FLARE OF DERMATITIS SOLD: 05/13/2021 [facility] 17 gram/dose 05/09/2021 12:00:00 AM EDT powder 510 TAKE 17 GRAMS BY MOUTH ONCE DAILY NEEDED TAKE 17 GRAMS BY MOUTH ONCE DAILY NEEDED SOLD: 05/13/2021 [facility] Ondansetron 4 MG Disintegrating Oral Tablet ONDANSETRON 05/05/2021 12:00:00 AM EDT tablet,disintegrating 30 ALLOW 1 TA BLET BY MOUTH DISSOLVE ON TONGUE TWO TIMES A DAY NEEDED ALLOW 1 TABLET BY MOUTH DISSOLVE ON TONG UE TWO TIMES A DAY NEEDED SOLD: 05/08/2021 [facility] Ondansetron 4 MG Disintegrating Oral Tablet ONDANSETRON 05/05/2021 12:00:00 AM EDT tablet,disintegrating 30 ALLOW 1 TA BLET BY MOUTH DISSOLVE ON TONGUE TWO TIMES A DAY NEEDED ALLOW 1 TABLET BY MOUTH DISSOLVE ON TONG UE TWO TIMES A DAY NEEDED SOLD: 05/23/2021 [facility] 2 mg 05/04/2021 12:00:00 AM EDT tablet 60 TAKE ONE TABLET BY MOUTH TWICE A DAY MAXIMUM DAILY DOSE = 2 TABLETS TAKE ONE TABLET BY MOUTH TWICE A DAY MAX IMUM DAILY DOSE = 2 TABLETS SOLD: 05/08/2021 [facility] Acetaminophen 300 MG / Codeine Phosphate 30 MG Oral Ta blet 300-30 mg ACETAMINOPHEN WITH CODEINE 04/18/2021 12:00:00 AM EDT tablet 7 TAKE 1 TABLET BY MOUTH DAILY NEEDED FOR SEVERE MIGRAINE MAXIMUM DAILY DOSE = 1 TAKE 1 TABLET BY MOUTH DAILY NEEDED FOR SEVERE MIGRAINE MAXIMUM DAILY DOSE = 1 SOLD: 04/22/2021 [facility] 140 mg/mL 04/18/2021 12:00:00 AM EDT auto-injector 1 INJECT UNDER THE SKIN ONCE MONTLY INJECT UNDER THE SKIN ONCE MONTLY SOLD: 04/22/2021 [facility] 140 mg/mL 04/18/2021 12:00:00 AM EDT auto-injector 1 INJECT UNDER THE SKIN ONCE MONTLY INJECT UNDER THE SKIN ONCE MONTLY SOLD: 05/20/2021 [facility] Aimovig Aimovig 04/18/2021 12:00:00 AM EDT SUBCUTANEOUS active MEDENT ([facility]) Allergy Injection 2 Or More 04/17/2021 12:00:00 AM EDT completed MEDENT ([facility]) Medication administered onsite 75 mcg 04/15/2021 12:00:00 AM EDT tablet 30 TAKE ONE TABLET BY MOUTH EVERY MORNING ON EMPTY STOMACH TAKE ONE TABLET BY MOUTH EVERY MORNING O N EMPTY STOMACH SOLD: 04/22/2021 [facility] 75 mcg 04/15/2021 12:00:00 AM EDT tablet 30 TAKE ONE TABLET BY MOUTH EVERY MORNING ON EMPTY STOMACH TAKE ONE TABLET BY MOUTH EVERY MORNING O N EMPTY STOMACH SOLD: 05/20/2021 [facility] 2 mg 03/30/2021 12:00:00 AM EDT tablet 60 TAKE ONE TABLET BY MOUTH TWICE A DAY MAXIMUM DAILY DOSE = 2 TABLETS TAKE ONE TABLET BY MOUTH TWICE A DAY MAX IMUM DAILY DOSE = 2 TABLETS SOLD: 04/05/2021 [facility] Allergy Injection 2 Or More 03/25/2021 12:00:00 AM EDT completed MEDENT ([facility]) Medication administered onsite Hyoscyamine Sulfate 0.125 MG Sublingual Tablet HYOSCYAMINE S ULFATE 03/22/2021 12:00:00 AM EDT tablet, sublingual 30 PLACE 1 TABLE T UNDER THE TONGUE AND ALLOW TO DISSOLVE TWICE A DAY NEEDED PLACE 1 TABLET UNDER THE TONGUE AND ALLOW TO DISSOLVE TWICE A DAY NEEDED SOLD: 04/05/2021 [facility] Hyoscyamine Sulfate 0.125 MG Sublingual Tablet HYOSCYAMINE S ULFATE 03/22/2021 12:00:00 AM EDT tablet, sublingual 30 PLACE 1 TABLE T UNDER THE TONGUE AND ALLOW TO DISSOLVE TWICE A DAY NEEDED PLACE 1 TABLET UNDER THE TONGUE AND ALLOW TO DISSOLVE TWICE A DAY NEEDED SOLD: 05/08/2021 [facility] Hyoscyamine Sulfate 0.125 MG Sublingual Tablet HYOSCYAMINE S ULFATE 03/22/2021 12:00:00 AM EDT tablet, sublingual 30 PLACE 1 TABLE T UNDER THE TONGUE AND ALLOW TO DISSOLVE TWICE A DAY NEEDED PLACE 1 TABLET UNDER THE TONGUE AND ALLOW TO DISSOLVE TWICE A DAY NEEDED SOLD: 04/22/2021 [facility] Hyoscyamine Sulfate 0.125 MG Sublingual Tablet HYOSCYAMINE S ULFATE 03/22/2021 12:00:00 AM EDT tablet, sublingual 30 PLACE 1 TABLE T UNDER THE TONGUE AND ALLOW TO DISSOLVE TWICE A DAY NEEDED PLACE 1 TABLET UNDER THE TONGUE AND ALLOW TO DISSOLVE TWICE A DAY NEEDED SOLD: 05/23/2021 [facility] rizatriptan 10 MG Disintegrating Oral Tablet RIZATRIPTAN ETHEL ZOATE 03/17/2021 12:00:00 AM EDT tablet,disintegrating 9 TAKE ONE T ABLET BY MOUTH AT ONSET OF HEADACHE, MAY REPEAT IN 2 HOURS. MAXIMUM DAILY DOSE = 2 TAKE ONE TABLET BY MOUTH AT ONSET OF HEADACHE, MAY REPEAT IN 2 HOURS. MAXIMUM DAILY DOSE = 2 SOLD: 03/18/2021 [facility] rizatriptan 10 MG Disintegrating Oral Tablet RIZATRIPTAN ETHEL ZOATE 03/17/2021 12:00:00 AM EDT tablet,disintegrating 9 TAKE ONE T ABLET BY MOUTH AT ONSET OF HEADACHE, MAY REPEAT IN 2 HOURS. MAXIMUM DAILY DOSE = 2 TAKE ONE TABLET BY MOUTH AT ONSET OF HEADACHE, MAY REPEAT IN 2 HOURS. MAXIMUM DAILY DOSE = 2 SOLD: 04/14/2021 [facility] rizatriptan 10 MG Disintegrating Oral Tablet RIZATRIPTAN ETHEL MUÑIZATE 03/17/2021 12:00:00 AM EDT tablet,disintegrating 9 TAKE ONE T ABLET BY MOUTH AT ONSET OF HEADACHE, MAY REPEAT IN 2 HOURS. MAXIMUM DAILY DOSE = 2 TAKE ONE TABLET BY MOUTH AT ONSET OF HEADACHE, MAY REPEAT IN 2 HOURS. MAXIMUM DAILY DOSE = 2 SOLD: 05/13/2021 [facility] 100 mg 03/04/2021 12:00:00 AM EDT capsule 30 TAKE 1 CAPSULE BY MOUTH ONCE A DAY NEEDED TAKE 1 CAPSULE BY MOUTH ONCE A DAY NEEDED SOLD: 05/13/2021 [facility] 100 mg 03/04/2021 12:00:00 AM EDT capsule 30 TAKE 1 CAPSULE BY MOUTH ONCE A DAY NEEDED TAKE 1 CAPSULE BY MOUTH ONCE A DAY NEEDED SOLD: 03/10/2021 [facility] 100 mg 03/04/2021 12:00:00 AM EDT capsule 30 TAKE 1 CAPSULE BY MOUTH ONCE A DAY NEEDED TAKE 1 CAPSULE BY MOUTH ONCE A DAY NEEDED SOLD: 04/14/2021 [facility] Allergy Injection 2 Or More 03/04/2021 12:00:00 AM EDT completed MEDENT ([facility]) Medication administered onsite 40 mg 02/28/2021 12:00:00 AM EDT tablet 90 TAKE 1 TABLET (40MG) BY MOUTH EVERY DAY IN ADDITION TO 20MG TO EQUAL 60MG DAILY TAKE 1 TABLET (40MG) BY MOUTH EVERY DAY IN ADDITION TO 20MG TO EQUAL 60MG DAILY SOLD: 03/02/2021 [facility] 20 mg 02/28/2021 12:00:00 AM EDT tablet 90 TAKE 1 TABLET (20MG) BY MOUTH EVERY DAY WITH 40MG TABLET TO EQUAL 60MG DAILY TAKE 1 TABLET (20MG) BY MOUTH EVERY DAY WITH 40MG TABLET TO EQUAL 60MG DAILY SOLD: 03/02/2021 [facility] 25 mg 02/28/2021 12:00:00 AM EDT tablet 90 TAKE ONE TABLET BY MOUTH EVERY DAY TAKE ONE TABLET BY MOUTH EVERY DAY SOLD: 03/02/2021 [facility] 2 mg 02/25/2021 12:00:00 AM EDT tablet 60 TAKE ONE TABLET BY MOUTH TWICE A DAY MAXIMUM DAILY DOSE = 2 TABLETS TAKE ONE TABLET BY MOUTH TWICE A DAY MAX IMUM DAILY DOSE = 2 TABLETS SOLD: 03/02/2021 [facility] 2.5 % 02/14/2021 12:00:00 AM EDT cream 60 APPLY TOPICALLY TWO TIMES A DAY NEEDED FOR 7-10 DAYS FOR FLARE OF DERMATITIS APPLY TOPICALLY TWO TIMES A DAY NEEDED FOR 7-10 DAYS FOR FLARE OF DERMATITIS SOLD: 03/18/2021 [facility] 2.5 % 02/14/2021 12:00:00 AM EDT cream 60 APPLY TOPICALLY TWO TIMES A DAY NEEDED FOR 7-10 DAYS FOR FLARE OF DERMATITIS APPLY TOPICALLY TWO TIMES A DAY NEEDED FOR 7-10 DAYS FOR FLARE OF DERMATITIS SOLD: 04/14/2021 [facility] 2.5 % 02/14/2021 12:00:00 AM EDT cream 60 APPLY TOPICALLY TWO TIMES A DAY NEEDED FOR 7-10 DAYS FOR FLARE OF DERMATITIS APPLY TOPICALLY TWO TIMES A DAY NEEDED FOR 7-10 DAYS FOR FLARE OF DERMATITIS SOLD: 02/18/2021 [facility] 70 mg/mL 02/10/2021 12:00:00 AM EDT auto-injector 1 INJECT 70MG UNDER THE SKIN ONCE MONTHLY INJECT 70MG UNDER THE SKIN ONCE MONTHLY SOLD: 02/18/2021 [facility] 70 mg/mL 02/10/2021 12:00:00 AM EDT auto-injector 1 INJECT 70MG UNDER THE SKIN ONCE MONTHLY INJECT 70MG UNDER THE SKIN ONCE MONTHLY SOLD: 03/18/2021 [facility] 70 mg/mL 02/10/2021 12:00:00 AM EDT auto-injector 1 INJECT 70MG UNDER THE SKIN ONCE MONTHLY INJECT 70MG UNDER THE SKIN ONCE MONTHLY SOLD: 04/14/2021 [facility] Allergy Injection 2 Or More 02/10/2021 12:00:00 AM EDT completed MEDENT ([facility]) Medication administered onsite 25 mg 02/08/2021 12:00:00 AM EDT tablet extended release 24 hr 90 TAKE ONE TABLET BY MOUTH ONCE DAILY TAKE ONE TABLET BY MOUTH ONCE DAILY SOLD: 02/10/2021 [facility] 25 mg 02/08/2021 12:00:00 AM EDT tablet extended release 24 hr 90 TAKE ONE TABLET BY MOUTH ONCE DAILY TAKE ONE TABLET BY MOUTH ONCE DAILY SOLD: 05/13/2021 [facility] 60 ACTUAT Fluticasone propionate 0.113 M G/ACTUAT / Salmeterol xinafoate 0.014 MG/ACTUAT Dry Powder Inhaler 113-14 mcg/actuation FLUTICASONE PROPION/SALMETEROL 02/03/2021 12:00:00 AM EDT aerosol powdr breath activated 1 INHALE ONE PUFF BY MOUTH TWICE A DAY INHALE ONE PUFF BY MOUTH TWICE A DAY SOLD: 05/13/2021 [facility] 200 ACTUAT Albuterol 0.09 MG/ACTUAT Metered Dose Inhal er [Ventolin] Ventolin HFA 02/03/2021 12:00:00 AM EDT RESPIRATORY active MEDENT ([facility], ) Airduo Respiclick 113/14 Airduo Respiclick 113/14 02/03/2021 12:00: 00 AM EDT ORAL active MEDENT ([facility], ) 2.5 mg /3 mL (0.083 %) 02/03/2021 12:00:00 AM EDT solu tion for nebulization 150 USE 1 VIAL VIA NEBULIZER FOUR TIMES A DA Y NEEDED USE 1 VIAL VIA NEBULIZER FOUR TIMES A DAY NEEDED SOLD: 03/10/2021 [facility] 2.5 mg /3 mL (0.083 %) 02/03/2021 12:00:00 AM EDT solu tion for nebulization 150 USE 1 VIAL VIA NEBULIZER FOUR TIMES A DA Y NEEDED USE 1 VIAL VIA NEBULIZER FOUR TIMES A DAY NEEDED SOLD: 02/10/2021 [facility] CPAP 02/03/2021 12:00:00 AM EDT active MEDENT ([facility], ) Albuterol 0.83 MG/ML Inhalant Solution Albuterol Sulfate 0 02/03/2021 12:00:00 AM EDT active MEDENT ([facility], ) 60 ACTUAT Fluticasone propionate 0.113 M G/ACTUAT / Salmeterol xinafoate 0.014 MG/ACTUAT Dry Powder Inhaler 113-14 mcg/actuation FLUTICASONE PROPION/SALMETEROL 02/03/2021 12:00:00 AM EDT aerosol powdr breath activated 1 INHALE ONE PUFF BY MOUTH TWICE A DAY INHALE ONE PUFF BY MOUTH TWICE A DAY SOLD: 02/10/2021 [facility] 60 ACTUAT Fluticasone propionate 0.113 M G/ACTUAT / Salmeterol xinafoate 0.014 MG/ACTUAT Dry Powder Inhaler 113-14 mcg/actuation FLUTICASONE PROPION/SALMETEROL 02/03/2021 12:00:00 AM EDT aerosol powdr breath activated 1 INHALE ONE PUFF BY MOUTH TWICE A DAY INHALE ONE PUFF BY MOUTH TWICE A DAY SOLD: 03/10/2021 [facility] 60 ACTUAT Fluticasone propionate 0.113 M G/ACTUAT / Salmeterol xinafoate 0.014 MG/ACTUAT Dry Powder Inhaler 113-14 mcg/actuation FLUTICASONE PROPION/SALMETEROL 02/03/2021 12:00:00 AM EDT aerosol powdr breath activated 1 INHALE ONE PUFF BY MOUTH TWICE A DAY INHALE ONE PUFF BY MOUTH TWICE A DAY SOLD: 04/14/2021 [facility] montelukast 10 MG Oral Tablet MONTELUKAST SODIUM 01/28/2021 12:0 0:00 AM EDT tablet 90 TAKE 1 TABLET BY MOUTH ONCE A DA Y IN THE MORNING TAKE 1 TABLET BY MOUTH ONCE A DAY IN THE MORNING SOLD: 05/08/2021 [facility] 17 mcg/actuation 01/21/2021 12:00:00 AM EDT HFA aerosol inha ler 12 INHALE TWO PUFFS BY MOUTH FOUR TIMES A DAY INHALE TWO PUFFS BY MOUTH FOUR TIMES A DAY SOLD: 01/22/2021 [facility] 17 mcg/actuation 01/21/2021 12:00:00 AM EDT HFA aerosol inha ler 12 INHALE TWO PUFFS BY MOUTH FOUR TIMES A DAY INHALE TWO PUFFS BY MOUTH FOUR TIMES A DAY SOLD: 02/18/2021 [facility] 17 mcg/actuation 01/21/2021 12:00:00 AM EDT HFA aerosol inha ler 12 INHALE TWO PUFFS BY MOUTH FOUR TIMES A DAY INHALE TWO PUFFS BY MOUTH FOUR TIMES A DAY SOLD: 03/18/2021 [facility] 17 mcg/actuation 01/21/2021 12:00:00 AM EDT HFA aerosol inha ler 12 INHALE TWO PUFFS BY MOUTH FOUR TIMES A DAY INHALE TWO PUFFS BY MOUTH FOUR TIMES A DAY SOLD: 04/14/2021 [facility] 17 mcg/actuation 01/21/2021 12:00:00 AM EDT HFA aerosol inha ler 12 INHALE TWO PUFFS BY MOUTH FOUR TIMES A DAY INHALE TWO PUFFS BY MOUTH FOUR TIMES A DAY SOLD: 05/08/2021 [facility] 40 mg 01/17/2021 12:00:00 AM EDT tablet 30 TAKE ONE TABLET BY MOUTH EVERY DAY MAXIMUM DAILY DOSE = 1 TABLET TAKE ONE TABLET BY MOUTH EVERY DAY MAXIM UM DAILY DOSE = 1 TABLET SOLD: 01/17/2021 [facility] 40 mg 01/17/2021 12:00:00 AM EDT tablet 30 TAKE ONE TABLET BY MOUTH EVERY DAY MAXIMUM DAILY DOSE = 1 TABLET TAKE ONE TABLET BY MOUTH EVERY DAY MAXIM UM DAILY DOSE = 1 TABLET SOLD: 02/18/2021 [facility] 40 mg 01/17/2021 12:00:00 AM EDT tablet 30 TAKE ONE TABLET BY MOUTH EVERY DAY MAXIMUM DAILY DOSE = 1 TABLET TAKE ONE TABLET BY MOUTH EVERY DAY MAXIM UM DAILY DOSE = 1 TABLET SOLD: 03/20/2021 [facility] 40 mg 01/17/2021 12:00:00 AM EDT tablet 30 TAKE ONE TABLET BY MOUTH EVERY DAY MAXIMUM DAILY DOSE = 1 TABLET TAKE ONE TABLET BY MOUTH EVERY DAY MAXIM UM DAILY DOSE = 1 TABLET SOLD: 04/22/2021 [facility] 40 mg 01/17/2021 12:00:00 AM EDT tablet 30 TAKE ONE TABLET BY MOUTH EVERY DAY MAXIMUM DAILY DOSE = 1 TABLET TAKE ONE TABLET BY MOUTH EVERY DAY MAXIM UM DAILY DOSE = 1 TABLET SOLD: 05/20/2021 [facility] 2 mg 01/17/2021 12:00:00 AM EDT tablet 60 TAKE 1 TABLET BY MOUTH TWICE A DAY MAXIMUM DAILY DOSE = 2 TABLETS TAKE 1 TABLET BY MOUTH TWICE A DAY MAXIM UM DAILY DOSE = 2 TABLETS SOLD: 01/22/2021 [facility] Allergy Injection 2 Or More 01/16/2021 12:00:00 AM EDT completed MEDENT ([facility]) Medication administered onsite 10 mg 01/13/2021 12:00:00 AM EDT tablet,disintegrating 9 TAKE 1 TAB. BY MOUTH ONSET OF HEADACHE, MAY REPEAT IN 2 HRS. MAX DAILY DOSE = 2 TAB. TAKE 1 TAB. BY MOUTH ONSET OF HEADACHE, MAY REPEAT IN 2 HRS. MAX DAILY DOSE = 2 TAB. SOLD: 02/18/2021 [facility] rizatriptan 10 MG Disintegrating Oral Tablet RIZATRIPTAN ETHEL ZOATE 01/13/2021 12:00:00 AM EDT tablet,disintegrating 9 TAKE 1 TAB . BY MOUTH ONSET OF HEADACHE, MAY REPEAT IN 2 HRS. MAX DAILY DOSE = 2 TAB. TAKE 1 TAB. BY MOUTH ONSET OF HEADACHE, MAY REPEAT IN 2 HRS. MAX DAILY DOSE = 2 TAB. SOLD: 01/17/2021 [facility] 5 mg 01/03/2021 12:00:00 AM EDT tablet 60 TAKE ONE TABLET BY MOUTH TWICE A DAY TAKE ONE TABLET BY MOUTH TWICE A DAY SOLD: 04/14/2021 [facility] 5 mg 01/03/2021 12:00:00 AM EDT tablet 60 TAKE ONE TABLET BY MOUTH TWICE A DAY TAKE ONE TABLET BY MOUTH TWICE A DAY SOLD: 05/13/2021 [facility] 5 mg 01/03/2021 12:00:00 AM EDT tablet 60 TAKE ONE TABLET BY MOUTH TWICE A DAY TAKE ONE TABLET BY MOUTH TWICE A DAY SOLD: 02/10/2021 [facility] 5 mg 01/03/2021 12:00:00 AM EDT tablet 60 TAKE ONE TABLET BY MOUTH TWICE A DAY TAKE ONE TABLET BY MOUTH TWICE A DAY SOLD: 03/10/2021 [facility] 5 mg 01/03/2021 12:00:00 AM EDT tablet 60 TAKE ONE TABLET BY MOUTH TWICE A DAY TAKE ONE TABLET BY MOUTH TWICE A DAY SOLD: 01/04/2021 [facility] 10 mg 12/27/2020 12:00:00 AM EDT tablet 30 TAKE 1 TABLET [10MG] BY MOUTH ONCE DAILY FOR 30 DAYS TAKE 1 TABLET [10MG] BY MOUTH ONCE DAILY FOR 30 DAYS SOLD: 04/05/2021 [facility] 10 mg 12/27/2020 12:00:00 AM EDT tablet 30 TAKE 1 TABLET [10MG] BY MOUTH ONCE DAILY FOR 30 DAYS TAKE 1 TABLET [10MG] BY MOUTH ONCE DAILY FOR 30 DAYS SOLD: 05/08/2021 [facility] 10 mg 12/27/2020 12:00:00 AM EDT tablet 30 TAKE 1 TABLET [10MG] BY MOUTH ONCE DAILY FOR 30 DAYS TAKE 1 TABLET [10MG] BY MOUTH ONCE DAILY FOR 30 DAYS SOLD: 03/02/2021 [facility] 10 mg 12/27/2020 12:00:00 AM EDT tablet 30 TAKE 1 TABLET [10MG] BY MOUTH ONCE DAILY FOR 30 DAYS TAKE 1 TABLET [10MG] BY MOUTH ONCE DAILY FOR 30 DAYS SOLD: 12/31/2020 [facility] Allergy Injection 2 Or More 12/26/2020 12:00:00 AM EDT completed [facility] ([facility]) Medication administered onsite Sodium Chloride 0.111 MEQ/ML Nasal Malin [[employer] brand of sodium chloride] [employer] Nasal Malin 0.65 % [employer] Nasal Malin 0.65 % 12/17/2020 12:00:00 AM EDT active eCW1 ([facility]) 125 mg 12/17/2020 12:00:00 AM EDT capsule 120 TAKE ONE CAPSULE BY MOUTH FOUR TIMES A DAY AFTER MEALS AND AT BEDTIME NEEDED TAKE ONE CAPSULE BY MOUTH FOUR TIMES A DAY AFTER MEALS AND AT BEDTIME NEEDED SOLD: 12/27/2020 [facility] Sodium Chloride 0.111 MEQ/ML Nasal Malin [[employer] brand of sodium chloride] [employer] Nasal Malin 0.65 % [employer] Nasal Malin 0.65 % 12/17/2020 12:00:00 AM EDT active [employer] Nasal Malin 0.65 % eCW 1 ([facility]) Sodium Chloride 0.111 MEQ/ML Nasal Malin [[employer] brand of sodium chloride] [employer] Nas[employer] Malin 0.65 % [employer] Nasal Malin 0.65 % 12/17/2020 12:00:00 AM EDT active [employer] Nasal [facility] 0.65 % eCW 1 ([facility]) Sodium Chloride 0.111 MEQ/ML Nasal Malin [[employer] brand of sodium chloride] [employer] Nasal Malin 0.65 % [employer] Nas[facility] 0.65 % 12/17/2020 12:00:00 AM EDT active [employer] Nasal [place] 0.65 % eCW 1 ([facility]) 0.65 % 12/17/2020 12:00:00 AM EDT aerosol,spray 45 SPRAY 2 SPRAYS IN EACH NOSTRIL FOUR TIMES A DAY NEEDED SPRAY 2 SPRAYS IN EACH NOSTRIL FOUR TIME S A DAY NEEDED SOLD: 05/08/2021 [facility] Sodium Chloride 0.111 MEQ/ML Nasal Malin [[employer] brand of sodium chloride] [employer] Nasal Malin 0.65 % [employer] Nasal Malin 0.65 % 12/17/2020 12:00:00 AM EDT active [employer] Nasal [place] 0.65 % eCW 1 ([facility]) Sodium Chloride 0.111 MEQ/ML Nasal Malin [[employer] brand of sodium chloride] [employer] Nasal Malin 0.65 % [employer] Nasal Malin 0.65 % 12/17/2020 12:00:00 AM EDT active [employer] Nasal Malin 0.65 % eCW 1 ([facility]) Sodium Chloride 0.111 MEQ/ML Nasal Malin [[employer] brand of sodium chloride] [employer] Nasal Malin 0.65 % [employer] Nasal Malin 0.65 % 12/17/2020 12:00:00 AM EDT active [employer] Nasal [place] 0.65 % eCW 1 ([facility]) Sodium Chloride 0.111 MEQ/ML Nasal Malin [[employer] brand of sodium chloride] [employer] Nasal Malin 0.65 % [employer] Nasal Malin 0.65 % 12/17/2020 12:00:00 AM EDT active [employer] Nasal [place] 0.65 % eCW 1 ([facility]) Sodium Chloride 0.111 MEQ/ML Nasal Malin [[employer] brand of sodium chloride] [employer] Nasal Malin 0.65 % [employer] Nasal Malin 0.65 % 12/17/2020 12:00:00 AM EDT active [employer] Nasal Mal[place] 0.65 % eCW 1 ([facility]) Sodium Chloride 0.111 MEQ/ML Nasal Malin [[employer] brand of sodium chloride] [employer] Nasal Malin 0.65 % [employer] Nasal Malin 0.65 % 12/17/2020 12:00:00 AM EDT active [employer] Nasal Malin 0.65 % eCW 1 ([facility]) 0.65 % 12/17/2020 12:00:00 AM EDT aerosol,spray 44 SPRAY 2 SPRAYS IN EACH NOSTRIL FOUR TIMES A DAY NEEDED SPRAY 2 SPRAYS IN EACH NOSTRIL FOUR TIME S A DAY NEEDED SOLD: 03/02/2021 [facility] 0.65 % 12/17/2020 12:00:00 AM EDT aerosol,spray 44 SPRAY 2 SPRAYS IN EACH NOSTRIL FOUR TIMES A DAY NEEDED SPRAY 2 SPRAYS IN EACH NOSTRIL FOUR TIME S A DAY NEEDED SOLD: 04/05/2021 [facility] Sodium Chloride 0.111 MEQ/ML Nasal Malin [[employer] brand of sodium chloride] [employer] Nasal Malin 0.65 % [employer] Nasal Malin 0.65 % 12/17/2020 12:00:00 AM EDT active [employer] Nasal [place] 0.65 % eCW 1 ([facility]) 0.65 % 12/17/2020 12:00:00 AM EDT aerosol,spray 44 SPRAY 2 SPRAYS IN EACH NOSTRIL FOUR TIMES A DAY NEEDED SPRAY 2 SPRAYS IN EACH NOSTRIL FOUR TIME S A DAY NEEDED SOLD: 12/27/2020 [facility] Sodium Chloride 0.111 MEQ/ML Nasal Malin [[employer] brand of sodium chloride] [employer] Nasal Malin 0.65 % [employer] Nasal Malin 0.65 % 12/17/2020 12:00:00 AM EDT active [employer] Nasal Mal[place] 0.65 % eCW 1 ([facility]) Sodium Chloride 0.111 MEQ/ML Nasal Malin [[employer] brand of sodium chloride] [employer] Nasal Malin 0.65 % [employer] Nasal Malin 0.65 % 12/17/2020 12:00:00 AM EDT active [employer] Nasal Malin 0.65 % eCW 1 ([facility]) Sodium Chloride 0.111 MEQ/ML Nasal Malin [[employer] brand of sodium chloride] [employer] Nasal Malin 0.65 % [employer] Nasal Malin 0.65 % 12/17/2020 12:00:00 AM EDT active [employer] Nasal [place] 0.65 % eCW 1 ([facility]) Sodium Chloride 0.111 MEQ/ML Nasal Malin [[employer] brand of sodium chloride] [employer] Nasal Malin 0.65 % [employer] Nasal Malin 0.65 % 12/17/2020 12:00:00 AM EDT active [employer] Nasal Malin 0.65 % eCW 1 ([facility]) Sodium Chloride 0.111 MEQ/ML Nasal Malin [[employer] brand of sodium chloride] [employer] Nasal Malin 0.65 % [employer] Nasal Malin 0.65 % 12/17/2020 12:00:00 AM EDT active [employer] Nasal Malin 0.65 % eCW 1 ([facility]) Sodium Chloride 0.111 MEQ/ML Nasal Malin [[employer] brand of sodium chloride] [employer] Nasal Malin 0.65 % [employer] Nasal Malin 0.65 % 12/17/2020 12:00:00 AM EDT active [employer] Nasal Malin 0.65 % eCW 1 ([facility]) Sodium Chloride 0.111 MEQ/ML Nasal Malin [[employer] brand of sodium chloride] [employer] Nasal Malin 0.65 % [employer] Nasal Malin 0.65 % 12/17/2020 12:00:00 AM EDT active [employer] Nasal Malin 0.65 % eCW 1 ([facility]) Sodium Chloride 0.111 MEQ/ML Nasal Malin [[employer] brand of sodium chloride] [employer] Nasal Malin 0.65 % [employer] Nasal Malin 0.65 % 12/17/2020 12:00:00 AM EDT active [employer] Nasal Malin 0.65 % eCW 1 ([facility]) Sodium Chloride 0.111 MEQ/ML Nasal Malin [[employer] brand of sodium chloride] [employer] Nasal Malin 0.65 % [employer] Nasal Malin 0.65 % 12/17/2020 12:00:00 AM EDT active [employer] Nasal [place] 0.65 % eCW 1 ([facility]) pantoprazole 40 MG Delayed Release Oral Tablet PANTOPRAZOLE SODIUM 12/13/2020 12:00:00 AM EST tablet,delayed release (DR/EC) 30 T MONI 1 TABLET BY MOUTH DAILY TAKE 1 TABLET BY MOUTH DAILY SOLD: 05/13/2021 [facility] pantoprazole 40 MG Delayed Release Oral Tablet PANTOPRAZOLE SODIUM 12/13/2020 12:00:00 AM EST tablet,delayed release (DR/EC) 30 T MONI 1 TABLET BY MOUTH DAILY TAKE 1 TABLET BY MOUTH DAILY SOLD: 12/14/2020 [facility] pantoprazole 40 MG Delayed Release Oral Tablet PANTOPRAZOLE SODIUM 12/13/2020 12:00:00 AM EST tablet,delayed release (DR/EC) 30 T MONI 1 TABLET BY MOUTH DAILY TAKE 1 TABLET BY MOUTH DAILY SOLD: 04/14/2021 [facility] pantoprazole 40 MG Delayed Release Oral Tablet PANTOPRAZOLE SODIUM 12/13/2020 12:00:00 AM EST tablet,delayed release (DR/EC) 30 T MONI 1 TABLET BY MOUTH DAILY TAKE 1 TABLET BY MOUTH DAILY SOLD: 03/18/2021 [facility] pantoprazole 40 MG Delayed Release Oral Tablet PANTOPRAZOLE SODIUM 12/13/2020 12:00:00 AM EST tablet,delayed release (DR/EC) 30 T MONI 1 TABLET BY MOUTH DAILY TAKE 1 TABLET BY MOUTH DAILY SOLD: 02/18/2021 [facility] pantoprazole 40 MG Delayed Release Oral Tablet PANTOPRAZOLE SODIUM 12/13/2020 12:00:00 AM EST tablet,delayed release (DR/EC) 30 T MONI 1 TABLET BY MOUTH DAILY TAKE 1 TABLET BY MOUTH DAILY SOLD: 01/17/2021 [facility] Hyoscyamine Sulfate 0.125 MG Sublingual Tablet HYOSCYAMINE S ULFATE 12/12/2020 12:00:00 AM EST tablet, sublingual 30 PLACE 1 TABLE T UNDER THE TONGUE & ALLOW TO DISSOLVE TWICE DAILY NEEDED PLACE 1 TABLET UNDER THE TONGUE & ALLOW TO DISSOLVE TWICE DAILY NEEDED SOLD: 03/10/2021 [facility] Simethicone Extra Strength 125 MG Simethicone Extra Strength 125 MG 12/12/2020 12:00:00 AM EST 1.0 {capsule_after_meals_and_at_bedtime_as_needed} active Simethicone Extra Strength 125 M G eCW1 ([facility]) Simethicone Extra Strength 125 MG Simeth[employer]one Extra Strength 125 MG 12/12/2020 12:00:00 AM EST 1.0 {capsule_after_meals_and_at_bedtime_as_needed} active Simeth[employer]one Extra Strength 125 M G eCW1 ([facility]) [place] [facility] Nasal - [place] [facility] Nasal - 12/12/2020 12:00:00 AM EST active [place] Nasal - eCW1 ([facility]) Simethicone Extra Strength 125 MG Simethicone Extra Strength 125 MG 12/12/2020 12:00:00 AM EST 1.0 {capsule_after_meals_and_at_bedtime_as_needed} active Simethicone Extra Strength 125 M G eCW1 ([facility]) Simethicone Extra Strength 125 MG [employer]eth[employer]one Extra Strength 125 MG 12/12/2020 12:00:00 AM EST 1.0 {capsule_after_meals_and_at_bedtime_as_needed} active [employer] Extra Strength 125 M G eCW1 ([facility]) Hyoscyamine Sulfate 0.125 MG Sublingual Tablet HYOSCYAMINE S ULFATE 12/12/2020 12:00:00 AM EST tablet, sublingual 30 PLACE 1 TABLE T UNDER THE TONGUE & ALLOW TO DISSOLVE TWICE DAILY NEEDED PLACE 1 TABLET UNDER THE TONGUE & ALLOW TO DISSOLVE TWICE DAILY NEEDED SOLD: 02/10/2021 [facility] Metoprolol Tartrate 25 MG Oral Tablet Metoprolol Tartrate 25 MG 12/12/2020 12:00:00 AM EST 1.0 {tablet_with_food} active Metoprolol Tartrate 25 MG eCW1 ([facility]) Metoprolol Tartrate 25 MG Oral Tablet Metoprolol Tartrate 25 MG 12/12/2020 12:00:00 AM EST 1.0 {tablet_with_food} active Metoprolol Tartrate 25 MG eCW1 ([facility]) [place] Sal[place] Nasal - [place] Nasal - 12/12/2020 12:00:00 AM EST active [place] [facility] Nasal - eCW1 ([facility]) Hyoscyamine Sulfate 0.125 MG Sublingual Tablet Hyoscyamine S ulfate 0.125 MG 12/12/2020 12:00:00 AM EST active Hyoscyamine Sulfate 0.125 MG eCW1 ([facility]) Simethicone Extra Strength 125 MG Simeth[employer]one Extra Strength 125 MG 12/12/2020 12:00:00 AM EST 1.0 {capsule_after_meals_and_at_bedtime_as_needed} active Simeth[employer]one Extra Strength 125 M G eCW1 ([facility]) Simethicone Extra Strength 125 MG Simeth[employer]one Extra Strength 125 MG 12/12/2020 12:00:00 AM EST 1.0 {capsule_after_meals_and_at_bedtime_as_needed} active [employer]eth[employer]one Extra Strength 125 M G eCW1 ([facility]) [place] Sal[place] Nasal - [place] Nasal - 12/12/2020 12:00:00 AM EST active [place] Nasal - eCW1 ([facility]) Metoprolol Tartrate 25 MG Oral Tablet Metoprolol Tartrate 25 MG 12/12/2020 12:00:00 AM EST 1.0 {tablet_with_food} active Metoprolol Tartrate 25 MG eCW1 ([facility]) Metoprolol Tartrate 25 MG Oral Tablet Metoprolol Tartrate 25 MG 12/12/2020 12:00:00 AM EST 1.0 {tablet_with_food} active Metoprolol Tartrate 25 MG eCW1 ([facility]) [place] Nasal - [place] Nasal - 12/12/2020 12:00:00 AM EST active [place] Nasal - eCW1 ([facility]) Metoprolol Tartrate 25 MG Oral Tablet Metoprolol Tartrate 25 MG 12/12/2020 12:00:00 AM EST 1.0 {tablet_with_food} active Metoprolol Tartrate 25 MG eCW1 ([facility]) Metoprolol Tartrate 25 MG Oral Tablet Metoprolol Tartrate 25 MG 12/12/2020 12:00:00 AM EST 1.0 {tablet_with_food} active Metoprolol Tartrate 25 MG eCW1 ([facility]) Hyoscyamine Sulfate 0.125 MG Sublingual Tablet Hyoscyamine S ulfate 0.125 MG 12/12/2020 12:00:00 AM EST active Hyoscyamine Sulfate 0.125 MG eCW1 ([facility]) [place] Nasal - [place] Nasal - 12/12/2020 12:00:00 AM EST active [place] Nasal - eCW1 ([facility]) Metoprolol Tartrate 25 MG Oral Tablet Metoprolol Tartrate 25 MG 12/12/2020 12:00:00 AM EST 1.0 {tablet_with_food} active Metoprolol Tartrate 25 MG eCW1 ([facility]) Metoprolol Tartrate 25 MG Oral Tablet Metoprolol Tartrate 25 MG 12/12/2020 12:00:00 AM EST 1.0 {tablet_with_food} active Metoprolol Tartrate 25 MG eCW1 ([facility]) Metoprolol Tartrate 25 MG Oral Tablet Metoprolol Tartrate 25 MG 12/12/2020 12:00:00 AM EST 1.0 {tablet_with_food} active Metoprolol Tartrate 25 MG eCW1 ([facility]) Metoprolol Tartrate 25 MG Oral Tablet Metoprolol Tartrate 25 MG 12/12/2020 12:00:00 AM EST 1.0 {tablet_with_food} active Metoprolol Tartrate 25 MG eCW1 ([facility]) [place] Nasal - [place] Nasal - 12/12/2020 12:00:00 AM EST active [place] Nasal - eCW1 ([facility]) Metoprolol Tartrate 25 MG Oral Tablet Metoprolol Tartrate 25 MG 12/12/2020 12:00:00 AM EST 1.0 {tablet_with_food} active Metoprolol Tartrate 25 MG eCW1 ([facility]) [employer] Extra Strength 125 MG [employer] Extra Strength 125 MG 12/12/2020 12:00:00 AM EST 1.0 {capsule_after_meals_and_at_bedtime_as_needed} active [employer] Extra Strength 125 M G eCW1 ([facility]) [employer]eth[employer] Extra Strength 125 MG [employer] Extra Strength 125 MG 12/12/2020 12:00:00 AM EST 1.0 {capsule_after_meals_and_at_bedtime_as_needed} active [employer] Extra Strength 125 M G eCW1 ([facility]) Hyoscyamine Sulfate 0.125 MG Sublingual Tablet Hyoscyamine S ulfate 0.125 MG 12/12/2020 12:00:00 AM EST active Hyoscyamine Sulfate 0.125 MG eCW1 ([facility]) [employer] Extra Strength 125 MG [employer] Extra Strength 125 MG 12/12/2020 12:00:00 AM EST 1.0 {capsule_after_meals_and_at_bedtime_as_needed} active [employer]eth[employer] Extra Strength 125 M G eCW1 ([facility]) [employer]eth[employer]one Extra Strength 125 MG [employer] Extra Strength 125 MG 12/12/2020 12:00:00 AM EST 1.0 {capsule_after_meals_and_at_bedtime_as_needed} active [employer] Extra Strength 125 M G eCW1 ([facility]) [place] Nasal - [place] Nasal - 12/12/2020 12:00:00 AM EST active [place] Nasal - eCW1 ([facility]) [employer]eth[employer]one Extra Strength 125 MG [employer] Extra Strength 125 MG 12/12/2020 12:00:00 AM EST 1.0 {capsule_after_meals_and_at_bedtime_as_needed} active [employer]eth[employer] Extra Strength 125 M G eCW1 ([facility]) [employer] Extra Strength 125 MG [employer] Extra Strength 125 MG 12/12/2020 12:00:00 AM EST 1.0 {capsule_after_meals_and_at_bedtime_as_needed} active [employer] Extra Strength 125 M G eCW1 ([facility]) [place] Nasal - [place] Nasal - 12/12/2020 12:00:00 AM EST active [place] Nasal - eCW1 ([facility]) Metoprolol Tartrate 25 MG Oral Tablet Metoprolol Tartrate 25 MG 12/12/2020 12:00:00 AM EST 1.0 {tablet_with_food} active Metoprolol Tartrate 25 MG eCW1 ([facility]) Metoprolol Tartrate 25 MG Oral Tablet Metoprolol Tartrate 25 MG 12/12/2020 12:00:00 AM EST 1.0 {tablet_with_food} active Metoprolol Tartrate 25 MG eCW1 ([facility]) Hyoscyamine Sulfate 0.125 MG Sublingual Tablet Hyoscyamine S ulfate 0.125 MG 12/12/2020 12:00:00 AM EST active Hyoscyamine Sulfate 0.125 MG eCW1 ([facility]) [employer]eth[employer] Extra Strength 125 MG [employer] Extra Strength 125 MG 12/12/2020 12:00:00 AM EST 1.0 {capsule_after_meals_and_at_bedtime_as_needed} active [employer]eth[employer] Extra Strength 125 M G eCW1 ([facility]) [employer]eth[employer]one Extra Strength 125 MG [employer] Extra Strength 125 MG 12/12/2020 12:00:00 AM EST 1.0 {capsule_after_meals_and_at_bedtime_as_needed} active [employer] Extra Strength 125 M G eCW1 ([facility]) Metoprolol Tartrate 25 MG Oral Tablet Metoprolol Tartrate 25 MG 12/12/2020 12:00:00 AM EST 1.0 {tablet_with_food} active Metoprolol Tartrate 25 MG eCW1 ([facility]) [employer]eth[employer]one Extra Strength 125 MG [employer] Extra Strength 125 MG 12/12/2020 12:00:00 AM EST 1.0 {capsule_after_meals_and_at_bedtime_as_needed} active [employer] Extra Strength 125 M G eCW1 ([facility]) Metoprolol Tartrate 25 MG Oral Tablet Metoprolol Tartrate 25 MG 12/12/2020 12:00:00 AM EST 1.0 {tablet_with_food} active Metoprolol Tartrate 25 MG eCW1 ([facility]) Metoprolol Tartrate 25 MG Oral Tablet Metoprolol Tartrate 25 MG 12/12/2020 12:00:00 AM EST 1.0 {tablet_with_food} active Metoprolol Tartrate 25 MG eCW1 ([facility]) Metoprolol Tartrate 25 MG Oral Tablet Metoprolol Tartrate 25 MG 12/12/2020 12:00:00 AM EST 1.0 {tablet_with_food} active Metoprolol Tartrate 25 MG eCW1 ([facility]) Hyoscyamine Sulfate 0.125 MG Sublingual Tablet Hyoscyamine S ulfate 0.125 MG 12/12/2020 12:00:00 AM EST active Hyoscyamine Sulfate 0.125 MG eCW1 ([facility]) Metoprolol Tartrate 25 MG Oral Tablet Metoprolol Tartrate 25 MG 12/12/2020 12:00:00 AM EST 1.0 {tablet_with_food} active eCW1 ([facility]) Hyoscyamine Sulfate 0.125 MG Sublingual Tablet Hyoscyamine S ulfate 0.125 MG 12/12/2020 12:00:00 AM EST active Hyoscyamine Sulfate 0.125 MG eCW1 ([facility]) Metoprolol Tartrate 25 MG Oral Tablet Metoprolol Tartrate 25 MG 12/12/2020 12:00:00 AM EST 1.0 {tablet_with_food} active Metoprolol Tartrate 25 MG eCW1 ([facility]) Metoprolol Tartrate 25 MG Oral Tablet Metoprolol Tartrate 25 MG 12/12/2020 12:00:00 AM EST 1.0 {tablet_with_food} active Metoprolol Tartrate 25 MG eCW1 ([facility]) Hyoscyamine Sulfate 0.125 MG Sublingual Tablet Hyoscyamine S ulfate 0.125 MG 12/12/2020 12:00:00 AM EST active eCW1 ([facility]) Metoprolol Tartrate 25 MG Oral Tablet Metoprolol Tartrate 25 MG 12/12/2020 12:00:00 AM EST 1.0 {tablet_with_food} active Metoprolol Tartrate 25 MG eCW1 ([facility]) [employer]eth[employer]one Extra Strength 125 MG [employer] Extra Strength 125 MG 12/12/2020 12:00:00 AM EST 1.0 {capsule_after_meals_and_at_bedtime_as_needed} active [employer] Extra Strength 125 M G eCW1 ([facility]) Metoprolol Tartrate 25 MG Oral Tablet Metoprolol Tartrate 25 MG 12/12/2020 12:00:00 AM EST 1.0 {tablet_with_food} active Metoprolol Tartrate 25 MG eCW1 ([facility]) Metoprolol Tartrate 25 MG Oral Tablet Metoprolol Tartrate 25 MG 12/12/2020 12:00:00 AM EST 1.0 {tablet_with_food} active Metoprolol Tartrate 25 MG eCW1 ([facility]) Metoprolol Tartrate 25 MG Oral Tablet Metoprolol Tartrate 25 MG 12/12/2020 12:00:00 AM EST 1.0 {tablet_with_food} active Metoprolol Tartrate 25 MG eCW1 ([facility]) Hyoscyamine Sulfate 0.125 MG Sublingual Tablet Hyoscyamine S ulfate 0.125 MG 12/12/2020 12:00:00 AM EST active Hyoscyamine Sulfate 0.125 MG eCW1 ([facility]) Metoprolol Tartrate 25 MG Oral Tablet Metoprolol Tartrate 25 MG 12/12/2020 12:00:00 AM EST 1.0 {tablet_with_food} active Metoprolol Tartrate 25 MG eCW1 ([facility]) Simeth[employer]one Extra Strength 125 MG [employer] Extra Strength 125 MG 12/12/2020 12:00:00 AM EST 1.0 {capsule_after_meals_and_at_bedtime_as_needed} active [employer]eth[employer]one Extra Strength 125 M G eCW1 ([facility]) Hyoscyamine Sulfate 0.125 MG Sublingual Tablet Hyoscyamine S ulfate 0.125 MG 12/12/2020 12:00:00 AM EST active Hyoscyamine Sulfate 0.125 MG eCW1 ([facility]) Hyoscyamine Sulfate 0.125 MG Sublingual Tablet Hyoscyamine S ulfate 0.125 MG 12/12/2020 12:00:00 AM EST active Hyoscyamine Sulfate 0.125 MG eCW1 ([facility]) [place] Nasal - [place] Nasal - 12/12/2020 12:00:00 AM EST active [place] Nasal - eCW1 ([facility]) Metoprolol Tartrate 25 MG Oral Tablet Metoprolol Tartrate 25 MG 12/12/2020 12:00:00 AM EST 1.0 {tablet_with_food} active Metoprolol Tartrate 25 MG eCW1 ([facility]) Metoprolol Tartrate 25 MG Oral Tablet Metoprolol Tartrate 25 MG 12/12/2020 12:00:00 AM EST 1.0 {tablet_with_food} active Metoprolol Tartrate 25 MG eCW1 ([facility]) [place] Nasal - [place] Nasal - 12/12/2020 12:00:00 AM EST active [place] Nasal - eCW1 ([facility]) [place] Nasal - [place] Nasal - 12/12/2020 12:00:00 AM EST active [place] Nasal - eCW1 ([facility]) [place] Nasal - [place] Nasal - 12/12/2020 12:00:00 AM EST active [place] Nasal - eCW1 ([facility]) Metoprolol Tartrate 25 MG Oral Tablet Metoprolol Tartrate 25 MG 12/12/2020 12:00:00 AM EST 1.0 {tablet_with_food} active eCW1 ([facility]) Metoprolol Tartrate 25 MG Oral Tablet Metoprolol Tartrate 25 MG 12/12/2020 12:00:00 AM EST 1.0 {tablet_with_food} active Metoprolol Tartrate 25 MG eCW1 ([facility]) [place] Nasal - [place] Nasal - 12/12/2020 12:00:00 AM EST active [place] Nasal - eCW1 ([facility]) Metoprolol Tartrate 25 MG Oral Tablet Metoprolol Tartrate 25 MG 12/12/2020 12:00:00 AM EST 1.0 {tablet_with_food} active Metoprolol Tartrate 25 MG eCW1 ([facility]) Hyoscyamine Sulfate 0.125 MG Sublingual Tablet Hyoscyamine S ulfate 0.125 MG 12/12/2020 12:00:00 AM EST active Hyoscyamine Sulfate 0.125 MG eCW1 ([facility]) Metoprolol Tartrate 25 MG Oral Tablet Metoprolol Tartrate 25 MG 12/12/2020 12:00:00 AM EST 1.0 {tablet_with_food} active Metoprolol Tartrate 25 MG eCW1 ([facility]) Hyoscyamine Sulfate 0.125 MG Sublingual Tablet Hyoscyamine S ulfate 0.125 MG 12/12/2020 12:00:00 AM EST active Hyoscyamine Sulfate 0.125 MG eCW1 ([facility]) Metoprolol Tartrate 25 MG Oral Tablet Metoprolol Tartrate 25 MG 12/12/2020 12:00:00 AM EST 1.0 {tablet_with_food} active Metoprolol Tartrate 25 MG eCW1 ([facility]) Hyoscyamine Sulfate 0.125 MG Sublingual Tablet Hyoscyamine S ulfate 0.125 MG 12/12/2020 12:00:00 AM EST active Hyoscyamine Sulfate 0.125 MG eCW1 ([facility]) Simethicone Extra Strength 125 MG Simethicone Extra Strength 125 MG 12/12/2020 12:00:00 AM EST 1.0 {capsule_after_meals_and_at_bedtime_as_needed} active Simethicone Extra Strength 125 M G eCW1 ([facility]) Hyoscyamine Sulfate 0.125 MG Sublingual Tablet HYOSCYAMINE S ULFATE 12/12/2020 12:00:00 AM EST tablet, sublingual 30 PLACE 1 TABLE T UNDER THE TONGUE & ALLOW TO DISSOLVE TWICE DAILY NEEDED PLACE 1 TABLET UNDER THE TONGUE & ALLOW TO DISSOLVE TWICE DAILY NEEDED SOLD: 12/14/2020 [facility] Metoprolol Tartrate 25 MG Oral Tablet Metoprolol Tartrate 25 MG 12/12/2020 12:00:00 AM EST 1.0 {tablet_with_food} active Metoprolol Tartrate 25 MG eCW1 ([facility]) Hyoscyamine Sulfate 0.125 MG Sublingual Tablet HYOSCYAMINE S ULFATE 12/12/2020 12:00:00 AM EST tablet, sublingual 30 PLACE 1 TABLE T UNDER THE TONGUE & ALLOW TO DISSOLVE TWICE DAILY NEEDED PLACE 1 TABLET UNDER THE TONGUE & ALLOW TO DISSOLVE TWICE DAILY NEEDED SOLD: 12/27/2020 [facility] [place] Nasal - [place] Nasal - 12/12/2020 12:00:00 AM EST active [place] Nasal - eCW1 ([facility]) [place] Nasal - [place] Nasal - 12/12/2020 12:00:00 AM EST active [place] [facility] Nasal - eCW1 ([facility]) Metoprolol Tartrate 25 MG Oral Tablet Metoprolol Tartrate 25 MG 12/12/2020 12:00:00 AM EST 1.0 {tablet_with_food} active Metoprolol Tartrate 25 MG eCW1 ([facility]) [place] Nasal - [place] Nasal - 12/12/2020 12:00:00 AM EST active [place] Nasal - eCW1 ([facility]) Simethicone Extra Strength 125 MG Simethicone Extra Strength 125 MG 12/12/2020 12:00:00 AM EST 1.0 {capsule_after_meals_and_at_bedtime_as_needed} active Simethicone Extra Strength 125 M G eCW1 ([facility]) [place] Nasal - [place] Nasal - 12/12/2020 12:00:00 AM EST active [place] Nasal - eCW1 ([facility]) [place] Sal[place] Nasal - [place] Sal[place] Nasal - 12/12/2020 12:00:00 AM EST active [place] Nasal - eCW1 ([facility]) [place] Nasal - [place] Nasal - 12/12/2020 12:00:00 AM EST active [place] Nasal - eCW1 ([facility]) Metoprolol Tartrate 25 MG Oral Tablet Metoprolol Tartrate 25 MG 12/12/2020 12:00:00 AM EST 1.0 {tablet_with_food} active Metoprolol Tartrate 25 MG eCW1 ([facility]) [place] Sal[place] Nasal - [place] Nasal - 12/12/2020 12:00:00 AM EST active eCW1 ([facility]) Metoprolol Tartrate 25 MG Oral Tablet Metoprolol Tartrate 25 MG 12/12/2020 12:00:00 AM EST 1.0 {tablet_with_food} active Metoprolol Tartrate 25 MG eCW1 ([facility]) Simethicone Extra Strength 125 MG Simethicone Extra Strength 125 MG 12/12/2020 12:00:00 AM EST 1.0 {capsule_after_meals_and_at_bedtime_as_needed} active eCW1 ([facility]) Metoprolol Tartrate 25 MG Oral Tablet Metoprolol Tartrate 25 MG 12/12/2020 12:00:00 AM EST 1.0 {tablet_with_food} active Metoprolol Tartrate 25 MG eCW1 ([facility]) Hyoscyamine Sulfate 0.125 MG Sublingual Tablet HYOSCYAMINE S ULFATE 12/12/2020 12:00:00 AM EST tablet, sublingual 30 PLACE 1 TABLE T UNDER THE TONGUE & ALLOW TO DISSOLVE TWICE DAILY NEEDED PLACE 1 TABLET UNDER THE TONGUE & ALLOW TO DISSOLVE TWICE DAILY NEEDED SOLD: 01/22/2021 [facility] Hyoscyamine Sulfate 0.125 MG Sublingual Tablet HYOSCYAMINE S ULFATE 12/12/2020 12:00:00 AM EST tablet, sublingual 30 PLACE 1 TABLE T UNDER THE TONGUE & ALLOW TO DISSOLVE TWICE DAILY NEEDED PLACE 1 TABLET UNDER THE TONGUE & ALLOW TO DISSOLVE TWICE DAILY NEEDED SOLD: 02/25/2021 [facility] Metoprolol Tartrate 25 MG Oral Tablet Metoprolol Tartrate 25 MG 12/12/2020 12:00:00 AM EST 1.0 {tablet_with_food} active Metoprolol Tartrate 25 MG eCW1 ([facility]) 90 mcg/actuation 12/09/2020 12:00:00 AM EST HFA aerosol inha ler 8 INHALE 2 PUFFS FOUR TIMES A DAY NEEDED INHALE 2 PUFFS FOUR TIMES A DAY NEEDED SOLD: 12/14/2020 [facility] 90 mcg/actuation 12/09/2020 12:00:00 AM EST HFA aerosol inha ler 8 INHALE 2 PUFFS FOUR TIMES A DAY NEEDED INHALE 2 PUFFS FOUR TIMES A DAY NEEDED SOLD: 01/17/2021 [facility] 25 mg 12/05/2020 12:00:00 AM EST tablet 30 TAKE ONE TABLET BY MOUTH EVERY DAY TAKE ONE TABLET BY MOUTH EVERY DAY SOLD: 01/04/2021 [facility] 25 mg 12/05/2020 12:00:00 AM EST tablet 30 TAKE ONE TABLET BY MOUTH EVERY DAY TAKE ONE TABLET BY MOUTH EVERY DAY SOLD: 12/06/2020 [facility] Spironolactone 25 MG Oral Tablet spironolactone (ALDAC TONE) 25 MG tablet spironolactone (ALDACTONE) 25 MG tablet 12/04/2020 12:00:00 AM EST 25 mg Oral active Take 1 tablet (25 mg tota l) by mouth daily [facility] 4 mg 12/03/2020 12:00:00 AM EST tablet,disintegrating 3 0 ALLOW 1 TABLET TO DISSOLVE ON TONGUE TWO TIMES A DAY NEEDED ALLOW 1 TABLET TO DISSOLVE ON TONGUE TWO TIMES A DAY NEEDED SOLD: 01/17/2021 [facility] Ondansetron 4 MG Disintegrating Oral Tablet ONDANSETRON 12/03/2020 12:00:00 AM EST tablet,disintegrating 30 ALLOW 1 TA BLET TO DISSOLVE ON TONGUE TWO TIMES A DAY NEEDED ALLOW 1 TABLET TO DISSOLVE ON TONGUE TWO TIMES A DAY A S NEEDED SOLD: 02/18/2021 [facility] Ondansetron 4 MG Disintegrating Oral Tablet ONDANSETRON 12/03/2020 12:00:00 AM EST tablet,disintegrating 30 ALLOW 1 TA BLET TO DISSOLVE ON TONGUE TWO TIMES A DAY NEEDED ALLOW 1 TABLET TO DISSOLVE ON TONGUE TWO TIMES A DAY A S NEEDED SOLD: 03/10/2021 [facility] Ondansetron 4 MG Disintegrating Oral Tablet ONDANSETRON 12/03/2020 12:00:00 AM EST tablet,disintegrating 30 ALLOW 1 TA BLET TO DISSOLVE ON TONGUE TWO TIMES A DAY NEEDED ALLOW 1 TABLET TO DISSOLVE ON TONGUE TWO TIMES A DAY A S NEEDED SOLD: 12/03/2020 [facility] 4 mg 12/03/2020 12:00:00 AM EST tablet,disintegrating 3 0 ALLOW 1 TABLET TO DISSOLVE ON TONGUE TWO TIMES A DAY NEEDED ALLOW 1 TABLET TO DISSOLVE ON TONGUE TWO TIMES A DAY NEEDED SOLD: 12/27/2020 [facility] Ondansetron 4 MG Disintegrating Oral Tablet ONDANSETRON 12/03/2020 12:00:00 AM EST tablet,disintegrating 30 ALLOW 1 TA BLET TO DISSOLVE ON TONGUE TWO TIMES A DAY NEEDED ALLOW 1 TABLET TO DISSOLVE ON TONGUE TWO TIMES A DAY A S NEEDED SOLD: 04/22/2021 [facility] Ondansetron 4 MG Disintegrating Oral Tablet ONDANSETRON 12/03/2020 12:00:00 AM EST tablet,disintegrating 30 ALLOW 1 TA BLET TO DISSOLVE ON TONGUE TWO TIMES A DAY NEEDED ALLOW 1 TABLET TO DISSOLVE ON TONGUE TWO TIMES A DAY A S NEEDED SOLD: 04/05/2021 [facility] Fluticasone-Salmeterol 232-14 MCG/ACT AEPB 6150-8450-09 12/03/2020 12:00:00 AM EST active INHALE ONE PUFF B Y MOUTH TWICE A DAY [facility] Cyclosporine 0.9 MG/ML Ophthalmic Solution [Cequa] 0.09 % CY CLOSPORINE 11/28/2020 12:00:00 AM EST dropperette 60 INSTI LL 1 DROP IN EACH EYE TWICE A DAY INSTILL 1 DROP IN EACH EYE TWICE A DAY SOLD: 12/31/2020 [facility] Allergy Injection 2 Or More 11/28/2020 12:00:00 AM EST completed MEDENT ([facility]) Medication administered onsite tizanidine 2 MG Oral Tablet TIZANIDINE HCL 11/28/2020 12:00:00 AM EST tablet 90 TAKE ONE TABLET BY MOUTH THREE TIMES A DAY MAXIMUM MISSY LY DOSE = 3 TAKE ONE TABLET BY MOUTH THREE TIMES A DAY MAXIMUM DAILY DOSE = 3 SOLD: 11/30/2020 [facility] Cyclosporine 0.9 MG/ML Ophthalmic Solution [Cequa] 0.09 % CY CLOSPORINE 11/28/2020 12:00:00 AM EST dropperette 60 INSTI LL 1 DROP IN EACH EYE TWICE A DAY INSTILL 1 DROP IN EACH EYE TWICE A DAY SOLD: 11/30/2020 [facility] Cyclosporine 0.9 MG/ML Ophthalmic Solution [Cequa] 0.09 % CY CLOSPORINE 11/28/2020 12:00:00 AM EST dropperette 60 INSTI LL 1 DROP IN EACH EYE TWICE A DAY INSTILL 1 DROP IN EACH EYE TWICE A DAY SOLD: 05/08/2021 [facility] Cyclosporine 0.9 MG/ML Ophthalmic Solution [Cequa] 0.09 % CY CLOSPORINE 11/28/2020 12:00:00 AM EST dropperette 60 INSTI LL 1 DROP IN EACH EYE TWICE A DAY INSTILL 1 DROP IN EACH EYE TWICE A DAY SOLD: 03/02/2021 [facility] Cyclosporine 0.9 MG/ML Ophthalmic Solution [Cequa] 0.09 % CY CLOSPORINE 11/28/2020 12:00:00 AM EST dropperette 60 INSTI LL 1 DROP IN EACH EYE TWICE A DAY INSTILL 1 DROP IN EACH EYE TWICE A DAY SOLD: 04/05/2021 [facility] 300-30 mg 11/27/2020 12:00:00 AM EST tablet 7 TAKE 1 TABLET BY MOUTH DAILY NEEDED FOR SEVERE MIGRAINE MAXIMUM DAILY DOSE = 1 TABLET TAKE 1 TABLET BY MOUTH DAILY NEEDED FOR SEVERE MIGRAINE MAXIMUM DAILY DOSE = 1 TABLET SOLD: 11/30/2020 [facility] montelukast 10 MG Oral Tablet MONTELUKAST SODIUM 11/25/2020 12:0 0:00 AM EST tablet 30 TAKE ONE TABLET BY MOUTH EVERY M ORNING TAKE ONE TABLET BY MOUTH EVERY MORNING SOLD: 11/30/2020 [facility] montelukast 10 MG Oral Tablet MONTELUKAST SODIUM 11/25/2020 12:0 0:00 AM EST tablet 30 TAKE ONE TABLET BY MOUTH EVERY M ORNING TAKE ONE TABLET BY MOUTH EVERY MORNING SOLD: 12/31/2020 [facility] 1,200 mg 11/20/2020 12:00:00 AM EST tablet extended release 12hr 56 TAKE 1 TABLET BY MOUTH TWO TIMES A DAY NEEDED TAKE 1 TABLET BY MOUTH TWO TIMES A DAY NEEDED SOLD: 11/23/2020 [facility] 2 mg 11/20/2020 12:00:00 AM EST tablet 60 TAKE ONE TABLET BY MOUTH TWICE A DAY MAXIMUM DAILY DOSE = 2 TABLETS TAKE ONE TABLET BY MOUTH TWICE A DAY MAX IMUM DAILY DOSE = 2 TABLETS SOLD: 11/23/2020 [facility] 75 mcg 11/15/2020 12:00:00 AM EST tablet 30 TAKE ONE TABLET BY MOUTH ON AN EMPTY STOMACH IN THE MORNING ONCE DAILY TAKE ONE TABLET BY MOUTH ON AN EMPTY STOMACH IN THE MORNING ONCE DAILY SOLD: 01/17/2021 [facility] 75 mcg 11/15/2020 12:00:00 AM EST tablet 30 TAKE ONE TABLET BY MOUTH ON AN EMPTY STOMACH IN THE MORNING ONCE DAILY TAKE ONE TABLET BY MOUTH ON AN EMPTY STOMACH IN THE MORNING ONCE DAILY SOLD: 12/14/2020 [facility] 75 mcg 11/15/2020 12:00:00 AM EST tablet 30 TAKE ONE TABLET BY MOUTH ON AN EMPTY STOMACH IN THE MORNING ONCE DAILY TAKE ONE TABLET BY MOUTH ON AN EMPTY STOMACH IN THE MORNING ONCE DAILY SOLD: 11/16/2020 [facility] 75 mcg 11/15/2020 12:00:00 AM EST tablet 30 TAKE ONE TABLET BY MOUTH ON AN EMPTY STOMACH IN THE MORNING ONCE DAILY TAKE ONE TABLET BY MOUTH ON AN EMPTY STOMACH IN THE MORNING ONCE DAILY SOLD: 03/18/2021 [facility] 75 mcg 11/15/2020 12:00:00 AM EST tablet 30 TAKE ONE TABLET BY MOUTH ON AN EMPTY STOMACH IN THE MORNING ONCE DAILY TAKE ONE TABLET BY MOUTH ON AN EMPTY STOMACH IN THE MORNING ONCE DAILY SOLD: 02/18/2021 [facility] Allergy Injection 2 Or More 11/14/2020 12:00:00 AM EST completed MEDENT ([facility]) Medication administered onsite 2.5 % 11/04/2020 12:00:00 AM EST cream 60 APPLY TOPICALLY TWO TIMES A DAY NEEDED FOR 7-10 DAYS FOR FLARE OF DERMATITIS APPLY TOPICALLY TWO TIMES A DAY NEEDED FOR 7-10 DAYS FOR FLARE OF DERMATITIS SOLD: 01/17/2021 [facility] 2.5 % 11/04/2020 12:00:00 AM EST cream 60 APPLY TOPICALLY TWO TIMES A DAY NEEDED FOR 7-10 DAYS FOR FLARE OF DERMATITIS APPLY TOPICALLY TWO TIMES A DAY NEEDED FOR 7-10 DAYS FOR FLARE OF DERMATITIS SOLD: 12/14/2020 [facility] 2.5 % 11/04/2020 12:00:00 AM EST cream 60 APPLY TOPICALLY TWO TIMES A DAY NEEDED FOR 7-10 DAYS FOR FLARE OF DERMATITIS APPLY TOPICALLY TWO TIMES A DAY NEEDED FOR 7-10 DAYS FOR FLARE OF DERMATITIS SOLD: 11/16/2020 [facility] Hydrocortisone 25 MG/ML Topical Cream hydrocortisone 2 .5 % cream hydrocortisone 2.5 % cream 11/04/2020 12:00:00 AM EST active APPLY TOPICALLY TWO TIMES A DAY NEEDED FOR 7 10 DAYS FOR FLARE OF DERMATITIS [facility] Allergy Injection 2 Or More 11/01/2020 12:00:00 AM EST completed MEDENT ([facility]) Medication administered onsite 50 mcg/actuation 10/24/2020 12:00:00 AM EST spray,suspension 16 SPRAY 2 SPRAYS (100MCG) IN EACH NOSTRIL ONCE DAILY IN THE EVENING SPRAY 2 SPRAYS (100MCG) IN EACH NOSTRIL ONCE DAILY IN THE EVENING SOLD: 12/31/2020 [facility] 50 mcg/actuation 10/24/2020 12:00:00 AM EST spray,suspension 16 SPRAY 2 SPRAYS (100MCG) IN EACH NOSTRIL ONCE DAILY IN THE EVENING SPRAY 2 SPRAYS (100MCG) IN EACH NOSTRIL ONCE DAILY IN THE EVENING SOLD: 03/02/2021 [facility] 50 mcg/actuation 10/24/2020 12:00:00 AM EST spray,suspension 16 SPRAY 2 SPRAYS (100MCG) IN EACH NOSTRIL ONCE DAILY IN THE EVENING SPRAY 2 SPRAYS (100MCG) IN EACH NOSTRIL ONCE DAILY IN THE EVENING SOLD: 04/05/2021 [facility] 50 mcg/actuation 10/24/2020 12:00:00 AM EST spray,suspension 16 SPRAY 2 SPRAYS (100MCG) IN EACH NOSTRIL ONCE DAILY IN THE EVENING SPRAY 2 SPRAYS (100MCG) IN EACH NOSTRIL ONCE DAILY IN THE EVENING SOLD: 10/28/2020 [facility] 50 mcg/actuation 10/24/2020 12:00:00 AM EST spray,suspension 16 SPRAY 2 SPRAYS (100MCG) IN EACH NOSTRIL ONCE DAILY IN THE EVENING SPRAY 2 SPRAYS (100MCG) IN EACH NOSTRIL ONCE DAILY IN THE EVENING SOLD: 11/30/2020 [facility] 50 mcg/actuation 10/24/2020 12:00:00 AM EST spray,suspension 16 SPRAY 2 SPRAYS (100MCG) IN EACH NOSTRIL ONCE DAILY IN THE EVENING SPRAY 2 SPRAYS (100MCG) IN EACH NOSTRIL ONCE DAILY IN THE EVENING SOLD: 05/08/2021 [facility] 2 mg 10/18/2020 12:00:00 AM EST tablet 60 TAKE ONE TABLET BY MOUTH TWICE A DAY MAXIMUM DAILY DOSE = 2 TABLETS TAKE ONE TABLET BY MOUTH TWICE A DAY MAX IMUM DAILY DOSE = 2 TABLETS SOLD: 10/22/2020 [facility] Nystatin 100 UNT/MG Topical Powder 100,000 unit/gram NYSTATI N 10/10/2020 12:00:00 AM EST powder 15 APPLY 1 APPLICATION TO AF FECTED AREA(S) TWICE A DAY APPLY 1 APPLICATION TO AFFECTED AREA(S) TWICE A DAY SOLD: 10/10/2020 [facility] Nystatin 100 UNT/MG Topical Powder Nystatin 276480 UNI T/GM Nystatin 580558 UNIT/GM 10/10/2020 12:00:00 AM EST 1.0 {application} active Nystatin [id number] UNIT/GM eCW1 ([facility]) Nystatin 100 UNT/MG Topical Powder Nystatin 578310 UNI T/GM Nystatin 616533 UNIT/GM 10/10/2020 12:00:00 AM EST 1.0 {application} active Nystatin [id number] UNIT/GM eCW1 ([facility]) Nystatin 100 UNT/MG Topical Powder Nystatin 119905 UNI T/GM Nystatin 463681 UNIT/GM 10/10/2020 12:00:00 AM EST 1.0 {application} active Nystatin [id number] UNIT/GM eCW1 ([facility]) Nystatin 100 UNT/MG Topical Powder Nystatin 672263 UNI T/GM Nystatin 066897 UNIT/GM 10/10/2020 12:00:00 AM EST 1.0 {application} active Nystatin [id number] UNIT/GM eCW1 ([facility]) Nystatin 100 UNT/MG Topical Powder Nystatin 225700 UNI T/GM Nystatin 672780 UNIT/GM 10/10/2020 12:00:00 AM EST 1.0 {application} active Nystatin [id number] UNIT/GM eCW1 ([facility]) Nystatin 100 UNT/MG Topical Powder Nystatin 028300 UNI T/GM Nystatin 795257 UNIT/GM 10/10/2020 12:00:00 AM EST 1.0 {application} active Nystatin 412662 UNIT/GM eCW1 ([facility]) Nystatin 100 UNT/MG Topical Powder Nystatin 745257 UNI T/GM Nystatin 951104 UNIT/GM 10/10/2020 12:00:00 AM EST 1.0 {application} active Nystatin 579362 UNIT/GM eCW1 ([facility]) Nystatin 100 UNT/MG Topical Powder Nystatin 207602 UNI T/GM Nystatin 868445 UNIT/GM 10/10/2020 12:00:00 AM EST 1.0 {application} active Nystatin [id number] UNIT/GM eCW1 ([facility]) Nystatin 100 UNT/MG Topical Powder Nystatin 844962 UNI T/GM Nystatin 383925 UNIT/GM 10/10/2020 12:00:00 AM EST 1.0 {application} active Nystatin [id number] UNIT/GM eCW1 ([facility]) Nystatin 100 UNT/MG Topical Powder Nystatin 867908 UNI T/GM Nystatin 638617 UNIT/GM 10/10/2020 12:00:00 AM EST 1.0 {application} active Nystatin [id number] UNIT/GM eCW1 ([facility]) Nystatin 100 UNT/MG Topical Powder Nystatin 514870 UNI T/GM Nystatin 103997 UNIT/GM 10/10/2020 12:00:00 AM EST 1.0 {application} active Nystatin [id number] UNIT/GM eCW1 ([facility]) Nystatin 100 UNT/MG Topical Powder Nystatin 937206 UNI T/GM Nystatin 914066 UNIT/GM 10/10/2020 12:00:00 AM EST 1.0 {application} active Nystatin [id number] UNIT/GM eCW1 ([facility]) Nystatin 100 UNT/MG Topical Powder Nystatin 523772 UNI T/GM Nystatin 333271 UNIT/GM 10/10/2020 12:00:00 AM EST 1.0 {application} active Nystatin [id number] UNIT/GM eCW1 ([facility]) Nystatin 100 UNT/MG Topical Powder Nystatin 184317 UNI T/GM Nystatin 787860 UNIT/GM 10/10/2020 12:00:00 AM EST 1.0 {application} active Nystatin [id number] UNIT/GM eCW1 ([facility]) Nystatin 100 UNT/MG Topical Powder Nystatin 000342 UNI T/GM Nystatin 434049 UNIT/GM 10/10/2020 12:00:00 AM EST 1.0 {application} act michael eCW1 ([facility]) Nystatin 100 UNT/MG Topical Powder Nystatin 537785 UNI T/GM Nystatin 687934 UNIT/GM 10/10/2020 12:00:00 AM EST 1.0 {application} active Nystatin [id number] UNIT/GM eCW1 ([facility]) Nystatin 100 UNT/MG Topical Powder Nystatin 536254 UNI T/GM Nystatin 225600 UNIT/GM 10/10/2020 12:00:00 AM EST 1.0 {application} active Nystatin [id number] UNIT/GM eCW1 ([facility]) Nystatin 100 UNT/MG Topical Powder Nystatin 406648 UNI T/GM Nystatin 991510 UNIT/GM 10/10/2020 12:00:00 AM EST 1.0 {application} active Nystatin [id number] UNIT/GM eCW1 ([facility]) Nystatin 100 UNT/MG Topical Powder Nystatin 447747 UNI T/GM Nystatin 616443 UNIT/GM 10/10/2020 12:00:00 AM EST 1.0 {application} active Nystatin [id number] UNIT/GM eCW1 ([facility]) Nystatin 100 UNT/MG Topical Powder Nystatin 662625 UNI T/GM Nystatin 207032 UNIT/GM 10/10/2020 12:00:00 AM EST 1.0 {application} active Nystatin [id number] UNIT/GM eCW1 ([facility]) Nystatin 100 UNT/MG Topical Powder nystatin (MYCOSTATI N) powder nystatin (MYCOSTATIN) powder 10/10/2020 12:00:00 AM EST active APPLY 1 APPLICATION TO AFFECTED AREA S TWICE A DAY [facility] Nystatin 100 UNT/MG Topical Powder Nystatin 327656 UNI T/GM Nystatin 211569 UNIT/GM 10/10/2020 12:00:00 AM EST 1.0 {application} active Nystatin 296351 UNIT/GM eCW1 ([facility]) Nystatin 100 UNT/MG Topical Powder Nystatin 925571 UNI T/GM Nystatin 511985 UNIT/GM 10/10/2020 12:00:00 AM EST 1.0 {application} active Nystatin [id number] UNIT/GM eCW1 ([facility]) 100 mg 09/24/2020 12:00:00 AM EST capsule 30 TAKE 1 CAPSULE BY MOUTH ONCE A DAY NEEDED TAKE 1 CAPSULE BY MOUTH ONCE A DAY NEEDED SOLD: 12/31/2020 [facility] 100 mg 09/24/2020 12:00:00 AM EST capsule 30 TAKE 1 CAPSULE BY MOUTH ONCE A DAY NEEDED TAKE 1 CAPSULE BY MOUTH ONCE A DAY NEEDED SOLD: 11/30/2020 [facility] 100 mg 09/24/2020 12:00:00 AM EST capsule 30 TAKE 1 CAPSULE BY MOUTH ONCE A DAY NEEDED TAKE 1 CAPSULE BY MOUTH ONCE A DAY NEEDED SOLD: 09/26/2020 [facility] 100 mg 09/24/2020 12:00:00 AM EST capsule 30 TAKE 1 CAPSULE BY MOUTH ONCE A DAY NEEDED TAKE 1 CAPSULE BY MOUTH ONCE A DAY NEEDED SOLD: 10/28/2020 [facility] Allergy Injection 2 Or More 09/23/2020 12:00:00 AM EST completed MEDENT ([facility]) Medication administered onsite 2 mg 09/13/2020 12:00:00 AM EST tablet 50 TAKE ONE TABLET BY MOUTH TWICE A DAY MAXIMUM DAILY DOSE = 2 TABLETS TAKE ONE TABLET BY MOUTH TWICE A DAY MAX IMUM DAILY DOSE = 2 TABLETS SOLD: 09/20/2020 [facility] 2 mg 09/13/2020 12:00:00 AM EST tablet 10 TAKE ONE TABLET BY MOUTH TWICE A DAY MAXIMUM DAILY DOSE = 2 TABLETS TAKE ONE TABLET BY MOUTH TWICE A DAY MAX IMUM DAILY DOSE = 2 TABLETS SOLD: 09/18/2020 [facility] 0.01 % 09/06/2020 12:00:00 AM EST drops 2 INSTILL ONE DROP INTO BOTH EYES AT BEDTIME DIRECTED INSTILL ONE DROP INTO BOTH EYES AT BEDTIME DIRECTED SOLD: 09/18/2020 [facility] Furosemide 40 MG Oral Tablet furosemide (LASIX) 40 MG tablet furosemide (LASIX) 40 MG tablet 09/04/2020 12:00:00 AM EST active Chronic diastolic congestive heart failure TAKE 1 TAB.[40MG] BY MOUTH D AILY IN ADDITION TO 20MG TAB.TO EQUAL 60MG DAILY [facility] Chronic diastolic congestive heart failu re 40 mg 09/03/2020 12:00:00 AM EST tablet 30 TAKE ONE TABLET BY MOUTH EVERY DAY ALONG WITH 20MG TABLET DAILY TAKE ONE TABLET BY MOUTH EVERY DAY ALONG WITH 20MG TABLET DAILY SOLD: 12/31/2020 [facility] 40 mg 09/03/2020 12:00:00 AM EST tablet 90 TAKE ONE TABLET BY MOUTH EVERY DAY ALONG WITH 20MG TABLET DAILY TAKE ONE TABLET BY MOUTH EVERY DAY ALONG WITH 20MG TABLET DAILY SOLD: 09/04/2020 [facility] 40 mg 09/03/2020 12:00:00 AM EST tablet 30 TAKE ONE TABLET BY MOUTH EVERY DAY ALONG WITH 20MG TABLET DAILY TAKE ONE TABLET BY MOUTH EVERY DAY ALONG WITH 20MG TABLET DAILY SOLD: 11/30/2020 [facility] 25 mg 09/03/2020 12:00:00 AM EST tablet 90 TAKE ONE TABLET BY MOUTH EVERY DAY TAKE ONE TABLET BY MOUTH EVERY DAY SOLD: 09/04/2020 [facility] 20 mg 08/30/2020 12:00:00 AM EST tablet 30 TAKE ONE TABLET BY MOUTH EVERY DAY ALONG WITH 40MG TABLET TAKE ONE TABLET BY MOUTH EVERY DAY ALONG WITH 40MG TABLET SOLD: 12/31/2020 [facility] 20 mg 08/30/2020 12:00:00 AM EST tablet 90 TAKE ONE TABLET BY MOUTH EVERY DAY ALONG WITH 40MG TABLET TAKE ONE TABLET BY MOUTH EVERY DAY ALONG WITH 40MG TABLET SOLD: 09/04/2020 [facility] 300-30 mg 08/27/2020 12:00:00 AM EST tablet 14 TAKE 1 TABLET BY MOUTH NEEDED FOR SEVERE MIGRAINE MAX DAILY DOSE=2 TABLETS TAKE 1 TABLET BY MOUTH NEEDED FOR SEVERE MIGRAINE MAX DAILY DOSE=2 TABLETS SOLD: 09/04/2020 [facility] Allergy Injection 2 Or More 08/22/2020 12:00:00 AM EST completed MEDENT ([facility]) Medication administered onsite montelukast 10 MG Oral Tablet MONTELUKAST SODIUM 08/22/2020 12:0 0:00 AM EST tablet 30 TAKE 1 TABLET BY MOUTH ONCE A DA Y IN THE MORNING TAKE 1 TABLET BY MOUTH ONCE A DAY IN THE MORNING SOLD: 10/28/2020 [facility] montelukast 10 MG Oral Tablet MONTELUKAST SODIUM 08/22/2020 12:0 0:00 AM EST tablet 30 TAKE 1 TABLET BY MOUTH ONCE A DA Y IN THE MORNING TAKE 1 TABLET BY MOUTH ONCE A DAY IN THE MORNING SOLD: 09/26/2020 [facility] montelukast 10 MG Oral Tablet MONTELUKAST SODIUM 08/22/2020 12:0 0:00 AM EST tablet 30 TAKE 1 TABLET BY MOUTH ONCE A DA Y IN THE MORNING TAKE 1 TABLET BY MOUTH ONCE A DAY IN THE MORNING SOLD: 08/26/2020 [facility] 1,200 mg 08/20/2020 12:00:00 AM EST tablet extended release 12hr 56 TAKE 1 TABLET BY MOUTH TWICE A DAY NEEDED TAKE 1 TABLET BY MOUTH TWICE A DAY NEEDED SOLD: 08/26/2020 [facility] 1,200 mg 08/20/2020 12:00:00 AM EST tablet extended release 12hr 56 TAKE 1 TABLET BY MOUTH TWICE A DAY NEEDED TAKE 1 TABLET BY MOUTH TWICE A DAY NEEDED SOLD: 10/22/2020 [facility] 1,200 mg 08/20/2020 12:00:00 AM EST tablet extended release 12hr 56 TAKE 1 TABLET BY MOUTH TWICE A DAY NEEDED TAKE 1 TABLET BY MOUTH TWICE A DAY NEEDED SOLD: 09/26/2020 [facility] 25 mg 08/19/2020 12:00:00 AM EST tablet extended release 24 hr 30 TAKE 1 TABLET [25MG TOTAL] BY MOUTH DAILY TAKE 1 TABLET [25MG TOTAL] BY MOUTH DAILY SOLD: 12/14/2020 [facility] 25 mg 08/19/2020 12:00:00 AM EST tablet extended release 24 hr 30 TAKE 1 TABLET [25MG TOTAL] BY MOUTH DAILY TAKE 1 TABLET [25MG TOTAL] BY MOUTH DAILY SOLD: 11/16/2020 [facility] 25 mg 08/19/2020 12:00:00 AM EST tablet extended release 24 hr 30 TAKE 1 TABLET [25MG TOTAL] BY MOUTH DAILY TAKE 1 TABLET [25MG TOTAL] BY MOUTH DAILY SOLD: 01/17/2021 [facility] 25 mg 08/19/2020 12:00:00 AM EST tablet extended release 24 hr 90 TAKE 1 TABLET [25MG TOTAL] BY MOUTH DAILY TAKE 1 TABLET [25MG TOTAL] BY MOUTH DAILY SOLD: 08/20/2020 [facility] 2 mg 08/09/2020 12:00:00 AM EST tablet 60 TAKE ONE TABLET BY MOUTH TWICE A DAY MAXIMUM DAILY DOSE = 2 TABLETS TAKE ONE TABLET BY MOUTH TWICE A DAY MAX IMUM DAILY DOSE = 2 TABLETS SOLD: 08/16/2020 [facility] 0.1 % 08/08/2020 12:00:00 AM EST drops 15 INSTILL 1 DROP INTO BOTH EYES TWO TIMES A DAY DIRECTED INSTILL 1 DROP INTO BOTH EYES TWO TIMES A DAY DIRECTED SOLD: 08/16/2020 [facility] 0.1 % 08/08/2020 12:00:00 AM EST drops 15 INSTILL 1 DROP INTO BOTH EYES TWO TIMES A DAY DIRECTED INSTILL 1 DROP INTO BOTH EYES TWO TIMES A DAY DIRECTED SOLD: 10/22/2020 [facility] 2.5 % 08/02/2020 12:00:00 AM EDT cream 60 APPLY TOPICALLY TWO TIMES A DAY NEEDED FOR 7-10 DAYS FOR FLARE OF DERMATITIS APPLY TOPICALLY TWO TIMES A DAY NEEDED FOR 7-10 DAYS FOR FLARE OF DERMATITIS SOLD: 09/04/2020 [facility] 2.5 % 08/02/2020 12:00:00 AM EDT cream 60 APPLY TOPICALLY TWO TIMES A DAY NEEDED FOR 7-10 DAYS FOR FLARE OF DERMATITIS APPLY TOPICALLY TWO TIMES A DAY NEEDED FOR 7-10 DAYS FOR FLARE OF DERMATITIS SOLD: 10/07/2020 [facility] Hydrocortisone 25 MG/ML Topical Cream Hydrocortisone 08/01/2020 12:00:00 AM EDT active MEDENT ( [facility]) 232-14 mcg/actuation 07/30/2020 12:00:00 AM EDT aerosol powdr breath activated 1 INHALE ONE PUFF BY MOUTH TWICE A DAY INHA LE ONE PUFF BY MOUTH TWICE A DAY SOLD: 11/04/2020 [facility] 17 mcg/actuation 07/30/2020 12:00:00 AM EDT HFA aerosol inha ler 12 INHALE TWO PUFFS BY MOUTH FOUR TIMES A DAY INHALE TWO PUFFS BY MOUTH FOUR TIMES A DAY SOLD: 09/26/2020 [facility] 232-14 mcg/actuation 07/30/2020 12:00:00 AM EDT aerosol powdr breath activated 1 INHALE ONE PUFF BY MOUTH TWICE A DAY INHA LE ONE PUFF BY MOUTH TWICE A DAY SOLD: 10/07/2020 [facility] 17 mcg/actuation 07/30/2020 12:00:00 AM EDT HFA aerosol inha ler 12 INHALE TWO PUFFS BY MOUTH FOUR TIMES A DAY INHALE TWO PUFFS BY MOUTH FOUR TIMES A DAY SOLD: 10/28/2020 [facility] 17 mcg/actuation 07/30/2020 12:00:00 AM EDT HFA aerosol inha ler 12 INHALE TWO PUFFS BY MOUTH FOUR TIMES A DAY INHALE TWO PUFFS BY MOUTH FOUR TIMES A DAY SOLD: 12/27/2020 [facility] 232-14 mcg/actuation 07/30/2020 12:00:00 AM EDT aerosol powdr breath activated 1 INHALE ONE PUFF BY MOUTH TWICE A DAY INHA LE ONE PUFF BY MOUTH TWICE A DAY SOLD: 12/03/2020 [facility] 17 mcg/actuation 07/30/2020 12:00:00 AM EDT HFA aerosol inha ler 12 INHALE TWO PUFFS BY MOUTH FOUR TIMES A DAY INHALE TWO PUFFS BY MOUTH FOUR TIMES A DAY SOLD: 11/23/2020 [facility] 232-14 mcg/actuation 07/30/2020 12:00:00 AM EDT aerosol powdr breath activated 1 INHALE ONE PUFF BY MOUTH TWICE A DAY INHA LE ONE PUFF BY MOUTH TWICE A DAY SOLD: 12/31/2020 [facility] 232-14 mcg/actuation 07/30/2020 12:00:00 AM EDT aerosol powdr breath activated 1 INHALE ONE PUFF BY MOUTH TWICE A DAY INHA LE ONE PUFF BY MOUTH TWICE A DAY SOLD: 09/04/2020 [facility] 17 mcg/actuation 07/30/2020 12:00:00 AM EDT HFA aerosol inha ler 12 INHALE TWO PUFFS BY MOUTH FOUR TIMES A DAY INHALE TWO PUFFS BY MOUTH FOUR TIMES A DAY SOLD: 09/04/2020 [facility] [employer] [facility] 232/14 [employer] 232/14 07/29/2020 12:00: 00 AM EDT ORAL active [facility] ([facility], ) Allergy Injection 2 Or More 07/26/2020 12:00:00 AM EDT completed [facility] ([facility]) Medication administered onsite 24 HR metoprolol succinate 25 MG Extende d Release Oral Tablet metoprolol succinate (TOPROL-XL) 25 MG 24 hr tablet metoprolol succinate (TOPROL-XL) 25 MG 24 hr tablet 07/26/2020 12:00:00 AM EDT 25 mg Oral active Paroxysmal atrial fibrillationChronic diastolic congestive heart failure Take 1 tablet (25 mg total) by mouth daily [facility] Paroxysmal atrial fibrillation Chronic diastolic congestive heart failu re Furosemide 20 MG Oral Tablet furosemide (LASIX) 20 MG tablet furosemide (LASIX) 20 MG tablet 07/26/2020 12:00:00 AM EDT 20 mg Oral active Chronic diastolic congestive heart failure Take 1 tablet (20 m g total) by mouth daily Plus 40 mg tab to equal 60 mg daily. [facility] Chronic diastolic congestive heart failu re apixaban 5 MG Oral Tablet Apixaban (ELIQUIS) 5 MG TABS tablet Apixaban (ELIQUIS) 5 MG TABS tablet 07/26/2020 12:00:00 AM EDT 5 mg Oral a ctive Take 1 tablet (5 mg total) by mouth 2 (two) times a day [facility] 40 mg 07/11/2020 12:00:00 AM EDT tablet 30 TAKE ONE TABLET BY MOUTH EVERY DAY TAKE ONE TABLET BY MOUTH EVERY DAY SOLD: 09/18/2020 [facility] 40 mg 07/11/2020 12:00:00 AM EDT tablet 30 TAKE ONE TABLET BY MOUTH EVERY DAY TAKE ONE TABLET BY MOUTH EVERY DAY SOLD: 08/16/2020 [facility] 40 mg 07/11/2020 12:00:00 AM EDT tablet 30 TAKE ONE TABLET BY MOUTH EVERY DAY TAKE ONE TABLET BY MOUTH EVERY DAY SOLD: 07/11/2020 [facility] 40 mg 07/11/2020 12:00:00 AM EDT tablet 30 TAKE ONE TABLET BY MOUTH EVERY DAY TAKE ONE TABLET BY MOUTH EVERY DAY SOLD: 12/14/2020 [facility] 40 mg 07/11/2020 12:00:00 AM EDT tablet 30 TAKE ONE TABLET BY MOUTH EVERY DAY TAKE ONE TABLET BY MOUTH EVERY DAY SOLD: 11/16/2020 [facility] 40 mg 07/11/2020 12:00:00 AM EDT tablet 30 TAKE ONE TABLET BY MOUTH EVERY DAY TAKE ONE TABLET BY MOUTH EVERY DAY SOLD: 10/17/2020 [facility] 2 mg 07/11/2020 12:00:00 AM EDT tablet 60 TAKE ONE TABLET BY MOUTH TWICE A DAY MAXIMUM DAILY DOSE = 4MG TAKE ONE TABLET BY MOUTH TWICE A DAY MAX IMUM DAILY DOSE = 4MG SOLD: 07/11/2020 [facility] Allergy Injection 2 Or More 07/05/2020 12:00:00 AM EDT completed [facility] ([facility]) Medication administered onsite Allergy Injection 2 Or More 07/05/2020 12:00:00 AM EDT completed [facility] ([facility]) Medication administered onsite 5 mg 07/02/2020 12:00:00 AM EDT tablet 180 TAKE 1 TABLET [5MG TOTAL] BY MOUTH TWO TIMES A DAY TAKE 1 TABLET [5MG TOTAL] BY MOUTH TWO TIMES A DAY FRANCIS [facility] 5 mg 07/02/2020 12:00:00 AM EDT tablet 180 TAKE 1 TABLET [5MG TOTAL] BY MOUTH TWO TIMES A DAY TAKE 1 TABLET [5MG TOTAL] BY MOUTH TWO TIMES A DAY FRANCIS [facility] 0.01 % 07/01/2020 12:00:00 AM EDT drops 2 INSTILL 1 DROP IN EACH EYE AT BEDTIME DIRECTED INSTILL 1 DROP IN EACH EYE AT BEDTIME DIRECTED SOLD : 07/03/2020 [facility] 70 mg/mL 06/17/2020 12:00:00 AM EDT auto-injector 1 INJECT 70MG UNDER THE SKIN ONCE MONTHLY INJECT 70MG UNDER THE SKIN ONCE MONTHLY SOLD: 09/26/2020 [facility] 70 mg/mL 06/17/2020 12:00:00 AM EDT auto-injector 1 INJECT 70MG UNDER THE SKIN ONCE MONTHLY INJECT 70MG UNDER THE SKIN ONCE MONTHLY SOLD: 08/26/2020 [facility] 70 mg/mL 06/17/2020 12:00:00 AM EDT auto-injector 1 INJECT 70MG UNDER THE SKIN ONCE MONTHLY INJECT 70MG UNDER THE SKIN ONCE MONTHLY SOLD: 07/25/2020 [facility] 70 mg/mL 06/17/2020 12:00:00 AM EDT auto-injector 1 INJECT 70MG UNDER THE SKIN ONCE MONTHLY INJECT 70MG UNDER THE SKIN ONCE MONTHLY SOLD: 10/28/2020 [facility] 70 mg/mL 06/17/2020 12:00:00 AM EDT auto-injector 1 INJECT 70MG UNDER THE SKIN ONCE MONTHLY INJECT 70MG UNDER THE SKIN ONCE MONTHLY SOLD: 11/30/2020 [facility] 70 mg/mL 06/17/2020 12:00:00 AM EDT auto-injector 1 INJECT 70MG UNDER THE SKIN ONCE MONTHLY INJECT 70MG UNDER THE SKIN ONCE MONTHLY SOLD: 06/18/2020 [facility] 25 mg 06/12/2020 12:00:00 AM EDT tablet 90 TAKE 1 TABLET [25MG TOTAL] BY MOUTH DAILY TAKE 1 TABLET [25MG TOTAL] BY MOUTH DAILY SOLD: 06/13/2020 [facility] Allergy Injection 2 Or More 06/11/2020 12:00:00 AM EDT completed [facility] ([facility]) Medication administered onsite 2 mg 05/27/2020 12:00:00 AM EDT tablet 60 TAKE ONE TABLET BY MOUTH TWO TIMES A DAY MAXIMUM DAILY DOSE = 2 TABLETS TAKE ONE TABLET BY MOUTH TWO TIMES A DAY MAXIMUM DAILY DOSE = 2 TABLETS SOLD: 06/03/2020 [facility] 300-30 mg 05/27/2020 12:00:00 AM EDT tablet 14 TAKE 1 TABLET BY MOUTH NEEDED FOR SEVERE MIGRAINE MAXIMUM DAILY DOSE = 2 TABLETS TAKE 1 TABLET BY MOUTH NEEDED FOR SEVERE MIGRAINE MAXIMUM DAILY DOSE = 2 TABLETS SOLD: 06/03/2020 [facility] Acetaminophen 300 MG / Codeine Phosphate 30 MG Oral Ta blet Acetaminophen-Codeine #3 05/27/2020 12:00:00 AM EDT ORAL active [facility] ([facility] ) Allergy Injection 2 Or More 05/22/2020 12:00:00 AM EDT completed [facility] ([facility]) Medication administered onsite ferrous sulfate 325 MG Oral Tablet ferrous sulfate 325 (65 FE) MG tablet ferrous sulfate 325 (65 FE) MG tablet 05/10/2020 12:00:00 AM EDT 1 {tbl} Ora l aborted Take 1 tablet by mouth daily [facility] Cyclosporine 0.9 MG/ML Ophthalmic Solution [Cequa] 0.09 % CY CLOSPORINE 05/03/2020 12:00:00 AM EDT dropperette 60 INSTI LL 1 DROP IN EACH EYE TWICE A DAY INSTILL 1 DROP IN EACH EYE TWICE A DAY SOLD: 09/26/2020 [facility] Cyclosporine 0.9 MG/ML Ophthalmic Solution [Cequa] 0.09 % CY CLOSPORINE 05/03/2020 12:00:00 AM EDT dropperette 60 INSTI LL 1 DROP IN EACH EYE TWICE A DAY INSTILL 1 DROP IN EACH EYE TWICE A DAY SOLD: 08/26/2020 [facility] Fluticasone-Salmeterol 113-14 MCG/ACT AEPB [id number] 05/03/2020 12:00:00 AM EDT aborted INHALE ONE PUFF BY MOUTH TWICE A DAY [facility] CEQUA 0.09 % SOLN [id number] 05/03/2020 12:00:00 AM EDT 1 [drp ] active 1 drop 2 (two) times a day [facility] Cyclosporine 0.9 MG/ML Ophthalmic Solution [Cequa] 0.09 % CY CLOSPORINE 05/03/2020 12:00:00 AM EDT dropperette 60 INSTI LL 1 DROP IN EACH EYE TWICE A DAY INSTILL 1 DROP IN EACH EYE TWICE A DAY SOLD: 07/25/2020 [facility] Cyclosporine 0.9 MG/ML Ophthalmic Solution [Cequa] 0.09 % CY CLOSPORINE 05/03/2020 12:00:00 AM EDT dropperette 60 INSTI LL 1 DROP IN EACH EYE TWICE A DAY INSTILL 1 DROP IN EACH EYE TWICE A DAY SOLD: 10/28/2020 [facility] Cyclosporine 0.9 MG/ML Ophthalmic Solution [Cequa] 0.09 % CY CLOSPORINE 05/03/2020 12:00:00 AM EDT dropperette 60 INSTI LL 1 DROP IN EACH EYE TWICE A DAY INSTILL 1 DROP IN EACH EYE TWICE A DAY SOLD: 06/18/2020 [facility] Cyclosporine 0.9 MG/ML Ophthalmic Solution [Cequa] 0.09 % CY CLOSPORINE 05/03/2020 12:00:00 AM EDT dropperette 60 INSTI LL 1 DROP IN EACH EYE TWICE A DAY INSTILL 1 DROP IN EACH EYE TWICE A DAY SOLD: 05/18/2020 [facility] Allergy Injection 2 Or More 04/30/2020 12:00:00 AM EDT completed [facility] ([facility]) Medication administered onsite 2 mg 04/25/2020 12:00:00 AM EDT tablet 60 TAKE ONE TABLET BY MOUTH TWICE A DAY MAXIMUM DAILY DOSE = 2 TABLETS TAKE ONE TABLET BY MOUTH TWICE A DAY MAX IMUM DAILY DOSE = 2 TABLETS SOLD: 04/28/2020 [facility] 10 mg 04/22/2020 12:00:00 AM EDT tablet 120 TAKE ONE TABLET BY MOUTH FOUR TIMES A DAY TAKE ONE TABLET BY MOUTH FOUR TIMES A DAY SOLD: 04/28/2020 [facility] 10 mg 04/22/2020 12:00:00 AM EDT tablet 120 TAKE ONE TABLET BY MOUTH FOUR TIMES A DAY TAKE ONE TABLET BY MOUTH FOUR TIMES A DAY SOLD: 06/03/2020 [facility] 10 mg 04/22/2020 12:00:00 AM EDT tablet 120 TAKE ONE TABLET BY MOUTH FOUR TIMES A DAY TAKE ONE TABLET BY MOUTH FOUR TIMES A DAY SOLD: 07/03/2020 [facility] 25 mg 04/17/2020 12:00:00 AM EDT tablet 45 TAKE ONE- HALF TABLET BY MOUTH DAILY TAKE ONE- HALF TABLET BY MOUTH DAILY SOLD: 04/21/2020 [facility] montelukast 10 MG Oral Tablet MONTELUKAST SODIUM 04/16/2020 12:0 0:00 AM EDT tablet 30 TAKE ONE TABLET BY MOUTH EVERY M ORNING TAKE ONE TABLET BY MOUTH EVERY MORNING SOLD: 07/25/2020 [facility] 1,200 mg 04/16/2020 12:00:00 AM EDT tablet extended release 12hr 56 TAKE 1 TABLET BY MOUTH TWICE A DAY NEEDED TAKE 1 TABLET BY MOUTH TWICE A DAY NEEDED SOLD: 07/25/2020 [facility] 75 mcg 04/16/2020 12:00:00 AM EDT tablet 30 TAKE ONE TABLET BY MOUTH EVERY MORNING ON AN EMPTY STOMACH TAKE ONE TABLET BY MOUTH EVERY MORNING O N AN EMPTY STOMACH SOLD: 04/21/2020 [facility] 75 mcg 04/16/2020 12:00:00 AM EDT tablet 30 TAKE ONE TABLET BY MOUTH EVERY MORNING ON AN EMPTY STOMACH TAKE ONE TABLET BY MOUTH EVERY MORNING O N AN EMPTY STOMACH SOLD: 07/25/2020 [facility] montelukast 10 MG Oral Tablet MONTELUKAST SODIUM 04/16/2020 12:0 0:00 AM EDT tablet 30 TAKE ONE TABLET BY MOUTH EVERY M ORNING TAKE ONE TABLET BY MOUTH EVERY MORNING SOLD: 05/18/2020 [facility] 1,200 mg 04/16/2020 12:00:00 AM EDT tablet extended release 12hr 56 TAKE 1 TABLET BY MOUTH TWICE A DAY NEEDED TAKE 1 TABLET BY MOUTH TWICE A DAY NEEDED SOLD: 05/18/2020 [facility] 1,200 mg 04/16/2020 12:00:00 AM EDT tablet extended release 12hr 56 TAKE 1 TABLET BY MOUTH TWICE A DAY NEEDED TAKE 1 TABLET BY MOUTH TWICE A DAY NEEDED SOLD: 06/18/2020 [facility] montelukast 10 MG Oral Tablet MONTELUKAST SODIUM 04/16/2020 12:0 0:00 AM EDT tablet 30 TAKE ONE TABLET BY MOUTH EVERY M ORNING TAKE ONE TABLET BY MOUTH EVERY MORNING SOLD: 06/18/2020 [facility] montelukast 10 MG Oral Tablet MONTELUKAST SODIUM 04/16/2020 12:0 0:00 AM EDT tablet 30 TAKE ONE TABLET BY MOUTH EVERY M ORNING TAKE ONE TABLET BY MOUTH EVERY MORNING SOLD: 04/21/2020 [facility] 1,200 mg 04/16/2020 12:00:00 AM EDT tablet extended release 12hr 56 TAKE 1 TABLET BY MOUTH TWICE A DAY NEEDED TAKE 1 TABLET BY MOUTH TWICE A DAY NEEDED SOLD: 04/16/2020 [facility] 75 mcg 04/15/2020 12:00:00 AM EDT tablet 30 TAKE 1 TABLET BY MOUTH ONCE A DAY IN THE MORNING ON AN EMPTY STOMACH TAKE 1 TABLET BY MOUTH ONCE A DAY IN THE MORNING ON AN EMPTY STOMACH SOLD: 06/18/2020 [facility] 75 mcg 04/15/2020 12:00:00 AM EDT tablet 30 TAKE 1 TABLET BY MOUTH ONCE A DAY IN THE MORNING ON AN EMPTY STOMACH TAKE 1 TABLET BY MOUTH ONCE A DAY IN THE MORNING ON AN EMPTY STOMACH SOLD: 05/18/2020 [facility] 75 mcg 04/15/2020 12:00:00 AM EDT tablet 30 TAKE 1 TABLET BY MOUTH ONCE A DAY IN THE MORNING ON AN EMPTY STOMACH TAKE 1 TABLET BY MOUTH ONCE A DAY IN THE MORNING ON AN EMPTY STOMACH SOLD: 04/16/2020 [facility] 75 mcg 04/15/2020 12:00:00 AM EDT tablet 30 TAKE 1 TABLET BY MOUTH ONCE A DAY IN THE MORNING ON AN EMPTY STOMACH TAKE 1 TABLET BY MOUTH ONCE A DAY IN THE MORNING ON AN EMPTY STOMACH SOLD: 09/18/2020 [facility] 75 mcg 04/15/2020 12:00:00 AM EDT tablet 30 TAKE 1 TABLET BY MOUTH ONCE A DAY IN THE MORNING ON AN EMPTY STOMACH TAKE 1 TABLET BY MOUTH ONCE A DAY IN THE MORNING ON AN EMPTY STOMACH SOLD: 08/16/2020 [facility] 75 mcg 04/15/2020 12:00:00 AM EDT tablet 30 TAKE 1 TABLET BY MOUTH ONCE A DAY IN THE MORNING ON AN EMPTY STOMACH TAKE 1 TABLET BY MOUTH ONCE A DAY IN THE MORNING ON AN EMPTY STOMACH SOLD: 10/17/2020 [facility] Allergy Injection 2 Or More 04/11/2020 12:00:00 AM EDT completed [facility] ([facility]) Medication administered onsite 50 mcg/actuation 03/08/2020 12:00:00 AM EDT spray,suspension 16 SPRAY 2 SPRAYS (100MCG) IN EACH NOSTRIL ONCE DAILY IN THE EVENING SPRAY 2 SPRAYS (100MCG) IN EACH NOSTRIL ONCE DAILY IN THE EVENING SOLD: 08/26/2020 [facility] 50 mcg/actuation 03/08/2020 12:00:00 AM EDT spray,suspension 16 SPRAY 2 SPRAYS (100MCG) IN EACH NOSTRIL ONCE DAILY IN THE EVENING SPRAY 2 SPRAYS (100MCG) IN EACH NOSTRIL ONCE DAILY IN THE EVENING SOLD: 07/25/2020 [facility] 50 mcg/actuation 03/08/2020 12:00:00 AM EDT spray,suspension 16 SPRAY 2 SPRAYS (100MCG) IN EACH NOSTRIL ONCE DAILY IN THE EVENING SPRAY 2 SPRAYS (100MCG) IN EACH NOSTRIL ONCE DAILY IN THE EVENING SOLD: 09/26/2020 [facility] 50 mcg/actuation 03/08/2020 12:00:00 AM EDT spray,suspension 16 SPRAY 2 SPRAYS (100MCG) IN EACH NOSTRIL ONCE DAILY IN THE EVENING SPRAY 2 SPRAYS (100MCG) IN EACH NOSTRIL ONCE DAILY IN THE EVENING SOLD: 04/13/2020 [facility] 50 mcg/actuation 03/08/2020 12:00:00 AM EDT spray,suspension 16 SPRAY 2 SPRAYS (100MCG) IN EACH NOSTRIL ONCE DAILY IN THE EVENING SPRAY 2 SPRAYS (100MCG) IN EACH NOSTRIL ONCE DAILY IN THE EVENING SOLD: 06/18/2020 [facility] 50 mcg/actuation 03/08/2020 12:00:00 AM EDT spray,suspension 16 SPRAY 2 SPRAYS (100MCG) IN EACH NOSTRIL ONCE DAILY IN THE EVENING SPRAY 2 SPRAYS (100MCG) IN EACH NOSTRIL ONCE DAILY IN THE EVENING SOLD: 05/18/2020 [facility] 100 mg 03/07/2020 12:00:00 AM EDT capsule 30 TAKE ONE CAPSULE BY MOUTH EVERY DAY NEEDED TAKE ONE CAPSULE BY MOUTH EVERY DAY NEEDED SOLD: 05/18/2020 [facility] 100 mg 03/07/2020 12:00:00 AM EDT capsule 30 TAKE ONE CAPSULE BY MOUTH EVERY DAY NEEDED TAKE ONE CAPSULE BY MOUTH EVERY DAY NEEDED SOLD: 06/18/2020 [facility] 100 mg 03/07/2020 12:00:00 AM EDT capsule 30 TAKE ONE CAPSULE BY MOUTH EVERY DAY NEEDED TAKE ONE CAPSULE BY MOUTH EVERY DAY NEEDED SOLD: 04/13/2020 [facility] 100 mg 03/07/2020 12:00:00 AM EDT capsule 30 TAKE ONE CAPSULE BY MOUTH EVERY DAY NEEDED TAKE ONE CAPSULE BY MOUTH EVERY DAY NEEDED SOLD: 07/25/2020 [facility] 100 mg 03/07/2020 12:00:00 AM EDT capsule 30 TAKE ONE CAPSULE BY MOUTH EVERY DAY NEEDED TAKE ONE CAPSULE BY MOUTH EVERY DAY NEEDED SOLD: 08/26/2020 [facility] 40 mg 02/24/2020 12:00:00 AM EDT tablet 90 TAKE 1 TAB.[40MG] BY MOUTH DAILY IN ADDITION TO 20MG TAB.TO EQUAL 60MG DAILY TAKE 1 TAB.[40MG] BY MOUTH DAILY IN ADDITION TO 20MG TAB.TO EQUAL 60MG DAILY SOLD: 06/03/2020 [facility] 20 mg 02/24/2020 12:00:00 AM EDT tablet 90 TAKE 1 TABLET [20MG TOTAL] BY MOUTH DAILY PLUS 40MG TABLET TO EQUAL 60MG DAILY TAKE 1 TABLET [20MG TOTAL] BY MOUTH DAILY PLUS 40MG TABLET TO EQUAL 60MG DAILY SOLD: 06/03/2020 [facility] 25 mg 02/22/2020 12:00:00 AM EDT tablet extended release 24 hr 90 TAKE 1 TABLET BY MOUTH [25MG TOTAL] BY MOUTH DAILY TAKE 1 TABLET BY MOUTH [25MG TOTAL] BY MOUTH DAILY SOLD: 05/23/2020 [facility] 17 mcg/actuation 02/20/2020 12:00:00 AM EDT HFA aerosol inha ler 12 INHALE TWO PUFFS BY MOUTH FOUR TIMES A DAY INHALE TWO PUFFS BY MOUTH FOUR TIMES A DAY SOLD: 07/07/2020 [facility] 17 mcg/actuation 02/20/2020 12:00:00 AM EDT HFA aerosol inha ler 12 INHALE TWO PUFFS BY MOUTH FOUR TIMES A DAY INHALE TWO PUFFS BY MOUTH FOUR TIMES A DAY SOLD: 06/12/2020 [facility] 17 mcg/actuation 02/20/2020 12:00:00 AM EDT HFA aerosol inha ler 12 INHALE TWO PUFFS BY MOUTH FOUR TIMES A DAY INHALE TWO PUFFS BY MOUTH FOUR TIMES A DAY SOLD: 05/18/2020 [facility] 17 mcg/actuation 02/20/2020 12:00:00 AM EDT HFA aerosol inha ler 12 INHALE TWO PUFFS BY MOUTH FOUR TIMES A DAY INHALE TWO PUFFS BY MOUTH FOUR TIMES A DAY SOLD: 04/13/2020 [facility] rizatriptan 10 MG Disintegrating Oral Tablet RIZATRIPTAN ETHEL ZOATE 02/17/2020 12:00:00 AM EDT tablet,disintegrating 9 DISSOLVE 1 TAB.ONSET OF HEADACHE MAY REPEAT IN 2HRS NEEDED MAX=2TABS/DAY DISSOLVE 1 TAB.ONSET OF HEADACHE MAY REPEAT IN 2HRS NEEDED MAX=2TABS/DAY SOLD: 09/26/2020 [facility] 10 mg 02/17/2020 12:00:00 AM EDT tablet,disintegrating 9 DISSOLVE 1 TAB.ONSET OF HEADACHE MAY REPEAT IN 2HRS NEEDED MAX=2TABS/DAY DISSOLVE 1 TAB.ONSET OF HEADACHE MAY REPEAT IN 2HRS NEEDED MAX=2TABS/DAY SOLD: 06/18/2020 [facility] 10 mg 02/17/2020 12:00:00 AM EDT tablet,disintegrating 9 DISSOLVE 1 TAB.ONSET OF HEADACHE MAY REPEAT IN 2HRS NEEDED MAX=2TABS/DAY DISSOLVE 1 TAB.ONSET OF HEADACHE MAY REPEAT IN 2HRS NEEDED MAX=2TABS/DAY SOLD: 04/05/2020 [facility] 10 mg 02/17/2020 12:00:00 AM EDT tablet,disintegrating 9 DISSOLVE 1 TAB.ONSET OF HEADACHE MAY REPEAT IN 2HRS NEEDED MAX=2TABS/DAY DISSOLVE 1 TAB.ONSET OF HEADACHE MAY REPEAT IN 2HRS NEEDED MAX=2TABS/DAY SOLD: 07/25/2020 [facility] 10 mg 02/17/2020 12:00:00 AM EDT tablet,disintegrating 9 DISSOLVE 1 TAB.ONSET OF HEADACHE MAY REPEAT IN 2HRS NEEDED MAX=2TABS/DAY DISSOLVE 1 TAB.ONSET OF HEADACHE MAY REPEAT IN 2HRS NEEDED MAX=2TABS/DAY SOLD: 05/18/2020 [facility] rizatriptan 10 MG Disintegrating Oral Tablet RIZATRIPTAN ETHEL ZOATE 02/17/2020 12:00:00 AM EDT tablet,disintegrating 9 DISSOLVE 1 TAB.ONSET OF HEADACHE MAY REPEAT IN 2HRS NEEDED MAX=2TABS/DAY DISSOLVE 1 TAB.ONSET OF HEADACHE MAY REPEAT IN 2HRS NEEDED MAX=2TABS/DAY SOLD: 08/26/2020 [facility] 2 mg 02/14/2020 12:00:00 AM EDT tablet 90 TAKE 1 TABLET BY MOUTH THREE TIMES A DAY MAXIMUM DAILY DOSE = 3 TAKE 1 TABLET BY MOUTH THREE TIMES A DAY MAXIMUM DAILY DOSE = 3 SOLD: 05/18/2020 [facility] 2 mg 02/14/2020 12:00:00 AM EDT tablet 90 TAKE 1 TABLET BY MOUTH THREE TIMES A DAY MAXIMUM DAILY DOSE = 3 TAKE 1 TABLET BY MOUTH THREE TIMES A DAY MAXIMUM DAILY DOSE = 3 SOLD: 04/05/2020 [facility] 90 mcg/actuation 01/24/2020 12:00:00 AM EDT HFA aerosol inha ler 8 INHALE 2 PUFFS FOUR TIMES A DAY NEEDED INHALE 2 PUFFS FOUR TIMES A DAY NEEDED SOLD: 09/26/2020 [facility] 90 mcg/actuation 01/24/2020 12:00:00 AM EDT HFA aerosol inha ler 8 INHALE 2 PUFFS FOUR TIMES A DAY NEEDED INHALE 2 PUFFS FOUR TIMES A DAY NEEDED SOLD: 10/22/2020 [facility] 90 mcg/actuation 01/24/2020 12:00:00 AM EDT HFA aerosol inha ler 8 INHALE 2 PUFFS FOUR TIMES A DAY NEEDED INHALE 2 PUFFS FOUR TIMES A DAY NEEDED SOLD: 06/12/2020 [facility] 90 mcg/actuation 01/24/2020 12:00:00 AM EDT HFA aerosol inha ler 8 INHALE 2 PUFFS FOUR TIMES A DAY NEEDED INHALE 2 PUFFS FOUR TIMES A DAY NEEDED SOLD: 09/04/2020 [facility] 90 mcg/actuation 01/24/2020 12:00:00 AM EDT HFA aerosol inha ler 8 INHALE 2 PUFFS FOUR TIMES A DAY NEEDED INHALE 2 PUFFS FOUR TIMES A DAY NEEDED SOLD: 04/13/2020 [facility] 90 mcg/actuation 01/24/2020 12:00:00 AM EDT HFA aerosol inha ler 8 INHALE 2 PUFFS FOUR TIMES A DAY NEEDED INHALE 2 PUFFS FOUR TIMES A DAY NEEDED SOLD: 05/18/2020 [facility] 90 mcg/actuation 01/24/2020 12:00:00 AM EDT HFA aerosol inha ler 8 INHALE 2 PUFFS FOUR TIMES A DAY NEEDED INHALE 2 PUFFS FOUR TIMES A DAY NEEDED SOLD: 07/07/2020 [facility] 90 mcg/actuation 01/24/2020 12:00:00 AM EDT HFA aerosol inha ler 8 INHALE 2 PUFFS FOUR TIMES A DAY NEEDED INHALE 2 PUFFS FOUR TIMES A DAY NEEDED SOLD: 11/16/2020 [facility] 40 mg 01/08/2020 12:00:00 AM EDT tablet 30 TAKE ONE TABLET BY MOUTH EVERY DAY TAKE ONE TABLET BY MOUTH EVERY DAY SOLD: 05/18/2020 [facility] 40 mg 01/08/2020 12:00:00 AM EDT tablet 30 TAKE ONE TABLET BY MOUTH EVERY DAY TAKE ONE TABLET BY MOUTH EVERY DAY SOLD: 04/13/2020 [facility] 40 mg 01/08/2020 12:00:00 AM EDT tablet 30 TAKE ONE TABLET BY MOUTH EVERY DAY TAKE ONE TABLET BY MOUTH EVERY DAY SOLD: 06/18/2020 [facility] 113-14 mcg/actuation 12/29/2019 12:00:00 AM EDT aerosol powdr breath activated 1 INHALE ONE PUFF BY MOUTH TWICE A DAY INHA LE ONE PUFF BY MOUTH TWICE A DAY SOLD: 07/25/2020 [facility] 17 gram/dose 12/29/2019 12:00:00 AM EDT powder 510 MIX 17 GRAMS ONCE DAILY DIRECTED NEEDED MIX 17 GRAMS ONCE DAILY DIRECTED NEEDED SOLD: 04/13/2020 [facility] 17 gram/dose 12/29/2019 12:00:00 AM EDT powder 510 MIX 17 GRAMS ONCE DAILY DIRECTED NEEDED MIX 17 GRAMS ONCE DAILY DIRECTED NEEDED SOLD: 05/18/2020 [facility] 17 gram/dose 12/29/2019 12:00:00 AM EDT powder 510 MIX 17 GRAMS ONCE DAILY DIRECTED NEEDED MIX 17 GRAMS ONCE DAILY DIRECTED NEEDED SOLD: 06/18/2020 [facility] 113-14 mcg/actuation 12/29/2019 12:00:00 AM EDT aerosol powdr breath activated 1 INHALE ONE PUFF BY MOUTH TWICE A DAY INHA LE ONE PUFF BY MOUTH TWICE A DAY SOLD: 05/18/2020 [facility] 113-14 mcg/actuation 12/29/2019 12:00:00 AM EDT aerosol powdr breath activated 1 INHALE ONE PUFF BY MOUTH TWICE A DAY INHA LE ONE PUFF BY MOUTH TWICE A DAY SOLD: 04/05/2020 [facility] 113-14 mcg/actuation 12/29/2019 12:00:00 AM EDT aerosol powdr breath activated 1 INHALE ONE PUFF BY MOUTH TWICE A DAY INHA LE ONE PUFF BY MOUTH TWICE A DAY SOLD: 06/18/2020 [facility] 325 mg (65 mg iron) 12/28/2019 12:00:00 AM EDT tablet 30 TAKE ONE TABLET BY MOUTH EVERY DAY TAKE ONE TABLET BY MOUTH EVERY DAY SOLD: 05/18/2020 [facility] 325 mg (65 mg iron) 12/28/2019 12:00:00 AM EDT tablet 30 TAKE ONE TABLET BY MOUTH EVERY DAY TAKE ONE TABLET BY MOUTH EVERY DAY SOLD: 04/13/2020 [facility] 5 mg 12/27/2019 12:00:00 AM EDT tablet 180 TAKE 1 TABLET [5MG TOTAL] BY MOUTH TWO TIMES A DAY TAKE 1 TABLET [5MG TOTAL] BY MOUTH TWO TIMES A DAY [facility] 0.1 % 12/11/2019 12:00:00 AM EDT cream 15 APPLY 1 APPLICATION TO AFFECTED AREA ONCE DAILY EXTERNALLY APPLY 1 APPLICATION TO AFFECTED AREA ONC E DAILY EXTERNALLY SOLD: 05/18/2020 [facility] 0.1 % 12/11/2019 12:00:00 AM EDT cream 15 APPLY 1 APPLICATION TO AFFECTED AREA ONCE DAILY EXTERNALLY APPLY 1 APPLICATION TO AFFECTED AREA ONC E DAILY EXTERNALLY SOLD: 04/05/2020 [facility] 0.1 % 12/11/2019 12:00:00 AM EDT cream 15 APPLY 1 APPLICATION TO AFFECTED AREA ONCE DAILY EXTERNALLY APPLY 1 APPLICATION TO AFFECTED AREA ONC E DAILY EXTERNALLY SOLD: 06/18/2020 [facility] 0.1 % 12/11/2019 12:00:00 AM EDT cream 15 APPLY 1 APPLICATION TO AFFECTED AREA ONCE DAILY EXTERNALLY APPLY 1 APPLICATION TO AFFECTED AREA ONC E DAILY EXTERNALLY SOLD: 06/03/2020 [facility] 0.1 % 12/11/2019 12:00:00 AM EDT cream 15 APPLY 1 APPLICATION TO AFFECTED AREA ONCE DAILY EXTERNALLY APPLY 1 APPLICATION TO AFFECTED AREA ONC E DAILY EXTERNALLY SOLD: 04/21/2020 [facility] 20 mg 12/05/2019 12:00:00 AM EST tablet 30 TAKE 1 TABLET BY MOUTH EVERY DAY TAKE 1 TABLET BY MOUTH EVERY DAY SOLD: 11/30/2020 [facility] Hydroxyzine Hydrochloride 10 MG Oral Tablet hydrOXYzin e (ATARAX) 10 MG tablet hydrOXYzine (ATARAX) 10 MG tablet 12/01/2019 12:00:00 AM EST aborted as needed [facility] 70 mg/mL 11/26/2019 12:00:00 AM EST auto-injector 1 INJECT 70MG UNDER THE SKIN ONCE MONTHLY INJECT 70MG UNDER THE SKIN ONCE MONTHLY SOLD: 04/13/2020 [facility] 70 mg/mL 11/26/2019 12:00:00 AM EST auto-injector 1 INJECT 70MG UNDER THE SKIN ONCE MONTHLY INJECT 70MG UNDER THE SKIN ONCE MONTHLY SOLD: 05/18/2020 [facility] 20 mEq 11/13/2019 12:00:00 AM EST tablet,ER particles/cry stals 180 TAKE 1 TABLET BY MOUTH TWICE A DAY TAKE 1 TABLET BY MOUTH TWICE A DAY SOLD: 05/18/2020 [facility] 20 mEq 11/13/2019 12:00:00 AM EST tablet,ER particles/cry stals 180 TAKE 1 TABLET BY MOUTH TWICE A DAY TAKE 1 TABLET BY MOUTH TWICE A DAY SOLD: 08/26/2020 [facility] 0.1 % 11/03/2019 12:00:00 AM EST drops 15 INSTILL 1 DROP INTO BOTH EYES TWO TIMES A DAY DIRECTED INSTILL 1 DROP INTO BOTH EYES TWO TIMES A DAY DIRECTED SOLD: 06/03/2020 [facility] 10 mg 11/01/2019 12:00:00 AM EST tablet 30 TAKE ONE TABLET BY MOUTH EVERY DAY TAKE ONE TABLET BY MOUTH EVERY DAY SOLD: 09/26/2020 [facility] 10 mg 11/01/2019 12:00:00 AM EST tablet 30 TAKE ONE TABLET BY MOUTH EVERY DAY TAKE ONE TABLET BY MOUTH EVERY DAY SOLD: 08/26/2020 [facility] 10 mg 11/01/2019 12:00:00 AM EST tablet 30 TAKE ONE TABLET BY MOUTH EVERY DAY TAKE ONE TABLET BY MOUTH EVERY DAY SOLD: 04/13/2020 [facility] 10 mg 11/01/2019 12:00:00 AM EST tablet 30 TAKE ONE TABLET BY MOUTH EVERY DAY TAKE ONE TABLET BY MOUTH EVERY DAY SOLD: 05/18/2020 [facility] 10 mg 11/01/2019 12:00:00 AM EST tablet 30 TAKE ONE TABLET BY MOUTH EVERY DAY TAKE ONE TABLET BY MOUTH EVERY DAY SOLD: 06/18/2020 [facility] 10 mg 11/01/2019 12:00:00 AM EST tablet 30 TAKE ONE TABLET BY MOUTH EVERY DAY TAKE ONE TABLET BY MOUTH EVERY DAY SOLD: 07/25/2020 [facility] Cyclosporine 0.9 MG/ML Ophthalmic Solution [Cequa] 0.09 % CY CLOSPORINE 10/27/2019 12:00:00 AM EST dropperette 60 INSTI LL 1 DROP IN EACH EYE TWICE A DAY INSTILL 1 DROP IN EACH EYE TWICE A DAY SOLD: 04/05/2020 [facility] Insurance Providers Payer name Policy type / Coverage type Policy ID Covered constitution party ID Covered constitution party's relationship to roberts Policy [place] Plan Information [place] [employer] [place] Workers Compensation [id number] Self [id number] o Blue Option/Medicaid Health Maintenance Organization (HMO) V [id number] Self [id number] o Blue Option/Medicaid Health Maintenance Organization (HMO) V [id number] Self [id number] Blue o Medicaid Commercial [id number] Self [id number] Hmo Blue Option/Medicaid Health Maintenance Organization (HMO) V [id number] Self [id number] o Blue Option/Medicaid Health Maintenance Organization (HMO) V [id number] 2.840.1.978320.3.227.99.8646.79292.0 Self [id number] Blue o Medicaid Commercial [id number] 20.1.515550.3.227 .99.177.968.0 Self [id number] Blue o Medicaid Commercial [id number] 2.16.840.1.333795.3.227 .99.177.968.0 Self [id number] Hmo Blue Option/Medicaid Health Maintenance Organization (HMO) V [id number] 2.16.840.1.504887.3.227.99.8646.12258.0 Self [id number] Hmo Blue Option/Medicaid Health Maintenance Organization (HMO) V [id number] 2.16.840.1.263163.3.227.99.8646.44864.0 Self [id number] Hmo Blue Option/Medicaid Health Maintenance Organization (HMO) V [id number] 2.16.840.1.703985.3.227.99.8646.13048.0 Self [id number] Hmo Blue Option/Medicaid Health Maintenance Organization (HMO) V [id number] 2.16.840.1.487509.3.227.99.8646.99265.0 Self [id number] Blue Hmo Medicaid Commercial [id number] 2.16.840.1.891467.3.227 .99.177.968.0 Self [id number] Blue Hmo Medicaid Commercial [id number] 2.16.840.1.136789.3.227 .99.177.968.0 Self [id number] Hmo Blue Option/Medicaid Health Maintenance Organization (HMO) V [id number] Self [id number] BS Elias Hmo Blue Option Medigap Part B [id number] 2.16.840.1.856230.3.227.99.991.9831.0 Self VY [id number] BS Elias Hmo Blue Option Medigap Part B [id number] 2.16.840.1.647619.3.227.99.991.9831.0 Self VY [id number] BS Elias Hmo Blue Option Medigap Part B [id number] 2.16840.1.527665.3.227.99.991.9831.0 Self VY [id number] BS Elias Hmo Blue Option Medigap Part B [id number] 2.16840.1.308949.3.227.99.991.9831.0 Self VY [id number] BS Elias Hmo Blue Option Medigap Part B [id number] 2.16840.1.490225.3.227.99.991.9831.0 Self VY [id number] BS Elias Hmo Blue Option Medigap Part B [id number] 2.16840.1.880238.3.227.99.991.9831.0 Self VY [id number] BS Elias Hmo Blue Option Medigap Part B [id number] 2.0.1.247941.3.227.99.991.9831.0 Self VY [id number] BS Elias Hmo Blue Option Medigap Part B [id number] 2.0.1.279536.3.227.99.991.9831.0 Self VY [id number] BS Elias Hmo Blue Option Medigap Part B [id number] 2.840.1.387269.3.227.99.991.9831.0 Self VY [id number] BS Elias Hmo Blue Option Medigap Part B [id number] 2.840.1.030150.3.227.99.991.9831.0 Self VY [id number] BS Elias Hmo Blue Option Medigap Part B [id number] 2.16840.1.733922.3.227.99.991.9831.0 Self VY [id number] BS Elias Hmo Blue Option Medigap Part B [id number] 2.840.1.485208.3.227.99.991.9831.0 Self VY [id number] BS Elias Hmo Blue Option Medigap Part B [id number] Self [id number] BS Elias Hmo Blue Option Medigap Part B [id number] 2.0.1.618250.3.227.99.991.9831.0 Self VY [id number] BS [facility] Hmo Blue Option Medigap Part B [id number] 2..1.156444.3.227.99.991.9831.0 Self VY [id number] [facility] Health Maintenance Organization (HMO) [id number] Self [id number] [facility] Community Plan Commercial [id number] 2.0.1.733296.3.227.99.177.968.0 Self [id number] [facility] Elias/MCR Health Maintenance Organization (HMO) [id number] 2.0.1.923110.3.227.99.8646.97401.0 Self [id number] [facility] Community Plan Commercial [id number] 2.0.1.002294.3.22 7.99.991.9831.0 Self [id number] [facility] Community Plan Commercial [id number] Self UNHC COMMUNITY PLAN MCDHMO [id number] SP [id number] UHC I [id number] Self [id number] UNHC COMMUNITY PLAN MCDHMO [id number] SP [id number] UNHC COMMUNITY PLAN MCDHMO [id number] SP [id number] [facility] MEDICAID [id number] Adamaris [id number] [facility] MEDICAID [id number] xxxxxxxxx [id number] BC/BS Family Health Plus Medigap Part B [id number] 2.0.1.760213.3.227.99.8646.30365.0 Self [id number] [facility]-Community Plan-Elias Commercial [id number] 2.0.1.950229.3.227.99.572.03267.0 Self [id number] BC/BS Family Health Plus Medigap Part B [id number] 2.0.1.788772.3.227.99.8646.19098.0 Self [id number] o Blue Option/Medicaid Health Maintenance Organization (HMO) V [id number] 2.16.840.1.214461.3.227.99.8646.40619.0 Self [id number] [facility] Health Maintenance Organization (HMO) [id number] 2.16.840.1.957015.3.227.99.8646.82917.0 Self [id number] UN COMMUNITY PLAN MCDO [id number] SP [id number] BC/BS Family Health Plus Medigap Part B [id number] 2.16.840.1.170645.3.227.99.8646.37561.0 Self [id number] o Blue Option/Medicaid Health Maintenance Organization (HMO) V [id number] 2.16.0.1.946709.3.227.99.8646.94496.0 Self [id number] [facility]/Community [facility] Health Maintenance Organization (HMO) [id number] 2.16840.1.677079.3.227.99.1767.86081.0 Self [id number] [facility]-Community Plan-[place]lias Commercial [id number] 2.16.840.1.934899.3.227.99.572.32132.0 Self [id number] [facility]-Community Plan-[place]lias Commercial [id number] 2.16.840.1.066432.3.227.99.572.04388.0 Self [id number] [facility]-Community Plan-[place]lias Commercial [id number] 2.16.840.1.371227.3.227.99.572.93756.0 Self [id number] [facility]-Community Plan-[place]lias Commercial [id number] 2.16.840.1.971343.3.227.99.572.46479.0 Self [id number] [facility] O [id number] S [id number] U/HC Medicaid Comm Plan Commercial [id number] 2.16.840.1.373835.3.227.99.572.39929.0 Self [id number] BC/BS Family Health Plus Medigap Part B 2.16.840.1.266309.3.227.99.8646.50845.0 Self Hmo Blue Option/Medicaid Health Maintenance Organization (HMO) [id number] 2.16.840.1.805461.3.227.99.8646.78195.0 Self [id number] [facility] Elias/MCR Health Maintenance Organization (HMO) [id number] 2.16.840.1.012462.3.227.99.8646.28276.0 Self [id number] UNHC COMMUNITY PLAN MCDO [id number] SP [id number] Community Plan - [facility] Commercial [id number] Self [facility] Commercial [id number] Self U/HC Medicaid Comm Plan Commercial [id number] [facility] Health Maintenance Organization (HMO) [id number] Self STATE FARM INS NO FAULT [id number] SP [id number] SELF PAY UNAVAILABLE SP UNAVAILA BLE BLUE CROSS [place] PLAN [id number] SP [id number] HMO BLUE [id number] SP [id number] UNHC COMMUNITY PLAN MCDHMO [id number] SP [id number] [facility] COMMUNITY PLAN MCDHMO [id number] SP [id number] [facility] O [id number] S [id number] ANSI-Medicaid [id number] ANSI-Medicaid [id number] Community Plan - [facility] Commercial [id number] Self [id number] [facility]-Community Plan-[facility] Commercial [id number] Self [id number] U/HC Medicaid Comm Plan Commercial [id number] Self [id number] [facility] Commercial [id number] Self [id number] BC/BS Family Health Plus Medigap Part B [id number] Self [id number] [facility] Medigap Part B [id number] Self [id number] [facility] 2.16.840.1.500414.3.441 [id number] Preferred Provider Organization (PPO) 2.16.840.1.259984.3.441 ANSI-Medicaid [id number] [facility] Commercial [id number] 2.16.840.1.053455.3.227.99.177.968.0 Self [id number] [facility] Commercial [id number] 2.16.840.1.901791.3.227.99.572.65671.0 Self [id number] ANSI-Medicaid [id number] ANSI-Medicaid [id number] ANSI-Medicaid [id number] ANSI-Medicaid [id number] ANSI-Medicaid [id number] ANSI-Medicaid [id number] ANSI-Medicaid [id number] [facility] Commercial [id number] 2.16.840.1.186631.3.227.99.572.34490.0 Self [id number] ANSI-Medicaid [id number] ANSI-Medicaid [id number] ANSI-Medicaid [id number] BC/BS Family Health Plus Medigap Part B [id number] .16.840.1.166955.3.227.99.8646.33076.0 Self [id number] ANSI-Medicaid [id number] ANSI-Medicaid [id number] [facility] Commercial [id number] 2.1.281523.3.227.99.572.60755.0 Self [id number] ANSI-Medicaid [id number] ANSI-Medicaid [id number] BC/BS Family Health Plus Medigap Part B [id number] 2.1.627885.3.227.99.8646.62025.0 Self [id number] [facility] Medigap Part B [id number] .1.381632.3.227.99.8646.68554.0 Self [id number] BC/BS Family Health Plus Medigap Part B [id number] .1.635687.3.227.99.8646.18174.0 Self [id number] ANSI-Medicaid [id number] BC/BS Family Health Plus Medigap Part B [id number] 2.1.798522.3.227.99.8646.66711.0 Self [id number] BC/BS Family Health Plus Medigap Part B [id number] 2.1.402226.3.227.99.8646.12608.0 Self [id number] [facility] Commercial [id number] 2.1.251338.3.227.99.572.54417.0 Self 1 [id number] BC/BS Family Health Plus Medigap Part B [id number] 2.1.588841.3.227.99.8646.29560.0 Self [id number] BC/BS Family Health Plus Medigap Part B [id number] 2.16.840.1.797529.3.227.99.8646.58412.0 Self [id number] Problems, Conditions, and Diagnoses Code Display Name Description Problem Type Effective Dates Data Source(s) 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 Dependence on other enabling machines an Diagnosis 12/10/2020 07:54:58 AM EST [facility] G47.33 Obstructive sleep apnea (adult) (pediatr ic) Obstructive sleep apnea (adult) (pediatr Diagnosis 12/10/2020 07:54:58 AM EST [facility] I42.2 Other hypertrophic cardiomyopathy Other hypertro phic cardiomyopathy Diagnosis 12/10/2020 07:54:58 AM EST [facility] E78.2 Mixed hyperlipidemia Mixed hyperlipidemia Diagnosis 12/10/2020 07:54:58 AM [facility] I34.0 Nonrheumatic mitral (valve) insufficienc y Nonrheumatic mitral (valve) insufficienc Diagnosis 12/10/2020 07:54:58 AM EST [facility] I50.32 Chronic diastolic (congestive) heart uma lure Chronic diastolic (congestive) heart uma Diagnosis 12/10/2020 07:54:58 AM [facility] I44.7 Left bundle-branch block, unspecified Le ft bundle-branch block, unspecified Diagnosis 12/10/2020 07:54:58 AM [facility] I48.0 Paroxysmal atrial fibrillation Paroxysmal atrial fibri llation Diagnosis 12/10/2020 07:54:58 AM EST [facility] F43.11 Post-traumatic stress disorder, acute Po st-traumatic stress disorder, acute Condition 05/13/2021 12:00:00 AM EDT [facility] ([facility]) K58.1 [id number] Irritable bowel syndrome with constipatio n Problem 12/12/2020 12:00:00 AM EST eCW1 ([facility]) F33.1 Major depressive disorder, recurrent, mo derate Major Depressive Disorder, Recurrent episode, Moderate Condition 09/24/2020 12:00:00 AM EST [facility] ([facility]) L20.9 Atopic dermatitis Atopic dermatitis Problem 08/01/2020 12:00:00 AM EDT [facility] ([facility]) G47.33 MARCOS on CPAP MARCOS on CPAP [id number] 04/02/2020 12:00:00 AM EDT [facility] Surgeries/Procedures Procedure Description Date Indications Data Source(s) PROF TAI ALLG IMMNTX X W/PRV ALLGIC XTRCS NJXS 2020 12:00:00 AM EDT [facility] ([facility]) Extended Individual Psychotherapy - 45 min 05/13/2021 12:00:00 AM EDT - 05/13/2021 12:00:00 AM EDT [facility] ([facility]) Extended Individual Psychotherapy - 45 min 12:00:00 AM EDT [facility] ([facility]) ARTHROCENTESIS ASPIR&/INJECTION MAJOR JT/BURSA 021 12:00:00 AM EDT [facility] ([facility] ) OFFICE OUTPATIENT VISIT 25 MINUTES 05/07/2021 12:00:00 AM EDT [facility] ([facility] ) MRI SPINAL CANAL CERVICAL W/O CONTRAST MATRL 12:00:00 AM EDT [facility] ([facility]) MRI SPINAL CANAL CERVICAL W/O CONTRAST MATRL 12:00:00 AM EDT [facility] ([facility]) PREVENT MED MERCANTILE AGENT&/RISK FACTOR REDJ SPX 15 MIN 04/23/2021 12:00:00 AM EDT - 04/23/2021 12:00:00 AM EDT [facility] ([facility]) PREVENT MED MERCANTILE AGENT&/RISK FACTOR REDJ SPX 15 MIN 04/23 12:00:00 AM EDT [facility] ([facility]) OFFICE OUTPATIENT VISIT 25 MINUTES 04/18/2021 12:00:00 AM EDT [facility] ([facility] ) Extended Individual Psychotherapy - 45 min 04/18/2021 12:00:00 AM EDT - 04/18/2021 12:00:00 AM EDT [facility] ([facility]) Extended Individual Psychotherapy - 45 min 12:00:00 AM EDT [facility] ([facility]) PROF ABIDA STRICKLAND IMMNTX X W/PRV ALLGIC XTRCS NJXS 2020 12:00:00 AM EDT [facility] ([facility]) MRI Upper Extremity Any Joint 04/08/2021 12:00:00 AM E DT [facility] ([facility]) Extended Individual Psychotherapy - 45 min 04/04/2021 12:00:00 AM EDT - 04/04/2021 12:00:00 AM EDT [facility] ([facility]) Extended Individual Psychotherapy - 45 min 12:00:00 AM EDT [facility] ([facility]) PREPJ& ALLERGEN IMMUNOTHERAPY 1/RECRUITING AND SELECTION CONSULTANT ANTIGEN 03/28/2021 12:00:00 AM EDT [facility] ([facility]) OFFICE OUTPATIENT VISIT 25 MINUTES 03/28/2021 12:00:00 AM EDT [facility] ([facility]) PROF ABIDA STRICKLAND IMMNTX X W/PRV ALLGIC XTRCS NJXS 2020 12:00:00 AM EDT [facility] ([facility]) PROF ABIDA STRICKLAND IMMNTX X W/PRV ALLGIC XTRCS NJXS 2020 12:00:00 AM EDT [facility] ([facility]) Extended Individual Psychotherapy - 45 min 02/21/2021 12:00:00 AM EDT - 02/21/2021 12:00:00 AM EDT [facility] ([facility]) Extended Individual Psychotherapy - 45 min 12:00:00 AM EDT [facility] ([facility]) PROF ABIDA STRICKLAND IMMNTX X W/PRV ALLGIC XTRCS NJXS 2020 12:00:00 AM EDT [facility] ([facility]) Extended Individual Psychotherapy - 45 min 02/07/2021 12:00:00 AM EDT - 02/07/2021 12:00:00 AM EDT [facility] ([facility]) Extended Individual Psychotherapy - 45 min 12:00:00 AM EDT [facility] ([facility]) Extended Individual Psychotherapy - 45 min 01/21/2021 12:00:00 AM EDT - 01/21/2021 12:00:00 AM EDT [facility] ([facility]) Extended Individual Psychotherapy - 45 min 12:00:00 AM EDT [facility] ([facility]) SVFLORI ALLG IMMNTX X W/PRV ALLGIC XTRCS NJXS 2020 12:00:00 AM EDT [facility] ([facility]) PROF TAI ALLG IMMNTX X W/PRV ALLGIC XTRCS NJXS 2020 12:00:00 AM EDT [facility] ([facility]) ECG ROUTINE ECG W/LEAST 12 LDS W/I&R <td>POCT AMB EKG</td><td>Routine</td><td>12/10/2020 9:08 AM EST</td><td> Paroxysmal atrial fibrillation</td><td> </td> 12/10/2020 02:08:00 PM EST Paroxysmal atrial fibrillation [facility] Paroxysmal atrial fibrillation PROF TAI ALLG IMMNTX X W/PRV ALLGIC XTRCS NJXS 2020 12:00:00 AM EST [facility] ([facility]) OFFICE OUTPATIENT VISIT 15 MINUTES 11/27/2020 12:00:00 AM EST [facility] ([facility]) PROF TAI ALLG IMMNTX X W/PRV ALLGIC XTRCS NJXS 2020 12:00:00 AM EST [facility] ([facility]) PROF TAI ALLG IMMNTX X W/PRV ALLGIC XTRCS NJXS 2020 12:00:00 AM EST [facility] ([facility]) Extended Individual Psychotherapy - 45 min 09/24/2020 12:00:00 AM EST - 09/24/2020 12:00:00 AM EST [facility] ([facility]) PROF ABIDA STRICKLAND IMMNTX X W/PRV ALLGIC XTRCS NJXS 2019 12:00:00 AM EST [facility] ([facility]) Extended Individual Psychotherapy - 45 min 0 12:00:00 AM EST [facility] ([facility]) [id number]"Psychotherapy 0 12:00:00 AM EST - 09/17/2020 12:00:00 AM EST [facility] ([facility]) [id number]"Psychotherapy 09/16/2020 12:00:00 AM EST [facility] ([facility]) Extended Individual Psychotherapy - 45 min 09/11/2020 12:00:00 AM EST - 09/11/2020 12:00:00 AM EST [facility] ([facility]) Extended Individual Psychotherapy - 45 min 0 12:00:00 AM EST [facility] ([facility]) PREPJ& ALLERGEN IMMUNOTHERAPY 1/RECRUITING AND SELECTION CONSULTANT ANTIGEN 08/27/2020 12:00:00 AM EST [facility] ([facility]) Extended Individual Psychotherapy - 45 min 08/26/2020 12:00:00 AM EST - 08/26/2020 12:00:00 AM EST [facility] ([facility]) Extended Individual Psychotherapy - 45 min 0 12:00:00 AM EST [facility] ([facility]) PROF ABIDA STRICKLAND IMMNTX X W/PRV ALLGIC XTRCS NJXS 2019 12:00:00 AM EST [facility] ([facility]) Extended Individual Psychotherapy - 45 min 07/29/2020 12:00:00 AM EDT - 07/29/2020 12:00:00 AM EDT [facility] ([facility]) Extended Individual Psychotherapy - 45 min 0 12:00:00 AM EDT [facility] ([facility]) PROF ABIDA STRICKLAND IMMNTX X W/PRV ALLGIC XTRCS NJXS 2019 12:00:00 AM EDT [facility] ([facility]) Extended Individual Psychotherapy - 45 min 07/15/2020 12:00:00 AM EDT - 07/15/2020 12:00:00 AM EDT [facility] ([facility]) Extended Individual Psychotherapy - 45 min 0 12:00:00 AM EDT [facility] ([facility]) PROF ABIDA STRICKLAND IMMNTX X W/PRV ALLGIC XTRCS NJXS 2019 12:00:00 AM EDT [facility] ([facility]) PROF ABIDA STRICKLAND IMMNTX X W/PRV ALLGIC XTRCS NJXS 2019 12:00:00 AM EDT [facility] ([facility]) MHC Telemed Diag Eval no med 07/01/2020 12:00:00 AM EDT - 07/01/2020 12:00:00 AM EDT [facility] ([facility]) MHC Telemed Diag Eval no med 07/01/2020 12:00:00 AM ED T [facility] ([facility]) [id number]"Psychotherapy 0 12:00:00 AM EDT - 06/24/2020 12:00:00 AM EDT [facility] ([facility]) [id number]"Psychotherapy 06/24/2020 12:00:00 AM EDT [facility] ([facility]) PROF ABIDA STRICKLAND IMMNTX X W/PRV ALLGIC XTRCS NJXS 2019 12:00:00 AM EDT [facility] ([facility]) PROF ABIDA STRICKLAND IMMNTX X W/PRV ALLGIC XTRCS NJXS 2019 12:00:00 AM EDT [facility] ([facility] PROF ABIDA STRICKLAND IMMNTX X W/PRV ALLGIC XTRCS NJXS 2019 12:00:00 AM EDT [facility] ([facility]) PROF SVCS ALLG IMMNTX X W/PRV ALLGIC XTRCS NJXS 2019 12:00:00 AM EDT [facility] ([facility] Results ID Date Data Source [id number] 05/18/2021 09:01:00 AM EDT [facility] Name Value Range Interpretation Code Description Data Renea rce(s) Supporting Document(s) SARS-CoV-2 (COVID 19) NEGATIVE - SARS-CoV-2 (COVID19) [facility] lab was ordered by [facility] a nd reported by [facility]. ID Date Data Source WWBC DIGITAL / DEEJAY BILATERAL MAMMO SCREENING (Ultraso und if indicated) 02/14/2021 12:00:00 AM EDT eCW1 ([facility]) Name Value Range Interpretation Code Description Data Renea rce(s) Supporting Document(s) eCW1 ([facility]) ID Date Data Source [id number] 02/03/2021 09:21:00 AM EDT [facility] ([facility], ) Name Value Range Interpretation Code Description Data Renea rce(s) Supporting Document(s) PDFReport Laboratory test result [facility] ([facility], ) FVC-Pred 2.99 L [facility] ([facility]) FVC-Pre 2.37 L [facility] ([facility]) FVC-%Pred-Pre 79 L [facility] ([facility] ) FVC-LLN 2.40 L [facility] ([facility]) Fev1-Pred 2.39 L [facility] ([facility]) Fev1-Pre 1.76 L [facility] ([facility]) Fev1-LLN 1.90 L [facility] ([facility]) Fev1-%Pred-Pre 73 L [facility] ([facility]) Fev6-Pre 2.37 L [facility] ([facility]) Fev6-%Pred-Pre 81 L [facility] ([facility]) Fev6-Pred 2.92 L [facility] ([facility]) Lop9uez-Xxms 81 % [facility] ([facility]) Fev6-LLN 2.34 L [facility] ([facility]) Qhh5yvz-Jdn 74 % [facility] ([facility]) Pyl8svu-STH 71 % [facility] ([facility]) Ilj9vio-%Pred-Pre 92 % MEDENT ([facility]) Vwl9nhh-Zsx 100 % MED[facility] ([facility]) Ick9oex-Qiww 98 % MEDENT ([facility]) FEFMax-Pred 6.06 L/E/sec MEDENT ([facility]) Teh6dfg-%Pred-Pre 102 % MEDENT ([facility]) FEFMax-Pre 6.10 L/E/sec MEDENT ([facility]) FEFMax-LLN 4.60 L/E/sec MEDENT ([facility]) FEFMax-%Pred-Pre 100 L/E/sec MED[facility] ([facility]) [id number]-Qrw 1.29 L/E/sec MED[facility] ([facility]) Leu2848-Rfud 2.56 L/E/sec MEDENT ([facility]) Wgj2258-%Pred-Pre 50 L/E/sec MED[facility] ([facility]) [id number]-MZB 1.51 L/E/sec MED[facility] ([facility]) ExpTime-Pre 6.16 sec MEDENT ([facility]) Cus6moz7-%Pred-Pre 90 % [facility] ([facility]) Zlm0fih0-Oxeg 83 % MED[facility] ([facility]) Fgu3oae7-Zky 74 % [facility] ([facility]) Dqr4wxt0-HEI 74 % MED[facility] ([facility]) ID Date Data Source LIPID PANEL (CARDIAC RISK) 12/12/2020 12:00:00 AM EST eCW1 ( [facility]) Name Value Range Interpretation Code Description Data Renea rce(s) Supporting Document(s) Triglyceride [Mass/volume] in Serum or Plasma by calculation 127 <150 TRIGLYCERIDES LEVEL eCW1 ([facility]) Cholesterol in HDL [Moles/volume] in Serum or Plasma 47 >40 HDL CHOLESTEROL eCW1 ([facility]) Cholesterol [Moles/volume] in Serum or Plasma 188 <200 CHOLESTEROL LEVEL eCW1 ([facility]) 141 NON-HDL-C eCW1 ([facility]) Cholesterol in LDL [Mass/volume] in Serum or Plasma by calculation 116 <100 LDL CHOLESTEROL eCW1 ([facility]) 4.000 <5 CHOLESTEROL RISK RATIO eCW1 ([facility]) ID Date Data Source FREE T4 & TSH PANEL 12/12/2020 12:00:00 AM EST eCW1 ([facility]) Name Value Range Interpretation Code Description Data Renea rce(s) Supporting Document(s) 1.360 0.358-3.740 THYROID STIMULATING HORM ONE eCW1 ([facility]) 1.03 0.76-1.46 FREE T4 eCW1 ([facility]) ID Date Data Source Comprehensive Metabolic Profile (CMP) 12/12/2020 12:00:00 AM EST eCW1 ([facility]) Name Value Range Interpretation Code Description Data Renea rce(s) Supporting Document(s) 20 7-18 eCW1 ([facility]) 89 70-100 eCW1 ([facility]) 1.23 0.55-1.30 eCW1 ([facility]) 49.6 >58 eCW1 ([facility]) 138 136-145 eCW1 ([facility]) 101 98-107 eCW1 ([facility]) 4.2 3.5-5.1 eCW1 ([facility]) 32 21-32 eCW1 ([facility]) 9.5 8.5-10.1 eCW1 ([facility]) 33 12-78 eCW1 ([facility]) 23 7-37 eCW1 ([facility]) 0.8 0.2-1.0 eCW1 ([facility]) 94 45-117 eCW1 ([facility]) 1.1 1.2-2.2 eCW1 ([facility]) 4.0 3.2-5.2 eCW1 ([facility]) 7.5 6.4-8.2 eCW1 ([facility]) ID Date Data Source CBC - Complete Blood Count 12/12/2020 12:00:00 AM EST eCW1 ( [facility]) Name Value Range Interpretation Code Description Data Rneea rce(s) Supporting Document(s) 9.2 4.0-10.0 WHITE BLOOD COUNT eCW1 ([facility]) 4.74 4.00-5.40 RED BLOOD COUNT eCW1 ([facility]) 14.2 12.0-15.5 HEMOGLOBIN eCW1 ([facility]) 41.5 36.0-47.0 HEMATOCRIT eCW1 ([facility]) 87.6 80.0-96.0 MEAN CORPUSCULAR VOLUME e CW1 ([facility]) 34.2 32.0-36.5 MEAN CORPUSCULAR HGB CONC eCW1 ([facility]) 30.0 27.0-33.0 MEAN CORPUSCULAR HEMOGLOB IN eCW1 ([facility]) 12.9 11.5-14.5 RED CELL DISTRIBUTION WID TH eCW1 ([facility]) 302 150-450 PLATELET COUNT, AUTOMATED eCW1 ([facility]) ID Date Data Source [id number] 09/12/2020 12:42:00 PM EST MEDENT ([facility]) Name Value Range Interpretation Code Description Data Renea rce(s) Supporting Document(s) Laboratory test finding (navigational concept) Laboratory test result MEDENT ([facility] ) Procedure Social History Code Duration Value Status Description Data Source(s ) Smoking 05/23/2021 12:00:00 AM EDT Former Smoker completed Former Smoker eCW1 ([facility]) Smoking 05/19/2021 12:00:00 AM EDT Former Smoker completed Former Smoker eCW1 ([facility]) Smoking 05/19/2021 12:00:00 AM EDT Former Smoker completed Former Smoker eCW1 ([facility]) Smoking 05/19/2021 12:00:00 AM EDT Former Smoker completed Former Smoker eCW1 ([facility]) Smoking 05/19/2021 12:00:00 AM EDT Former Smoker completed Former Smoker eCW1 ([facility]) Smoking 05/13/2021 12:00:00 AM EDT Unknown if ever smoked comp leted Unknown if ever smoked [facility] ([facility]) Smoking 04/23/2021 12:00:00 AM EDT Unknown if ever smoked comp leted Unknown if ever smoked [facility] ([facility]) Smoking 04/18/2021 12:00:00 AM EDT Unknown if ever smoked comp leted Unknown if ever smoked [facility] ([facility]) Smoking 04/04/2021 12:00:00 AM EDT Unknown if ever smoked comp leted Unknown if ever smoked [facility] ([facility]) Smoking 02/21/2021 12:00:00 AM EDT Unknown if ever smoked comp leted Unknown if ever smoked [facility] ([facility]) Smoking 02/14/2021 12:00:00 AM EDT Former Smoker completed Former Smoker eCW1 ([facility]) Smoking 02/14/2021 12:00:00 AM EDT Former Smoker completed Former Smoker eCW1 ([facility]) Smoking 02/14/2021 12:00:00 AM EDT Former Smoker completed Former Smoker eCW1 ([facility]) Smoking 02/14/2021 12:00:00 AM EDT Former Smoker completed Former Smoker eCW1 ([facility]) Smoking 02/14/2021 12:00:00 AM EDT Former Smoker completed Former Smoker eCW1 ([facility]) Smoking 02/14/2021 12:00:00 AM EDT Former Smoker completed Former Smoker eCW1 ([facility]) Smoking 02/14/2021 12:00:00 AM EDT Former Smoker completed Former Smoker eCW1 ([facility]) Smoking 02/07/2021 12:00:00 AM EDT Unknown if ever smoked comp leted Unknown if ever smoked [facility] ([facility]) Smoking 02/03/2021 12:00:00 AM EDT Patient is a former smoker completed Patient is a former smoker MEDENT ([facility] ) Smoking 01/21/2021 12:00:00 AM EDT Unknown if ever smoked comp leted Unknown if ever smoked [facility] ([facility]) Smoking 12/12/2020 12:00:00 AM EST Former Smoker completed Former Smoker eCW1 ([facility]) Smoking 12/12/2020 12:00:00 AM EST Former Smoker completed Former Smoker eCW1 ([facility]) Smoking 12/12/2020 12:00:00 AM EST Former Smoker completed Former Smoker eCW1 ([facility]) Smoking 12/12/2020 12:00:00 AM EST Former Smoker completed Former Smoker eCW1 ([facility]) Smoking 12/12/2020 12:00:00 AM EST Former Smoker completed Former Smoker eCW1 ([facility]) Smoking 12/12/2020 12:00:00 AM EST Former Smoker completed Former Smoker eCW1 ([facility]) Smoking 12/12/2020 12:00:00 AM EST Former Smoker completed Former Smoker eCW1 ([facility]) Smoking 12/12/2020 12:00:00 AM EST Former Smoker completed Former Smoker eCW1 ([facility]) Smoking 09/24/2020 12:00:00 AM EST Unknown if ever smoked comp leted Unknown if ever smoked [facility] ([facility]) Smoking 09/17/2020 12:00:00 AM EST Unknown if ever smoked comp leted Unknown if ever smoked [facility] ([facility]) Smoking 09/11/2020 12:00:00 AM EST Unknown if ever smoked comp leted Unknown if ever smoked [facility] ([facility]) Smoking 08/26/2020 12:00:00 AM EST Unknown if ever smoked comp leted Unknown if ever smoked [facility] ([facility]) Smoking 08/01/2020 12:00:00 AM EDT Patient is a former smoker completed Patient is a former smoker MEDENT ([facility] ) Smoking 07/29/2020 12:00:00 AM EDT Unknown if ever smoked comp leted Unknown if ever smoked [facility] ([facility]) Smoking 07/15/2020 12:00:00 AM EDT Unknown if ever smoked comp leted Unknown if ever smoked [facility] ([facility]) Smoking 07/01/2020 12:00:00 AM EDT Unknown if ever smoked comp leted Unknown if ever smoked [facility] ([facility]) Smoking 06/24/2020 12:00:00 AM EDT Unknown if ever smoked comp leted Unknown if ever smoked [facility] ([facility]) Alcohol intake 06/11/2020 12:00:00 AM EDT Yes completed [facility] Cigarette pack-years 06/11/2020 12:00:00 AM EDT UNK completed [facility] Cigarettes smoked current (pack per day) - Reported 06/11/20 12:00:00 AM EDT UNK completed [facility] Smoking 06/11/2020 12:00:00 AM EDT Former smoker completed Former smoker [facility] Vital Signs ID Date Data Source UNK Name Value Range Interpretation Code Description Data Source(s) Body weight 173 [lb_av] 173 [lb_av] eCW1 ([facility]) Body weight 78.47 kg 78.47 kg eCW1 ([facility]) Body height 60 [in_i] 60 [in_i] eCW1 ([facility]) Body mass index (BMI) [Ratio] 33.78 kg/m2 33.78 kg/m2 eCW1 ([facility]) Heart rate 84 /min 84 /min eCW1 ([facility]) Respiratory rate 20 /min 20 /min eCW1 ([facility]) Body temperature 98.6 [degF] 98.6 [degF] eCW1 ( [facility]) Systolic blood pressure 124 mm[Hg] 124 mm[Hg] e CW1 ([facility]) Diastolic blood pressure 76 mm[Hg] 76 mm[Hg] eCW1 ([facility]) Body weight Measured 154.00 lbs Normal (applies to n on-numeric results) 154.00 lbs [facility] ([facility]) Body height 60.00 in Normal (applies to non-numeric resu lts) 60.00 in [facility] ([facility]) Systolic blood pressure 108 mm[Hg] Normal (applies t o non-numeric results) 108 mm[Hg] [facility] ([facility]) Diastolic blood pressure 50 mm[Hg] Normal (applies to non-numeric results) 50 mm[Hg] [facility] ([facility]) Body height --lying 73 min Normal (applies to non-nume jace results) 73 min [facility] ([facility]) Body mass index (BMI) [Ratio] 30.07 kg/m2 No rmal (applies to non-numeric results) 30.07 kg/m2 [facility] ([facility]) Respiratory rate 18 min Normal (applies to non-numeric results) 18 min [facility] ([facility]) Systolic blood pressure 110 mm[Hg] 110 mm[Hg] M EDENT ([facility]) Respiratory rate 16 /min 16 /min MEDENT ( [facility]) Heart rate 76 /min 76 /min MEDENT ([facility]) Diastolic blood pressure 70 mm[Hg] 70 mm[Hg] MEDENT ([facility]) Body weight 173 [lb_av] 173 [lb_av] eCW1 ([facility]) Body height 60 [in_i] 60 [in_i] eCW1 ([facility]) Body mass index (BMI) [Ratio] 33.78 kg/m2 33.78 kg/m2 eCW1 ([facility]) Systolic blood pressure 124 mm[Hg] 124 mm[Hg] e CW1 ([facility]) Diastolic blood pressure 76 mm[Hg] 76 mm[Hg] eCW1 ([facility]) Systolic blood pressure 112 mm[Hg] 112 mm[Hg] M EDENT ([facility]) Diastolic blood pressure 72 mm[Hg] 72 mm[Hg] [facility]) Heart rate 70 /min 70 /min [facility] ([facility]) Oxygen saturation in Arterial blood by Pulse oximetry 96 % 96 % [facility] ([facility]) Room Air Body temperature 96.3 [degF] 96.3 [degF] [facility] ([facility]) Body height 59 [in_i] 59 [in_i] [facility] ([facility]) 4'11" Body weight 172.00 [lb_av] 172.00 [lb_av] [facility] ([facility]) Body mass index (BMI) [Ratio] 34.7 kg/m2 34.7 k g/m2 [facility] ([facility]) [place] body weight 100 [lb_av] 100 [lb_av] [facility] ([facility]) Body weight 78.019 kg 78.019 kg [facility] ([facility]) Body surface area Derived from formula 1.73 m2 1.73 m2 [facility] ([facility]) Body weight 168 [lb_av] 168 [lb_av] W1 ([facility]) Body height 60 [in_i] 60 [in_i] eCW1 ([facility]) Body mass index (BMI) [Ratio] 32.81 kg/m2 32.81 kg/m2 eCW1 ([facility]) Heart rate 89 /min 89 /min eCW1 ([facility]) Respiratory rate 20 /min 20 /min eCW1 ([facility]) Body temperature 97.6 [degF] 97.6 [degF] W1 ( [facility]) Systolic blood pressure 132 mm[Hg] 132 mm[Hg] e CW1 ([facility]) Diastolic blood pressure 70 mm[Hg] 70 mm[Hg] eCW1 ([facility]) Systolic blood pressure 92 mm[Hg] 92 mm[Hg] [facility] Diastolic blood pressure 58 mm[Hg] 58 mm[Hg] [facility] Heart rate 61 /min 61 /min [facility] Body height 152.4 cm 152.4 cm [facility] Body weight 76.658 kg 76.658 kg [facility] Body mass index (BMI) [Ratio] 33.01 kg/m2 33.01 kg/m2 [facility] Oxygen saturation in Arterial blood by Pulse oximetry 97 % 97 % [facility] Body temperature 97.8 [degF] 97.8 [degF] MEDENT ([facility]) Body height 59 [in_i] 59 [in_i] MEDENT ([facility]) 4'11" Body weight 160.12 [lb_av] 160.12 [lb_av] MEDEN T ([facility]) Body mass index (BMI) [Ratio] 32.3 kg/m2 32.3 k g/m2 MEDENT ([facility]) Body weight 168.50 [lb_av] 168.50 [lb_av] MEDEN T ([facility]) Heart rate 73 /min 73 /min MED[facility] ([facility] Body height 60 [in_i] 60 [in_i] MEDENT ([facility] 5'0" Respiratory rate 16 /min 16 /min MEDENT ( [facility]) Systolic blood pressure 107 mm[Hg] 107 mm[Hg] M EDENT ([facility]) Diastolic blood pressure 70 mm[Hg] 70 mm[Hg] MEDENT ([facility]) Body mass index (BMI) [Ratio] 32.9 kg/m2 32.9 k g/m2 MEDENT ([facility]) Systolic blood pressure 102 mm[Hg] 102 mm[Hg] M EDENT ([facility]) Diastolic blood pressure 60 mm[Hg] 60 mm[Hg] [facility] ([facility]) Heart rate 76 /min 76 /min [facility] ([facility]) Oxygen saturation in Arterial blood by Pulse oximetry 98 % 98 % [facility] ([facility]) Body height 59 [in_i] 59 [in_i] [facility] ([facility]) 4'11" Body weight 163.00 [lb_av] 163.00 [lb_av] MEDEN T ([facility]) Body mass index (BMI) [Ratio] 32.9 kg/m2 32.9 k g/m2 [facility] ([facility]) [place] body weight 100 [lb_av] 100 [lb_av] MEDEN T ([facility]) Body weight 73.937 kg 73.937 kg [facility] ([facility]) Body surface area Derived from formula 1.69 m2 1.69 m2 [facility] ([facility]) Diastolic blood pressure 70 mm[Hg] 70 mm[Hg] [facility] ([facility]) Systolic blood pressure 114 mm[Hg] 114 mm[Hg] [facility] ([facility]) Heart rate 76 /min 76 /min [facility] ([facility]) Respiratory rate 16 /min 16 /min [facility] ( [facility]) Systolic blood pressure 100 mm[Hg] 100 mm[Hg] [facility] ([facility]) Body height 59 [in_i] 59 [in_i] [facility] ([facility]) 4'11" Body weight 149.00 [lb_av] 149.00 [lb_av] MEDEN T ([facility]) Body mass index (BMI) [Ratio] 30.1 kg/m2 30.1 k g/m2 [facility] ([facility]) [place] body weight 100 [lb_av] 100 [lb_av] MEDEN T ([facility]) Heart rate 69 /min 69 /min [facility] ([facility]) Oxygen saturation in Arterial blood by Pulse oximetry 98 % 98 % LAW ([facility], ) Diastolic blood pressure 62 mm[Hg] 62 mm[Hg] LAW ([facility], ) Body weight 67.586 kg 67.586 kg LAW ([facility], ) Patient Treatment Plan of Care Planned Activity Planned Date Details Description Data Source (s) Levofloxacin 500 MG Oral Tablet 05/23/2021 12:00:00 AM EDT eCW1 ([facility]) Acetaminophen 300 MG / Codeine Phosphate 30 MG Oral Ta blet 05/23/2021 12:00:00 AM EDT eCW1 ([facility]) Prednisone 20 MG Oral Tablet 05/23/2021 12:00:00 AM EDT eCW1 ([facility]) Nebulizer/Tubing/Mouthpiece - 05/22/2021 12:00:00 AM EDT eCW1 ([facility]) Nebulizer/Tubing/Mouthpiece - 05/22/2021 12:00:00 AM EDT eCW1 ([facility]) benzonatate 200 MG Oral Capsule 05/19/2021 12:00:00 AM EDT eCW1 ([facility]) benzonatate 200 MG Oral Capsule 05/19/2021 12:00:00 AM EDT eCW1 ([facility]) benzonatate 200 MG Oral Capsule 05/19/2021 12:00:00 AM EDT eCW1 ([facility]) benzonatate 200 MG Oral Capsule 05/19/2021 12:00:00 AM EDT eCW1 ([facility]) Sodium Chloride 0.111 MEQ/ML Nasal Malin [[employer] brand of sodium chloride] 12/17/2020 12:00:00 AM EDT eCW1 ([facility]) Sodium Chloride 0.111 MEQ/ML Nasal Malin [[employer] brand of sodium chloride] 12/17/2020 12:00:00 AM EDT eCW1 ([facility]) Sodium Chloride 0.111 MEQ/ML Nasal Malin [[employer] brand of sodium chloride] 12/17/2020 12:00:00 AM EDT eCW1 ([facility]) Sodium Chloride 0.111 MEQ/ML Nasal Malin [[employer] brand of sodium chloride] 12/17/2020 12:00:00 AM EDT eCW1 ([facility]) Sodium Chloride 0.111 MEQ/ML Nasal Malin [[employer] brand of sodium chloride] 12/17/2020 12:00:00 AM EDT eCW1 ([facility]) Sodium Chloride 0.111 MEQ/ML Nasal Malin [[employer] brand of sodium chloride] 12/17/2020 12:00:00 AM EDT eCW1 ([facility]) Sodium Chloride 0.111 MEQ/ML Nasal Malin [[employer] brand of sodium chloride] 12/17/2020 12:00:00 AM EDT eCW1 ([facility]) Sodium Chloride 0.111 MEQ/ML Nasal Malin [[employer] brand of sodium chloride] 12/17/2020 12:00:00 AM EDT eCW1 ([facility]) Hyoscyamine Sulfate 0.125 MG Sublingual Tablet 12/12/2020 12:00:00 AM EST eCW1 ([facility]) Simethicone Extra Strength 125 MG 12/12/2020 12:00:00 AM EST eCW1 ([facility]) [place] Saline Nasal - 12/12/2020 12:00:00 AM EST eCW1 ([facility]) [place] Saline Nasal - 12/12/2020 12:00:00 AM EST eCW1 ([facility]) Hyoscyamine Sulfate 0.125 MG Sublingual Tablet 12/12/2020 12:00:00 AM EST eCW1 ([facility]) Simethicone Extra Strength 125 MG 12/12/2020 12:00:00 AM EST eCW1 ([facility]) [place] Saline Nasal - 12/12/2020 12:00:00 AM EST eCW1 ([facility]) [place] Saline Nasal - 12/12/2020 12:00:00 AM EST eCW1 ([facility]) Hyoscyamine Sulfate 0.125 MG Sublingual Tablet 12/12/2020 12:00:00 AM EST eCW1 ([facility]) Simethicone Extra Strength 125 MG 12/12/2020 12:00:00 AM EST eCW1 ([facility]) Hyoscyamine Sulfate 0.125 MG Sublingual Tablet 12/12/2020 12:00:00 AM EST eCW1 ([facility]) Simethicone Extra Strength 125 MG 12/12/2020 12:00:00 AM EST eCW1 ([facility]) [place] Saline Nasal - 12/12/2020 12:00:00 AM EST eCW1 ([facility]) Hyoscyamine Sulfate 0.125 MG Sublingual Tablet 12/12/2020 12:00:00 AM EST eCW1 ([facility]) Simeth[employer]one Extra Strength 125 MG 12/12/2020 12:00:00 AM EST eCW1 ([facility]) [place] Saline Nasal - 12/12/2020 12:00:00 AM EST eCW1 ([facility]) Hyoscyamine Sulfate 0.125 MG Sublingual Tablet 12/12/2020 12:00:00 AM EST eCW1 ([facility]) Simethicone Extra Strength 125 MG 12/12/2020 12:00:00 AM EST eCW1 ([facility]) [place] Saline Nasal - 12/12/2020 12:00:00 AM EST eCW1 ([facility]) Hyoscyamine Sulfate 0.125 MG Sublingual Tablet 12/12/2020 12:00:00 AM EST eCW1 ([facility]) Simeth[employer]one Extra Strength 125 MG 12/12/2020 12:00:00 AM EST eCW1 ([facility]) Hyoscyamine Sulfate 0.125 MG Sublingual Tablet 12/12/2020 12:00:00 AM EST eCW1 ([facility]) Simethicone Extra Strength 125 MG 12/12/2020 12:00:00 AM EST eCW1 ([facility]) [place] Saline Nasal - 12/12/2020 12:00:00 AM EST eCW1 ([facility]) Spironolactone 25 MG Oral Tablet 12/04/2020 12:00:00 AM EST [facility] Fluticasone-Salmeterol 232-14 MCG/ACT AEPB 12/03/2020 12:00:[address] [facility] Hydrocortisone 25 MG/ML Topical Cream 11/04/2020 12:00:00 AM EST [facility] Nystatin 100 UNT/MG Topical Powder 10/10/2020 12:00:00 AM EST [facility] Nystatin 100 UNT/MG Topical Powder 10/10/2020 12:00:00 AM EST eCW1 ([facility]) Nystatin 100 UNT/MG Topical Powder 10/10/2020 12:00:00 AM EST eCW1 ([facility]) Furosemide 40 MG Oral Tablet 09/04/2020 12:00:00 AM EST [facility] apixaban 5 MG Oral Tablet 07/26/2020 12:00:00 AM EDT [facility] Furosemide 20 MG Oral Tablet 07/26/2020 12:00:00 AM EDT [facility] 24 HR metoprolol succinate 25 MG Extended Release Oral Tablet 07/26/2020 12:00:00 AM EDT [facility] ferrous sulfate 325 MG Oral Tablet 05/10/2020 12:00:00 AM EDT [facility] CEQUA 0.09 % SOLN 05/03/2020 12:00:00 AM EDT [facility] Fluticasone-Salmeterol 113-14 MCG/ACT AEPB 05/03/2020 12:00:00 AM E DT [facility] Hydroxyzine Hydrochloride 10 MG Oral Tablet 12/01/2019 12:00:00 AM EST [facility]
[2021-05-27] MEDS ORDERED: PRED20TA PO (11:06)
[2021-05-27] MEDS ORDERED: ACET1TAB16 PO (11:06)
[2021-05-27] MEDS ORDERED: DIPH50CA PO (11:18)
[2021-05-27 12:55] LABS: BASO # 0.1 10^3/uL (0.0-0.2); BASO % 0.8 % (0.0-1.0); EOS # 0.3 10^3/uL (0.0-0.5); EOS % 5.1 % (0.0-3.0); HEMATOCRIT 40.2 % (36.0-47.0); HEMOGLOBIN 13.2 g/dl (12.0-15.5); LYMPH # 2.6 10^3/uL (1.5-5.0); LYMPH % 41.8 % (24.0-44.0); MEAN CORPUSCULAR HEMOGLOBIN 29.3 pg (27.0-33.0); MEAN CORPUSCULAR HGB CONC 32.8 g/dl (32.0-36.5); MEAN CORPUSCULAR VOLUME 89.3 fl (80.0-96.0); MONO # 0.4 10^3/uL (0.0-0.8); MONO % 6.4 % (2.0-8.0); NEUTROPHILS # 2.8 10^3/uL (1.5-8.5); NEUTROPHILS % 45.3 % (36.0-66.0); PLATELET COUNT, AUTOMATED 275 10^3/uL (150-450); WHITE BLOOD COUNT 6.3 10^3/uL (4.0-10.0)
[2021-05-27 13:21] LABS: ALBUMIN 3.1 GM/DL (3.2-5.2); BILIRUBIN,TOTAL 1.9 MG/DL (0.2-1.0); CALCIUM LEVEL 8.7 MG/DL (8.5-10.1); CREATININE FOR GFR 1.07 MG/DL (0.55-1.30); POTASSIUM SERUM 3.3 MEQ/L (3.5-5.1); TOTAL PROTEIN 6.5 GM/DL (6.4-8.2)
--- NOTE | 2021-05-27 14:23 | REP ---
INDICATION: RUQ pain, elevated liver enzymes. COMPARISON: 04/07/2018 TECHNIQUE: Real-time sonographic evaluation of the right upper quadrant FINDINGS: Multiple ultrasonographic images of the liver shows diffuse increased echos throughout the hepatic parenchyma without evidence of a mass or ductal dilatation. The common bile duct measures approximately 5 mm in its greatest transverse dimension. Images of the pancreatic region show no gross abnormality. The imaged portion of the right kidney is unremarkable. IMPRESSION: Status post cholecystectomy. Fatty infiltration of the liver. Accredited by the [employer] in General Ultrasound. <Electronically signed by Fran Bauer > 05/27/21 [id number]
[2021-05-27 15:38] VITALS: BP 109/55
== END 2021-05-27 15:43 | disposition home or self-care (01) ==
LOC: M ED 10:32
DX: R10.10 Upper abdominal pain, unspecified (principal); R94.5 Abnormal results of liver function studies; I48.91 Unspecified atrial fibrillation; I50.9 Heart failure, unspecified; I10 Essential (primary) hypertension; J45.909 Unspecified asthma, uncomplicated; J44.9 Chronic obstructive pulmonary disease, unspecified; G47.33 Obstructive sleep apnea (adult) (pediatric); E03.9 Hypothyroidism, unspecified; K76.0 Fatty (change of) liver, not elsewhere classified; J30.2 Other seasonal allergic rhinitis; Z79.01 Long term (current) use of anticoagulants; Z79.899 Other long term (current) drug therapy; Z88.8 Allergy status to other drugs, medicaments and biological substances; Z91.011 Allergy to milk products; Z88.2 Allergy status to sulfonamides; Z91.89 Other specified personal risk factors, not elsewhere classified; Z91.012 Allergy to eggs; Z88.1 Allergy status to other antibiotic agents

== ENCOUNTER → 2021-06-03 | Outpatient (CLI) | payer OTHER ==
[~2021-06-03] MED LIST changes: +DIPH50CA PO; -LEVO500T3; +LEVO500T4; -MONT10TA10 PO; +MONT10TA97 PO; +POTA-151; +POTA-151 PO; -POTA20TA6; -POTA20TA6 PO
[2021-06-03 10:55] LABS: ALBUMIN 3.5 GM/DL (3.2-5.2); BILIRUBIN,TOTAL 1.2 MG/DL (0.2-1.0); CALCIUM LEVEL 8.9 MG/DL (8.5-10.1); CREATININE FOR GFR 1.25 MG/DL (0.55-1.30); GLOMERULAR FILTRATION RATE 48.5 (>58)
== END ==
LOC: M LAB 09:22
PROVIDERS: ATTEND Physician Assistant Medical
DX: R79.89 Other specified abnormal findings of blood chemistry (principal)

== ENCOUNTER → 2021-06-19 | Outpatient (REF) | payer OTHER ==
[~2021-06-19] MED LIST changes: +LEVO500T3; -LEVO500T4; +MONT10TA10 PO; -MONT10TA97 PO; -POTA-151; -POTA-151 PO; +POTA20TA6; +POTA20TA6 PO
[2021-06-19 11:40] LABS: HEMOGLOBIN A1c 5.8 %
[2021-06-19 11:53] LABS: ALBUMIN 3.9 GM/DL (3.2-5.2); BILIRUBIN,TOTAL 1.1 MG/DL (0.2-1.0); CALCIUM LEVEL 9.2 MG/DL (8.5-10.1); CHOLESTEROL RISK RATIO 5.333 (<5); CREATININE FOR GFR 1.09 MG/DL (0.55-1.30); FREE T4 1.18 NG/DL (0.76-1.46); GLOMERULAR FILTRATION RATE 56.8 (>58); PERCENT SATURATION 13.6 % (13.2-45.0); POTASSIUM SERUM 3.8 MEQ/L (3.5-5.1); THYROID STIMULATING HORMONE 0.871 uIU/ML (0.358-3.740); TOTAL PROTEIN 7.3 GM/DL (6.4-8.2)
[2021-06-19 11:54] LABS: HEMATOCRIT 41.4 % (36.0-47.0); MEAN CORPUSCULAR HEMOGLOBIN 29.5 pg (27.0-33.0); MEAN CORPUSCULAR HGB CONC 33.8 g/dl (32.0-36.5); MEAN CORPUSCULAR VOLUME 87.2 fl (80.0-96.0); PLATELET COUNT, AUTOMATED 295 10^3/uL (150-450); RED BLOOD COUNT 4.75 10^6/uL (4.00-5.40); WHITE BLOOD COUNT 9.1 10^3/uL (4.0-10.0)
== END ==
LOC: M SFHCADAM 09:30
PROVIDERS: ATTEND Family Medicine
DX: K76.0 Fatty (change of) liver, not elsewhere classified (principal); E03.9 Hypothyroidism, unspecified; I42.1 Obstructive hypertrophic cardiomyopathy; D50.0 Iron deficiency anemia secondary to blood loss (chronic)

== ENCOUNTER 2021-07-09 13:14 | Emergency (ER) | payer OTHER ==
[~2021-07-09] VITALS: Ht 157.5 cm; Wt 78.3 kg
[2021-07-09 13:15] VITALS: BP 105/53
--- NOTE | 2021-07-09 15:55 | REP ---
INDICATION: lateral foot pain. no known injury. COMPARISON: 05/04/2019 TECHNIQUE: Four views. FINDINGS: There is a hallux valgus deformity status quo. The joint spaces are unchanged. There is a tiny type 1 os navicularis status quo. No acute fracture has developed. IMPRESSION: Stable chronic changes <Electronically signed by Fran Bauer > 07/09/21 [id number]
== END 2021-07-09 18:30 | disposition home or self-care (01) ==
LOC: M ED 13:14
DX: M79.671 Pain in right foot (principal); J44.9 Chronic obstructive pulmonary disease, unspecified; E03.9 Hypothyroidism, unspecified; I48.91 Unspecified atrial fibrillation; G47.33 Obstructive sleep apnea (adult) (pediatric); F33.9 Major depressive disorder, recurrent, unspecified; F41.9 Anxiety disorder, unspecified; Z79.01 Long term (current) use of anticoagulants; Z88.1 Allergy status to other antibiotic agents; Z88.2 Allergy status to sulfonamides; Z88.8 Allergy status to other drugs, medicaments and biological substances; Z91.012 Allergy to eggs; Z91.018 Allergy to other foods; Z91.048 Other nonmedicinal substance allergy status

== ENCOUNTER → 2021-12-04 | Outpatient (REF) | payer OTHER ==
[~2021-12-04] MED LIST changes: -LEVO500T3; +LEVO500T4; -MONT10TA10 PO; +MONT10TA97 PO; +POTA-151; +POTA-151 PO; -POTA20TA6; -POTA20TA6 PO
[2021-12-04 13:21] LABS: HEMATOCRIT 41.7 % (36.0-47.0); HEMOGLOBIN 14.2 g/dl (12.0-15.5); MEAN CORPUSCULAR HEMOGLOBIN 29.2 pg (27.0-33.0); MEAN CORPUSCULAR HGB CONC 34.1 g/dl (32.0-36.5); MEAN CORPUSCULAR VOLUME 85.8 fl (80.0-96.0); PLATELET COUNT, AUTOMATED 304 10^3/uL (150-450); RED BLOOD COUNT 4.86 10^6/uL (4.00-5.40); WHITE BLOOD COUNT 9.2 10^3/uL (4.0-10.0)
[2021-12-04 14:05] LABS: BILIRUBIN,TOTAL 0.8 MG/DL (0.2-1.0); CALCIUM LEVEL 9.4 MG/DL (8.5-10.1); CHOLESTEROL RISK RATIO 5.189 (<5); CREATININE FOR GFR 1.08 MG/DL (0.55-1.30); GLOMERULAR FILTRATION RATE 57.4 (>58); PERCENT SATURATION 16.2 % (13.2-45.0); THYROID STIMULATING HORMONE 1.76 uIU/ML (0.358-3.740); TOTAL 25(OH) VITAMIN D 27.7 NG/ML (30.0-100.0); TOTAL PROTEIN 7.4 GM/DL (6.4-8.2)
[2021-12-04 16:55] LABS: FREE T4 1.11 NG/DL (0.76-1.46)
[2021-12-04 17:08] LABS: HEMOGLOBIN A1c 5.9 %
== END ==
LOC: M SFHCADAM 08:53
PROVIDERS: ATTEND Family Medicine
DX: D50.9 Iron deficiency anemia, unspecified (principal); I50.30 Unspecified diastolic (congestive) heart failure; E78.5 Hyperlipidemia, unspecified; E03.9 Hypothyroidism, unspecified; E55.9 Vitamin D deficiency, unspecified; R73.03 Prediabetes

== ENCOUNTER → 2022-03-16 | Outpatient (REF) ==
[~2022-03-16] MED LIST changes: -ACET1TAB16 PO; +ACET300T48 PO
== END ==
LOC: M PLAIMG 08:57
PROVIDERS: ATTEND Internal Medicine
DX: M54.50 Low back pain, unspecified (principal)

== ENCOUNTER → 2022-06-09 | Outpatient (REF) | payer OTHER ==
[~2022-06-09] MED LIST changes: +LEVO1TAB39; -LEVO500T4
[2022-06-09 13:27] LABS: HEMATOCRIT 43.6 % (36.0-47.0); HEMOGLOBIN 14.5 g/dl (12.0-15.5); MEAN CORPUSCULAR HEMOGLOBIN 29.6 pg (27.0-33.0); MEAN CORPUSCULAR HGB CONC 33.3 g/dl (32.0-36.5); PLATELET COUNT, AUTOMATED 315 10^3/uL (150-450); WHITE BLOOD COUNT 7.8 10^3/uL (4.0-10.0)
[2022-06-09 13:48] LABS: ALBUMIN 4.2 GM/DL (3.2-5.2); CALCIUM LEVEL 9.5 MG/DL (8.5-10.1); CHOLESTEROL RISK RATIO 4.818 (<5); CREATININE FOR GFR 1.31 MG/DL (0.55-1.30); FREE T4 1.11 NG/DL (0.76-1.46); GLOMERULAR FILTRATION RATE 45.8 (>51); PERCENT SATURATION 13.2 % (13.2-45.0); POTASSIUM SERUM 3.9 MEQ/L (3.5-5.1); THYROID STIMULATING HORMONE 1.12 uIU/ML (0.358-3.740)
[2022-06-09 16:08] LABS: HEMOGLOBIN A1c 5.8 %
== END ==
LOC: M SFHCADAM 09:26
PROVIDERS: ATTEND Family Medicine
DX: D50.9 Iron deficiency anemia, unspecified (principal); I48.0 Paroxysmal atrial fibrillation; E03.9 Hypothyroidism, unspecified; E78.5 Hyperlipidemia, unspecified; R73.03 Prediabetes

== ENCOUNTER → 2022-07-09 | Outpatient (CLI) | payer OTHER | LOC: M WHC 07:54 | PROVIDERS: ATTEND Specialist | DX: Z12.31 Encounter for screening mammogram for malignant neoplasm of breast (principal) ==

== ENCOUNTER → 2022-08-15 | Outpatient (REF) | payer OTHER | LOC: M LAB REF 19:05 | PROVIDERS: ATTEND Physician Assistant Medical | DX: R50.9 Fever, unspecified (principal); R05.9 Cough, unspecified ==

== ENCOUNTER 2022-08-24 13:52 | Emergency (ER) | payer OTHER ==
[~2022-08-24] VITALS: Ht 152.4 cm; Wt 77.2 kg
[2022-08-24] MEDS ORDERED: SING10TA32 PO (14:26)
[2022-08-24 15:37] LABS: BASO # 0.1 10^3/uL (0.0-0.2); BASO % 0.5 % (0.0-1.0); EOS # 0.5 10^3/uL (0.0-0.5); EOS % 5.3 % (0.0-3.0); HEMATOCRIT 42.8 % (36.0-47.0); HEMOGLOBIN 14.2 g/dl (12.0-15.5); LYMPH # 3.8 10^3/uL (1.5-5.0); LYMPH % 37.6 % (24.0-44.0); MEAN CORPUSCULAR HEMOGLOBIN 28.8 pg (27.0-33.0); MEAN CORPUSCULAR HGB CONC 33.2 g/dl (32.0-36.5); MEAN CORPUSCULAR VOLUME 86.8 fl (80.0-96.0); MONO # 0.6 10^3/uL (0.0-0.8); MONO % 6.2 % (2.0-8.0); NEUTROPHILS % 49.8 % (36.0-66.0); PLATELET COUNT, AUTOMATED 301 10^3/uL (150-450); RED BLOOD COUNT 4.93 10^6/uL (4.00-5.40); WHITE BLOOD COUNT 10.1 10^3/uL (4.0-10.0)
[2022-08-24 16:10] LABS: CREATININE FOR GFR 1.07 MG/DL (0.55-1.30); GLOMERULAR FILTRATION RATE 57.8 (>51); POTASSIUM SERUM 3.6 MMOL/L (3.5-5.1)
[2022-08-24 18:27] VITALS: BP 107/57
== END 2022-08-24 18:43 | disposition home or self-care (01) ==
LOC: M ED 13:52
DX: J06.9 Acute upper respiratory infection, unspecified (principal); I48.91 Unspecified atrial fibrillation; I50.9 Heart failure, unspecified; J45.909 Unspecified asthma, uncomplicated; J44.9 Chronic obstructive pulmonary disease, unspecified; E03.9 Hypothyroidism, unspecified; F41.9 Anxiety disorder, unspecified; F32.9 Major depressive disorder, single episode, unspecified; J30.2 Other seasonal allergic rhinitis; Z79.01 Long term (current) use of anticoagulants; Z79.890 Hormone replacement therapy; Z79.899 Other long term (current) drug therapy; Z88.8 Allergy status to other drugs, medicaments and biological substances; Z88.2 Allergy status to sulfonamides; Z88.1 Allergy status to other antibiotic agents; Z91.011 Allergy to milk products; Z91.89 Other specified personal risk factors, not elsewhere classified; Z91.012 Allergy to eggs

== ENCOUNTER 2022-10-06 20:07 | Emergency (ER) | payer OTHER ==
[~2022-10-06] VITALS: Ht 149.9 cm; Wt 77.9 kg
[~2022-10-06 20:07] MED LIST changes: +SING10TA32 PO
[2022-10-06 22:51] LABS: BASO # 0.1 10^3/uL (0.0-0.2); BASO % 0.7 % (0.0-1.0); EOS # 0.6 10^3/uL (0.0-0.5); EOS % 4.9 % (0.0-3.0); HEMATOCRIT 40.3 % (36.0-47.0); HEMOGLOBIN 13.7 g/dl (12.0-15.5); LYMPH # 2.5 10^3/uL (1.5-5.0); LYMPH % 21.1 % (24.0-44.0); MEAN CORPUSCULAR HEMOGLOBIN 29.4 pg (27.0-33.0); MEAN CORPUSCULAR VOLUME 86.5 fl (80.0-96.0); MONO # 0.7 10^3/uL (0.0-0.8); MONO % 5.6 % (2.0-8.0); NEUTROPHILS # 8.1 10^3/uL (1.5-8.5); NEUTROPHILS % 67.3 % (36.0-66.0); PLATELET COUNT, AUTOMATED 298 10^3/uL (150-450); RED BLOOD COUNT 4.66 10^6/uL (4.00-5.40); WHITE BLOOD COUNT 12.1 10^3/uL (4.0-10.0)
[2022-10-06 23:02] LABS: CK-MB VALUE MASS 2.1 NG/ML (<3.6); INR 1.04; MB/CK RELATIVE INDEX 3.55 (< OR =4); PROTHROMBIN TIME 13.8 SECONDS (12.5-14.5)
[2022-10-06 23:03] LABS: ALBUMIN 3.9 G/DL (3.2-5.2); ALKALINE PHOSPHATASE 103 U/L (46-116); ALT/SGPT 37 U/L (7.0-40); AST/SGOT 29 U/L (<34); BILIRUBIN,TOTAL 0.5 MG/DL (0.3-1.2); BLOOD UREA NITROGEN 11 MG/DL (9-23); CALCIUM LEVEL 8.9 MG/DL (8.5-10.1); CARBON DIOXIDE LEVEL 24 MMOL/L (20-31); CHLORIDE LEVEL 105 MMOL/L (98-107); CREATININE FOR GFR 0.99 MG/DL (0.55-1.30); GLOMERULAR FILTRATION RATE > 60.0 (>51); GLUCOSE, FASTING 121 MG/DL (60-100); POTASSIUM SERUM 4.1 MMOL/L (3.5-5.1); SODIUM LEVEL 141 MMOL/L (136-145); TOTAL PROTEIN 6.9 G/DL (5.7-8.2)
[2022-10-07] MEDS ORDERED: IPRATROPIUM 0.5MG/ALBUTEROL 2.5MG INH SOL UD 3ML (DUONEB) NEB ONE (04:35)
[2022-10-07 05:36] LABS: CK-MB VALUE MASS 1.8 NG/ML (<3.6)
[2022-10-07 05:37] LABS: MB/CK RELATIVE INDEX 3.21 (< OR =4)
[2022-10-07 05:46] VITALS: BP 114/57
[2022-10-07] MEDS ORDERED: AZITHROMYCIN 250MG TABLET PO ONE (06:00)
[2022-10-07] MEDS ORDERED: AZIT500T5 PO (06:00)
[2022-10-07] MEDS ORDERED: AUGMENTIN 875 MG TAB PO ONE (06:05)
[2022-10-07] MEDS ORDERED: AMOX875T2 PO (06:07)
== END 2022-10-07 06:22 | disposition home or self-care (01) ==
LOC: M ED 20:07
DX: J40 Bronchitis, not specified as acute or chronic (principal); J32.9 Chronic sinusitis, unspecified; I50.9 Heart failure, unspecified; I11.0 Hypertensive heart disease with heart failure; J44.9 Chronic obstructive pulmonary disease, unspecified; K21.9 Gastro-esophageal reflux disease without esophagitis; Z88.2 Allergy status to sulfonamides; Z88.1 Allergy status to other antibiotic agents; Z91.012 Allergy to eggs; Z79.51 Long term (current) use of inhaled steroids

== ENCOUNTER 2023-01-31 09:37 | Emergency (ER) | payer OTHER ==
[~2023-01-31] VITALS: Ht 149.9 cm; Wt 78.5 kg
[~2023-01-31 09:37] MED LIST changes: +AMOX875T2 PO; +AZIT500T5 PO; +MONT-5 PO; -SING10TA32 PO
[2023-01-31 11:11] LABS: BASO # 0.1 10^3/uL (0.0-0.2); BASO % 0.8 % (0.0-1.0); EOS # 0.2 10^3/uL (0.0-0.5); HEMATOCRIT 38.2 % (36.0-47.0); HEMOGLOBIN 12.6 g/dl (12.0-15.5); LYMPH # 2.7 10^3/uL (1.5-5.0); LYMPH % 27.4 % (24.0-44.0); MEAN CORPUSCULAR HEMOGLOBIN 29.1 pg (27.0-33.0); MEAN CORPUSCULAR VOLUME 88.2 fl (80.0-96.0); MONO # 0.7 10^3/uL (0.0-0.8); NEUTROPHILS % 62.3 % (36.0-66.0); PLATELET COUNT, AUTOMATED 255 10^3/uL (150-450); RED BLOOD COUNT 4.33 10^6/uL (4.00-5.40); WHITE BLOOD COUNT 9.7 10^3/uL (4.0-10.0)
[2023-01-31] MEDS ORDERED: METOCLOPRAMIDE INJ 10MG/2ML VIAL IV ONE (11:15)
[2023-01-31] MEDS ORDERED: NS 500 ML IV ONE (11:15)
[2023-01-31 11:43] LABS: ALBUMIN 3.6 G/DL (3.2-5.2); BILIRUBIN,DIRECT 0.5 MG/DL (<0.4); BILIRUBIN,TOTAL 1.2 MG/DL (0.3-1.2); CALCIUM LEVEL 8.8 MG/DL (8.5-10.1); CREATININE FOR GFR 1.35 MG/DL (0.55-1.30); GLOMERULAR FILTRATION RATE 44.2 (>51); POTASSIUM SERUM 4.2 MMOL/L (3.5-5.1); TOTAL PROTEIN 6.4 G/DL (5.7-8.2)
[2023-01-31 12:38] LABS: RSV AMPLIFICATION NEGATIVE (NEGATIVE)
[2023-01-31] MEDS ORDERED: APIXABAN 5 MG TAB (ELIQUIS) PO ONE (12:55)
[2023-01-31] MEDS ORDERED: FUROSEMIDE 40 MG TAB PO ONE (12:55)
[2023-01-31] MEDS ORDERED: CEPH500C PO (14:19)
[2023-01-31] MEDS ORDERED: REGL10TA6 PO (14:19)
[2023-01-31 14:32] VITALS: BP 96/71
== END 2023-01-31 14:40 | disposition home or self-care (01) ==
LOC: M ED 09:37
DX: E86.0 Dehydration (principal); I50.20 Unspecified systolic (congestive) heart failure; N39.0 Urinary tract infection, site not specified; E03.9 Hypothyroidism, unspecified; J44.9 Chronic obstructive pulmonary disease, unspecified; I44.7 Left bundle-branch block, unspecified; M54.9 Dorsalgia, unspecified; I48.91 Unspecified atrial fibrillation; Z87.891 Personal history of nicotine dependence; Z79.51 Long term (current) use of inhaled steroids; Z79.899 Other long term (current) drug therapy; Z79.01 Long term (current) use of anticoagulants
CPT/HCPCS: 71046; 80053; 80076; 81001; 83690; 83880; 85025; 87086; 87631; 93005; 96374; 99284; J2765

== ENCOUNTER 2023-02-03 06:44 | Emergency (ER) | payer OTHER ==
[~2023-02-03] VITALS: Ht 149.9 cm; Wt 77.3 kg
[~2023-02-03 06:44] MED LIST changes: +CEPH500C PO; +REGL10TA6 PO
[2023-02-03 07:27] LABS: BASO # 0.1 10^3/uL (0.0-0.2); BASO % 0.6 % (0.0-1.0); EOS # 0.1 10^3/uL (0.0-0.5); HEMATOCRIT 38.2 % (36.0-47.0); HEMOGLOBIN 12.5 g/dl (12.0-15.5); LYMPH # 1.9 10^3/uL (1.5-5.0); MEAN CORPUSCULAR HEMOGLOBIN 28.7 pg (27.0-33.0); MEAN CORPUSCULAR HGB CONC 32.7 g/dl (32.0-36.5); MEAN CORPUSCULAR VOLUME 87.8 fl (80.0-96.0); MONO # 0.8 10^3/uL (0.0-0.8); MONO % 6.8 % (2.0-8.0); NEUTROPHILS % 75.1 % (36.0-66.0); PLATELET COUNT, AUTOMATED 311 10^3/uL (150-450); RED BLOOD COUNT 4.35 10^6/uL (4.00-5.40); WHITE BLOOD COUNT 11.9 10^3/uL (4.0-10.0)
[2023-02-03] MEDS: METOPROLOL 5 MG/5 ML VIAL IV SCH ×3 (07:30→08:00)
[2023-02-03 07:38] LABS: INR 1.56
[2023-02-03 07:45] LABS: CK-MB VALUE MASS 1.6 NG/ML (<3.6)
[2023-02-03 07:47] LABS: CALCIUM LEVEL 8.3 MG/DL (8.5-10.1); CREATININE FOR GFR 1.26 MG/DL (0.55-1.30); GLOMERULAR FILTRATION RATE 47.9 (>51); MB/CK RELATIVE INDEX 3.33 (< OR =4); POTASSIUM SERUM 3.4 MMOL/L (3.5-5.1)
[2023-02-03 08:00] VITALS: BP 120/58
[2023-02-03] MEDS ORDERED: DIGOXIN INJ 0.5 MG/2 ML AMP IV ONE ×2 (08:25→11:00)
[2023-02-03 08:48] LABS: CK-MB VALUE MASS 1.5 NG/ML (<3.6)
[2023-02-03 08:50] LABS: MB/CK RELATIVE INDEX 3.12 (< OR =4)
[2023-02-03] MEDS ORDERED: NS 500 ML IV ONE (10:00)
[2023-02-03] MEDS ORDERED: DIGO0.123 PO (14:12)
[2023-02-03] MEDS ORDERED: DIGOXIN 0.125 MG TAB PO ONE (14:15)
[2023-02-03 14:30] VITALS: BP 141/63
== END 2023-02-03 14:51 | disposition home or self-care (01) ==
LOC: M ED 06:44
DX: I48.91 Unspecified atrial fibrillation (principal); Z88.8 Allergy status to other drugs, medicaments and biological substances; Z88.2 Allergy status to sulfonamides; Z88.1 Allergy status to other antibiotic agents; Z91.011 Allergy to milk products; Z91.012 Allergy to eggs; Z79.51 Long term (current) use of inhaled steroids; Z79.01 Long term (current) use of anticoagulants; Z79.899 Other long term (current) drug therapy
CPT/HCPCS: 71045; 80048; 82550; 82553; 83880; 85025; 85610; 93005; 93041; 94760; 96374; 96375; 96376; 99285; J1160

== ENCOUNTER → 2023-03-04 | Outpatient (REF) | payer OTHER ==
[~2023-03-04] MED LIST changes: +DIGO0.123 PO
[2023-03-04 14:06] LABS: HEMATOCRIT 41.2 % (36.0-47.0); HEMOGLOBIN 13.6 g/dl (12.0-15.5); MEAN CORPUSCULAR HEMOGLOBIN 28.7 pg (27.0-33.0); MEAN CORPUSCULAR VOLUME 86.9 fl (80.0-96.0); PLATELET COUNT, AUTOMATED 299 10^3/uL (150-450); RED BLOOD COUNT 4.74 10^6/uL (4.00-5.40); WHITE BLOOD COUNT 11.4 10^3/uL (4.0-10.0)
[2023-03-04 14:42] LABS: ALBUMIN 4.2 G/DL (3.2-5.2); CHOLESTEROL RISK RATIO 2.98 (<5); CREATININE FOR GFR 1.2 MG/DL (0.55-1.30); FREE T4 1.29 NG/DL (0.89-1.76); GLOMERULAR FILTRATION RATE 50.4 (>51); HDL CHOLESTEROL 34.5 MG/DL (>40); LDL CHOLESTEROL 43.7 MG/DL (<100); MAGNESIUM LEVEL 1.9 MG/DL (1.8-2.4); NON-HDL-C 68.5 MG/DL; POTASSIUM SERUM 3.3 MMOL/L (3.5-5.1); THYROID STIMULATING HORMONE 1.482 uIU/ML (0.55-4.78); TOTAL PROTEIN 6.8 G/DL (5.7-8.2)
== END ==
LOC: M SFHCADAM 08:59
PROVIDERS: ATTEND Family Medicine
DX: I50.30 Unspecified diastolic (congestive) heart failure (principal); I48.0 Paroxysmal atrial fibrillation; E03.9 Hypothyroidism, unspecified; E78.5 Hyperlipidemia, unspecified

== ENCOUNTER 2023-04-13 06:05 | Day surgery (SDC) | payer OTHER ==
[~2023-04-13] VITALS: Ht 149.9 cm; Wt 77.3 kg
[~2023-04-13 06:05] MED LIST changes: +AIMO70IN2 SC; +ALPH0.156 OU; +AMIO200T49 PO; +ATOR40TA75 PO; +BIMA01SOL OU; +CLON1TAB8 PO; +FURO20TA2 PO; +GAS-62.5 PO; +HYDR-643 PO; +LEVA0.6322; +LEVA45AE; +NYST1POW9; +SYMB16INH INH; +XIID5DRO OU
[2023-04-13] MEDS ORDERED: LR 1,000 ML IV SCH (06:20)
[2023-04-13] MEDS ORDERED: PHENYLephrine 500MCG 5ML (100MCG/ML) SYRINGE As Ordered ONE (07:53)
[2023-04-13] MEDS ORDERED: LIDOCAINE 2% 100MG/5ML SDV (FOR ANES.) As Ordered ONE (07:53)
[2023-04-13] MEDS ORDERED: propofoL 200 MG/20 ML VIAL As Ordered ONE (07:53)
[2023-04-13 08:36] VITALS: BP 113/59; TEMP 97.3; O2SAT 97
== END 2023-04-13 09:00 | disposition home or self-care (01) ==
LOC: M SDC 06:05
PROVIDERS: ATTEND Internal Medicine Cardiovascular Disease
DX: I48.91 Unspecified atrial fibrillation (principal); I48.92 Unspecified atrial flutter; I11.0 Hypertensive heart disease with heart failure; E03.9 Hypothyroidism, unspecified; I50.9 Heart failure, unspecified; K58.1 Irritable bowel syndrome with constipation; K76.0 Fatty (change of) liver, not elsewhere classified; M19.90 Unspecified osteoarthritis, unspecified site; M54.30 Sciatica, unspecified side; M51.9 Unspecified thoracic, thoracolumbar and lumbosacral intervertebral disc disorder; Z87.891 Personal history of nicotine dependence; J30.2 Other seasonal allergic rhinitis; Z88.1 Allergy status to other antibiotic agents; Z88.8 Allergy status to other drugs, medicaments and biological substances; Z91.011 Allergy to milk products; Z88.2 Allergy status to sulfonamides; Z91.048 Other nonmedicinal substance allergy status; Z79.899 Other long term (current) drug therapy; Z79.01 Long term (current) use of anticoagulants; Z79.890 Hormone replacement therapy; Z79.51 Long term (current) use of inhaled steroids
CPT/HCPCS: 92960; 93005; J2371

== ENCOUNTER → 2023-06-18 | Outpatient (CLI) | payer OTHER ==
[~2023-06-18] MED LIST changes: +LORA-1041 PO; -LORA-674 PO
[2023-06-18 15:03] LABS: HEMATOCRIT 45.2 % (36.0-47.0); HEMOGLOBIN 14.8 g/dl (12.0-15.5); MEAN CORPUSCULAR HEMOGLOBIN 28.8 pg (27.0-33.0); MEAN CORPUSCULAR HGB CONC 32.7 g/dl (32.0-36.5); MEAN CORPUSCULAR VOLUME 87.9 fl (80.0-96.0); PLATELET COUNT, AUTOMATED 332 10^3/uL (150-450); RED BLOOD COUNT 5.14 10^6/uL (4.00-5.40); WHITE BLOOD COUNT 10.8 10^3/uL (4.0-10.0)
[2023-06-18 15:31] LABS: THYROID STIMULATING HORMONE 3.767 uIU/ML (0.55-4.78)
[2023-06-18 15:33] LABS: ALBUMIN 4.1 G/DL (3.2-5.2); BILIRUBIN,TOTAL 1.4 MG/DL (0.3-1.2); CHOLESTEROL RISK RATIO 3.1 (<5); CREATININE FOR GFR 1.48 MG/DL (0.55-1.30); FREE T4 1.41 NG/DL (0.89-1.76); GLOMERULAR FILTRATION RATE 39.6 (>51); HDL CHOLESTEROL 48.6 MG/DL (>40); LDL CHOLESTEROL 60.2 MG/DL (<100); MAGNESIUM LEVEL 1.8 MG/DL (1.8-2.4); NON-HDL-C 102.4 MG/DL; POTASSIUM SERUM 3.6 MMOL/L (3.5-5.1); TOTAL PROTEIN 7.4 G/DL (5.7-8.2)
== END ==
LOC: M PLALAB 10:53
PROVIDERS: ATTEND Family Medicine
DX: E03.9 Hypothyroidism, unspecified (principal); I50.30 Unspecified diastolic (congestive) heart failure; E78.5 Hyperlipidemia, unspecified; I48.0 Paroxysmal atrial fibrillation

== ENCOUNTER → 2023-07-26 | Outpatient (CLI) | payer OTHER ==
[2023-07-27 01:26] LABS: CALCIUM LEVEL 9.6 MG/DL (8.5-10.1); CREATININE FOR GFR 1.38 MG/DL (0.55-1.30); GLOMERULAR FILTRATION RATE 42.9 (>51); POTASSIUM SERUM 3.3 MMOL/L (3.5-5.1)
== END ==
LOC: M LAB 11:58
PROVIDERS: ATTEND Internal Medicine Cardiovascular Disease
DX: I48.0 Paroxysmal atrial fibrillation (principal)

== ENCOUNTER 2023-08-08 13:22 | Emergency (ER) | payer OTHER ==
[~2023-08-08] VITALS: Ht 149.9 cm; Wt 82.4 kg
[2023-08-08 13:23] VITALS: TEMP 97.4
[2023-08-08 13:53] LABS: BASO # 0.1 10^3/uL (0.0-0.2); BASO % 0.5 % (0.0-1.0); EOS # 0.3 10^3/uL (0.0-0.5); EOS % 2.2 % (0.0-3.0); HEMATOCRIT 37.6 % (36.0-47.0); HEMOGLOBIN 12.6 g/dl (12.0-15.5); LYMPH # 2.4 10^3/uL (1.5-5.0); LYMPH % 19.7 % (24.0-44.0); MEAN CORPUSCULAR HEMOGLOBIN 30.7 pg (27.0-33.0); MEAN CORPUSCULAR HGB CONC 33.5 g/dl (32.0-36.5); MEAN CORPUSCULAR VOLUME 91.7 fl (80.0-96.0); MONO # 0.7 10^3/uL (0.0-0.8); MONO % 5.8 % (2.0-8.0); NEUTROPHILS # 8.7 10^3/uL (1.5-8.5); NEUTROPHILS % 71.4 % (36.0-66.0); PLATELET COUNT, AUTOMATED 255 10^3/uL (150-450); WHITE BLOOD COUNT 12.2 10^3/uL (4.0-10.0)
[2023-08-08 14:04] LABS: INR 1.24; PROTHROMBIN TIME 15.3 SECONDS (12.5-14.5)
[2023-08-08 14:05] LABS: PARTIAL THROMBOPLASTIN TIME 27.2 SECONDS (24.8-34.2)
[2023-08-08 14:27] LABS: CK-MB VALUE MASS 1.8 NG/ML (<3.6)
[2023-08-08 14:27] LABS: RSV AMPLIFICATION NEGATIVE (NEGATIVE)
[2023-08-08 14:30] LABS: ALBUMIN 3.7 G/DL (3.2-5.2); BILIRUBIN,DIRECT 0.3 MG/DL (<0.4); BILIRUBIN,TOTAL 0.8 MG/DL (0.3-1.2); CREATININE FOR GFR 1.22 MG/DL (0.55-1.30); GLOMERULAR FILTRATION RATE 49.5 (>51); POTASSIUM SERUM 3.2 MMOL/L (3.5-5.1); TOTAL PROTEIN 6.6 G/DL (5.7-8.2)
[2023-08-08 14:31] LABS: FREE T4 1.6 NG/DL (0.89-1.76); THYROID STIMULATING HORMONE 1.469 uIU/ML (0.55-4.78)
[2023-08-08 14:34] LABS: MB/CK RELATIVE INDEX 2.11 (< OR =4)
[2023-08-08] MEDS ORDERED: POTASSIUM CHLORIDE 10MEQ SR TABLET PO ONE (14:40)
[2023-08-08] MEDS ORDERED: ISOVUE-370 76% 100ML VIAL As Ordered ONE (14:57)
[2023-08-08] MEDS ORDERED: ACETAMINOPHEN *IV* 1,000 MG in IV 1 EA IV ONE (15:10)
[2023-08-08 15:30] LABS: C REACTIVE PROTEIN QUANTITATIV 0.4 MG/DL (<1.0); CK-MB VALUE MASS 2.2 NG/ML (<3.6)
[2023-08-08 15:41] LABS: MB/CK RELATIVE INDEX 2.68 (< OR =4)
[2023-08-08] MEDS ORDERED: KETOROLAC 30 MG/ML 1ML VIAL IV ONE (17:00)
[2023-08-08] MEDS ORDERED: MUCI1TAB16 PO (17:25)
[2023-08-08] MEDS ORDERED: KETO10TAB PO (18:27)
[2023-08-08 18:30] VITALS: BP 107/64; O2SAT 97
[2023-08-08] MEDS ORDERED: KETOROLAC TROMETHAMINE 10 MG TAB PO PRN (18:45)
== END 2023-08-08 19:20 | disposition home or self-care (01) ==
LOC: M ED 13:22
DX: I30.9 Acute pericarditis, unspecified (principal); J98.11 Atelectasis; I48.91 Unspecified atrial fibrillation; I50.9 Heart failure, unspecified; I10 Essential (primary) hypertension; E78.5 Hyperlipidemia, unspecified; N18.9 Chronic kidney disease, unspecified; Z87.891 Personal history of nicotine dependence; Z82.49 Family history of ischemic heart disease and other diseases of the circulatory system; Z79.01 Long term (current) use of anticoagulants; Z79.899 Other long term (current) drug therapy; Z88.8 Allergy status to other drugs, medicaments and biological substances; Z88.1 Allergy status to other antibiotic agents; Z88.2 Allergy status to sulfonamides; Z91.89 Other specified personal risk factors, not elsewhere classified; Z91.018 Allergy to other foods
CPT/HCPCS: 71045; 71275; 80048; 80076; 82550; 82553; 83690; 83880; 84439; 84443; 85025; 85610; 85652; 85730; 86140; 87631; 93005; 93041; 93306; 94760; 96374; 99285; J1885; Q9967

== ENCOUNTER → 2023-08-17 | Outpatient (REF) | payer OTHER ==
[~2023-08-17] MED LIST changes: +KETO10TAB PO; +MUCI1TAB16 PO
[2023-08-17 14:38] LABS: C REACTIVE PROTEIN QUANTITATIV 0.7 MG/DL (<1.0)
[2023-08-17 14:40] LABS: CALCIUM LEVEL 8.9 MG/DL (8.5-10.1); CREATININE FOR GFR 1.24 MG/DL (0.55-1.30); GLOMERULAR FILTRATION RATE 48.5 (>51); MAGNESIUM LEVEL 2.3 MG/DL (1.8-2.4)
== END ==
LOC: M SFHCADAM 10:31
PROVIDERS: ATTEND Family Medicine
DX: I50.30 Unspecified diastolic (congestive) heart failure (principal); E87.6 Hypokalemia; I31.9 Disease of pericardium, unspecified

== ENCOUNTER → 2023-11-11 | Outpatient (CLI) | payer OTHER ==
[~2023-11-11] MED LIST changes: +OPTI0.5D2 OU; -OPTI0.5D5 OU
== END ==
LOC: M CARPUL 11-04 08:44
PROVIDERS: ATTEND Nurse Practitioner Adult Health
DX: J45.40 Moderate persistent asthma, uncomplicated (principal)

== ENCOUNTER → 2023-11-23 | Outpatient (CLI) | payer OTHER ==
[2023-11-23 11:29] LABS: HEMOGLOBIN 14.3 g/dl (12.0-15.5); MEAN CORPUSCULAR HEMOGLOBIN 29.9 pg (27.0-33.0); MEAN CORPUSCULAR HGB CONC 33.3 g/dl (32.0-36.5); PLATELET COUNT, AUTOMATED 304 10^3/uL (150-450); RED BLOOD COUNT 4.78 10^6/uL (4.00-5.40); WHITE BLOOD COUNT 9.7 10^3/uL (4.0-10.0)
[2023-11-23 11:54] LABS: CALCIUM LEVEL 9.2 MG/DL (8.5-10.1); CREATININE FOR GFR 1.32 MG/DL (0.55-1.30); GLOMERULAR FILTRATION RATE 45.2 (>51); POTASSIUM SERUM 3.7 MMOL/L (3.5-5.1); TOTAL PROTEIN 7.2 G/DL (5.7-8.2)
[2023-11-23 11:57] LABS: THYROID STIMULATING HORMONE 7.97 uIU/ML (0.55-4.78)
== END ==
LOC: M LAB 10:44
PROVIDERS: ATTEND Internal Medicine Cardiovascular Disease
DX: I50.42 Chronic combined systolic (congestive) and diastolic (congestive) heart failure (principal); E03.9 Hypothyroidism, unspecified

== ENCOUNTER → 2023-12-17 | Outpatient (REF) | payer OTHER ==
[2023-12-17 13:32] LABS: ALBUMIN 3.8 G/DL (3.2-5.2); CALCIUM LEVEL 8.4 MG/DL (8.5-10.1); CHOLESTEROL RISK RATIO 2.75 (<5); CREATININE FOR GFR 1.18 MG/DL (0.55-1.30); GLOMERULAR FILTRATION RATE 51.4 (>51); HDL CHOLESTEROL 44.3 MG/DL (>40); LDL CHOLESTEROL 49.3 MG/DL (<100); MAGNESIUM LEVEL 2.2 MG/DL (1.8-2.4); NON-HDL-C 77.7 MG/DL; PERCENT SATURATION 11.5 % (13.2-45.0); POTASSIUM SERUM 3.8 MMOL/L (3.5-5.1); TOTAL PROTEIN 6.7 G/DL (5.7-8.2)
[2023-12-17 13:33] LABS: FREE T4 1.36 NG/DL (0.89-1.76)
[2023-12-17 13:34] LABS: FERRITIN 24.5 NG/ML (7.3-270.7); THYROID STIMULATING HORMONE 2.29 uIU/ML (0.55-4.78)
[2023-12-17 13:53] LABS: HEMOGLOBIN A1c 5.7 % (4.0-6.0)
== END ==
LOC: M SFHCADAM 09:17
PROVIDERS: ATTEND Family Medicine
DX: D50.9 Iron deficiency anemia, unspecified (principal); I50.20 Unspecified systolic (congestive) heart failure; E03.9 Hypothyroidism, unspecified; E78.5 Hyperlipidemia, unspecified; Z13.1 Encounter for screening for diabetes mellitus

== ENCOUNTER → 2023-12-30 | Outpatient (CLI) | payer OTHER | LOC: M PLAIMG 07:29 | PROVIDERS: ATTEND Family Medicine | DX: I42.1 Obstructive hypertrophic cardiomyopathy (principal); R00.1 Bradycardia, unspecified; I44.2 Atrioventricular block, complete; I44.7 Left bundle-branch block, unspecified; I31.39 Other pericardial effusion (noninflammatory) ==

== ENCOUNTER 2024-02-17 05:06 | Emergency (ER) | payer OTHER ==
[2024-02-17 05:13] VITALS: TEMP 98.4
[2024-02-17 05:58] VITALS: O2SAT 96
[2024-02-17 06:01] VITALS: BP 103/56
[2024-02-17] MEDS ORDERED: AMOX875T2 PO (06:21)
[2024-02-17] MEDS: DERMABOND TOPICAL SKIN ADHESIVE TOP ONE (06:25)
[2024-02-17] MEDS: AUGMENTIN 875 MG TAB PO ONE (06:25)
[2024-02-17] MEDS: BOOSTRIX VACCINE (TETANUS/DIPHTH/ACEL. PERTUSSIS) 0.5ML SYR IM.IMMUN ONE (06:26)
== END 2024-02-17 07:06 | disposition home or self-care (01) ==
LOC: M ED 05:06
DX: S61.012A Laceration without foreign body of left thumb without damage to nail, initial encounter (principal); Y92.019 Unspecified place in single-family (private) house as the place of occurrence of the external cause; Y93.9 Activity, unspecified; Y99.9 Unspecified external cause status; W26.0XXA Contact with knife, initial encounter; I48.91 Unspecified atrial fibrillation; F41.9 Anxiety disorder, unspecified; Z88.2 Allergy status to sulfonamides; Z88.1 Allergy status to other antibiotic agents; Z88.8 Allergy status to other drugs, medicaments and biological substances; Z91.09 Other allergy status, other than to drugs and biological substances; Z91.048 Other nonmedicinal substance allergy status; Z79.2 Long term (current) use of antibiotics; Z79.899 Other long term (current) drug therapy; Z23 Encounter for immunization

== ENCOUNTER 2024-06-10 18:37 | Emergency (ER) | payer OTHER ==
[~2024-06-10] VITALS: Ht 149.9 cm; Wt 81.8 kg
[~2024-06-10 18:37] MED LIST changes: +ONDA-282 PO; -ONDA4TAB6 PO
[2024-06-10 20:51] VITALS: BP 109/55; TEMP 97.6; O2SAT 97
[2024-06-10] MEDS: traMADol 50 MG TAB (HOME DOSE PACK) PO ONE (21:01)
== END 2024-06-10 21:08 | disposition home or self-care (01) ==
LOC: M ED 18:37
DX: S50.12XA Contusion of left forearm, initial encounter (principal); Y92.9 Unspecified place or not applicable; Y93.9 Activity, unspecified; Y99.9 Unspecified external cause status; Z88.8 Allergy status to other drugs, medicaments and biological substances; Z88.2 Allergy status to sulfonamides; Z91.09 Other allergy status, other than to drugs and biological substances; Z91.048 Other nonmedicinal substance allergy status; Z79.2 Long term (current) use of antibiotics; Z79.01 Long term (current) use of anticoagulants; Z79.899 Other long term (current) drug therapy

== ENCOUNTER → 2024-06-16 | Outpatient (CLI) | payer OTHER | LOC: M ADAMS 10:30 | PROVIDERS: ATTEND Family Medicine | DX: M25.532 Pain in left wrist (principal) ==

== ENCOUNTER → 2024-06-16 | Outpatient (REF) | payer OTHER ==
[2024-06-16 14:38] LABS: HEMATOCRIT 40.6 % (36.0-47.0); HEMOGLOBIN 13.1 g/dl (12.0-15.5); MEAN CORPUSCULAR HEMOGLOBIN 29.2 pg (27.0-33.0); MEAN CORPUSCULAR HGB CONC 32.3 g/dl (32.0-36.5); MEAN CORPUSCULAR VOLUME 90.6 fl (80.0-96.0); PLATELET COUNT, AUTOMATED 259 10^3/uL (150-450); RED BLOOD COUNT 4.48 10^6/uL (4.00-5.40); WHITE BLOOD COUNT 8.3 10^3/uL (4.0-10.0)
[2024-06-16 15:16] LABS: ALBUMIN 3.9 G/DL (3.2-5.2); BILIRUBIN,TOTAL 0.9 MG/DL (0.3-1.2); CALCIUM LEVEL 8.8 MG/DL (8.5-10.1); CHOLESTEROL RISK RATIO 3.09 (<5); CREATININE FOR GFR 1.05 MG/DL (0.55-1.30); GLOMERULAR FILTRATION RATE 58.6 (>51); HDL CHOLESTEROL 45.6 MG/DL (>40); LDL CHOLESTEROL 66.2 MG/DL (<100); NON-HDL-C 95.4 MG/DL; PERCENT SATURATION 11.2 % (13.2-45.0); POTASSIUM SERUM 3.4 MMOL/L (3.5-5.1)
[2024-06-16 15:17] LABS: FERRITIN 20.1 NG/ML (7.3-270.7); THYROID STIMULATING HORMONE 1.538 uIU/ML (0.55-4.78)
[2024-06-16 15:18] LABS: FREE T4 1.3 NG/DL (0.89-1.76)
== END ==
LOC: M SFHCADAM 10:06
PROVIDERS: ATTEND Family Medicine
DX: K58.0 Irritable bowel syndrome with diarrhea (principal); F32.9 Major depressive disorder, single episode, unspecified; I48.0 Paroxysmal atrial fibrillation; E78.5 Hyperlipidemia, unspecified; I50.20 Unspecified systolic (congestive) heart failure; D50.9 Iron deficiency anemia, unspecified

== ENCOUNTER → 2024-09-05 | Outpatient (REF) | payer OTHER ==
[~2024-09-05] MED LIST changes: -LEVA0.6322; +LEVA0.6330; -LEVA1.2519; +LEVA1.2526; +LEVA15HF2 INH; -LEVAINH INH; +NYST1POW3; -NYST1POW9
== END ==
LOC: M LAB REF 21:48
PROVIDERS: ATTEND Physician Assistant Medical
DX: B34.9 Viral infection, unspecified (principal)

== ENCOUNTER → 2024-11-24 | Outpatient (CLI) | payer OTHER ==
[~2024-11-24] MED LIST changes: -ADV500INH INH; +ADVA1AER10 INH
== END ==
LOC: M SLEEP 20:00
PROVIDERS: ATTEND Nurse Practitioner Adult Health
DX: G47.33 Obstructive sleep apnea (adult) (pediatric) (principal)

== ENCOUNTER → 2025-01-19 | Outpatient (CLI) | payer OTHER | LOC: M WHC 08:37 | PROVIDERS: ATTEND Family Medicine | DX: R92.8 Other abnormal and inconclusive findings on diagnostic imaging of breast (principal); R92.323 Mammographic fibroglandular density, bilateral breasts ==

== ENCOUNTER → 2025-04-25 | Outpatient (CLI) | payer OTHER ==
[~2025-04-25] MED LIST changes: -AMIO200T49 PO; +AMIO200T54 PO; +BACI500O8 TOP; -BRIM1OPD; -BRIM1OPD OU; +BRIM5DRO25; +BRIM5DRO25 OU; +LIFI1DRO4 OU; -XIID5DRO OU
== END ==
LOC: M WHC 12:44
PROVIDERS: ATTEND Physician Assistant
DX: N60.01 Solitary cyst of right breast (principal)

== ENCOUNTER 2025-05-26 12:56 | Emergency (ER) | payer OTHER ==
[~2025-05-26] VITALS: Ht 149.9 cm; Wt 75.5 kg
[2025-05-26 14:00] LABS: BASO # 0.1 10^3/uL (0.0-0.2); BASO % 0.7 % (0.0-1.0); EOS # 0.3 10^3/uL (0.0-0.5); EOS % 3.3 % (0.0-3.0); LYMPH # 2.9 10^3/uL (1.5-5.0); LYMPH % 29.7 % (24.0-44.0); MONO # 0.7 10^3/uL (0.0-0.8); MONO % 6.6 % (2.0-8.0); NEUTROPHILS # 5.8 10^3/uL (1.5-8.5); NEUTROPHILS % 59.4 % (36.0-66.0); PLATELET COUNT, AUTOMATED 279 10^3/uL (150-450)
[2025-05-26 14:30] LABS: CPK CREATINE PHOSPHOKINASE 56.0 U/L (34-145)
[2025-05-26 14:42] LABS: ALT/SGPT 27.0 U/L (7.0-40); AST/SGOT 31.0 U/L (<34); CALCIUM LEVEL 8.4 MG/DL (8.5-10.1); CARBON DIOXIDE LEVEL 28.0 MMOL/L (20-31); CHLORIDE LEVEL 104.0 MMOL/L (98-107); CK-MB VALUE MASS 2.9 NG/ML (<3.6); CREATININE FOR GFR 1.0 MG/DL (0.55-1.30); GLOMERULAR FILTRATION RATE 67.4 (>51); MAGNESIUM LEVEL 2.0 MG/DL (1.8-2.4); MB/CK RELATIVE INDEX 5.17 (< OR =4); POTASSIUM SERUM 3.2 MMOL/L (3.5-5.1); SODIUM LEVEL 143.0 MMOL/L (136-145)
[2025-05-26 14:44] LABS: FREE T4 1.16 NG/DL (0.89-1.76)
[2025-05-26] MEDS ORDERED: ISOVUE-370 76% 100 ML VIAL As Ordered ONE (14:58)
[2025-05-26 15:38] LABS: CK-MB VALUE MASS 3.0 NG/ML (<3.6)
[2025-05-26 15:41] LABS: CPK CREATINE PHOSPHOKINASE 57.0 U/L (34-145); MB/CK RELATIVE INDEX 5.26 (< OR =4)
[2025-05-26] MEDS: NS 500 ML IV ONE (15:45)
[2025-05-26 17:42] LABS: CK-MB VALUE MASS 3.7 NG/ML (<3.6)
[2025-05-26 17:43] LABS: CPK CREATINE PHOSPHOKINASE 54.0 U/L (34-145); MB/CK RELATIVE INDEX 6.85 (< OR =4)
[2025-05-26] MEDS: ASPIRIN 81 MG CHEWABLE TABLET PO ONE (18:06)
[2025-05-26 19:37] VITALS: BP 100/52; TEMP 97; O2SAT 96
== END 2025-05-26 19:29 | disposition short-term general hospital (02) ==
LOC: M ED 12:56 → EDBD 12:56 → M ED 19:29
DX: I21.4 Non-ST elevation (NSTEMI) myocardial infarction (principal); I51.7 Cardiomegaly; R91.8 Other nonspecific abnormal finding of lung field; I48.91 Unspecified atrial fibrillation; I50.9 Heart failure, unspecified; K21.9 Gastro-esophageal reflux disease without esophagitis; J44.9 Chronic obstructive pulmonary disease, unspecified; E03.9 Hypothyroidism, unspecified; I44.7 Left bundle-branch block, unspecified; J30.89 Other allergic rhinitis; Z79.01 Long term (current) use of anticoagulants; Z79.899 Other long term (current) drug therapy; Z88.8 Allergy status to other drugs, medicaments and biological substances; Z88.2 Allergy status to sulfonamides; Z88.1 Allergy status to other antibiotic agents; Z91.89 Other specified personal risk factors, not elsewhere classified
CPT/HCPCS: 71045; 71275; 80048; 80076; 82550; 82553; 83690; 83735; 83880; 84439; 84443; 84484; 85025; 85730; 93005; 93041; 94760; 99285; Q9967

== ENCOUNTER → 2025-08-13 | Outpatient (REF) | payer OTHER ==
[~2025-08-13] MED LIST changes: -DIPH50CA PO; +DIPH50CA31 PO
== END ==
LOC: M LAB REF 11:49
PROVIDERS: ATTEND Physician Assistant
DX: B34.9 Viral infection, unspecified (principal)

== ENCOUNTER 2025-09-06 10:23 | Emergency (ER) | payer OTHER ==
[~2025-09-06] VITALS: Ht 149.9 cm; Wt 77.4 kg
[2025-09-06] MEDS ORDERED: LEVO1TAB39 PO (12:40)
[2025-09-06 12:45] VITALS: BP 103/73; TEMP 96.4; O2SAT 99
== END 2025-09-06 12:47 | disposition home or self-care (01) ==
LOC: M ED 10:23
DX: J06.9 Acute upper respiratory infection, unspecified (principal); I10 Essential (primary) hypertension; J44.9 Chronic obstructive pulmonary disease, unspecified; Z88.2 Allergy status to sulfonamides; Z88.8 Allergy status to other drugs, medicaments and biological substances; Z91.0110 Allergy to milk products, unspecified; Z91.09 Other allergy status, other than to drugs and biological substances; Z79.1 Long term (current) use of non-steroidal anti-inflammatories (NSAID); Z79.01 Long term (current) use of anticoagulants; Z79.899 Other long term (current) drug therapy